=== PATIENT | male | born 1955 | race Caucasian/White ===

== ENCOUNTER 2016-04-27 13:41 | Emergency (ER) | payer OTHER ==
[~2016-04-27] VITALS: Ht 188 cm; Wt 120.7 kg
[~2016-04-27 13:41] MED LIST: ACID1TAB12 GT; ALLA266C2 TP; APIX2.5T GT; COLI150V NEB; DOCU50LI GT; GABA-532 GT; LACT1CAP72 GT; METO25TA6 GT; QUET25TA GT; RXVAN XX; TRAM50TA2 GT; VANC125C11 PO; ZOLP5TAB2 GT
[2016-04-27] MEDS ORDERED: IV NS 0.9% 500 ML BAG IV ONE (14:00)
[2016-04-27 14:05] LABS: BASOPHILS # (AUTO) 0.1 /CMM (0.0-0.2); BASOPHILS % (AUTO) 0.9 % (0.0-2.0); DIFF TOTAL % 100 %; EOSINOPHILS # (AUTO) 0.4 /CMM (0.0-0.7); EOSINOPHILS % (AUTO) 3.8 % (0.0-6.0); HEMATOCRIT 34 % (39-51); HEMOGLOBIN 11.3 g/dL (13.5-17.5); LYMPHOCYTES # (AUTO) 2.4 /CMM (0.8-4.8); LYMPHOCYTES % (AUTO) 24.1 % (20.0-44.0); MEAN CORPUSCULAR HEMOGLOBIN 31 PG (26.0-33.0); MEAN CORPUSCULAR HGB CONC 33 g/dl (31.0-36.0); MEAN CORPUSCULAR VOLUME 92 fL (80-96); MONOCYTES # (AUTO) 1.2 /CMM (0.1-1.30); MONOCYTES % (AUTO) 12.2 % (2.0-12.0); NEUTROPHILS # (AUTO) 5.7 /CMM (1.8-8.9); PLATELET COUNT (AUTO) 140 /CMM (150-450); RED BLOOD CELL COUNT(AUTO) 3.69 MIL/uL (4.5-6.0); WHITE BLOOD COUNT (AUTO) 9.8 K/uL (4.3-11.0)
[2016-04-27 14:13] LABS: CALCIUM, SERUM 8.4 mg/dL (8.5-10.1); CREATININE 5.3 mg/dL (0.6-1.3); POTASSIUM 4.6 mmol/L (3.5-5.1)
[2016-04-27] MEDS ORDERED: IV SET PRIMARY 1 EA INFUS.SET MC ONE (14:15)
[2016-04-27] MEDS ORDERED: IV NS 0.9% 500 ML IV ONE (14:15)
[2016-04-27 14:21] LABS: TROPONIN I 0.025 ng/mL (0.00-0.056)
[2016-04-27 16:02] VITALS: BP 123/75
== END 2016-04-27 16:03 | disposition home or self-care (01) ==
LOC: ER 13:44
DX: I95.9 Hypotension, unspecified (principal); I12.0 Hypertensive chronic kidney disease with stage 5 chronic kidney disease or end stage renal disease; N18.6 End stage renal disease; I25.10 Atherosclerotic heart disease of native coronary artery without angina pectoris; I48.91 Unspecified atrial fibrillation; J96.90 Respiratory failure, unspecified, unspecified whether with hypoxia or hypercapnia; E11.621 Type 2 diabetes mellitus with foot ulcer; M19.90 Unspecified osteoarthritis, unspecified site; E78.5 Hyperlipidemia, unspecified; E66.01 Morbid (severe) obesity due to excess calories; Z89.511 Acquired absence of right leg below knee; Z79.01 Long term (current) use of anticoagulants; Z99.2 Dependence on renal dialysis
CPT/HCPCS: 36415; 70450-TC; 71010-TC; 80048-TC; 82962-TC; 84484-TC; 85025-TC; A4606; J7040; Z7610

== ENCOUNTER 2016-05-04 17:24 | Inpatient (IN) | payer BC, OTHER ==
[~2016-05-04] VITALS: Ht 188 cm; Wt 115.2 kg
--- NOTE | 2016-05-04 17:30 | NUR ---
AAOX3, BB PRIVATE EMS FROM [facility]IALYS[facility] CENTER FOR RIGHT SIDED CHEST PAIN SINCE YESTERDAY POST HD, FROM [facility]. RESP IS EVEN AND UNLABORED WITH NAD NOTED. SKIN IS WARM AND DRY. PLACED ON MONITOR. DR SIMPSON AT BS FOR EVAL.
[2016-05-04 17:57] LABS: BASOPHILS # (AUTO) 0.1 /CMM (0.0-0.2); EOSINOPHILS # (AUTO) 0.3 /CMM (0.0-0.7); EOSINOPHILS % (AUTO) 3.6 % (0.0-6.0); HEMATOCRIT 33 % (39-51); HEMOGLOBIN 10.9 g/dL (13.5-17.5); LYMPHOCYTES # (AUTO) 1.7 /CMM (0.8-4.8); LYMPHOCYTES % (AUTO) 21.5 % (20.0-44.0); MEAN CORPUSCULAR HEMOGLOBIN 30 PG (26.0-33.0); MEAN CORPUSCULAR HGB CONC 33 g/dl (31.0-36.0); MEAN CORPUSCULAR VOLUME 92 fL (80-96); MONOCYTES # (AUTO) 1.2 /CMM (0.1-1.30); MONOCYTES % (AUTO) 15.1 % (2.0-12.0); NEUTROPHILS # (AUTO) 4.7 /CMM (1.8-8.9); NEUTROPHILS % (AUTO) 58.8 % (43.0-81.0); PLATELET COUNT (AUTO) 191 /CMM (150-450); RDW COEFFICIENT OF VARIATION 16.5 (11.5-15.0); RED BLOOD CELL COUNT(AUTO) 3.63 MIL/uL (4.5-6.0)
[2016-05-04 18:08] LABS: CALCIUM, SERUM 8.1 mg/dL (8.5-10.1); CREATININE 3.7 mg/dL (0.6-1.3)
[2016-05-04 18:16] LABS: TROPONIN I 0.029 ng/mL (0.00-0.056)
[2016-05-04 18:17] LABS: INR 1.02 (0.87-1.13); PROTHROMBIN TIME 10.7 SECS (9.5-12.7)
--- NOTE | 2016-05-04 18:45 | NUR ---
PROVIDED FOOD TRAY AT
[2016-05-04 18:53] LABS: POTASSIUM 3.9 mmol/L (3.5-5.1)
--- NOTE | 2016-05-04 19:05 | NUR ---
REPORT GIVEN TO DI GALLAGHER FOR BINDU.
[2016-05-04] MEDS ORDERED: CHOL500052 GT (19:22)
[2016-05-04] MEDS ORDERED: FOLI0.8T23 PO (19:22)
[2016-05-04] MEDS ORDERED: SEVE800T8 PO (19:22)
[2016-05-04] MEDS ORDERED: ACET160S GT (19:25)
[2016-05-04] MEDS ORDERED: INSU100V SQ (19:31)
[2016-05-04] MEDS ORDERED: AMIN30LI26 GT (19:38)
--- NOTE | 2016-05-04 20:01 | NUR ---
report given to osmany for castro
[2016-05-04 20:05] VITALS: BP 126/64
--- NOTE | 2016-05-04 20:30 | NUR ---
TELE/RN OPENING NOTES PATIENT ARRIVED TO UNIT FROM ER VIA GURNEY. IS AWAKE, A/OX3 BUT EASILY GETS DISTRACTED. ON O2LPM VIA NC, BREATHING EVEN AND UNLABORED, NO SIGNS OF DISTRESS NOTED. NO COMPLAINTS OF PAIN AT THIS TIME. IV TO LEFT HAND #18 PATENT AND INTACT. ORIENTED PATIENT TO ROOM AND CALL LIGHT. BED RAILS UPX3. BED ALARM ON. AWAITING ADMITTING ORDERS AT THIS TIME. WILL CONTINUE TO MONITOR Addendum: 05/04/16 at 2129 by ERIK WILKES RN ON TELE MONITORANKITA WITH HEART RATE AT 104
[2016-05-04] MEDS ORDERED: NITROGLYCERIN 0.4 MG/TAB BOTTLE ONE (22:10)
[2016-05-04] MEDS ORDERED: NITROGLYCERIN 0.4 MG/TAB BOTTLE SL PRN (22:30)
--- NOTE | 2016-05-04 22:30 | NUR ---
TELE/RN NOTES PATIENT COMPLAINING OF CHEST PAIN 12/11. ADMINISTERED NITRO X1 SL. PATIENT NOW COMPLAINING OF INDIGESTION AND PAIN TO BILATERAL KNEES, REQUESTING NORCO. PAGED DR. GOULD, AWAITING ORDERS.
[2016-05-04] MEDS ORDERED: PANTOPRAZOLE 40 MG TABLET.DR PO ONE (22:37)
[2016-05-04] MEDS ORDERED: HYDROCODONE/APAP 5/325MG 1 EACH TABLET ONE (22:38)
[2016-05-04] MEDS ORDERED: ASPIRIN 325 MG TABLET ONE (22:38)
[2016-05-04] MEDS: PANTOPRAZOLE 40 MG TABLET.DR PO SCH (22:41)
[2016-05-04] MEDS: ASPIRIN 325 MG TABLET PO SCH (22:42)
--- NOTE | 2016-05-04 22:45 | NUR ---
TELE/RN NOTES SPOKE TO DR. GOULD, ORDERED NORCO 5/325 PO PRN Q6H (TO GIVE NOW), PROTONIX 40MG PO DAILY (TO GIVE NOW), PEPCID 20MG PO PRN DAILY. WILL CARRY OUT ORDERS ACCORDINGLY.
[2016-05-04] MEDS ORDERED: HYDROCODONE/APAP 5/325MG 1 EACH TABLET PO PRN (23:00)
[2016-05-04] MEDS ORDERED: DEXTROSE 50%-WATER 50 ML DISP.SYRIN IV PRN (23:00)
[2016-05-04] MEDS ORDERED: INSULIN ASPART NOVOLOG 100 UNIT/ML CARTRIDGE SQ PRN (23:00)
[2016-05-04] MEDS ORDERED: QUETIAPINE FUMARATE 25 MG TABLET ONE (23:17)
[2016-05-04] MEDS ORDERED: GABAPENTIN 100 MG CAPSULE ONE (23:18)
[2016-05-04] MEDS: GABAPENTIN 100 MG CAPSULE PO SCH (23:27)
[2016-05-04] MEDS: QUETIAPINE FUMARATE 25 MG TABLET PO SCH (23:27)
[2016-05-05] VITALS: BP 111/61
--- NOTE | 2016-05-05 01:00 | NUR ---
TELE/RN NOTES CHARGE NURSE AND INFORMATICS NURSE AT BEDSIDE. PATIENT WAS VERY AGITATED, INSISTING TO SIT FORWARD ON THE EDGE OF THE BED UNTIL HE INTENTIONALLY KNEELED HIMSELF ON THE FLOOR. HE WAS REQUESTED TO SIT ON THE FLOOR AND 5 STAFF CARRIED AND PUT BACK INTO BED. PATIENT STILL INSISTING TO SIT AT THE SIDE OF THE BED, BUT WAS TOLD NOT TO DO IT BECAUSE IT WAS NOT SAFE FOR HIM AND BECAUSE HE IS A FALL RISK.
--- NOTE | 2016-05-05 01:01 | NUR ---
TELE/RN NOTES PATIENT ALSO REMOVED IV. ICU NURSE CAME UP TO INSERT NEW IV TO THE RIGHT PINKY FINGER. IV WAS WRAPPED WITH KERLIX REINFORCEMENT.
--- NOTE | 2016-05-05 01:30 | NUR ---
TELE/RN NOTES SPOKE TO DR. GOULD ABOUT PATIENT'S INCREASED AGITATION, COMBATIVENESS AND TRYING TO GET OUT OF BED. ORDERED ATIVAN 1MG IV PRN Q4H. ADMINISTERED ACCORDINGLY. ALSO ORDERED 1:1 SITTER. WILL CARRY OUT AND CONTINUE TO MONITOR
[2016-05-05] MEDS ORDERED: LORAZEPAM INJ 2 MG/ML VIAL ONE (01:46)
[2016-05-05 07:00] VITALS: BP 95/64
--- NOTE | 2016-05-05 07:20 | NUR ---
TELE/RN CLOSING NOTES PATIENT ASLEEP, SITTER AT BEDSIDE. REMAINED QUIET AFTER ADMINISTRATION OF ATIVAN. BED ALARM ON, BED RAILS UP. ON 2LPM O2 VIA NC, BUT PATIENT HAS BEEN REMOVING IT AFTER BEING EDUCATED. BREATHING EVEN AND UNLABORED. NO PAIN NOTED. IV TO RIGHT PINKY FINGER PATENT, INTACT AND WRAPPED WITH KERLIX. MADE PATIENT COMFORTABLE POSSIBLE THROUGHOUT SHIFT, NO ACUTE CHANGES OVERNIGHT. BED IN LOW/LOCKED POSITION WITH CALL LIGHT IN REACH. ENDORSED TO AM SHIFT BINDU.
[2016-05-05 07:28] LABS: BASOPHILS % (AUTO) 0.4 % (0.0-2.0); EOSINOPHILS # (AUTO) 0.4 /CMM (0.0-0.7); EOSINOPHILS % (AUTO) 4.7 % (0.0-6.0); HEMATOCRIT 32 % (39-51); HEMOGLOBIN 10.1 g/dL (13.5-17.5); LYMPHOCYTES % (AUTO) 23.4 % (20.0-44.0); MEAN CORPUSCULAR HEMOGLOBIN 30 PG (26.0-33.0); MEAN CORPUSCULAR HGB CONC 32 g/dl (31.0-36.0); MEAN CORPUSCULAR VOLUME 92 fL (80-96); MONOCYTES # (AUTO) 1.3 /CMM (0.1-1.30); MONOCYTES % (AUTO) 15.4 % (2.0-12.0); NEUTROPHILS # (AUTO) 4.8 /CMM (1.8-8.9); NEUTROPHILS % (AUTO) 56.1 % (43.0-81.0); PLATELET COUNT (AUTO) 219 /CMM (150-450); RDW COEFFICIENT OF VARIATION 17.2 (11.5-15.0); RED BLOOD CELL COUNT(AUTO) 3.43 MIL/uL (4.5-6.0); WHITE BLOOD COUNT (AUTO) 8.5 K/uL (4.3-11.0)
[2016-05-05] MEDS: BLOOD SUGAR DIAGNOSTIC 1 EACH STRIP IN SCH ×4 (07:37→21:07)
--- NOTE | 2016-05-05 07:46 | NUR ---
RN AM NOTES PATIENT IN BED ASLEEP, WITH 1:1 SITTER REPORTING THAT PATIENT HAS BEEN RESTING JUST NOW. IN STABLE CONDITION WITH EPISODE X1 LAST NIGHT OF CHEST PAIN, NITRO GIVEN ORDERED. RN PM REPORTS THAT PATIENT DID NOT SLEEP WELL LAST NIGHT AND WAS VERY AGITATED, ATIVAN GIVEN ORDERED. PATIENT IS FALL RISK, WILL CONTINUE TO MONITOR
[2016-05-05 07:54] LABS: TROPONIN I 0.022 ng/mL (0.00-0.056)
[2016-05-05 08:00] VITALS: BP 139/69
[2016-05-05 08:09] LABS: CALCIUM, SERUM 7.9 mg/dL (8.5-10.1); CREATININE 4.6 mg/dL (0.6-1.3); MAGNESIUM 2.1 mg/dL (1.8-2.4); PHOSPHORUS 4.5 mg/dL (2.5-4.9); POTASSIUM 3.8 mmol/L (3.5-5.1)
--- NOTE | 2016-05-05 08:40 | NUR ---
05/05/16: PATIENT RESIDES AT [facility] [phone]; CONFIRMED BED ON HOLD. PATIENT IS TOTAL DEPENDENT WITH TRACH AND PEG. DIALYSIS MWF AT [facility] [phone]. LEFT MESSAGE WITH INGRID PARKER (BROTHER) [phone] FOR D/C PLANNING. NEEDS TRANSPORTATION UPON D/C.
[2016-05-05] MEDS ORDERED: GABAPENTIN 100 MG CAPSULE GT SCH (09:00)
[2016-05-05] MEDS ORDERED: TRAMADOL HCL 50 MG TABLET GT PRN (09:00)
[2016-05-05] MEDS ORDERED: ZOLPIDEM TARTRATE 5 MG TABLET GT PRN (09:00)
[2016-05-05] MEDS: ASPIRIN 325 MG TABLET PO SCH (09:16)
[2016-05-05] MEDS: FAMOTIDINE (20 MG) 20 MG TABLET PO SCH (09:16)
[2016-05-05] MEDS: GABAPENTIN 100 MG CAPSULE PO SCH ×2 (09:16→21:07)
[2016-05-05] MEDS: PANTOPRAZOLE 40 MG TABLET.DR PO SCH (09:16)
[2016-05-05] MEDS: QUETIAPINE FUMARATE 25 MG TABLET PO SCH ×2 (09:17→21:07)
[2016-05-05] MEDS: ACIDOPHILUS/BULGARICUS 1 EACH TAB.CHEW GT SCH ×2 (09:23→17:21)
[2016-05-05] MEDS: METOPROLOL TARTRATE 25 MG TABLET GT SCH ×2 (09:24→17:00)
[2016-05-05 10:17] LABS: EOSINOPHILS % (MANUAL) 5 % (0-4); LYMPHOCYTES % (MANUAL) 22 % (16-48); MONOCYTES % (MANUAL) 16 % (0-11.0); NEUTROPHILS % (MANUAL) 56 (42-76); PLATELET ESTIMATE ADEQUATE; REACTIVE LYMPHOCYTES 1 % (0-0)
[2016-05-05] MEDS: PROSOURCE / PROSTAT (PYXIS) 30 ML UDC GT SCH ×3 (10:48→17:21)
[2016-05-05] MEDS: SEVELAMER CARBONATE 800 MG TABLET PO SCH ×2 (12:48→17:21)
--- NOTE | 2016-05-05 13:00 | NUR ---
MIDLINE INSERTED BY MIDLINE NURSE, NO PAIN OR DISCOMFORT NOTED, PT TOLERATED WELL. WILL MONITOR.
[2016-05-05] MEDS: LORAZEPAM INJ 2 MG/ML VIAL IV PRN ×2 (17:17→21:50)
[2016-05-05 18:00] VITALS: BP 105/65
--- NOTE | 2016-05-05 18:35 | NUR ---
PM RN NOTES PATIENT RESTING COMFORTABLY AFTER DINNER IN STABLE CONDITION. TOLERATED DIET, MEDS AND HEMODIALYSIS WELL, 3000 ML OUTPUT. TAKES PO LIQUIDS ENCOURAGED. BLOOD SUGAR AND BP IN LOWER RANGES. MIDLINE CATHETER IN ALLY PATENT AND DRAINING WELL, WILL ENDORSE TO NEXT SHIFT
--- NOTE | 2016-05-05 19:30 | NUR ---
TOWEL SORTER INITIAL NOTE RECEIVED PT AWAKE AND ALERT, ORIENTED X 2, SITTER AT BED SIDE, PT IS ATTEMPTING TO GET OUT OF BED, REDIRECTED CONTINUOUSLY, PT IS CLEAN/DRY, NEEDS WILL BE ATTENDED TO DURING HOURLY ROUNDS AND NEEDED, TELE MONITOR HR IN THE 120s WITH AFIB MD AWARE, PT IS BEDREST, USING BEDPAN, BILATERAL LEG DISCOLORATION, DRESSING ON TRACH STOMA FOR PREVIOUS TRACH TUBE, SAFETY MEASURES IN PLACE, WILL CONTINUE TO MONITOR.
[2016-05-05 20:00] VITALS: BP 141/82
[2016-05-05] MEDS ORDERED: QUETIAPINE FUMARATE 25 MG TABLET GT SCH ×2 (22:00)
[2016-05-05] MEDS ORDERED: QUETIAPINE FUMARATE 25 MG TABLET PO SCH (22:00)
[2016-05-06] VITALS (25 sets, daily range): BP systolic 50–175; BP diastolic 28–91
--- NOTE | 2016-05-06 06:20 | NUR ---
MS RN CLOSING NOTE PT WAS ABLE TO SLEEP MOST OF THE NIGHT, NO PAIN OR RESPIRATORY DISTRESS NOTED DURING HOURLY ROUNDS, 1:1 SITTER AT BEDSIDE, PT REMAINED STABLE DURING CORE WORKER, CLEAN/DRY AND COMFORTABLE, NEEDS ANTICIPATED AND ATTENDED TO, SAFETY MEASURES KEPT IN PLACE, WILL ENDORSE TO INCOMING NURSE FOR BINDU.
--- NOTE | 2016-05-06 07:46 | NUR ---
RN AM NOTES PATIENT RECEIVED IN STABLE CONDITION, ASLEEP, BUT AROUSABLE, LABEL PRINTER SITTER AT BEDSIDE. PATIENT WITH EVEN BREATHING BILATERALLY, NO SOB , NO DISTRESS NOTED. WILL CONTINUE TO MONITOR
[2016-05-06] MEDS: BLOOD SUGAR DIAGNOSTIC 1 EACH STRIP IN SCH ×4 (08:12→21:59)
[2016-05-06] MEDS: PROSOURCE / PROSTAT (PYXIS) 30 ML UDC GT SCH ×3 (08:12→17:23)
[2016-05-06] MEDS: QUETIAPINE FUMARATE 25 MG TABLET PO SCH ×2 (08:13→21:00)
[2016-05-06] MEDS: ASPIRIN 325 MG TABLET PO SCH (08:13)
[2016-05-06] MEDS: PANTOPRAZOLE 40 MG TABLET.DR PO SCH (08:13)
[2016-05-06] MEDS: VIT B CMPLX 3/FA/VIT C/BIOTIN 1 TAB TABLET PO SCH (08:13)
[2016-05-06] MEDS: SEVELAMER CARBONATE 800 MG TABLET PO SCH ×3 (08:13→17:23)
[2016-05-06] MEDS: ACIDOPHILUS/BULGARICUS 1 EACH TAB.CHEW GT SCH ×2 (08:13→17:23)
[2016-05-06] MEDS: FAMOTIDINE (20 MG) 20 MG TABLET PO SCH (08:14)
[2016-05-06] MEDS: GABAPENTIN 100 MG CAPSULE PO SCH ×2 (08:14→21:50)
[2016-05-06] MEDS: METOPROLOL TARTRATE 25 MG TABLET GT SCH ×2 (08:15→17:00)
[2016-05-06] MEDS ORDERED: IPRATROPIUM NEB FS 0.5 MG/2.5 ML AMPUL.NEB NEB PRN (11:00)
--- NOTE | 2016-05-06 12:10 | NUR ---
PT ON DIALYSIS, PROCEDURE JUST FINISHED, TOLERATED WELL
[2016-05-06] MEDS ORDERED: COD LIVER OIL/ZINC OXIDE 120 GM TUBE TP SCH (13:35)
--- NOTE | 2016-05-06 14:05 | NUR ---
PATIENT NOTED WITH AGITATION, JUMPING OUT OF BED, TRYING TO REMOVE MIDLINE CATHETER, REDIRECTED PATIENT, WILL MONITOR. SITTER AT BEDSIDE.
[2016-05-06] MEDS: LORAZEPAM INJ 2 MG/ML VIAL IV PRN (14:11)
--- NOTE | 2016-05-06 14:15 | NUR ---
ATIVAN FOR ANXIETY MANIFESTED BY RESTLESSNESS, JUMPING OUT OF BED. ADMINISTERED MEDICATION ORDERED, WILL MONITOR
[2016-05-06] MEDS: NEOMY SULF/BACITRAC ZN/POLY 15 GM TUBE TP SCH (15:43)
--- NOTE | 2016-05-06 15:44 | NUR ---
RECEIVED TOPICAL MEDICATIONS, INSTRUCTED APPRENTICESHIP TRAINING REPRESENTATIVE ON HOW TO APPLY CORRECTLY, MEDICATIONS AT BEDSIDE
--- NOTE | 2016-05-06 19:30 | NUR ---
184 CALLED TO SCENE BY SITTER SAYING THAT PATIENT WAS PALE, ARRIVED AT PATIENT'S ROOM IMMEDIATELY, SEEN PATIENT IN SEMI-HUSTON'S POSITION PALE AND UNRESPONSIVE, SAMUEL CARRINGTON CALLED. UNABLE TO GET VITAL SIGNS. INITIATED CPR. 1846 SAMUEL CARRINGTON TEAM ARRIVED AND TOOK OVER. 1851 PATIENT INTUBATED. EPI PUSHED X2 DONE BY ICU STAFF, ER MD AT BEDSIDE, ABLE TO OBTAIN BP 114/56, BLOOD SWUEP=273. PATIENT TRANSFERRED REVIVED WITH PULSE AND BP PRESENT TO ICU AT 1920. DR HUIZAR SALVAGE LABORER FOR DR. TIPTON INFORMED AT 8:25PM, CALLED BACK TO ACKNOWLEDGE AT 8:40PM. PATIENT'S BROTHER INGRID PARKER INFORMED.
[2016-05-06] MEDS ORDERED: IV NS 0.9% 500 ML IV ONE ×4 (19:48→21:30)
[2016-05-06 19:49] LABS: CALCIUM, SERUM 7.6 mg/dL (8.5-10.1); CREATININE 4.3 mg/dL (0.6-1.3); POTASSIUM 3.9 mmol/L (3.5-5.1); TROPONIN I 0.023 ng/mL (0.00-0.056)
[2016-05-06] MEDS ORDERED: IV SET PRIMARY PUMP SET 1 EA INFUS.SET MC ONE (19:49)
[2016-05-06 19:53] LABS: BILIRUBIN,TOTAL 0.2 mg/dL (0.2-1.0); TOTAL PROTEIN, SERUM 6.2 g/dL (6.4-8.2)
[2016-05-06] MEDS ORDERED: SODIUM BICARBONATE SYR 50 MEQ/50 ML DISP.SYRIN IV ONE (19:55)
[2016-05-06] MEDS ORDERED: EPINEPHRINE (1:10,000) SYRINGE 1 MG/10 ML DISP.SYRIN IVP ONE (19:55)
[2016-05-06] MEDS ORDERED: MIDAZOLAM HCL 100 MG in IV NS 0.9% 80 ML IV PRN (20:00)
--- NOTE | 2016-05-06 20:00 | NUR ---
PT ORALLY INTUBATED DUE TO RESP AND CARDIAC ARREST, WITH ETT TUBE 7.5 CURRENTLY AT 24CM AT THE LIP. AIRWAY INSERTION ENEDELIA WELL NO ADVERSE REACTION. BREATH SOUNDS EQUAL BILAT, TUBE SECURED AND PATENT. PT PLACED ON [facility] VENTILATION WITH NOTED SETTINGS AC 16, 550, 100% +5. PT APPEARS TO BE TOLERATING WELL, NO SOB NOTED. AMBU BAG AT BEDSIDE, VENT PLUGGED INTO RED OUTLET. WILL CONTINUE TO MONITOR FURTHER. Addendum: 05/06/16 at 2005 by SHELBY SHARMA RT Amended: Links added.
--- NOTE | 2016-05-06 20:05 | NUR ---
RN NOTES CALLED ON-CALL DR HAWKINS TO NOTIFY HIM OF PATIENT CARDIOPULMONARY ARREST. NOTIFIED HIM OF CURRENT PATIENT SBP 50'S. DR HAWKINS ORDERED LEVOPHED DRIP DOUBLE CONCENTRATION TO KEEP SBP > 90. HE ALSO ORDERED PICC LINE INSERTION WELL, CONSENT OBTAINED FROM PATIENT BROTHER INGRID OVER THE PHONE. NOTIFIED MD THAT PT ABDOMEN IS DISTENDED. HE ORDERED NGT TO SUCTION. HE ALSO ORDERED VERSED DRIP ON TITRATION FOR SEDATION. HE ORDERED PROTONIX 40MG IV DAILY TO BE STARTED. DR HAWKINS ORDERED FOR PULMONARY MD TO BE NOTIFIED OF ABG RESULT SOON RESULT IS AVAILABLE TO ADJUST VENT SETTINGS. CBC, BMP, MAG, PHOS, AND ABG TO BE DRAWN AGAIN IN AM. WILL INITIATE ORDERS.
[2016-05-06] MEDS: NOREPINEPHRINE 16 MG in IV D5W 500 ML IV PRN (20:19)
[2016-05-06] MEDS ORDERED: PANTOPRAZOLE 40 MG VIAL IV SCH (21:00)
[2016-05-06] MEDS ORDERED: PHENYLEPHRINE 80 MG in IV D5W 250 ML IV PRN (21:30)
--- NOTE | 2016-05-06 21:30 | NUR ---
RN NOTES CALLED ON-CALL DR HAWKINS TO NOTIFY THAT PT IS ON MAX LEVO DRIP BUT SBP IS STILL 50'S. MD ORDERED NERY DRIP TO KEEP SBP > 90 AND 500MLS NS BOLUS. WILL INITIATE
[2016-05-06 21:47] LABS: ABG BASE EXCESS 1.2 mmol/L; ABG OXYGEN SATURATION 99.1 % (92.0-98.5); ABG PCO2 44.2 mmHg (35.0-45.0); ABG PH 7.393 (7.350-7.450); ABG PO2 319.4 mmHg (75.0-100.0); ABG TOTAL HEMOGLOBIN 10.5 G/dL (13.5-18.0); AaDO2 349.4 mmHg; COHb 0.5 % (0.5-1.5); MetHb 0.9 % (0.0-1.5); O2Hb 97.7 % (94.0-97.0); PEEP,BG 5 cm H2O; SITE, ABG A-Line; VENT MODE, BG VENT AC; VT, ABG 550 mL
--- NOTE | 2016-05-06 21:51 | NUR ---
RN NOTES DID NOT ADMINISTER THE SCHEDULED SEROQUEL 25MG PATIENT IS CURRENTLY VERY LETHARGIC. ALSO DID NOT ADMINISTER THE ORDERED 500MLS NS BOLUS, PT BLOOD PRESSURE IS NOW WNL WITH SBP >90, CURRENTLY ON LEVO 10MCG/MIN
[2016-05-07] VITALS (68 sets, daily range): BP systolic 54–160; BP diastolic 32–98
[2016-05-07] MEDS ORDERED: SET PCA INFUSE SET 1 EA INFUS.SET MC ONE (02:16)
[2016-05-07] MEDS ORDERED: IV NS 0.9% 250 ML IV ONE (02:30)
[2016-05-07] MEDS ORDERED: IV SET PRIMARY PUMP SET 1 EA INFUS.SET MC ONE ×2 (02:30→11:26)
[2016-05-07 05:00] LABS: CALCIUM, SERUM 7.4 mg/dL (8.5-10.1); CREATININE 4.4 mg/dL (0.6-1.3)
[2016-05-07 05:05] LABS: HEMATOCRIT 30 % (39-51); HEMOGLOBIN 9.9 g/dL (13.5-17.5); LYMPHOCYTES # (AUTO) 0.6 /CMM (0.8-4.8); LYMPHOCYTES % (AUTO) 4.6 % (20.0-44.0); MEAN CORPUSCULAR HEMOGLOBIN 30 PG (26.0-33.0); MEAN CORPUSCULAR HGB CONC 33 g/dl (31.0-36.0); MEAN CORPUSCULAR VOLUME 92 fL (80-96); MONOCYTES # (AUTO) 0.9 /CMM (0.1-1.30); MONOCYTES % (AUTO) 6.1 % (2.0-12.0); NEUTROPHILS # (AUTO) 12.6 /CMM (1.8-8.9); NEUTROPHILS % (AUTO) 89.3 % (43.0-81.0); PLATELET COUNT (AUTO) 235 /CMM (150-450); RDW COEFFICIENT OF VARIATION 16.6 (11.5-15.0); RED BLOOD CELL COUNT(AUTO) 3.31 MIL/uL (4.5-6.0); WHITE BLOOD COUNT (AUTO) 14.1 K/uL (4.3-11.0)
--- NOTE | 2016-05-07 06:30 | NUR ---
RN CLOSING NOTES PT REMAINS STABLE OF THE MOMENT. LEVO DRIP WAS STOPPED @ 0130 DUE TO SBP SUSTAINED > 90; NOW, RESTARTED @ 2MCG/MIN DUE TO SBP < 90. VERSED DRIP WAS STARTED @ 0230 AND IS CURRENTLY RUNNING @ 5MG/HR. VENT FIO2 HAS BEEN TITRATED DOWN TO 60%. ALL DUE MEDS GIVEN, AM CARE PROVIDED. WILL ENDORSE TO AM RN
[2016-05-07] MEDS: QUETIAPINE FUMARATE 25 MG TABLET PO SCH ×2 (09:00→21:00)
[2016-05-07] MEDS: BLOOD SUGAR DIAGNOSTIC 1 EACH STRIP IN SCH ×3 (09:05→18:39)
[2016-05-07] MEDS: VIT B CMPLX 3/FA/VIT C/BIOTIN 1 TAB TABLET PO SCH (09:06)
[2016-05-07] MEDS: SEVELAMER CARBONATE 800 MG TABLET PO SCH ×3 (09:06→18:13)
[2016-05-07] MEDS: ASPIRIN 325 MG TABLET PO SCH (09:06)
[2016-05-07] MEDS: PROSOURCE / PROSTAT (PYXIS) 30 ML UDC GT SCH (09:06)
[2016-05-07] MEDS: ACIDOPHILUS/BULGARICUS 1 EACH TAB.CHEW GT SCH (09:06)
[2016-05-07] MEDS: FAMOTIDINE (20 MG) 20 MG TABLET PO SCH (09:06)
[2016-05-07] MEDS: PANTOPRAZOLE 40 MG TABLET.DR PO SCH (09:06)
[2016-05-07] MEDS: GABAPENTIN 100 MG CAPSULE PO SCH ×2 (09:06→21:25)
--- NOTE | 2016-05-07 10:15 | NUR ---
BP IS STABLE AT 120S TO 130S. LEVOPHED TITRATED OFF.
[2016-05-07] MEDS ORDERED: PROPOFOL 100 ML IV PRN (10:30)
[2016-05-07 10:49] LABS: ABG BASE EXCESS 1.6 mmol/L; ABG OXYGEN SATURATION 98.8 % (92.0-98.5); ABG PH 7.423 (7.350-7.450); ABG PO2 188.9 mmHg (75.0-100.0); ABG TOTAL HEMOGLOBIN 10.5 G/dL (13.5-18.0); AaDO2 193.8 mmHg; COHb 0.7 % (0.5-1.5); MetHb 0.8 % (0.0-1.5); O2Hb 97.3 % (94.0-97.0); PEEP,BG 5 cm H2O; SITE, ABG A-Line; VT, ABG 550 mL
[2016-05-07] MEDS ORDERED: IV D5/ 0.9% NACL 1,000 ML IV PRN (11:00)
[2016-05-07] MEDS ORDERED: FEE PK DOSING 1 MIN EA MC ONE (11:10)
[2016-05-07] MEDS: NEOMY SULF/BACITRAC ZN/POLY 15 GM TUBE TP SCH (11:22)
[2016-05-07] MEDS ORDERED: SECONDARY IV SET 1 EA INFUS.SET MC ONE (11:26)
[2016-05-07] MEDS ORDERED: VANCOMYCIN 1 GM in IV D5W 250 ML IV ONE (12:00)
[2016-05-07] MEDS ORDERED: PIPERACILLIN /TAZOBACTAM 3.375 G in IV D5W 50 ML IV SCH (12:00)
[2016-05-07] MEDS: ERGOCALCIFEROL (VITAMIN D 2) 50,000 UNIT CAPSULE GT SCH (12:15)
--- NOTE | 2016-05-07 13:06 | NUR ---
PRESSORS RESTARTED. ART LINE ZEROED AND BP IS 70-80S. RESTARTED LEVOPHED AT 5MCG AND TITRATED UP TO 8 TO STABILIZE BP AT 120S
[2016-05-07] MEDS: PIPERACILLIN /TAZOBACTAM 2.25 G in IV D5W 50 ML IV SCH ×2 (13:42→21:23)
--- NOTE | 2016-05-07 14:07 | NUR ---
SPUTUM SPECIMEN FROM ETT COLLECTED WOUND SPECIMEN FROM OLD TRACHE SITE COLLECTED. I LABELED THESE SPECIFICALLY INDICATING WHICH WAS WHICH AND EXPLAINED TO THE SECOND HAND PAPER MACHINE WHO PICKED THEM UP THE DIFFERENCE BETWEEN THE 2 SPECIMENS. HE STATES HE WILL COME BACK FOR URINE SPECIMEN.
--- NOTE | 2016-05-07 15:00 | NUR ---
PT TITRATED OFF LEVOPHED. BP IS STABLE. OFF SEDATION WELL HIS BP DROPPED WITH INITIATION WITH DIPRIVAN. DISCUSSED WITH CHARGE NURSE.
[2016-05-07] MEDS: LORAZEPAM INJ 2 MG/ML VIAL IV PRN (15:11)
[2016-05-07] MEDS ORDERED: DILTIAZEM HCL 25 MG IV IV ONE (17:30)
[2016-05-07] MEDS ORDERED: DILTIAZEM HCL IV 125 MG in IV D5W 100 ML IV PRN (17:30)
[2016-05-07] MEDS ORDERED: LEVOFLOXACIN 500 MG /D5W 100ML 500 MG in PREMIX 1 EA IV ONE (18:00)
[2016-05-07] MEDS: METOPROLOL TARTRATE 25 MG TABLET NG SCH ×2 (18:14→20:38)
--- NOTE | 2016-05-07 18:27 | NUR ---
COLLECTED URINE SAMPLE VIA [place] CATHETER PLACEMENT PER DR. YEPEZ. CALLED LAB FOR PICKUP.
--- NOTE | 2016-05-07 19:30 | NUR ---
PER INFECTIOUS DISEASE LOG ROLLER JUDEEN, BLOOD CULTURES ARE TO BE COLLECTED DURING NEXT SCHEDULED HEMODIALYSIS SPECIFICALLY USING THE HD CATHETER. PASSED ON IN REPORT.
[2016-05-07] MEDS: MUPIROCIN OINT 2% 22 GM TUBE SCH (19:43)
--- NOTE | 2016-05-07 20:00 | NUR ---
FILEMAKER DEVELOPER : RECEIVED PT FROM DAY SHIFT, S/P CODE BLUE / DUE TO CARDIOPULMONARY ARREST, INTUBATED 7.5, 24 CM ON LIP LINE, VENT SETTING VERIFIED. NO DISTRESS. NO SEDATION AT THIS TIME , PT IS OBTUNDED, OPEN EYES THAT DOESN'T TRACK, NOT FOLLOW COMMANDS, AROUSAL TO PAIN STIMULI, SAFETY RESTRAINTS ON. AFIB ON MONITOR. NO URINE OUTPUT, PT ON DIALYSIS. PICC ON LEFT UPPER ARM, INTACT. RIGHT RADIAL ARTERIAL LINE INTACT. TURN AND REPOSITIONED FOR COMFORT. PRN ORDERS IF HEART RATE GOES UP TO 110 START CARDIZEM DRIP. ALL NEEDS ATTENDED. PT'S BROTHER AT BEDSIDE, CONDITION UPDATED.
[2016-05-07] MEDS: IPRATROPIUM NEB FS 0.5 MG/2.5 ML AMPUL.NEB NEB SCH (20:16)
--- NOTE | 2016-05-07 20:39 | NUR ---
IT BUSINESS PROCESS ARCHITECT: 2100 LOPRESSOR HELD DUE TO LOW BP AND THE LAST DOSE WAS GIVEN AT 1800 ITS NOT TIME YET TO GIVE, RESTARTED LEVOPHED AT 2 MCG/MIN, ONGOING MONITORING...
--- NOTE | 2016-05-07 21:07 | NUR ---
BOTTLE WASHING MACHINE OPERATOR: SEROQUEL 2100 DOSE NOT GIVEN , PT IS OBTUNDED, NO AGITATION AT THIS TIME,. KEEP MONITORING...
[2016-05-08] VITALS (62 sets, daily range): BP systolic 81–151; BP diastolic 45–94
[2016-05-08] MEDS: IPRATROPIUM NEB FS 0.5 MG/2.5 ML AMPUL.NEB NEB SCH ×6 (00:15→20:09)
[2016-05-08] MEDS: BLOOD SUGAR DIAGNOSTIC 1 EACH STRIP IN SCH ×5 (00:28→23:35)
[2016-05-08] MEDS: PIPERACILLIN /TAZOBACTAM 2.25 G in IV D5W 50 ML IV SCH ×3 (05:04→20:07)
[2016-05-08 05:10] LABS: BASOPHILS # (AUTO) 0.1 /CMM (0.0-0.2); BASOPHILS % (AUTO) 0.4 % (0.0-2.0); EOSINOPHILS # (AUTO) 0.2 /CMM (0.0-0.7); EOSINOPHILS % (AUTO) 1.7 % (0.0-6.0); HEMATOCRIT 29 % (39-51); HEMOGLOBIN 9.3 g/dL (13.5-17.5); LYMPHOCYTES # (AUTO) 1.7 /CMM (0.8-4.8); LYMPHOCYTES % (AUTO) 13.2 % (20.0-44.0); MEAN CORPUSCULAR HEMOGLOBIN 29 PG (26.0-33.0); MEAN CORPUSCULAR HGB CONC 33 g/dl (31.0-36.0); MEAN CORPUSCULAR VOLUME 90 fL (80-96); MONOCYTES # (AUTO) 1.2 /CMM (0.1-1.30); NEUTROPHILS # (AUTO) 9.8 /CMM (1.8-8.9); NEUTROPHILS % (AUTO) 75.7 % (43.0-81.0); PLATELET COUNT (AUTO) 254 /CMM (150-450); RDW COEFFICIENT OF VARIATION 16.7 (11.5-15.0); RED BLOOD CELL COUNT(AUTO) 3.17 MIL/uL (4.5-6.0)
[2016-05-08 05:26] LABS: ALBUMIN 1.6 g/dL (3.4-5.0); BILIRUBIN,TOTAL 0.4 mg/dL (0.2-1.0); CALCIUM, SERUM 7.3 mg/dL (8.5-10.1); CREATININE 5.8 mg/dL (0.6-1.3); MAGNESIUM 1.8 mg/dL (1.8-2.4); PHOSPHORUS 3.2 mg/dL (2.5-4.9); POTASSIUM 3.6 mmol/L (3.5-5.1); TOTAL PROTEIN, SERUM 5.5 g/dL (6.4-8.2)
[2016-05-08 05:30] LABS: TROPONIN I 0.047 ng/mL (0.00-0.056)
--- NOTE | 2016-05-08 06:45 | NUR ---
SPINNING FRAME CHANGER; SEEN AND EXAMINED BY DR PATTERSON, CONDITION UPDATED, DC IV FLUID.
--- NOTE | 2016-05-08 07:30 | NUR ---
PT RECVD ETT 7.5 INTUBATED ETT 25CM AT LIP. CXR STATES ETT 2CM ABOVE DANTE. SATURATING AT 99%. AFIB ON THE MONITOR AVERAGING 90-110. OFF LEVOPHED SINCE MIDNIGHT. BP IS 114/66 AND INCREASES WITH ACTIVITY. MONITORING THROUGH RIGHT ART LINE. AM BLOOD GLUCOSE IS 102.
--- NOTE | 2016-05-08 07:31 | NUR ---
EYES OPEN,UNRESPONSIVE TO VERBAL COMMAND,RESPONSIVE TO PAINFUL STIMULI,SKIN WARM DRY TO TOUCH COLOR IS FAIR.B/S AR EQUAL CRACKLES,SECRETIONS,YELLOWISH,ET,MOUTH. TOLERATING CURRENT VENTILATOR SETTINGS. CONTINUE VENTILATOR SUPPORT. MAIDA MCCORMACK
[2016-05-08] MEDS: SEVELAMER CARBONATE 800 MG TABLET PO SCH ×3 (08:08→17:13)
[2016-05-08] MEDS: VIT B CMPLX 3/FA/VIT C/BIOTIN 1 TAB TABLET PO SCH (08:09)
[2016-05-08] MEDS: MUPIROCIN OINT 2% 22 GM TUBE SCH ×2 (08:09→20:54)
[2016-05-08] MEDS: METOPROLOL TARTRATE 25 MG TABLET NG SCH ×2 (08:10→20:54)
[2016-05-08] MEDS: NEOMY SULF/BACITRAC ZN/POLY 15 GM TUBE TP SCH (08:11)
[2016-05-08] MEDS: ASPIRIN 325 MG TABLET PO SCH (08:11)
[2016-05-08] MEDS: ACETAMINOPHEN 650 MG/20.3 ML UDC PO PRN (09:01)
[2016-05-08] MEDS ORDERED: DEXTROSE 50%-WATER 50 ML DISP.SYRIN IV PRN (09:30)
--- NOTE | 2016-05-08 09:54 | NUR ---
DR. YEPEZ ORDERS TO START NEPRO TF AT 10CC AND ASSESS FOR RESIDUALS INCREASE TO 35 MAX FOR NOW UNTIL NUTRITION (NUTRION CONSULT IN) CAN ASSESS FOR OPTIMAL FEEDING RATE.
[2016-05-08] MEDS ORDERED: EPOETIN ALFA (10,000 UNIT) 10,000 UNIT/ML VIAL SQ ONE (10:00)
--- NOTE | 2016-05-08 10:45 | NUR ---
PT WENT TO CT FOR HEAD. TRANSPORTED VIA HAND VENTILATION (AMBU BAG) 100%. BACK TO ICU ATTACHED TO CURRENT VENTILATOR SETTINGS. MAIDA MCCORMACK
--- NOTE | 2016-05-08 10:55 | NUR ---
PT TAKEN DOWN TO CT HEAD.
[2016-05-08] MEDS ORDERED: VANCOMYCIN 500 MG in IV D5W 100 ML IV PRN (11:00)
[2016-05-08] MEDS ORDERED: IV NS 0.9% 250 ML IV ONE (11:17)
[2016-05-08] MEDS: NOREPINEPHRINE 16 MG in IV D5W 500 ML IV PRN (11:35)
--- NOTE | 2016-05-08 11:36 | NUR ---
PT BACK FROM CT HEAD. SBP IS LOW IN THE 70S. ZEROED A LINE AND DOUBLE CHECKED WITH AUTOMATIC NIBP. RESTARTED LEVOPHED AT 5MCG/MIN.
[2016-05-08] MEDS: ALBUTEROL FS 2.5 MG/0.5 ML VIAL.NEB NEB PRN (11:38)
[2016-05-08] MEDS ORDERED: IV NS 0.9% 500 ML IV ONE (11:38)
--- NOTE | 2016-05-08 12:12 | NUR ---
HD NURSE IN FOR TREATMENT. PROVIDED RN WITH TUBES FOR BLOOD CULTURES DR. YEPEZ WANTED CULTURES USING THE HD SITE
--- NOTE | 2016-05-08 15:15 | NUR ---
HD COMPLETE 2800ML OUT.
[2016-05-08] MEDS ORDERED: VANCOMYCIN 1 GM in IV D5W 250 ML IV ONE (16:00)
[2016-05-08] MEDS ORDERED: LEVOFLOXACIN 250 MG /D5W 50 ML 250 MG in PREMIX 1 EA IV SCH (17:00)
--- NOTE | 2016-05-08 17:54 | NUR ---
POWER PLUGGED TO RED WALL OUTLET. VENTILATOR ALARMS ARE AUDIBLE AND FUNCTIONING PROPERLY. EASTON,MAIDA
[2016-05-08] MEDS ORDERED: IV SET PRIMARY PUMP SET 1 EA INFUS.SET MC ONE (18:21)
--- NOTE | 2016-05-08 18:43 | NUR ---
CALLED PHARMACY AGAIN FOR ALF.
[2016-05-08] MEDS: RENAL NOVASOURCE 1,000 ML BOTTLE GT PRN (19:49)
--- NOTE | 2016-05-08 20:00 | NUR ---
RN INITIAL NOTES RECEIVED PT AWAKE ON BED, OBTUNDED, OPENS EYES ONLY, DOES NOT TRACK. ON VENT, ETT 7.5/25, AC 16, TV 550, 35% FIO2, PEEP 5, SATURATING WELL, NO S/S OF RESP DISTRESS. CURRENTLY AFIB ON THE MONITOR, HR 90-120'S. LEVO DRIP HAS BEEN STOPPED SINCE SBP IS MAINTAINED > 90. OGT IN PLACE, NOVASOURCE FEEDING WILL BE STARTED WITH A GOAL RATE 35MLS/HR. [place] CATH IN PLACE. LEFT UPPER ARM PICC WITH TKO, FLUSHED AND PATENT, NO S/S OF INFILTRATION/INFECTION, DRESSING CDI. RIGHT RADIAL ARTERIAL LINE IN PLACE, ZEROED AND FLUSHED. RIGHT CHEST WALL HD CATH INTACT. BILATERAL SOFT WRIST RESTRAINTS IN PLACE. BED LOW AND LOCKED, SIDERAILS UP. WILL MONITOR
[2016-05-08] MEDS ORDERED: SECONDARY IV SET 1 EA INFUS.SET MC ONE (20:49)
[2016-05-08] MEDS: DOXYCYCLINE 100 MG in IV D5W 100 ML IV SCH (20:52)
--- NOTE | 2016-05-08 21:20 | NUR ---
RN NOTES PT BLOOD PRESSURE IS 70/37, ARTERIAL LINE IS ZEROED AND ARTERIAL BP STILL SHOWS SBP 70'S. RESTARTED LEVO DRIP @ 2MCG/MIN. WILL MONITOR
--- NOTE | 2016-05-08 22:30 | NUR ---
RN NOTES PT'S SBP NOTED TO BE > 90'S FOR ABOUT 1 HR. MOST CURRENT ARTERIAL BP IS 120/64. LEVO DRIP IS STOPPED. WILL CLOSELY MONITOR
[2016-05-09] VITALS (54 sets, daily range): BP systolic 81–160; BP diastolic 44–95
[2016-05-09] MEDS: LORAZEPAM INJ 2 MG/ML VIAL IV PRN (00:25)
--- NOTE | 2016-05-09 00:25 | NUR ---
RN NOTES PT APPEARS TO BE ANXIOUS, HEART RATE IS INCREASING TO 140'S AND SBP 160'S. WILL ADMINISTER PRN ATIVAN 1MG. WILL MONITOR
[2016-05-09] MEDS: IPRATROPIUM NEB FS 0.5 MG/2.5 ML AMPUL.NEB NEB SCH ×7 (00:26→23:12)
[2016-05-09 04:39] LABS: BASOPHILS % (AUTO) 0.3 % (0.0-2.0); EOSINOPHILS # (AUTO) 0.4 /CMM (0.0-0.7); HEMATOCRIT 31 % (39-51); HEMOGLOBIN 10.2 g/dL (13.5-17.5); LYMPHOCYTES # (AUTO) 1.8 /CMM (0.8-4.8); LYMPHOCYTES % (AUTO) 15.3 % (20.0-44.0); MEAN CORPUSCULAR HEMOGLOBIN 30 PG (26.0-33.0); MEAN CORPUSCULAR HGB CONC 33 g/dl (31.0-36.0); MEAN CORPUSCULAR VOLUME 90 fL (80-96); MONOCYTES # (AUTO) 1.4 /CMM (0.1-1.30); MONOCYTES % (AUTO) 11.5 % (2.0-12.0); NEUTROPHILS # (AUTO) 8.2 /CMM (1.8-8.9); NEUTROPHILS % (AUTO) 69.9 % (43.0-81.0); PLATELET COUNT (AUTO) 272 /CMM (150-450); RDW COEFFICIENT OF VARIATION 16.4 (11.5-15.0); RED BLOOD CELL COUNT(AUTO) 3.43 MIL/uL (4.5-6.0); WHITE BLOOD COUNT (AUTO) 11.8 K/uL (4.3-11.0)
[2016-05-09 04:59] LABS: CALCIUM, SERUM 7.6 mg/dL (8.5-10.1); CREATININE 5.5 mg/dL (0.6-1.3); MAGNESIUM 1.9 mg/dL (1.8-2.4); POTASSIUM 3.3 mmol/L (3.5-5.1)
[2016-05-09] MEDS: BLOOD SUGAR DIAGNOSTIC 1 EACH STRIP IN SCH ×3 (05:26→17:01)
[2016-05-09] MEDS: PIPERACILLIN /TAZOBACTAM 2.25 G in IV D5W 50 ML IV SCH ×2 (05:26→13:46)
--- NOTE | 2016-05-09 06:30 | NUR ---
RN CLOSING NOTES PT REMAINS STABLE OF THE MOMENT. ALL DUE MEDS GIVEN, AM CARE PROVIDED. WILL ENDORSE CONTINUITY OF CARE TO AM RN
--- NOTE | 2016-05-09 07:25 | NUR ---
RT START NOTE, PT. 60 Y OLD MALE REC'D ORALLY INTUBATED WITH #7.5 ETT @ 24CM AT THE LIP VIA ANCHOR FAST. NO RESP DISTRESS NOTED PT TOLERATING VENT SETTINGS. VENT ALARMS SET AND AUDIBLE. AMBU BAG AT BEDSIDE. ETT CUFF CHECKED HOME CARE MANAGER. WILL CONTINUE TO MONITOR. TX,S STARTED INLINE NO ADVERSE REACTION NOTED. Addendum: 05/09/16 at 1110 by KIMMY KEVIN RT Amended: Links added.
--- NOTE | 2016-05-09 07:30 | NUR ---
ICU/RN: PT RECEIVED AWAKE, RESPONDS TO DEEP PAIN, DOES NOT TRACK, BREATHING EVEN AND UNLABORED ON CURRENT VENT SETTINGS. R RADIAL ART LINE, ZEROED, FLUSHED PER PROTOCOL. FC DRAINING CLEAR YELLOW URINE TO GRAVITY. GTF ONGOING AT 35CC/HR, WITH 10CC RESIDUAL NOTED. HEEL AND STUMP OFFLOADED. KEPT CLEAN AND DRY. ALARM SOUNDS AUDIBLE. WILL CONT TO MONITOR PT.
[2016-05-09] MEDS: SEVELAMER CARBONATE 800 MG TABLET PO SCH (08:00)
[2016-05-09] MEDS: ASPIRIN 325 MG TABLET PO SCH (08:27)
[2016-05-09] MEDS: METOPROLOL TARTRATE 25 MG TABLET NG SCH ×2 (08:28→20:41)
[2016-05-09] MEDS: DOXYCYCLINE 100 MG in IV D5W 100 ML IV SCH ×2 (08:28→20:41)
[2016-05-09] MEDS: VIT B CMPLX 3/FA/VIT C/BIOTIN 1 TAB TABLET PO SCH (08:28)
[2016-05-09] MEDS: MUPIROCIN OINT 2% 22 GM TUBE SCH ×2 (08:29→20:42)
[2016-05-09 08:51] LABS: ABG BASE EXCESS 1.8 mmol/L; ABG OXYGEN SATURATION 97.9 % (92.0-98.5); ABG PH 7.449 (7.350-7.450); ABG TOTAL HEMOGLOBIN 10.9 G/dL (13.5-18.0); AaDO2 94.4 mmHg; COHb 0.8 % (0.5-1.5); MetHb 0.8 % (0.0-1.5); O2Hb 96.3 % (94.0-97.0); SITE, ABG A-Line; VENT MODE, BG AC 16 550 35%+5; VT, ABG 550 mL
[2016-05-09] MEDS: NEOMY SULF/BACITRAC ZN/POLY 15 GM TUBE TP SCH ×2 (08:51→17:12)
--- NOTE | 2016-05-09 09:00 | NUR ---
ICU/RN: CALLED RX REGARDING NEW NEOSPORIN TUBE. AWAITING DELIVERY.
--- NOTE | 2016-05-09 10:05 | NUR ---
ICU/RN: DR CABELLO AT BEDSIDE WITH RN AND BATTERY ASSEMBLER PLASTIC FOR NEURO CONSULT. PER MD "PT STILL HAS BRAINSTEM FUNCTION AND RESPONDS TO NOXIOUS STIMULI. NEUROLOGIC RECOVERY IS INDETERMINATE." RECOMMENDS EEG.
--- NOTE | 2016-05-09 11:27 | NUR ---
ICU/RN: PAGED DR DOS SANTOS TO F/U CULTURE AND ABX; CX REVEALS IMIPENEM SENSITIVITY
[2016-05-09] MEDS: INSULIN REGULAR, HUMAN 100 UNIT/ML 3 ML VIAL SQ PRN ×2 (11:37→17:09)
[2016-05-09] MEDS: SEVELAMER CARBONATE 0.8 GM POWD.PACK GT SCH ×2 (13:46→17:03)
--- NOTE | 2016-05-09 15:00 | NUR ---
ICU/RN: BED BATH, WOUND CARE RENDERED. THICK ORAL SECRETIONS NOTED, SUCTIONED. TURNED AND REPOSITIONED FOR COMFORT.
[2016-05-09] MEDS ORDERED: SECONDARY IV SET 1 EA INFUS.SET MC ONE (16:04)
[2016-05-09] MEDS: MEROPENEM 500 MG in IV NS 0.9% 50 ML IV SCH (16:08)
[2016-05-09] MEDS: NOREPINEPHRINE 16 MG in IV D5W 500 ML IV PRN (16:08)
[2016-05-09] MEDS: RENAL NOVASOURCE 1,000 ML BOTTLE GT PRN (17:08)
--- NOTE | 2016-05-09 17:38 | NUR ---
RT END OF THE SHIFT NOTE, PT. 60 Y OLD MALE REMAIN ORALLY INTUBATED WITH #7.5 ETT @ 24 CM @ THE LIP NO RESP DISTRESS NOTED PT TOLERATING VENT SETTINGS. SX'D FOR SML AMT OF THIN CLEAR SECRETIONS. T/O THE SHIFT B/S REMAIN RALES/FINE VENT ALARMS SET AND AUDIBLE. AMBU BAG AT BEDSIDE. VENT PLUGGED INTO RED OUTLET. HME CHANGED WILL CONTINUE TO MONITOR, AND REPORT WILL BE GIVEN TO PM SHIFT Addendum: 05/09/16 at 1739 by KIMMY KEVIN RT Amended: Links added.
--- NOTE | 2016-05-09 19:00 | NUR ---
ICU/RN: PT RESTING IN BED COMFORTABLY, NO S/S ACUTE DISTRESS, BREATHING EVEN AND UNLABORED, TOLERATING GTF. FC DRAINING CLEAR YELLOW URINE TO GRAVITY. CARE ENDORSED TO PM RN FOR BINDU.
--- NOTE | 2016-05-09 20:00 | NUR ---
FRIT MIXER AND BURNER; RECEIVED PT OBTUNDED, OPENS EYES ONLY, DOES NOT TRACK. ON VENT, ETT 7.5/25, AC 16, TV 550, 35% FIO2, PEEP 5, SATURATING WELL, NO S/S OF RESP DISTRESS.SINUS TACHYCARDIA RATE OF 100-120 ON THE MONITOR,. OGT IN PLACE, NOVASOURCE FEEDING RUNNING AT35 CC/HR, NO RESIDUAL. [place] CATH IN PLACE. LEFT UPPER ARM PICC WITH TKO, FLUSHED AND PATENT, NO S/S OF INFECTION, DRESSING CDI. RIGHT RADIAL ARTERIAL LINE IN PLACE, ZEROED AND FLUSHED. RIGHT CHEST WALL HD CATH INTACT. SAFETY PRECAUTION PLACED..KEEP MONITORING.
[2016-05-09] MEDS: ACETAMINOPHEN 650 MG/20.3 ML UDC PO PRN (20:41)
[2016-05-10] VITALS (65 sets, daily range): BP systolic 85–151; BP diastolic 52–95
[2016-05-10] MEDS: BLOOD SUGAR DIAGNOSTIC 1 EACH STRIP IN SCH ×4 (00:09→17:51)
[2016-05-10] MEDS ORDERED: IV NS 0.9% 500 ML IV ONE (00:52)
[2016-05-10] MEDS ORDERED: IV NS 0.9% 250 ML IV ONE (00:52)
[2016-05-10] MEDS: IV NS 0.9% 250 ML IV PRN (01:01)
[2016-05-10] MEDS: IPRATROPIUM NEB FS 0.5 MG/2.5 ML AMPUL.NEB NEB SCH ×6 (02:48→23:16)
[2016-05-10 04:49] LABS: CALCIUM, SERUM 7.8 mg/dL (8.5-10.1); CREATININE 6.8 mg/dL (0.6-1.3); POTASSIUM 3.4 mmol/L (3.5-5.1)
[2016-05-10] MEDS: INSULIN REGULAR, HUMAN 100 UNIT/ML 3 ML VIAL SQ PRN ×3 (06:12→17:51)
--- NOTE | 2016-05-10 08:00 | NUR ---
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
[2016-05-10] MEDS: ALBUTEROL FS 2.5 MG/0.5 ML VIAL.NEB NEB PRN ×3 (08:09→15:43)
[2016-05-10] MEDS: VIT B CMPLX 3/FA/VIT C/BIOTIN 1 TAB TABLET PO SCH (08:34)
[2016-05-10] MEDS: SEVELAMER CARBONATE 0.8 GM POWD.PACK GT SCH ×3 (08:34→17:29)
[2016-05-10] MEDS: ASPIRIN 325 MG TABLET PO SCH (08:34)
[2016-05-10] MEDS: DOXYCYCLINE 100 MG in IV D5W 100 ML IV SCH ×2 (08:35→20:22)
[2016-05-10] MEDS: METOPROLOL TARTRATE 25 MG TABLET NG SCH ×2 (08:36→20:23)
[2016-05-10] MEDS: NEOMY SULF/BACITRAC ZN/POLY 15 GM TUBE TP SCH (08:36)
[2016-05-10] MEDS: MUPIROCIN OINT 2% 22 GM TUBE SCH ×2 (08:36→20:22)
[2016-05-10] MEDS: ACETAMINOPHEN 650 MG/20.3 ML UDC PO PRN (09:49)
[2016-05-10] MEDS: RENAL NOVASOURCE 1,000 ML BOTTLE GT PRN (17:28)
[2016-05-10] MEDS: MEROPENEM 500 MG in IV NS 0.9% 50 ML IV SCH (17:28)
--- NOTE | 2016-05-10 18:39 | NUR ---
ADJUNCT PSYCHOLOGY PROFESSOR NO CHANGE IN PT CONDITION PT WAS RUNNING A FEVER TEMP 100.4 MAX COLLING MEASURES TAKEN, MD AWARE, HD DONE WITH 1.5L OUT, VS REMAIN STABLE STILL AFIB ON TELE HR 110S SBP STABLE, FALL PRECAUTIONS TAKEN EBONI CARE DONE WILL GIVE REPORT TO PM NURSE FOR CONTINUITY OF CARE.
[2016-05-10] MEDS: NOREPINEPHRINE 16 MG in IV D5W 500 ML IV PRN (20:22)
[2016-05-10] MEDS ORDERED: SECONDARY IV SET 1 EA INFUS.SET MC ONE (20:22)
--- NOTE | 2016-05-10 21:06 | NUR ---
PT RECEIVED INTUBATED WITH 7.5 ETT SECURED AT 24CM AT THE LIP VIA ANCHOR FAST. NO RESP DISTRESS. PT TOLERATING VENT SETTINGS. SX'D FOR SML AMT OF THICK WHITE SECRETIONS. VENT ALARMS SET AND AUDIBLE. AMBU BAG BY BEDSIDE. WILL CONTINUE TO MONITOR. Addendum: 05/10/16 at 2107 by SUSANA VALDIVIA RT Amended: Links added.
[2016-05-11] VITALS (46 sets, daily range): BP systolic 64–144; BP diastolic 38–91
[2016-05-11] MEDS: BLOOD SUGAR DIAGNOSTIC 1 EACH STRIP IN SCH ×4 (00:34→17:38)
[2016-05-11] MEDS: NOREPINEPHRINE 16 MG in IV D5W 500 ML IV PRN (00:35)
[2016-05-11] MEDS: INSULIN REGULAR, HUMAN 100 UNIT/ML 3 ML VIAL SQ PRN ×4 (00:37→17:41)
[2016-05-11] MEDS ORDERED: IV SET PRIMARY PUMP SET 1 EA INFUS.SET MC ONE (03:04)
[2016-05-11] MEDS: IPRATROPIUM NEB FS 0.5 MG/2.5 ML AMPUL.NEB NEB SCH ×6 (03:42→23:20)
[2016-05-11] MEDS: ACETAMINOPHEN 650 MG/20.3 ML UDC PO PRN ×3 (05:09→17:44)
--- NOTE | 2016-05-11 05:10 | NUR ---
DRAFTER (CAD) ELECTRONIC : LOW GRADE TEMP AND PAIN NOTED. PRN TYLENOL GIVEN . COOLING MEASURES DONE THROUGHOUT THE NIGHT TO KEEP TEMP DOWN. PT TOLERATED WELL. NO OTHER CHANGES NOTED THROUGHOUT THE NIGHT.
[2016-05-11 05:20] LABS: CALCIUM, SERUM 7.8 mg/dL (8.5-10.1); CREATININE 5.8 mg/dL (0.6-1.3); POTASSIUM 3.5 mmol/L (3.5-5.1)
[2016-05-11] MEDS: ALBUTEROL FS 2.5 MG/0.5 ML VIAL.NEB NEB PRN (07:25)
--- NOTE | 2016-05-11 07:25 | NUR ---
RT PT RECEIVED ORALLY INTUBATED WITH A 7.5 ETT SECURED AT 24CM AT THE LIP LINE. PT IS NOT AWAKE AND DOES NOT RESPOND TO COMMANDS AT THIS TIME. VENT ALARMS ARE SET AND AUDIBLE WITH BVM BY BEDSIDE. COCOA ROASTER CUFF PRESSURE NOTED. VENT IS PLUGGED INTO RED OUTLET. SX SMALL THICK YELLOW SECRETIONS. NO RESPIRATORY DISTRESS NOTED AT THIS TIME, WILL CONTINUE TO MONITOR. Addendum: 05/11/16 at 1540 by MI SORTO RT Amended: Links added.
--- NOTE | 2016-05-11 08:00 | NUR ---
RN INITIAL NOTES RECEIVED REPORT FROM CHARGE NURSE JANETTE, PT IS OBTUNDED, OPEN EYES ON, DOES NOT TRACK. HOB ELEVATED 35 DEGREES. ON TELE MONITOR WITH SR 95, NO SIGNS OF DISTRESS. ETT 7.5/23, AC 16, TV 550, FIO2 35%, PEEP 5, TOLERATING WELL. PT HAS [place] CATH DRAINING CLEAR YELLOW URINE. PT HAS GTF RUNNING NOVASOURCE @ 35, WITH RESIDUAL OF 30, CDI. IV ON ALLY PICC, CDI, NO SIGNS OF INFECTION/INFILTRATION AND A-LINE ON RIGHT BRACHIAL, CDI, NO SIGNS OF INFECTION/INFILTRATION; PCW HD CATH. CALL LIGHT WITHIN EASY REACH, SAFETY MEASURES MAINTAINED, WILL CONTINUE TO MONITOR AND FOLLOW MD ORDERS.
--- NOTE | 2016-05-11 08:25 | NUR ---
RN NOTES PTS A-LINE BP WAS 64/38, STARTED PT BACK ON LEVOPHED @ 10 MCG, TOLERATING WELL, WILL CONTINUE TO MONITOR, PT STABLE.
[2016-05-11] MEDS: VIT B CMPLX 3/FA/VIT C/BIOTIN 1 TAB TABLET PO SCH (08:53)
[2016-05-11] MEDS: DOXYCYCLINE 100 MG in IV D5W 100 ML IV SCH ×2 (08:53→21:34)
[2016-05-11] MEDS: SEVELAMER CARBONATE 0.8 GM POWD.PACK GT SCH ×3 (08:53→17:37)
[2016-05-11] MEDS: ASPIRIN 325 MG TABLET PO SCH (08:53)
[2016-05-11] MEDS: NEOMY SULF/BACITRAC ZN/POLY 15 GM TUBE TP SCH (08:55)
[2016-05-11] MEDS: MUPIROCIN OINT 2% 22 GM TUBE SCH ×2 (08:55→21:30)
[2016-05-11] MEDS: METOPROLOL TARTRATE 25 MG TABLET NG SCH ×2 (12:36→21:35)
[2016-05-11 13:59] LABS: BASOPHILS # (AUTO) 0.2 /CMM (0.0-0.2); BASOPHILS % (AUTO) 1.3 % (0.0-2.0); EOSINOPHILS # (AUTO) 0.2 /CMM (0.0-0.7); EOSINOPHILS % (AUTO) 1.8 % (0.0-6.0); HEMATOCRIT 35 % (39-51); HEMOGLOBIN 11.3 g/dL (13.5-17.5); LYMPHOCYTES # (AUTO) 1.7 /CMM (0.8-4.8); LYMPHOCYTES % (AUTO) 13.7 % (20.0-44.0); MEAN CORPUSCULAR HEMOGLOBIN 29 PG (26.0-33.0); MEAN CORPUSCULAR HGB CONC 32 g/dl (31.0-36.0); MEAN CORPUSCULAR VOLUME 90 fL (80-96); MONOCYTES # (AUTO) 1.9 /CMM (0.1-1.30); MONOCYTES % (AUTO) 15.6 % (2.0-12.0); NEUTROPHILS # (AUTO) 8.4 /CMM (1.8-8.9); NEUTROPHILS % (AUTO) 67.6 % (43.0-81.0); PLATELET COUNT (AUTO) 330 /CMM (150-450); RDW COEFFICIENT OF VARIATION 16.2 (11.5-15.0); RED BLOOD CELL COUNT(AUTO) 3.92 MIL/uL (4.5-6.0); WHITE BLOOD COUNT (AUTO) 12.4 K/uL (4.3-11.0)
[2016-05-11] MEDS ORDERED: DOSE PER PHARMACY MICAFUNGIN 1 EA XX PRN (14:00)
[2016-05-11] MEDS ORDERED: SECONDARY IV SET 1 EA INFUS.SET MC ONE (14:21)
[2016-05-11 14:31] LABS: BAND % (MANUAL) 5 % (0.0-5.0); EOSINOPHILS % (MANUAL) 2 % (0-4); LYMPHOCYTES % (MANUAL) 11 % (16-48); METAMYELOCYTES % 1 % (0-0); MONOCYTES % (MANUAL) 7 % (0-11.0); MYELOCYTES % 1 % (0-0); NEUTROPHILS % (MANUAL) 72 (42-76); REACTIVE LYMPHOCYTES 1 % (0-0)
[2016-05-11 14:32] LABS: ANISOCYTOSIS 1+; PLATELET ESTIMATE ADEQUATE
[2016-05-11] MEDS: MICAFUNGIN SODIUM 100 MG in IV NS 0.9% 100 ML IV SCH (15:09)
[2016-05-11] MEDS: MEROPENEM 500 MG in IV NS 0.9% 50 ML IV SCH (16:17)
[2016-05-11] MEDS: RENAL NOVASOURCE 1,000 ML BOTTLE GT PRN (18:18)
--- NOTE | 2016-05-11 19:35 | NUR ---
RN CLOSING NOTES PT IN STABLE CONDITION, MAINTAINING FEVER OF 100, NO SUDDEN CHANGES DURING MY SHIFT, ALL MD ORDERS CARRIED OUT, IV'S CDI, NO SIGNS OF INFECTION/INFILTRATION NOTED, F/C RUNNING WELL. ETT CDI. FEEDING TOLERATED WELL. CALL LIGHT WITHIN EASY REACH, SAFETY MEASURES MAINTAINED, REPORT GIVEN TO NIGHT NURSE FOR BINDU.
[2016-05-12] VITALS (40 sets, daily range): BP systolic 89–161; BP diastolic 46–99
[2016-05-12] MEDS: BLOOD SUGAR DIAGNOSTIC 1 EACH STRIP IN SCH ×4 (00:27→18:38)
[2016-05-12] MEDS: INSULIN REGULAR, HUMAN 100 UNIT/ML 3 ML VIAL SQ PRN ×3 (00:29→18:39)
[2016-05-12] MEDS ORDERED: IV NS 0.9% 500 ML IV ONE (03:02)
[2016-05-12] MEDS: IPRATROPIUM NEB FS 0.5 MG/2.5 ML AMPUL.NEB NEB SCH ×6 (03:35→23:41)
[2016-05-12 04:56] LABS: BASOPHILS # (AUTO) 0.1 /CMM (0.0-0.2); BASOPHILS % (AUTO) 0.4 % (0.0-2.0); EOSINOPHILS # (AUTO) 0.6 /CMM (0.0-0.7); EOSINOPHILS % (AUTO) 4.1 % (0.0-6.0); HEMATOCRIT 34 % (39-51); LYMPHOCYTES # (AUTO) 2.1 /CMM (0.8-4.8); LYMPHOCYTES % (AUTO) 13.9 % (20.0-44.0); MEAN CORPUSCULAR HEMOGLOBIN 28 PG (26.0-33.0); MEAN CORPUSCULAR HGB CONC 32 g/dl (31.0-36.0); MEAN CORPUSCULAR VOLUME 89 fL (80-96); MONOCYTES # (AUTO) 1.8 /CMM (0.1-1.30); MONOCYTES % (AUTO) 12.1 % (2.0-12.0); NEUTROPHILS # (AUTO) 10.5 /CMM (1.8-8.9); NEUTROPHILS % (AUTO) 69.5 % (43.0-81.0); PLATELET COUNT (AUTO) 372 /CMM (150-450); RED BLOOD CELL COUNT(AUTO) 3.86 MIL/uL (4.5-6.0); WHITE BLOOD COUNT (AUTO) 15.1 K/uL (4.3-11.0)
[2016-05-12 05:20] LABS: CALCIUM, SERUM 8.3 mg/dL (8.5-10.1); MAGNESIUM 2.4 mg/dL (1.8-2.4); PHOSPHORUS 5.6 mg/dL (2.5-4.9); POTASSIUM 3.6 mmol/L (3.5-5.1)
[2016-05-12] MEDS: METOPROLOL TARTRATE 25 MG TABLET NG SCH ×3 (05:43→21:36)
[2016-05-12 08:20] LABS: ABG BASE EXCESS -0.5 mmol/L; ABG OXYGEN SATURATION 97.9 % (92.0-98.5); ABG PCO2 37.4 mmHg (35.0-45.0); ABG PO2 120.4 mmHg (75.0-100.0); ABG TOTAL HEMOGLOBIN 11.3 G/dL (13.5-18.0); AaDO2 85.7 mmHg; COHb 0.3 % (0.5-1.5); MetHb 0.7 % (0.0-1.5); O2Hb 96.9 % (94.0-97.0); PEEP,BG 5 cm H2O; SITE, ABG A-Line; VT, ABG 550 mL
[2016-05-12] MEDS: MUPIROCIN OINT 2% 22 GM TUBE SCH ×2 (08:33→21:36)
[2016-05-12] MEDS: NEOMY SULF/BACITRAC ZN/POLY 15 GM TUBE TP SCH (08:33)
[2016-05-12] MEDS: VIT B CMPLX 3/FA/VIT C/BIOTIN 1 TAB TABLET PO SCH (08:33)
[2016-05-12] MEDS: ASPIRIN 325 MG TABLET PO SCH (08:33)
[2016-05-12] MEDS: SEVELAMER CARBONATE 0.8 GM POWD.PACK GT SCH ×3 (08:33→18:38)
[2016-05-12] MEDS: DOXYCYCLINE 100 MG in IV D5W 100 ML IV SCH ×2 (08:34→21:35)
--- NOTE | 2016-05-12 08:37 | NUR ---
RT PATIENT REC'D ORALLY INTUBATED ON [facility] VENT WITH SETTINGS SET PER ORDER ENEDELIA WELL. ETT SECURED AND IN PROPER POSITION VIA ANCHOR FAST. VENT ALARMS CHECKED + AUDIBLE. CUFF PRESSURE CHECKED USING LOCOMOTIVE ENGINEER. VENT PLUGGED INTO RED OUTLET. PATIENT NON RESPONSIVE AND APPEARS COMFORTABLE. SX'D WITH MOD AMT JEFFERSON SEMITHICK SECRETIONS. B/S DIM COARSE. BILAT CHEST RISE NOTED. AMBU BAG AT HOB. Addendum: 05/12/16 at 0838 by AMIRAH MINA RT Amended: Links added.
--- NOTE | 2016-05-12 10:25 | NUR ---
MANUFACTURING CLERK NOTE 0720: Received patient with eyes closed, noted with withdrawal to pain. Able to open eyes but does not follow commands. With ETT intact, tolerated vent settings at this time. With OGT intact, feeding tolerated, noted with 20mL residuals, kept HOB elevated. Afib 90's on the monitor. Temp 99.3. ALLY PICC Intact. RCW HD cath intact. Right radial A line intact reading SBP 90'sm, will continue to monitor, remained off pressors at this time.No S/S hypo/hyperglycemia noted at this time. 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 0920: S/E by Dr. Shepherd, with order of labs in am. 0940: S/E by Dr. Gerard;eg, no new order at this time. 1015: No any significant changes noted at this time. SBP 100's.
[2016-05-12] MEDS: NOREPINEPHRINE 16 MG in IV D5W 500 ML IV PRN (12:59)
[2016-05-12] MEDS: MICAFUNGIN SODIUM 100 MG in IV NS 0.9% 100 ML IV SCH (14:23)
[2016-05-12] MEDS: MEROPENEM 500 MG in IV NS 0.9% 50 ML IV SCH (15:53)
[2016-05-12] MEDS: VANCOMYCIN 500 MG in IV D5W 100 ML IV PRN (16:39)
--- NOTE | 2016-05-12 18:13 | NUR ---
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
--- NOTE | 2016-05-12 20:00 | NUR ---
RECEIVED PATIENT EYES OPEN BUT NOT TRACKING NOT FOLLOWING COMMANDS.AFIB PER MONITOR. WITH A-LINE CORRELATING WITH NIBP.INTUBATED TO VENT ON AC 16,TV 550,FIO2 35 %,PEEP 5.SPO2 100%.NO ACUTE DISTRESS NOTED.SUCTION SMALL AMOUNT YELLOW SECRETION AND ORAL CARE DONE. OGT FEEDING IN PROGRESS.OGT PLACEMENT VERIFIED AND PATENT.RESIDUAL 5 ML.HOB ELEVATED AT 35 DEGREES.FC TO GRAVITY DRAINING CLOUDY YELLOW URINE.NS TKO INFUSING TO ALLY PICC LINE AND SITE INTACT.WILL TURN AND REPOSITION Q 2 HRS OFFLOADING PRESSURE POINTS.
--- NOTE | 2016-05-12 22:20 | NUR ---
PATIENT BACK FROM OR VIA BED AWAKE ALERT AND ORIENTED X 4. 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 VERBALIZED HE IS HUNGRY.FOOD WILL BE PROVIDED.DENIES PAIN. Addendum: 05/12/16 at 2334 by OLIVIA ADAM RN PATIENT BACK FROM OR AT 2320.
[2016-05-13] VITALS (36 sets, daily range): BP systolic 103–149; BP diastolic 59–98
[2016-05-13] MEDS: BLOOD SUGAR DIAGNOSTIC 1 EACH STRIP IN SCH ×5 (00:05→23:51)
[2016-05-13] MEDS: RENAL NOVASOURCE 1,000 ML BOTTLE GT PRN (01:51)
[2016-05-13] MEDS: IPRATROPIUM NEB FS 0.5 MG/2.5 ML AMPUL.NEB NEB SCH ×6 (03:45→22:57)
[2016-05-13 05:05] LABS: BASOPHILS # (AUTO) 0.1 /CMM (0.0-0.2); BASOPHILS % (AUTO) 0.5 % (0.0-2.0); EOSINOPHILS # (AUTO) 0.7 /CMM (0.0-0.7); EOSINOPHILS % (AUTO) 4.5 % (0.0-6.0); HEMATOCRIT 32 % (39-51); HEMOGLOBIN 10.6 g/dL (13.5-17.5); LYMPHOCYTES # (AUTO) 1.9 /CMM (0.8-4.8); LYMPHOCYTES % (AUTO) 12.6 % (20.0-44.0); MEAN CORPUSCULAR HEMOGLOBIN 29 PG (26.0-33.0); MEAN CORPUSCULAR HGB CONC 33 g/dl (31.0-36.0); MEAN CORPUSCULAR VOLUME 88 fL (80-96); MONOCYTES # (AUTO) 1.6 /CMM (0.1-1.30); MONOCYTES % (AUTO) 10.7 % (2.0-12.0); NEUTROPHILS # (AUTO) 10.6 /CMM (1.8-8.9); NEUTROPHILS % (AUTO) 71.7 % (43.0-81.0); PLATELET COUNT (AUTO) 373 /CMM (150-450); RDW COEFFICIENT OF VARIATION 15.7 (11.5-15.0); RED BLOOD CELL COUNT(AUTO) 3.61 MIL/uL (4.5-6.0); WHITE BLOOD COUNT (AUTO) 14.8 K/uL (4.3-11.0)
[2016-05-13] MEDS: METOPROLOL TARTRATE 25 MG TABLET NG SCH ×3 (05:08→20:56)
[2016-05-13 05:16] LABS: CALCIUM, SERUM 8.1 mg/dL (8.5-10.1); CREATININE 5.9 mg/dL (0.6-1.3); MAGNESIUM 2.2 mg/dL (1.8-2.4); PHOSPHORUS 4.2 mg/dL (2.5-4.9); POTASSIUM 3.4 mmol/L (3.5-5.1)
--- NOTE | 2016-05-13 06:00 | NUR ---
PATIENT RESTING VS STABLE.REMAINS AFIB CONTROLLED.80'S-90'S.TOLERATING FEEDING WELL. HAD ONE LARGE LOOSE STOOL.KEPT CLEAN AND DRY.TURNED AND REPOSITIONED.BLOOD SUGAR MONITORED.NO COVERAGE GIVEN PER RI SS.DRESSING TO OLD TRACH SITE DONE WITH WHITE THICK SECRETIONS.NAD NOTED.ALL NEEDS ANTICIPATED AND MET.
--- NOTE | 2016-05-13 07:25 | NUR ---
RT PATIENT REC'D ORALLY INTUBATED ON [facility] VENT WITH SETTINGS SET PER ORDER ENEDELIA WELL. ETT SECURED AND IN PROPER POSITION VIA ANCHOR FAST. VENT ALARMS CHECKED + AUDIBLE. CUFF PRESSURE CHECKED USING STUDIO ASSOCIATE. VENT PLUGGED INTO RED OUTLET. PATIENT NON RESPONSIVE AND APPEARS COMFORTABLE. SX'D WITH MOD AMT JEFF[employer] SEMITHICK SECRETIONS. B/S DIM COARSE. BILAT CHEST RISE NOTED. AMBU BAG AT HOB. Addendum: 05/13/16 at 2031 by AMIRAH MINA RT Amended: Links added.
[2016-05-13] MEDS ORDERED: POTASSIUM CHLORIDE 20 MEQ TAB.PRT.SR PO SCH (08:00)
[2016-05-13] MEDS: VIT B CMPLX 3/FA/VIT C/BIOTIN 1 TAB TABLET PO SCH (08:40)
[2016-05-13] MEDS: SEVELAMER CARBONATE 0.8 GM POWD.PACK GT SCH ×3 (08:40→17:24)
[2016-05-13] MEDS: ASPIRIN 325 MG TABLET PO SCH (08:40)
[2016-05-13] MEDS: MUPIROCIN OINT 2% 22 GM TUBE SCH ×2 (08:41→20:56)
[2016-05-13] MEDS: NEOMY SULF/BACITRAC ZN/POLY 15 GM TUBE TP SCH (08:41)
[2016-05-13] MEDS ORDERED: POTASSIUM CHLORIDE 20 MEQ POWDER PACKET GT ONE (09:00)
[2016-05-13] MEDS: DOXYCYCLINE 100 MG in IV D5W 100 ML IV SCH ×2 (09:08→20:56)
--- NOTE | 2016-05-13 10:02 | NUR ---
CLAY PIGEON LOADER NOTE 0720: Received patient with eyes closed, able to open eyes when touched. Does not follow commands. Noted with extremities movement with pain. With SUPERVISOR TANK HOUSE restraints on for safety. With ETT to vent, tolerated settings at this time. No S/S discomfort noted at this time. With OGT intact, noted with 10mL residuals, kept HOB elevated. With ALLY PICC intact. With Moya cath intact, noted with clear yellow urine drained to BSD. On contact isolation precaution for MRSA and ESBL, maintained and observed. With Right radial arterial line, SBP remained >100. RCW HD cath intact. Right BKA. 0820: S/E by Dr. Ruiz, with order for KCl, changed to powder /GT. 1000: No any significant changes noted at this time.
[2016-05-13] MEDS: INSULIN REGULAR, HUMAN 100 UNIT/ML 3 ML VIAL SQ PRN (12:17)
[2016-05-13] MEDS: MICAFUNGIN SODIUM 100 MG in IV NS 0.9% 100 ML IV SCH (13:18)
[2016-05-13] MEDS ORDERED: SECONDARY IV SET 1 EA INFUS.SET MC ONE ×2 (16:31→19:39)
[2016-05-13] MEDS: MEROPENEM 500 MG in IV NS 0.9% 50 ML IV SCH (16:32)
--- NOTE | 2016-05-13 20:00 | NUR ---
RECEIVED PATIENT RESTING OPEN EYES TO TOUCH NON VERBAL AND NON INTERACTIVE.AFIB PER MONITOR 90'S.VS STABLE.A-LINE RIGHT WRIST INTACT.MAINTAINED ON SAME VENT SETTINGS. WELL TOLERATED.SPO2 100%.OGT FEEDING IN PROGRESS.RESIDUAL 5 ML.HOB ELEVATED.FC TO GRAVITY DRAINING YELLOW URINE.NS TKO INFUSING TO ALLY PICC LINE SITE INTACT.HD CATH RCW WITH DRESSING C/D/I.TURN AND REPOSITION TO COMFORT OFFLOADING PRESSURE POINTS. NO ACUTE DISTRESS NOTED.
[2016-05-14] VITALS (56 sets, daily range): BP systolic 82–153; BP diastolic 50–99
[2016-05-14] MEDS ORDERED: IV NS 0.9% 500 ML IV ONE (01:24)
[2016-05-14] MEDS ORDERED: IV NS 0.9% 250 ML IV ONE (01:24)
--- NOTE | 2016-05-14 02:00 | NUR ---
INCONTINENT OF URINE.PERINEAL CARE AND BED BATH DONE.COMPLETE LINENS CHANGED. ALLY PICC LINE DRESSING CHANGED UNDER ASEPTIC TECHNIQUE.SITE HEALTHY.NO SIGNS OF INFECTION NOTED.A-LINE TUBING AND FLUSH BAG CHANGED UNDER ASEPTIC TECHNIQUE. TURNED AND REPOSITIONED.TOLERATED PROCEDURE WELL.
[2016-05-14] MEDS: IPRATROPIUM NEB FS 0.5 MG/2.5 ML AMPUL.NEB NEB SCH ×6 (03:13→23:16)
[2016-05-14] MEDS: METOPROLOL TARTRATE 25 MG TABLET NG SCH ×3 (05:11→21:37)
[2016-05-14] MEDS: BLOOD SUGAR DIAGNOSTIC 1 EACH STRIP IN SCH ×3 (05:40→17:20)
[2016-05-14] MEDS: INSULIN REGULAR, HUMAN 100 UNIT/ML 3 ML VIAL SQ PRN ×3 (05:41→17:21)
--- NOTE | 2016-05-14 05:56 | NUR ---
PATIENT RESTING.VS STABLE.NO SIGNIFICANT CHANGE NOTED ON PATIENT STATUS DURING THE SHIFT.TURNED AND REPOSITIONED.ALL NEEDS ANTICIPATED AND MED.
--- NOTE | 2016-05-14 07:09 | NUR ---
PRECISION LENS POLISHER NOTES RECEIVED PATIENT EYES CLOSE , RESPONSIVE TO PAIN STIMULI , NOT IN ACUTE DISTRESS , RESPIRATIONS EVEN AND UNLABORED WITH SPO2 OF 100% VIA MECHANICAL VENTILATOR SETTINGS ORDERED , ETT 7.5/ [address] , AFIB 75 ON BEDSIDE MONITOR , OJT PATENT AND INTACT PLACEMENT CHECK VIA AUSCULTATION NOTED GURGLING SOUND AT STOMACH AREA , NOVASOURCE @ 35ML/HR INFUSING WELL WITH 10ML RESIDUALS NOTED , FC DRAINING WELL VIA GRAVITY WITH CLEAR YELLOW URINE , BILATERAL SOFT WRIST RESTRAINS IN PLACE , VISUAL CHECK PER PROTOCOL , ALLY PICC LINE PATENT AND INTACT WITH NS @ TKO , A LINE @ R WRIST C/D/I WITH GOOD WAVE FORM , ZEROED , ALL NEEDS ATTENDED , BED ON LOW AND LOCKED POSITION , SIDE RAILS X2 , HOB @ 45 , ISOLATION PRECAUTION OBSERVED , WILL CONTINUE TO MONITOR
[2016-05-14] MEDS: ERGOCALCIFEROL (VITAMIN D 2) 50,000 UNIT CAPSULE GT SCH (08:56)
[2016-05-14] MEDS: SEVELAMER CARBONATE 0.8 GM POWD.PACK GT SCH ×3 (08:56→17:20)
[2016-05-14] MEDS: ASPIRIN 325 MG TABLET PO SCH (08:56)
[2016-05-14] MEDS: VIT B CMPLX 3/FA/VIT C/BIOTIN 1 TAB TABLET PO SCH (08:56)
[2016-05-14] MEDS: Z GUARD REMEDY 2 OZ OINT TP PRN (08:56)
[2016-05-14] MEDS ORDERED: IV SET PRIMARY PUMP SET 1 EA INFUS.SET MC ONE (08:59)
[2016-05-14] MEDS: MUPIROCIN OINT 2% 22 GM TUBE SCH ×2 (09:08→21:35)
[2016-05-14] MEDS: NEOMY SULF/BACITRAC ZN/POLY 15 GM TUBE TP SCH (09:09)
--- NOTE | 2016-05-14 09:10 | NUR ---
PROPERTY MAINTENANCE TECHNICIAN NOTES PT BP VIA MOLLY NOTED TO BE AT 70-80'S , A LINE ZEROED AND CALIBRATED , SBP OF 101/55 , CALLED PHARMACY FOR LEVOPHED ON STAND BY , WILL CONTINUE TO MONITOR
[2016-05-14] MEDS: DOXYCYCLINE 100 MG in IV D5W 100 ML IV SCH ×2 (09:11→21:34)
[2016-05-14] MEDS: RENAL NOVASOURCE 1,000 ML BOTTLE GT PRN (09:16)
--- NOTE | 2016-05-14 09:24 | NUR ---
EXECUTIVE BUSINESS COACH NOTES HD NURSE AT BEDSIDE , PT STABLE AT THIS TIME BP VIA A LINE 118/64 , WILL CONTINUE TO MONITOR
[2016-05-14] MEDS: NOREPINEPHRINE 16 MG in IV D5W 500 ML IV PRN (10:38)
--- NOTE | 2016-05-14 11:49 | NUR ---
PLAYER DEVELOPMENT MANAGER NOTES PT STABLE POST HD ,2500ML REMOVED TOLERATED WELL , ON LEVOPHED @ 5MGC/MIN WILL TITRATE ACCORDINGLY , V/S STABLE , TEMP 99.7 , WILL CONTINUE TO MONITOR
[2016-05-14] MEDS ORDERED: VANCOMYCIN HCL 125 MG/2.5 ML ORAL.SUSP PO SCH (13:00)
[2016-05-14] MEDS: VANCOMYCIN 500 MG in IV D5W 100 ML IV PRN (13:17)
[2016-05-14] MEDS ORDERED: SECONDARY IV SET 1 EA INFUS.SET MC ONE (13:17)
--- NOTE | 2016-05-14 13:26 | NUR ---
LEAD JANITOR NOTES STOOL C DIFF POSITIVE , CHARGE NURSE ANDREA PAGED DR DOS SANTOS , ORDERS CARRIED OUT .
[2016-05-14] MEDS: VANCOMYCIN HCL 125 MG/2.5 ML ORAL.SUSP NG SCH ×3 (14:04→21:35)
[2016-05-14] MEDS: MICAFUNGIN SODIUM 100 MG in IV NS 0.9% 100 ML IV SCH (14:04)
[2016-05-14] MEDS: METRONIDAZOLE 500MG/ NS 100ML 500 MG in PREMIX 1 EA IV SCH ×2 (14:04→21:37)
--- NOTE | 2016-05-14 16:00 | NUR ---
TAMPER OPERATOR NOTE: RECEIVED PATIENT OPENS EYES AND RESPONSIVE TO PAIN STIMULI , NOT IN ACUTE DISTRESS, RESPIRATIONS EVEN AND UNLABORED WITH SPO2 OF 100% VIA MECHANICAL VENTILATOR SETTINGS ORDERED , ETT 7.5/ [address] , AFIB 75 ON BEDSIDE MONITOR , ORAL GTUB PATENT AND INTACT PLACEMENT CHECK VIA AUSCULTATION NOTED GURGLING SOUND AT STOMACH AREA , NOVASOURCE @ 35ML/HR INFUSING WELL WITH 10ML RESIDUALS NOTED , FC DRAINING WELL VIA GRAVITY WITH CLEAR YELLOW URINE , BILATERAL SOFT WRIST RESTRAINS IN PLACE , VISUAL CHECK PER PROTOCOL , ALLY PICC LINE PATENT AND INTACT WITH NS @ TKO AND LEVOPHED AT 4MCG/MIN , A LINE @ R WRIST C/D/I WITH GOOD WAVE FORM, ZEROED, ALL NEEDS ATTENDED , BED ON LOW AND LOCKED POSITION , SIDE RAILS X2 , HOB @ 45 , ISOLATION PRECAUTION OBSERVED , WILL CONTINUE TO MONITOR
[2016-05-14] MEDS: MEROPENEM 500 MG in IV NS 0.9% 50 ML IV SCH (16:43)
--- NOTE | 2016-05-14 19:14 | NUR ---
SUPERVISOR COMMERCIAL FISH HATCHERY NOTE: PATIENT RESTING IN BED CLEAN AND DRY, ALL CARE RENDERED, ALL MEDS GIVEN, ALL NEEDS MET. VSS AT THIS TIME. PATIENT ENDORSED FOR CONTINUITY OF CARE
[2016-05-15] VITALS (53 sets, daily range): BP systolic 75–165; BP diastolic 41–103
[2016-05-15] MEDS: INSULIN REGULAR, HUMAN 100 UNIT/ML 3 ML VIAL SQ PRN ×4 (00:20→23:16)
[2016-05-15] MEDS: BLOOD SUGAR DIAGNOSTIC 1 EACH STRIP IN SCH ×5 (00:22→23:14)
[2016-05-15] MEDS: IPRATROPIUM NEB FS 0.5 MG/2.5 ML AMPUL.NEB NEB SCH ×6 (03:22→22:44)
[2016-05-15] MEDS: LORAZEPAM INJ 2 MG/ML VIAL IV PRN (03:43)
[2016-05-15] MEDS: METRONIDAZOLE 500MG/ NS 100ML 500 MG in PREMIX 1 EA IV SCH ×3 (05:01→20:14)
[2016-05-15] MEDS: METOPROLOL TARTRATE 25 MG TABLET NG SCH ×3 (05:03→20:15)
[2016-05-15 05:07] LABS: BASOPHILS # (AUTO) 0.1 /CMM (0.0-0.2); BASOPHILS % (AUTO) 0.8 % (0.0-2.0); EOSINOPHILS # (AUTO) 0.5 /CMM (0.0-0.7); EOSINOPHILS % (AUTO) 3.1 % (0.0-6.0); HEMATOCRIT 34 % (39-51); HEMOGLOBIN 11.1 g/dL (13.5-17.5); LYMPHOCYTES # (AUTO) 2.3 /CMM (0.8-4.8); LYMPHOCYTES % (AUTO) 14.9 % (20.0-44.0); MEAN CORPUSCULAR HEMOGLOBIN 28 PG (26.0-33.0); MEAN CORPUSCULAR HGB CONC 32 g/dl (31.0-36.0); MEAN CORPUSCULAR VOLUME 88 fL (80-96); MONOCYTES # (AUTO) 1.8 /CMM (0.1-1.30); MONOCYTES % (AUTO) 11.7 % (2.0-12.0); NEUTROPHILS # (AUTO) 10.9 /CMM (1.8-8.9); NEUTROPHILS % (AUTO) 69.5 % (43.0-81.0); PLATELET COUNT (AUTO) 465 /CMM (150-450); RDW COEFFICIENT OF VARIATION 15.3 (11.5-15.0); RED BLOOD CELL COUNT(AUTO) 3.92 MIL/uL (4.5-6.0); WHITE BLOOD COUNT (AUTO) 15.7 K/uL (4.3-11.0)
[2016-05-15 05:17] LABS: CALCIUM, SERUM 8.6 mg/dL (8.5-10.1); CREATININE 6.6 mg/dL (0.6-1.3); POTASSIUM 3.2 mmol/L (3.5-5.1)
--- NOTE | 2016-05-15 06:30 | NUR ---
LOAN SPECIALIST - NO CHANGES FROM INITIAL ASSESSMENT. PT.WAS ADM. A COMP. BEDBATH AT 4AM W/2 RN ASSIST. ATIVAN ONE MG IVP WAS ADM. FOR COMFORT, PRIOR TO BEDBATH. PT.REMAINS IN AFIB/CONT. DIETARY PHONED AT 19:45 LAST NIGHT & STATED THAT THE GOAL FOR NOVASOURCE SHOULD BE INCREASED TO 45 CC/HR VIA KANGAROO PUMP.RT.RADIAL MOLLY WAS ZEROED & CALIBRATED Q 4 HRS. CONT. POC.
--- NOTE | 2016-05-15 07:40 | NUR ---
RN INITIAL NOTES PT IN BED, ONCE IN A WHILE MOVES EXTREMITIES, OPENS EYES WITH NO TRACKING, NO APPROPRIATE INTERACTION WHEN SPOKEN TO, HOB ELEVATED 35 DEGREES. PT HAS ETT 7.5/25, AC 16, TV 550, FIO2 35%, PEEP 5, TOLERATING WELL, NO SIGNS OF DISTRESS NOTED. ON MONITOR WITH CONTROLLED AFIB, 87, NO SIGNS OF CHEST PAIN NOTED. PT HAS HOUSTON CATHETER DRAINING CLEAR YELLOW URINE, NO SIGNS OF LEAKAGE. PT HAS SACRAL REDNESS, LEFT 2ND TOE PARTIAL THICKNESS, AND PREVIOUS TRACH SITE, LEAKING YELLOW PHLEGM, ALL WOUND ORDERS CARRIED OUT. PT HAS OGT RUNNING NOVASOURCE @ 45 CC/HR, NO RESIDUAL, TOLERATING WELL. IV ON ALLY PICC, LEVO @ 2MCG WAS HELD AT START OF SHIFT 0700, PTS BP WNL; RIGHT WRIST A-LINE, CDI, SALINE FLUSHED; RCW PERMA CATH, CDI. CALL LIGHT WITHIN EASY REACH, SAFETY MEASURES MAINTAINED, WILL CONTINUE TO MONITOR AND FOLLOW MD ORDERS. PT IN OVERALL STABLE CONDITION.
[2016-05-15] MEDS: VANCOMYCIN HCL 125 MG/2.5 ML ORAL.SUSP NG SCH ×4 (08:40→20:15)
[2016-05-15] MEDS: ASPIRIN 325 MG TABLET PO SCH (08:40)
[2016-05-15] MEDS: SEVELAMER CARBONATE 0.8 GM POWD.PACK GT SCH ×3 (08:40→17:24)
[2016-05-15] MEDS: VIT B CMPLX 3/FA/VIT C/BIOTIN 1 TAB TABLET PO SCH (08:40)
[2016-05-15] MEDS: MUPIROCIN OINT 2% 22 GM TUBE SCH ×2 (08:41→20:14)
[2016-05-15] MEDS: DOXYCYCLINE 100 MG in IV D5W 100 ML IV SCH ×2 (08:41→21:41)
[2016-05-15] MEDS: NEOMY SULF/BACITRAC ZN/POLY 15 GM TUBE TP SCH (08:41)
[2016-05-15] MEDS: RENAL NOVASOURCE 1,000 ML BOTTLE GT PRN (11:42)
[2016-05-15] MEDS: ACETAMINOPHEN 650 MG/20.3 ML UDC PO PRN (12:06)
[2016-05-15] MEDS: MICAFUNGIN SODIUM 100 MG in IV NS 0.9% 100 ML IV SCH (13:07)
[2016-05-15] MEDS ORDERED: SECONDARY IV SET 1 EA INFUS.SET MC ONE (13:08)
[2016-05-15] MEDS: MEROPENEM 500 MG in IV NS 0.9% 50 ML IV SCH (15:09)
--- NOTE | 2016-05-15 19:12 | NUR ---
RN CLOSING NOTES PT IN STABLE CONDITION, ALL MD ORDERS CARRIED OUT, NO SUDDEN CHANGES DURING MY SHIFT, IV CDI, NO SIGNS OF INFECTION/INFILTRATION, F/C DRAINING WELL, PT TOLERATING EET/MECH VENT/OGT WELL. A-LINE WNL. CALL LIGHT WITHIN EASY REACH, SAFETY MEASURES MAINTAINED, REPORT GIVEN TO NIGHT NURSE FOR BINDU.
--- NOTE | 2016-05-15 19:41 | NUR ---
ICU/RN- PT IN BED ALERT TO NAME, OPENS EYES SPONTANEOUSLY, ABLE TO TRACK WITH EYES. NO S/SX OF ACUTE DISTRESS NOTED AT THIS TIME. ON MONITOR W. CONTROLLED A-FIB W/ HR - 90'S. PT INTUBATED W/ ETT 7.5/24CM AC 16, TV 550 FIO2 35% P 5. NO S/SX OF RESP DISTRESS OBSERVED. WILL SUCTION TRACH PRN FOR CLEARANCE. ALLY PICC LINE PATENT AND INTACT. RCW PERMACATH DRESSING INTACT. R WRIST A-LINE CALIBRATED. OGT PRESENT W/ NOVASOURCE INFUSING AT 45ML/HR. 20CC RESIDUAL NOTED. REPOSITIONED PT FOR COMFORT. HOB UP AT ALL TIMES. WILL MONITOR PT ACCORDINGLY.
[2016-05-16] VITALS (85 sets, daily range): BP systolic 60–193; BP diastolic 31–107
[2016-05-16] MEDS: IPRATROPIUM NEB FS 0.5 MG/2.5 ML AMPUL.NEB NEB SCH ×6 (02:47→23:15)
[2016-05-16 05:14] LABS: CALCIUM, SERUM 8.8 mg/dL (8.5-10.1); POTASSIUM 3.5 mmol/L (3.5-5.1)
[2016-05-16 05:26] LABS: CREATININE 7.7 mg/dL (0.6-1.3)
[2016-05-16] MEDS: METRONIDAZOLE 500MG/ NS 100ML 500 MG in PREMIX 1 EA IV SCH ×3 (05:51→20:53)
[2016-05-16] MEDS: BLOOD SUGAR DIAGNOSTIC 1 EACH STRIP IN SCH ×4 (05:52→23:26)
[2016-05-16] MEDS: METOPROLOL TARTRATE 25 MG TABLET NG SCH ×3 (05:52→20:54)
--- NOTE | 2016-05-16 08:07 | NUR ---
WOUND CARE CONSULT: PT PRESENTS WITH GLUTEAL CREASE EXCORIATION. PT WAS HAVING LOOSE STOOLS PREVIOUSLY PER NURSING STAFF. PT ON ERICH ISOFLEX LOW AIRLOSS BED. PT FOLLOWED BY PLASTICS TEAM AND Z GUARD IN USE. KEEP SKIN CLEAN AND DRY. ALL SKIN PROTECTION RECOMMENDATIONS IN PLACE AND DISCUSSED WITH NURSING STAFF. MD IN AGREEMENT WITH PLAN OF CARE. Addendum: 05/16/16 at 0808 by JARRET CHEN Amended: Links added. Addendum: 05/16/16 at 0816 by JARRET CHEN FLOAT LEFT HEEL. RT BKA STUMP NOTED.
[2016-05-16] MEDS: VANCOMYCIN HCL 125 MG/2.5 ML ORAL.SUSP NG SCH ×4 (09:23→20:53)
[2016-05-16] MEDS: VIT B CMPLX 3/FA/VIT C/BIOTIN 1 TAB TABLET PO SCH (09:23)
[2016-05-16] MEDS: NEOMY SULF/BACITRAC ZN/POLY 15 GM TUBE TP SCH (09:24)
[2016-05-16] MEDS: MUPIROCIN OINT 2% 22 GM TUBE SCH ×2 (09:24→20:55)
[2016-05-16] MEDS: SEVELAMER CARBONATE 0.8 GM POWD.PACK GT SCH ×3 (09:24→17:30)
[2016-05-16] MEDS: ASPIRIN 325 MG TABLET PO SCH (09:24)
[2016-05-16] MEDS: DOXYCYCLINE 100 MG in IV D5W 100 ML IV SCH (09:24)
[2016-05-16] MEDS ORDERED: SECONDARY IV SET 1 EA INFUS.SET MC ONE (09:57)
[2016-05-16] MEDS ORDERED: VANCOMYCIN 500 MG in IV D5W 100 ML IV PRN (10:00)
[2016-05-16] MEDS: NOREPINEPHRINE 16 MG in IV D5W 500 ML IV PRN (11:09)
[2016-05-16] MEDS: ALBUMIN 25% 25 GM in PREMIX 1 EA IV PRN (11:09)
[2016-05-16] MEDS: INSULIN REGULAR, HUMAN 100 UNIT/ML 3 ML VIAL SQ PRN ×2 (12:27→17:36)
[2016-05-16] MEDS: MEROPENEM 500 MG in IV NS 0.9% 50 ML IV SCH (15:52)
--- NOTE | 2016-05-16 20:00 | NUR ---
ICU/RN- PT IN BED ALERT TO NAME, OPENS EYES SPONTANEOUSLY, ABLE TO TRACK BUT DOES NOT FOLLOW COMMANDS. NO S/SX OF ACUTE DISTRESS NOTED AT THIS TIME. ON MONITOR W. CONTROLLED A-FIB W/ HR - 90'S. PT INTUBATED W/ ETT 7.5/24CM AC 16, TV 550 FIO2 35% P 5. NO S/SX OF RESP DISTRESS OBSERVED. WILL SUCTION TRACH PRN FOR CLEARANCE. ALLY PICC LINE PATENT AND INTACT. RCW PERMACATH DRESSING INTACT. R WRIST A-LINE CALIBRATED. OGT PRESENT W/ NOVASOURCE INFUSING AT 45ML/HR. 30CC RESIDUAL NOTED. REPOSITIONED PT FOR COMFORT. HOB UP AT ALL TIMES. WILL MONITOR PT ACCORDINGLY.
--- NOTE | 2016-05-16 20:12 | NUR ---
PT RECEIVED INTUBATED 7.5 ETT SECURED AT 24CM AT THE LIP VIA ANCHOR FAST. PT IS AWAKE NO RESP DISTRESS NOTED. PT TOLERATING VENT SETTINGS. SX'D FOR SML AMT OF THICK WHITE SECRETIONS. VENT ALARMS SET AND AUDIBLE. IBETHU BAG AT [facility]. WILL CONTINUE TO MONITOR. Addendum: 05/16/16 at 2013 by SUSANA VALDIVIA RT Amended: Links added.
[2016-05-17] VITALS (81 sets, daily range): BP systolic 58–138; BP diastolic 37–94
[2016-05-17] MEDS: IPRATROPIUM NEB FS 0.5 MG/2.5 ML AMPUL.NEB NEB SCH ×5 (03:13→20:01)
[2016-05-17] MEDS: IV NS 0.9% 250 ML IV PRN (04:28)
[2016-05-17] MEDS: METRONIDAZOLE 500MG/ NS 100ML 500 MG in PREMIX 1 EA IV SCH ×3 (04:30→20:58)
[2016-05-17] MEDS: METOPROLOL TARTRATE 25 MG TABLET NG SCH ×3 (04:30→20:59)
[2016-05-17 04:37] LABS: BASOPHILS # (AUTO) 0.1 /CMM (0.0-0.2); BASOPHILS % (AUTO) 0.7 % (0.0-2.0); EOSINOPHILS # (AUTO) 0.3 /CMM (0.0-0.7); EOSINOPHILS % (AUTO) 2.4 % (0.0-6.0); HEMATOCRIT 33 % (39-51); HEMOGLOBIN 10.8 g/dL (13.5-17.5); LYMPHOCYTES % (AUTO) 13.7 % (20.0-44.0); MEAN CORPUSCULAR HEMOGLOBIN 29 PG (26.0-33.0); MEAN CORPUSCULAR HGB CONC 33 g/dl (31.0-36.0); MEAN CORPUSCULAR VOLUME 88 fL (80-96); MONOCYTES # (AUTO) 1.5 /CMM (0.1-1.30); MONOCYTES % (AUTO) 10.7 % (2.0-12.0); NEUTROPHILS # (AUTO) 10.4 /CMM (1.8-8.9); NEUTROPHILS % (AUTO) 72.5 % (43.0-81.0); PLATELET COUNT (AUTO) 445 /CMM (150-450); RDW COEFFICIENT OF VARIATION 15.5 (11.5-15.0); RED BLOOD CELL COUNT(AUTO) 3.77 MIL/uL (4.5-6.0); WHITE BLOOD COUNT (AUTO) 14.4 K/uL (4.3-11.0)
[2016-05-17 04:48] LABS: CALCIUM, SERUM 8.6 mg/dL (8.5-10.1); MAGNESIUM 2.3 mg/dL (1.8-2.4); POTASSIUM 3.2 mmol/L (3.5-5.1)
[2016-05-17] MEDS: BLOOD SUGAR DIAGNOSTIC 1 EACH STRIP IN SCH ×3 (05:18→17:05)
[2016-05-17] MEDS: INSULIN REGULAR, HUMAN 100 UNIT/ML 3 ML VIAL SQ PRN ×3 (05:19→17:11)
--- NOTE | 2016-05-17 07:15 | NUR ---
COLD REDUCTION ROLLER NOTES RECEIVED PATIENT AWAKE , OPENS EYES TRACKS , NON VERBAL , NOT IN ACUTE DISTRESS , RESPIRATIONS EVEN AND UNLABORED WITH SPO2 OF 100% VIA MECHANICAL VENTILATOR SETTINGS ORDERED , ETT 7.[address] , AFIB 85 ON BEDSIDE MONITOR , OJT PATENT AND INTACT PLACEMENT CHECK VIA AUSCULTATION NOTED GURGLING SOUND AT STOMACH AREA , NOVASOURCE @ 35ML/HR INFUSING WELL WITH 5ML RESIDUALS NOTED , FC DRAINING WELL VIA GRAVITY WITH CLEAR YELLOW URINE , ALLY PICC LINE PATENT AND INTACT WITH NS @ TKO , A LINE @ R WRIST C/D/I WITH GOOD WAVE FORM , ZEROED , ALL NEEDS ATTENDED , BED ON LOW AND LOCKED POSITION , SIDE RAILS X2 , HOB @ 45 , ISOLATION PRECAUTION OBSERVED , WILL CONTINUE TO MONITOR
--- NOTE | 2016-05-17 07:21 | NUR ---
ICU/RN- NO SIGNIFICANT CHANGES IN PT'S STATUS. AM CARE PROVIDED ALL NEEDS ATTENDED AND MET. WILL ENDORSE TO AM SHIFT FOR CONTINUATION OF CARE.
[2016-05-17] MEDS ORDERED: IV NS 0.9% 500 ML IV ONE (08:08)
--- NOTE | 2016-05-17 08:30 | NUR ---
LIVE IN CAREGIVER NOTES DR LEIVA AT BEDSIDE , NOTIFIED PT WBC 14.4 , AFEBRILE , PER TRIMMER HAND PT HAS ROSEANNE YELLOW GREENISH STOOL , HD YESTERDAY , OFF LEVOPHED WITH STABLE BP VIA A MD MOLLY AWARE ,
[2016-05-17] MEDS: VIT B CMPLX 3/FA/VIT C/BIOTIN 1 TAB TABLET PO SCH (08:32)
[2016-05-17] MEDS: SEVELAMER CARBONATE 0.8 GM POWD.PACK GT SCH ×3 (08:32→17:05)
[2016-05-17] MEDS: ASPIRIN 325 MG TABLET PO SCH (08:32)
[2016-05-17] MEDS: NEOMY SULF/BACITRAC ZN/POLY 15 GM TUBE TP SCH (08:33)
[2016-05-17] MEDS: MUPIROCIN OINT 2% 22 GM TUBE SCH ×2 (08:33→20:47)
[2016-05-17] MEDS: VANCOMYCIN HCL 125 MG/2.5 ML ORAL.SUSP NG SCH ×4 (08:38→20:59)
--- NOTE | 2016-05-17 09:00 | NUR ---
WINDMILL TECHNICIAN NOTES A LINE TUBING AND BAG CHANGED , CALIBRATED , ZEROED , WITH GOOD WAVE FORM AND READING , WILL CONTINUE TO MONITOR
--- NOTE | 2016-05-17 11:33 | NUR ---
CHAIR FRAME BUILDER NOTES DR YEPEZ AT BEDSIDE , NOTIFIED PT BP OF 58/32 VIA MOLLY , WILL RE START LEVOPHED TITRATE ACCORDINGLY , PT IS MORE AWAKE , OPENS EYES WITH RACKING BUT NOT FOLLOWS COMMANDS , STILL HAVING URINE OUTPUT WITH CLEAR YELLOW URINE 50-70ML/HR , K OF 3.2 , BUN 64 , CREATININE 7.0 , AFEBRILE , HD WAS DONE YESTERDAY WITH 2L OUT , AWARE
[2016-05-17] MEDS: NOREPINEPHRINE 16 MG in IV D5W 500 ML IV PRN (11:39)
[2016-05-17] MEDS ORDERED: POTASSIUM CHLORIDE 20 MEQ POWDER PACKET GT ONE (12:00)
[2016-05-17] MEDS: MEROPENEM 500 MG in IV NS 0.9% 50 ML IV SCH (16:03)
[2016-05-17] MEDS: RENAL NOVASOURCE 1,000 ML BOTTLE GT PRN (17:05)
--- NOTE | 2016-05-17 19:49 | NUR ---
ICU/RN; RECEIVD PT IN BED AWAKES TO NAME, OPENS EYES SPONTANEOUSLY, ABLE TO TRACK BUT DOES NOT FOLLOW COMMANDS. NO S/SX OF ACUTE DISTRESS NOTED AT THIS TIME. ON MONITOR W. CONTROLLED A-FIB W/ HR - 80'S. PT INTUBATED W/ ETT 7.5/24CM AC 16, TV 550 FIO2 35% P 5. NO S/SX OF RESP DISTRESS OBSERVED. PRN SUCTIONED ETT FOR CLEARANCE. ALLY PICC LINE PATENT AND INTACT. RCW PERMCATH DRESSING INTACT. R WRIST A-LINE CALIBRATED, ZEROED GOOD WAVEFORM. OGT PRESENT W/ NOVASOURCE INFUSING AT 45ML/HR. 10CC RESIDUAL NOTED. REPOSITIONED PT FOR COMFORT. HOB UP AT ALL TIMES. KEEP MONITORING...
[2016-05-18] VITALS (92 sets, daily range): BP systolic 78–152; BP diastolic 45–93
[2016-05-18] MEDS: IPRATROPIUM NEB FS 0.5 MG/2.5 ML AMPUL.NEB NEB SCH ×7 (00:04→23:31)
[2016-05-18] MEDS: BLOOD SUGAR DIAGNOSTIC 1 EACH STRIP IN SCH ×4 (00:17→16:24)
[2016-05-18] MEDS: METRONIDAZOLE 500MG/ NS 100ML 500 MG in PREMIX 1 EA IV SCH ×3 (04:18→21:29)
[2016-05-18] MEDS: METOPROLOL TARTRATE 25 MG TABLET NG SCH ×3 (04:20→21:29)
[2016-05-18 05:30] LABS: CALCIUM, SERUM 8.3 mg/dL (8.5-10.1); MAGNESIUM 2.4 mg/dL (1.8-2.4); PHOSPHORUS 6.1 mg/dL (2.5-4.9); POTASSIUM 3.6 mmol/L (3.5-5.1)
[2016-05-18 05:32] LABS: BASOPHILS # (AUTO) 0.1 /CMM (0.0-0.2); BASOPHILS % (AUTO) 0.5 % (0.0-2.0); EOSINOPHILS # (AUTO) 0.3 /CMM (0.0-0.7); EOSINOPHILS % (AUTO) 1.6 % (0.0-6.0); HEMATOCRIT 33 % (39-51); HEMOGLOBIN 10.9 g/dL (13.5-17.5); LYMPHOCYTES # (AUTO) 1.9 /CMM (0.8-4.8); LYMPHOCYTES % (AUTO) 11.3 % (20.0-44.0); MEAN CORPUSCULAR HEMOGLOBIN 29 PG (26.0-33.0); MEAN CORPUSCULAR HGB CONC 33 g/dl (31.0-36.0); MEAN CORPUSCULAR VOLUME 87 fL (80-96); MONOCYTES # (AUTO) 1.5 /CMM (0.1-1.30); MONOCYTES % (AUTO) 8.6 % (2.0-12.0); NEUTROPHILS # (AUTO) 13.2 /CMM (1.8-8.9); PLATELET COUNT (AUTO) 476 /CMM (150-450); RDW COEFFICIENT OF VARIATION 15.1 (11.5-15.0)
[2016-05-18 05:34] LABS: CREATININE 8.2 mg/dL (0.6-1.3)
[2016-05-18] MEDS: IV NS 0.9% 250 ML IV PRN (05:40)
[2016-05-18] MEDS: INSULIN REGULAR, HUMAN 100 UNIT/ML 3 ML VIAL SQ PRN ×3 (05:45→16:26)
--- NOTE | 2016-05-18 08:32 | NUR ---
PATIENT UNABLE TO TOLERATE VENT WEANING TRIAL. PER DR CABALLERO PATIENT PLACED BACK ON PREVIOUS AC MODE VENT SETTINGS. DI CHACON AWARE. Addendum: 05/18/16 at 0833 by AMIRAH MINA RT Amended: Links added.
--- NOTE | 2016-05-18 08:51 | NUR ---
SUPERVISOR MONEY ROOM. PT AFTER 1H SIMV MODE PT TACHYPNEIC,UN CONTROLLED AFIB.. DR CABALLERO SO THE PT , CHANGE THE AC MODE.. WILL CONTINUE TO MONITOR VITALS.
--- NOTE | 2016-05-18 09:11 | NUR ---
ASSOCIATE PROFESSOR OF ART. INITIAL ASSESSMENT. RECEIVED THE PT REST ON THE BED. AWAKE, ALERT, DOES NOT FOLLOW COMMANDS. SUPPLEMENTAL MANAGER SHOWING AFIB.O GT FEEDING TOLERATED WELL. HOB ELEVATED. FC PATENT. TURN NAD REPOSITION Q2H. ETT 7.5,AC 16,LIP 24CMS,TV 550,FIO2 35%, PEEP 5. SAT 98 %. WILL CONTINUE TO MONITOR VITALS.
[2016-05-18] MEDS: VIT B CMPLX 3/FA/VIT C/BIOTIN 1 TAB TABLET PO SCH (10:25)
[2016-05-18] MEDS: ASPIRIN 325 MG TABLET PO SCH (10:25)
[2016-05-18] MEDS: VANCOMYCIN HCL 125 MG/2.5 ML ORAL.SUSP NG SCH ×4 (10:25→21:29)
[2016-05-18] MEDS: MUPIROCIN OINT 2% 22 GM TUBE SCH ×2 (10:26→21:25)
[2016-05-18] MEDS: NEOMY SULF/BACITRAC ZN/POLY 15 GM TUBE TP SCH (10:26)
[2016-05-18] MEDS ORDERED: IV NS 0.9% 500 ML IV ONE (10:28)
[2016-05-18] MEDS: SEVELAMER CARBONATE 0.8 GM POWD.PACK GT SCH ×3 (10:28→16:51)
[2016-05-18] MEDS: RENAL NOVASOURCE 1,000 ML BOTTLE GT PRN (12:53)
--- NOTE | 2016-05-18 15:11 | NUR ---
MANAGER OF SELECTION AND ASSESSMENT. PM CARE. ORAL CARE, BED BATH GIVEN. LINEN CHANGED. REMAINING SAME3 VENT SETTING TOLERATED WELL. ST 98 %. NO ACUTE DISTRESS NOTED. CRDIAC MONITOR SHOWING AFIB. IV LT UPPER ARM PICC LINE. TKO RUNNING. GT FEEDING TOLERATED WELL. FC PATENT. TURN AND REPOSITION Q2H. HOB ELEVATED. HD RUNNING, WILL CONTINUE TO MONITOR VITALS.
[2016-05-18] MEDS: MEROPENEM 500 MG in IV NS 0.9% 50 ML IV SCH (15:30)
--- NOTE | 2016-05-18 16:18 | NUR ---
GARMENT INSPECTOR. HD DONE. 3000 L FLUIDS OUT DURING HD NO COMPLICATION NOTED.
--- NOTE | 2016-05-18 19:21 | NUR ---
RECEIVED INTUBATED WITH 7.5 ETT AT 24CM AT THE LIP. PT IS AWAKE NO RESP DISTRESS NOTED. PT TOLERATING VENT SETTINGS. SUCTIONED MODERATE AMOUNT OF THICK WHITE SECRETIONS. VENT ALARMS SET AND AUDIBLE. PEARL WINTERS AT [facility]. WILL CONTINUE TO MONITOR. Addendum: 05/18/16 at 1933 by ERIK PEPPER RT Amended: Links added.
--- NOTE | 2016-05-18 20:00 | NUR ---
ICU/RN; RECEIVED PT IN BED AWAKES TO NAME, OPENS EYES SPONTANEOUSLY, ABLE TO TRACK BUT DOES NOT FOLLOW COMMANDS. NO S/SX OF ACUTE DISTRESS NOTED AT THIS TIME. ON MONITOR W. CONTROLLED A-FIB W/ HR - 90-100'S. PT INTUBATED W/ ETT 7.5/24CM AC 16, TV 550 FIO2 35% P 5. NO S/SX OF RESP DISTRESS OBSERVED. PRN SUCTIONED ETT FOR CLEARANCE. ALLY PICC LINE PATENT AND INTACT. RCW PERMCATH DRESSING INTACT. R WRIST A-LINE CALIBRATED, ZEROED GOOD WAVEFORM. OGT PRESENT W/ NOVASOURCE INFUSING AT 45ML/HR. 10CC RESIDUAL NOTED. REPOSITIONED PT FOR COMFORT. HOB UP AT ALL TIMES. KEEP MONITORING...
--- NOTE | 2016-05-18 21:48 | NUR ---
CHANGED TUBE FASTENER TO SECURE ETT. ALTERNATED TUBE LOCATION FROM RIGHT TO MIDDLE. ETT SECURED AT 24CM @ UPPER LIP.
[2016-05-19] VITALS (69 sets, daily range): BP systolic 85–153; BP diastolic 47–88
[2016-05-19] MEDS: BLOOD SUGAR DIAGNOSTIC 1 EACH STRIP IN SCH ×5 (00:47→23:56)
[2016-05-19] MEDS: INSULIN REGULAR, HUMAN 100 UNIT/ML 3 ML VIAL SQ PRN ×2 (00:47→18:40)
[2016-05-19] MEDS: IPRATROPIUM NEB FS 0.5 MG/2.5 ML AMPUL.NEB NEB SCH ×6 (03:08→23:40)
[2016-05-19] MEDS: METOPROLOL TARTRATE 25 MG TABLET NG SCH ×3 (04:25→20:29)
[2016-05-19] MEDS: IV NS 0.9% 250 ML IV PRN (04:25)
[2016-05-19] MEDS ORDERED: IV SET PRIMARY PUMP SET 1 EA INFUS.SET MC ONE (04:29)
[2016-05-19 05:17] LABS: CALCIUM, SERUM 8.3 mg/dL (8.5-10.1); CREATININE 5.8 mg/dL (0.6-1.3); POTASSIUM 3.2 mmol/L (3.5-5.1)
[2016-05-19] MEDS: METRONIDAZOLE 500MG/ NS 100ML 500 MG in PREMIX 1 EA IV SCH ×3 (05:40→20:29)
--- NOTE | 2016-05-19 07:00 | NUR ---
LIVESTOCK FARMER; PT BEING STABLE THE WHOLE NIGHT, NOT ANY SIGNIFICANT CHANGES NOTED. ENDORSED CARE TO NEXT SHIFT.
--- NOTE | 2016-05-19 08:00 | NUR ---
ICU/RN PT IS INTUBATED.ON THE VENT AC MODE.OFF SEDATION.OPEN HIS EYES ,RESPONSIVE ON PAIN STIMULATION.S/P CARDIO-PULMONARY ARREST.LEFT UPPER ARM PICC LINE.RIGHT SUBCLAVIAN HD CATH.PT HAS OLD TRACH WOUND WITH GREEN-YELLOW DISCHARGES.NG TUBE INFUSING WITH RENAL NOVASOURCE AT 45 ML/HR.NO RESIDUAL NOTED.F/C DRAINING WITH YELLOW URINE.V/S STABLE.RIGHT WRIST A-LINE. RIGHT BKA. T-99.9.TYLENOL VIA NG TUBE GIVEN SUCTION PROVIDED.REPOSITION FOR COMFORT.
[2016-05-19] MEDS: ASPIRIN 325 MG TABLET PO SCH (08:11)
[2016-05-19] MEDS: SEVELAMER CARBONATE 0.8 GM POWD.PACK GT SCH ×3 (08:11→17:59)
[2016-05-19] MEDS: VIT B CMPLX 3/FA/VIT C/BIOTIN 1 TAB TABLET PO SCH (08:11)
[2016-05-19] MEDS: VANCOMYCIN HCL 125 MG/2.5 ML ORAL.SUSP NG SCH ×4 (08:11→20:29)
[2016-05-19] MEDS: ACETAMINOPHEN 650 MG/20.3 ML UDC PO PRN (08:11)
[2016-05-19] MEDS: Z GUARD REMEDY 2 OZ OINT TP PRN (08:12)
[2016-05-19] MEDS: NEOMY SULF/BACITRAC ZN/POLY 15 GM TUBE TP SCH (08:13)
[2016-05-19] MEDS: MUPIROCIN OINT 2% 22 GM TUBE SCH ×2 (08:13→20:30)
--- NOTE | 2016-05-19 08:56 | NUR ---
ICU/RN PT IS ON THE BED ON 3L N/ SAT O2-96%.V/S STABLE.AFEBRILE NO PAIN REPORTED AT THIS TIME. PERIFERAL IV INFUSING WITH NS AT 75 ML/HR.NG TUBE CLAMPED.BILATERAL SOFT WRIST RESTRAINS ON.PT TRY TO REMOVED IV AND NG TUBE. F/C DRAINING WITH YELLOW URINE.SUCTION PROVIDED.REPOSITION FOR COMFORT.
--- NOTE | 2016-05-19 09:15 | NUR ---
ICU/RN DUE MEDS ARE GIVEN ORDERED.LABS REVIEW.MD NOTIFIED.NEW ORDERS RECEIVED.PICC LINE DOESN'T HAVE ANY BLOOD RETURN.
[2016-05-19] MEDS ORDERED: POTASSIUM CHLORIDE 20 MEQ POWDER PACKET GT ONE (09:30)
--- NOTE | 2016-05-19 10:00 | NUR ---
ICU/RN LABS REVIEW.MD NOTIFIED,NEW ORDERS RECEIVED. 500 ML OF NS BOLUS GIVEN ORDERED.2 GM MG SO4 IV ORDERED.
--- NOTE | 2016-05-19 13:00 | NUR ---
ICU/RN PT IV IS LEAKING. NEW IV INSERTED. DUE MEDS ARE GIVEN ORDERED.CONTINUE MONITORING.
[2016-05-19] MEDS: RENAL NOVASOURCE 1,000 ML BOTTLE GT PRN (13:20)
[2016-05-19] MEDS ORDERED: IV NS 0.9% 500 ML IV ONE (15:19)
[2016-05-19] MEDS ORDERED: SECONDARY IV SET 1 EA INFUS.SET MC ONE (15:25)
[2016-05-19] MEDS: MEROPENEM 500 MG in IV NS 0.9% 50 ML IV SCH (15:38)
--- NOTE | 2016-05-19 16:24 | NUR ---
RT RECEIVED PT INTUBATED WITH 7.5 ETT AT 24CM AT THE LIP ON [facility] VENT WITH SETTINGS PER MD ORDER. PT IS AWAKE BUT DOES NOT RESPOND TO VERBAL COMMAND. CIRCLE SHEAR OPERATOR DONE. BILATERAL BREATH SOUNDS ON AUSCULTATION. RESPIRATIONS EVEN AND UNLABORED. SUCTIONED SMALL AMOUNTS OF THICK, WHITE/JEFFERSON SECRETIONS. ETT SECURED BY ANCHOR FAST. TX'S GIVEN ORDERED, NO ADVERSE REACTIONS OBSERVED. AMBU BAG AT HEAD OF BED. NO SOB OR SIGNS OF DISTRESS NOTED AT THIS TIME. VENT PLUGGED INTO RED OUTLET. WILL CONTINUE TO MONITOR THE PATIENT FOR ANY CHANGE OF CONDITION. Addendum: 05/19/16 at 1627 by ALFONSO SARABIA RT Amended: Links added.
[2016-05-19] MEDS: ALBUTEROL FS 2.5 MG/0.5 ML VIAL.NEB NEB PRN ×2 (19:27→23:40)
--- NOTE | 2016-05-19 19:44 | NUR ---
ICU/RN; RECEIVED PT IN BED AWAKES TO NAME, OPENS EYES SPONTANEOUSLY, ABLE TO TRACK BUT DOES NOT FOLLOW COMMANDS. NO S/SX OF ACUTE DISTRESS NOTED AT THIS TIME. ON MONITOR W. CONTROLLED A-FIB W/ HR - 90-100'S. PT INTUBATED W/ ETT 7.5/24CM AC 16, TV 550 FIO2 35% P 5. NO S/SX OF RESP DISTRESS OBSERVED. PRN SUCTIONED ETT FOR CLEARANCE. ALLY PICC LINE PATENT AND INTACT. RCW PERMCATH DRESSING INTACT. R WRIST A-LINE CALIBRATED, ZEROED GOOD WAVEFORM. OGT PRESENT W/ NOVASOURCE INFUSING AT 45ML/HR. NO RESIDUAL NOTED. PT FAILED WEANING , PLAN FOR TRACH PER AGRICULTURAL ADVISER BUT AWAITING FOR FAMILY TO DECIDE. REPOSITIONED PT FOR COMFORT. HOB UP AT ALL TIMES. KEEP MONITORING...
[2016-05-20] VITALS (36 sets, daily range): BP systolic 92–137; BP diastolic 48–87
[2016-05-20] MEDS: IPRATROPIUM NEB FS 0.5 MG/2.5 ML AMPUL.NEB NEB SCH ×6 (03:27→23:15)
[2016-05-20] MEDS: ALBUTEROL FS 2.5 MG/0.5 ML VIAL.NEB NEB PRN ×4 (03:27→15:12)
[2016-05-20 04:43] LABS: BASOPHILS # (AUTO) 0.1 /CMM (0.0-0.2); BASOPHILS % (AUTO) 0.3 % (0.0-2.0); EOSINOPHILS # (AUTO) 0.2 /CMM (0.0-0.7); EOSINOPHILS % (AUTO) 1.1 % (0.0-6.0); HEMATOCRIT 32 % (39-51); HEMOGLOBIN 10.6 g/dL (13.5-17.5); LYMPHOCYTES # (AUTO) 2.5 /CMM (0.8-4.8); LYMPHOCYTES % (AUTO) 11.7 % (20.0-44.0); MEAN CORPUSCULAR HEMOGLOBIN 29 PG (26.0-33.0); MEAN CORPUSCULAR HGB CONC 33 g/dl (31.0-36.0); MEAN CORPUSCULAR VOLUME 88 fL (80-96); MONOCYTES # (AUTO) 1.7 /CMM (0.1-1.30); MONOCYTES % (AUTO) 7.9 % (2.0-12.0); NEUTROPHILS # (AUTO) 17.1 /CMM (1.8-8.9); PLATELET COUNT (AUTO) 452 /CMM (150-450); RDW COEFFICIENT OF VARIATION 15.4 (11.5-15.0); RED BLOOD CELL COUNT(AUTO) 3.69 MIL/uL (4.5-6.0); WHITE BLOOD COUNT (AUTO) 21.6 K/uL (4.3-11.0)
[2016-05-20] MEDS: IV NS 0.9% 250 ML IV PRN (04:49)
[2016-05-20] MEDS: METRONIDAZOLE 500MG/ NS 100ML 500 MG in PREMIX 1 EA IV SCH ×3 (04:49→21:53)
[2016-05-20] MEDS: METOPROLOL TARTRATE 25 MG TABLET NG SCH ×3 (04:51→21:00)
[2016-05-20 04:57] LABS: CALCIUM, SERUM 8.5 mg/dL (8.5-10.1); CREATININE 7.1 mg/dL (0.6-1.3); MAGNESIUM 2.5 mg/dL (1.8-2.4); PHOSPHORUS 5.3 mg/dL (2.5-4.9); POTASSIUM 3.7 mmol/L (3.5-5.1)
[2016-05-20] MEDS: BLOOD SUGAR DIAGNOSTIC 1 EACH STRIP IN SCH ×3 (05:29→17:16)
[2016-05-20] MEDS: INSULIN REGULAR, HUMAN 100 UNIT/ML 3 ML VIAL SQ PRN ×3 (05:30→17:39)
--- NOTE | 2016-05-20 08:00 | NUR ---
ICU/RN PT IS INTUBATED ON THE VENT AC MODE,FIO2-35%,SAT O2-100%.OFF SEDATION.OPEN HIS EYES ,NOT FOLLOWS COMMAND.LEFT UPPER ARM PICC LINE.NG TUBE IN PLACE INFUSING WITH RENAL NOVASOURCE AT 45 ML/HR NO RESIDUAL NOTED.A-LINE ON THE RIGHT WRIST.F/C DRAINING WITH YELLOW URINE.RIGHT BKA.REDNESS ON EBONI AREA AND LOWER BACK NOTED.GENERALIZED EDEMA PRESENT.PT IS ESRD ON HD RIGHT SUBCLAVIAN HD CATH.NO PAIN REPORTED AT THIS TIME.V/S STABLE.T-99.7.SUCTION PROVIDED.REPOSITION FOR COMFORT.CONTINUE MONITORING.
[2016-05-20] MEDS: VIT B CMPLX 3/FA/VIT C/BIOTIN 1 TAB TABLET PO SCH (08:21)
[2016-05-20] MEDS: ASPIRIN 325 MG TABLET PO SCH (08:21)
[2016-05-20] MEDS: SEVELAMER CARBONATE 0.8 GM POWD.PACK GT SCH ×3 (08:21→17:17)
[2016-05-20] MEDS: MUPIROCIN OINT 2% 22 GM TUBE SCH ×2 (08:22→21:54)
[2016-05-20] MEDS: VANCOMYCIN HCL 125 MG/2.5 ML ORAL.SUSP NG SCH ×4 (08:22→21:54)
[2016-05-20] MEDS: Z GUARD REMEDY 2 OZ OINT TP PRN (08:23)
[2016-05-20] MEDS: NEOMY SULF/BACITRAC ZN/POLY 15 GM TUBE TP SCH (08:23)
[2016-05-20] MEDS ORDERED: VANCOMYCIN 1 GM in IV D5W 250 ML IV SCH ×2 (09:00→11:16)
--- NOTE | 2016-05-20 09:20 | NUR ---
ICU/RN DUE MEDS ARE GIVEN ORDERED.LABS REVIEW.
[2016-05-20] MEDS ORDERED: FEE PK DOSING 1 MIN EA MC ONE (13:32)
--- NOTE | 2016-05-20 16:00 | NUR ---
ICU/RN A-LINE DISCONNECTED ORDERED.
[2016-05-20] MEDS: RENAL NOVASOURCE 1,000 ML BOTTLE GT PRN (16:38)
--- NOTE | 2016-05-20 17:00 | NUR ---
ICU/RN PM CARE PROVIDED.DUE MEDS ARE GIVEN ORDERED.WOUND DRESSING DONE.SUCTION PROVIDED.REPOSITION FOR COMFORT.
--- NOTE | 2016-05-20 19:55 | NUR ---
PT RECEIVED INTUBATED 7.5 ETT SECURED AT 24CM AT THE LIP VIA ANCHOR FAST. NO RESP DISTRESS NOTED. PT TOLERATING VENT SETTINGS. PT IS AWAKE BUT DOES NOT FOLLOW COMMANDS. SX'D FOR SML AMT OF THICK PALE SECRETIONS. VENT ALARMS SET AND AUDIBLE, ETT CUFF CHECKED COMMUNICATION INSTRUCTOR. VENT PLUGGED INTO RED OUTLET. AMBU BAG AT BEDSIDE. WILL CONTINUE TO MONITOR. Addendum: 05/20/16 at 8 by SUSANA VALDIVIA RT Amended: Links added.
--- NOTE | 2016-05-20 20:02 | NUR ---
SUPERVISOR BAKING NOTES RECEIVED PT IN BED, OPENS EYES AND STARES BUT DOES NOT TRACK. DOES NOT FOLLOW COMMAND. TELE READS A-FIB AT 108 BPM WITH PVCs. ON VENT VIA ETT 7.5 AT 24CM, AC 16, TV 550, FIO2 35%, PEEP 5, ENEDELIA WELL. RIGHT NARE NGT PRESENT WITH NOVASOURCE RUNNING AT 45 ML/HR, NO RESIDUAL. [place] CATH IN PLACE WITH MINIMAL OUTPUT. ALLY PICC RUNNING NS AT TKO. RIGHT CHEST WALL HD CATH, DRESSING INTACT. WOUND AT OLD TRACH LOCATION. SIDE RAILS X3, HOB ELEVATED, KCI MATTRESS.
[2016-05-21] VITALS (74 sets, daily range): BP systolic 51–126; BP diastolic 23–83
[2016-05-21] MEDS: BLOOD SUGAR DIAGNOSTIC 1 EACH STRIP IN SCH ×5 (00:01→23:58)
[2016-05-21] MEDS: INSULIN REGULAR, HUMAN 100 UNIT/ML 3 ML VIAL SQ PRN ×4 (00:04→17:04)
[2016-05-21] MEDS: IPRATROPIUM NEB FS 0.5 MG/2.5 ML AMPUL.NEB NEB SCH ×6 (03:16→23:07)
[2016-05-21] MEDS: METOPROLOL TARTRATE 25 MG TABLET NG SCH ×3 (04:07→21:00)
[2016-05-21] MEDS: METRONIDAZOLE 500MG/ NS 100ML 500 MG in PREMIX 1 EA IV SCH ×3 (04:07→21:05)
[2016-05-21] MEDS: IV NS 0.9% 250 ML IV PRN (04:08)
[2016-05-21 05:41] LABS: CALCIUM, SERUM 8.4 mg/dL (8.5-10.1); POTASSIUM 3.6 mmol/L (3.5-5.1)
[2016-05-21 05:44] LABS: CREATININE 8.3 mg/dL (0.6-1.3)
--- NOTE | 2016-05-21 06:54 | NUR ---
ZOOLOGY TECHNICAL OFFICER NOTES HOUSE WORKER AT BEDSIDE. NECESSARY LAB RESULTS REPORTED. MADE AWARE OF ORDERED BLOOD CULTURE VIA HD CATH. DISCUSSED DR'S ORDER TO ADMINISTER VANCOMYCIN VIA HD CATH DURING DIALYSIS. PER HOUSE WORKER, THE DIALYSIS FILTER WILL REMOVE THE VANCOMYCIN THEREBY HAVING NO EFFECT ON THE PATIENT. WILL ENDORSE TO AM NURSE TO FOLLOW UP WITH THE RENAL AND INFECTION DRs.
[2016-05-21] MEDS: ALBUTEROL FS 2.5 MG/0.5 ML VIAL.NEB NEB PRN (07:22)
--- NOTE | 2016-05-21 07:29 | NUR ---
EDUCATIONAL TECHNICIAN NOTES PT WITH ONGOING HD , SBP OF 80'S , CALLED PHARMACY FOR LEVOPHED ,
--- NOTE | 2016-05-21 07:29 | NUR ---
SHOW CARD LETTERER NOTES RECEIVED PATIENT AWAKE , OPENS EYES , NON VERBAL , NOT IN ACUTE DISTRESS , RESPIRATIONS EVEN AND UNLABORED WITH SPO2 OF 100% VIA MECHANICAL VENTILATOR SETTINGS ORDERED , ETT 7.[address] , AFIB 95 ON BEDSIDE MONITOR , R NARE NGT PATENT AND INTACT PLACEMENT CHECK VIA AUSCULTATION NOTED GURGLING SOUND AT STOMACH AREA , NOVASOURCE @ 45ML/HR INFUSING WELL WITH 5ML RESIDUALS NOTED , FC DRAINING WELL VIA GRAVITY WITH CLEAR YELLOW URINE , ALLY PICC LINE PATENT AND INTACT WITH NS @ TKO ,R CHESTWALL HD CATH C/D/I WITH ONGOING HEMODIALYSIS , ALL NEEDS ATTENDED , BED ON LOW AND LOCKED POSITION , SIDE RAILS X2 , HOB @ 45 , ISOLATION PRECAUTION OBSERVED , WILL CONTINUE TO MONITOR .
[2016-05-21] MEDS: ALBUMIN 25% 25 GM in PREMIX 1 EA IV PRN (07:44)
[2016-05-21] MEDS ORDERED: IV NS 0.9% 1,000 ML ONE (09:08)
--- NOTE | 2016-05-21 09:49 | NUR ---
ESCROW AGENT NOTES PT STABLE POST HD , REMOVED 2 L OUT , BP OF 97/71 , HR 133 , SPO2 OF 98% VIA MECHANICAL VENTILATOR , RR 32 , WILL CONTINUE TO MONITOR
[2016-05-21] MEDS: VIT B CMPLX 3/FA/VIT C/BIOTIN 1 TAB TABLET PO SCH (09:53)
[2016-05-21] MEDS: ERGOCALCIFEROL (VITAMIN D 2) 50,000 UNIT CAPSULE GT SCH (09:53)
[2016-05-21] MEDS: SEVELAMER CARBONATE 0.8 GM POWD.PACK GT SCH ×3 (09:53→17:00)
[2016-05-21] MEDS: ASPIRIN 325 MG TABLET PO SCH (09:53)
[2016-05-21] MEDS: VANCOMYCIN HCL 125 MG/2.5 ML ORAL.SUSP NG SCH ×4 (09:53→21:05)
[2016-05-21] MEDS: MUPIROCIN OINT 2% 22 GM TUBE SCH ×2 (09:54→21:05)
[2016-05-21] MEDS: NEOMY SULF/BACITRAC ZN/POLY 15 GM TUBE TP SCH (09:54)
[2016-05-21] MEDS: LORAZEPAM INJ 2 MG/ML VIAL IV PRN (09:58)
[2016-05-21] MEDS ORDERED: VANCOMYCIN 1 GM in IV D5W 250ml IV ONE (11:00)
[2016-05-21] MEDS: RENAL NOVASOURCE 1,000 ML BOTTLE GT PRN (12:13)
--- NOTE | 2016-05-21 12:14 | NUR ---
ORACLE ENDECA CONSULTANT NOTES NOTIFIED ROXANN THAT VANCOMYCIN DOSE WAS NOT GIVEN YESTERDAY , PER PHARMACIST HE WILL ORDER LEVEL TODAY , AND GIVE THE DOSE POST HD DEPENDING ON VANCOMYCIN THROUGH LEVEL ,
--- NOTE | 2016-05-21 12:30 | NUR ---
OCEAN LIFEGUARD NOTES NOTIFIED DR TARIQ REGARDING PT STATUS , PT IS TACHYPNEIC RR OF 30-35 S/P HD , ON MECHANICAL VENTILATOR SETTINGS ORDERED WITH SPO2 OF 100% , MD AWARE NO NEW ORDERS RECEIVED
--- NOTE | 2016-05-21 14:00 | NUR ---
CORNETIST NOTES CALLED DR LEIVA , VERIFIED VANCOMYCIN DOSE TO BE GIVEN AT HD CATHETER , PER MD GIVE THE DOSE THROUGH PICC LINE , NOTIFIED PT HAS NO CBC ORDERED FOR TODAY , PER MD ORDER STAT CBC , ORDERS CARRIED OUT
[2016-05-21] MEDS ORDERED: SECONDARY IV SET 1 EA INFUS.SET MC ONE ×3 (14:45→23:14)
[2016-05-21 15:14] LABS: BASOPHILS % (AUTO) 0.1 % (0.0-2.0); EOSINOPHILS # (AUTO) 0.1 /CMM (0.0-0.7); EOSINOPHILS % (AUTO) 0.6 % (0.0-6.0); HEMATOCRIT 32 % (39-51); HEMOGLOBIN 10.1 g/dL (13.5-17.5); LYMPHOCYTES # (AUTO) 2.2 /CMM (0.8-4.8); LYMPHOCYTES % (AUTO) 10.2 % (20.0-44.0); MEAN CORPUSCULAR HEMOGLOBIN 28 PG (26.0-33.0); MEAN CORPUSCULAR HGB CONC 32 g/dl (31.0-36.0); MEAN CORPUSCULAR VOLUME 87 fL (80-96); MONOCYTES # (AUTO) 1.7 /CMM (0.1-1.30); MONOCYTES % (AUTO) 7.6 % (2.0-12.0); NEUTROPHILS % (AUTO) 81.5 % (43.0-81.0); PLATELET COUNT (AUTO) 456 /CMM (150-450); RDW COEFFICIENT OF VARIATION 15.8 (11.5-15.0); RED BLOOD CELL COUNT(AUTO) 3.62 MIL/uL (4.5-6.0)
--- NOTE | 2016-05-21 18:52 | NUR ---
MAIL SERVICE COORDINATOR NOTES MAUDE NURSE PRACTITIONER ID AT BEDSIDE , NOTIFIED PT WBC OF 22.0 S/P HD TODAY , T MAX OF 99.5 , OFF LEVOPHED FOR FOUR DAYS , NOTED WITH SOFT SMEAR BM , BROWNISH , DICKENS COLOR , PENDING BLOOD CX FROM HD CATH ,
--- NOTE | 2016-05-21 19:30 | NUR ---
Received patient resting open eyes not tracking and non interactive.Orally intubated to vent on AC 16,TV 550,FIO2 35%,PEEP 5.SPO2 98%.Suction small amount white secretion.Afib 80's-90's per monitor.Tube feeding to right nare NGT in progress.NGT placement verified and patent.No residual noted.HOB elevated.Abdomen soft BS active.FC to gravity draining yellow urine.NS TKO infusing to ALLY PICC line and site intact.No distress noted.
[2016-05-21] MEDS ORDERED: IV SET PRIMARY PUMP SET 1 EA INFUS.SET MC ONE (19:35)
[2016-05-21] MEDS: NOREPINEPHRINE 16 MG in IV D5W 500 ML IV PRN (19:41)
--- NOTE | 2016-05-21 19:41 | NUR ---
Patient BP drop to 66/38 after several readings of low70's.Levophed drip started at 5 mc/min and will titrate accordingly.NGT feeding on hold and place on supine position.No distress noted.
[2016-05-21] MEDS ORDERED: D5W IV ONE (23:00)
[2016-05-21] MEDS ORDERED: TOBRAMYCIN IV ONE (23:00)
[2016-05-22] VITALS (63 sets, daily range): BP systolic 72–137; BP diastolic 38–79
[2016-05-22] MEDS: IPRATROPIUM NEB FS 0.5 MG/2.5 ML AMPUL.NEB NEB SCH ×6 (03:03→23:32)
[2016-05-22 04:55] LABS: BASOPHILS # (AUTO) 0.1 /CMM (0.0-0.2); BASOPHILS % (AUTO) 0.4 % (0.0-2.0); EOSINOPHILS # (AUTO) 0.3 /CMM (0.0-0.7); EOSINOPHILS % (AUTO) 1.3 % (0.0-6.0); HEMATOCRIT 30 % (39-51); HEMOGLOBIN 9.7 g/dL (13.5-17.5); LYMPHOCYTES # (AUTO) 2.4 /CMM (0.8-4.8); LYMPHOCYTES % (AUTO) 10.2 % (20.0-44.0); MEAN CORPUSCULAR HEMOGLOBIN 28 PG (26.0-33.0); MEAN CORPUSCULAR HGB CONC 32 g/dl (31.0-36.0); MEAN CORPUSCULAR VOLUME 88 fL (80-96); MONOCYTES # (AUTO) 2.2 /CMM (0.1-1.30); MONOCYTES % (AUTO) 9.3 % (2.0-12.0); NEUTROPHILS # (AUTO) 18.5 /CMM (1.8-8.9); NEUTROPHILS % (AUTO) 78.8 % (43.0-81.0); PLATELET COUNT (AUTO) 480 /CMM (150-450); RDW COEFFICIENT OF VARIATION 15.7 (11.5-15.0); RED BLOOD CELL COUNT(AUTO) 3.45 MIL/uL (4.5-6.0); WHITE BLOOD COUNT (AUTO) 23.4 K/uL (4.3-11.0)
[2016-05-22] MEDS: METOPROLOL TARTRATE 25 MG TABLET NG SCH ×3 (05:00→20:46)
[2016-05-22] MEDS: METRONIDAZOLE 500MG/ NS 100ML 500 MG in PREMIX 1 EA IV SCH ×3 (05:01→20:45)
[2016-05-22 05:07] LABS: CALCIUM, SERUM 8.3 mg/dL (8.5-10.1); CREATININE 6.7 mg/dL (0.6-1.3); MAGNESIUM 2.5 mg/dL (1.8-2.4); PHOSPHORUS 5.7 mg/dL (2.5-4.9); POTASSIUM 3.5 mmol/L (3.5-5.1)
[2016-05-22] MEDS ORDERED: TOBRAMYCIN 80 MG in IV D5W 50 ML IV PRN (06:00)
[2016-05-22] MEDS: BLOOD SUGAR DIAGNOSTIC 1 EACH STRIP IN SCH ×4 (06:00→23:54)
--- NOTE | 2016-05-22 06:00 | NUR ---
Patient resting.VS stable.AFIB 101-105.Off Levophed drip BP stable.Continue to monitor vs. Tube feeding well tolerated.FC drained 200 ml.yellow urine. Turned and repositioned.AM care done.All needs anticipated and met.No distress noted.
[2016-05-22] MEDS: INSULIN REGULAR, HUMAN 100 UNIT/ML 3 ML VIAL SQ PRN ×4 (06:01→23:56)
[2016-05-22] MEDS: ALBUTEROL FS 2.5 MG/0.5 ML VIAL.NEB NEB PRN ×3 (07:06→15:16)
[2016-05-22] MEDS: ASPIRIN 325 MG TABLET PO SCH (08:01)
[2016-05-22] MEDS: SEVELAMER CARBONATE 0.8 GM POWD.PACK GT SCH ×3 (08:01→16:52)
[2016-05-22] MEDS: VIT B CMPLX 3/FA/VIT C/BIOTIN 1 TAB TABLET PO SCH (08:01)
[2016-05-22] MEDS: VANCOMYCIN HCL 125 MG/2.5 ML ORAL.SUSP NG SCH ×4 (08:02→20:45)
[2016-05-22] MEDS: MUPIROCIN OINT 2% 22 GM TUBE SCH ×2 (08:02→20:46)
[2016-05-22] MEDS: NEOMY SULF/BACITRAC ZN/POLY 15 GM TUBE TP SCH (08:03)
[2016-05-22] MEDS: RENAL NOVASOURCE 1,000 ML BOTTLE GT PRN (10:14)
[2016-05-22] MEDS: IV NS 0.9% 250 ML IV PRN (10:15)
--- NOTE | 2016-05-22 11:43 | NUR ---
PT TAKEN TO CT W/ 100% AMBUBAG AND PLACED ON CT VENT W/ ORDERED SETTINGS. 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 NO RESP DISTRESS NOTED ON TRANSPORT OR AFTER. PT PLACED BACK ON PB840 VENT W/ PRIOR SETTINGS UPON RETURN TO ICU.
[2016-05-22] MEDS ORDERED: FEE PK DOSING 1 MIN EA MC ONE (13:10)
[2016-05-22] MEDS: ACETAMINOPHEN 650 MG/20.3 ML UDC PO PRN (13:17)
[2016-05-22] MEDS: LORAZEPAM INJ 2 MG/ML VIAL IV PRN ×2 (13:17→16:52)
[2016-05-22] MEDS: MEROPENEM 500 MG in IV NS 0.9% 50 ML IV SCH (14:50)
--- NOTE | 2016-05-22 20:03 | NUR ---
CASHIER TICKET SELLING NOTES RECEIVED PT IN BED, OPENS EYES AND STARES BUT DOES NOT TRACK. DOES NOT FOLLOW COMMAND. TELE READS A-FIB AT 123 BPM WITH PVCs. ON VENT VIA ETT 7.5 AT 24CM, AC 16, TV 550, FIO2 35%, PEEP 5, ENEDELIA WELL. RIGHT NARE NGT PRESENT WITH NOVASOURCE RUNNING AT 45 ML/HR, NO RESIDUAL. [place] CATH IN PLACE WITH MINIMAL OUTPUT. ALLY PICC RUNNING NS AT TKO. RIGHT CHEST WALL HD CATH, DRESSING INTACT. WOUND AT OLD TRACH LOCATION. SIDE RAILS X3, HOB ELEVATED, KCI MATTRESS.
--- NOTE | 2016-05-22 21:23 | NUR ---
PT RECEIVED INTUBATED 7.5 ETT SECURED AT 24CM AT THE LIP. NO RESP DISTRESS. PT TOLERATING VENT SETTINGS. SX'D FOR MOD AMT OF THICK WHITE SECRETIONS. LAURIE ALARMS SET AND AUDIBLE. AMBU BAG AT BEDSIDE. VENT PLUGGED INTO RED OUTLET. WILL CONTINUE TO MONITOR. Addendum: 05/22/16 at 2125 by SUSANA VALDIVIA RT Amended: Links added.
[2016-05-23] VITALS (38 sets, daily range): BP systolic 87–117; BP diastolic 45–78
[2016-05-23] MEDS ORDERED: DOSING PER PHARMACY-AMIKACI IV XX PRN (02:30)
[2016-05-23] MEDS: IPRATROPIUM NEB FS 0.5 MG/2.5 ML AMPUL.NEB NEB SCH ×5 (03:19→19:28)
[2016-05-23] MEDS: METRONIDAZOLE 500MG/ NS 100ML 500 MG in PREMIX 1 EA IV SCH ×3 (04:15→21:08)
[2016-05-23] MEDS: METOPROLOL TARTRATE 25 MG TABLET NG SCH ×3 (04:16→21:10)
[2016-05-23] MEDS: LORAZEPAM INJ 2 MG/ML VIAL IV PRN (04:16)
[2016-05-23 05:16] LABS: BASOPHILS # (AUTO) 0.1 /CMM (0.0-0.2); BASOPHILS % (AUTO) 0.4 % (0.0-2.0); EOSINOPHILS # (AUTO) 0.2 /CMM (0.0-0.7); EOSINOPHILS % (AUTO) 1.2 % (0.0-6.0); HEMATOCRIT 28 % (39-51); HEMOGLOBIN 9.3 g/dL (13.5-17.5); LYMPHOCYTES # (AUTO) 1.7 /CMM (0.8-4.8); LYMPHOCYTES % (AUTO) 9.1 % (20.0-44.0); MEAN CORPUSCULAR HEMOGLOBIN 29 PG (26.0-33.0); MEAN CORPUSCULAR HGB CONC 33 g/dl (31.0-36.0); MEAN CORPUSCULAR VOLUME 88 fL (80-96); MONOCYTES # (AUTO) 1.3 /CMM (0.1-1.30); MONOCYTES % (AUTO) 6.6 % (2.0-12.0); NEUTROPHILS # (AUTO) 15.9 /CMM (1.8-8.9); NEUTROPHILS % (AUTO) 82.7 % (43.0-81.0); PLATELET COUNT (AUTO) 452 /CMM (150-450); RDW COEFFICIENT OF VARIATION 15.8 (11.5-15.0); RED BLOOD CELL COUNT(AUTO) 3.21 MIL/uL (4.5-6.0); WHITE BLOOD COUNT (AUTO) 19.2 K/uL (4.3-11.0)
[2016-05-23 05:24] LABS: CALCIUM, SERUM 8.4 mg/dL (8.5-10.1); MAGNESIUM 2.8 mg/dL (1.8-2.4); PHOSPHORUS 7.2 mg/dL (2.5-4.9); POTASSIUM 4.2 mmol/L (3.5-5.1)
[2016-05-23 05:32] LABS: CREATININE 7.9 mg/dL (0.6-1.3)
[2016-05-23] MEDS: BLOOD SUGAR DIAGNOSTIC 1 EACH STRIP IN SCH ×3 (06:38→16:56)
[2016-05-23] MEDS: INSULIN REGULAR, HUMAN 100 UNIT/ML 3 ML VIAL SQ PRN ×2 (06:41→18:56)
[2016-05-23] MEDS: ALBUTEROL FS 2.5 MG/0.5 ML VIAL.NEB NEB PRN ×2 (07:04→19:28)
[2016-05-23] MEDS ORDERED: AMIKACIN 500 MG in IV D5W 100 ML IV PRN (07:30)
--- NOTE | 2016-05-23 07:40 | NUR ---
ICU/RN PT IS INTUBATED AC MODE ON THE VENT .LETHARGIC.RESPONSIVE ON PAIN STIMULATION.V/S STABLE AFEBRILE.NO PAIN REPORTED AT THIS TIME.NG INFUSING WITH RENAL NOVASOURCE AT 45 ML/HR.NO RESIDUAL NOTED.F/C DRAINING WITH MINIMAL AMOUNT OF YELLOW URIN.PT HAS ESRD. ON HD.HD CATH ON THE RIGHT SUBCLAVIAN AREA.SUCTION PROVIDED REPOSITION FOR COMFORT.LABS REVIEW.
[2016-05-23] MEDS ORDERED: FEE PK DOSING 1 MIN EA MC ONE (07:42)
[2016-05-23] MEDS: VIT B CMPLX 3/FA/VIT C/BIOTIN 1 TAB TABLET PO SCH (08:50)
[2016-05-23] MEDS: VANCOMYCIN HCL 125 MG/2.5 ML ORAL.SUSP NG SCH ×4 (08:51→21:11)
[2016-05-23] MEDS: SEVELAMER CARBONATE 0.8 GM POWD.PACK GT SCH ×3 (08:51→16:55)
[2016-05-23] MEDS: ASPIRIN 325 MG TABLET PO SCH (08:51)
[2016-05-23] MEDS: Z GUARD REMEDY 2 OZ OINT TP PRN (08:52)
[2016-05-23] MEDS: MUPIROCIN OINT 2% 22 GM TUBE SCH ×2 (08:54→21:09)
[2016-05-23] MEDS: NEOMY SULF/BACITRAC ZN/POLY 15 GM TUBE TP SCH (08:54)
[2016-05-23] MEDS ORDERED: D5W IV ONE (09:00)
[2016-05-23] MEDS ORDERED: AMIKACIN IV ONE (09:00)
--- NOTE | 2016-05-23 09:00 | NUR ---
ICU/RN DUE MEDS ARE GIVEN ORDERED.
[2016-05-23] MEDS ORDERED: SECONDARY IV SET 1 EA INFUS.SET MC ONE ×4 (09:58→14:46)
[2016-05-23 11:01] LABS: ABG BASE EXCESS -2.9 mmol/L; ABG OXYGEN SATURATION 97.7 % (92.0-98.5); ABG PCO2 28.4 mmHg (35.0-45.0); ABG PH 7.465 (7.350-7.450); ABG PO2 115.7 mmHg (75.0-100.0); ABG TOTAL HEMOGLOBIN 9.9 G/dL (13.5-18.0); AaDO2 64.8 mmHg; COHb 0.3 % (0.5-1.5); MetHb 0.8 % (0.0-1.5); O2Hb 96.6 % (94.0-97.0); PEEP,BG 5 cm H2O; SITE, ABG Right Radial; VT, ABG 550 mL
[2016-05-23] MEDS: MEROPENEM 500 MG in IV NS 0.9% 50 ML IV SCH (11:08)
[2016-05-23] MEDS ORDERED: IV NS 0.9% 250 ML IV ONE (11:29)
[2016-05-23] MEDS: RENAL NOVASOURCE 1,000 ML BOTTLE GT PRN (11:38)
[2016-05-23] MEDS ORDERED: CEFEPIME 2 GM in IV D5W 100 ML IV SCH (13:00)
[2016-05-23] MEDS ORDERED: ALBUMIN 25% 25 GM in PREMIX 1 EA IV PRN (14:00)
[2016-05-23] MEDS ORDERED: EPOETIN ALFA (10,000 UNIT) 10,000 UNIT/ML VIAL SQ ONE (15:00)
[2016-05-23] MEDS: ALBUMIN 25% 25 GM in PREMIX 1 EA IV PRN (16:28)
[2016-05-23] MEDS: VANCOMYCIN 500 MG in IV D5W 100 ML IV PRN (16:54)
--- NOTE | 2016-05-23 18:00 | NUR ---
ICU/RN DUE MEDS ARE GIVEN ORDERED.HD IS OVER -2.5 L OUT.2 DOSES OF ALBUMIN WAS GIVEN DURING HD BP WAS DECREASED.EPOGEN WAS GIVEN.PM CARE PROVIDED.WOUND DRESSING DONE ORDERED.SUCTION PROVIDED.REPOSITION FOR COMFORT.CONSENTS FOR TRACHEOSTOMY AND G-TUBE PLACEMENT SIGN BY FAMILY.NPO AFTER MIDNIGHT.V/S STABLE.AFEBRILE.
--- NOTE | 2016-05-23 19:00 | NUR ---
RN/ICU-RECEIVED PT. AWAKE, NON-INTERACTIVE, OCCASIONALLY TRACKS THE SPEAKER. ON THE VENT PER ETT, ON AC MODE. SATS.-94%, EKG ATRIAL FIB. W/ HR-107/MIN. BP-112/69. W/ NGT TO TUBE FEEDS, ENEDELIA. WELL W/ MINIMAL RESIDUALS.U/O =50ML PER FC. AFEBRILE, NO S/S OF DISTRESS OR PAIN USING THE FLACC PAIN SCALE. FOR TRACH AND PEG INSERTION IN AM. W/ CONSENT SIGNED. WILL KEEP PT. NPO, TF OFF AT MIDNIGHT IN PREP. FOR THE PROCEDURE.PT. IS A FULL CODE. ON CONTACT ISOLATION FOR MRSA NARES,STOOL FOR CDIF, ECOLI, ESBL IN TRACH SITE. PRECAUTIONS TAKEN.
[2016-05-24] VITALS (40 sets, daily range): BP systolic 92–146; BP diastolic 44–100
[2016-05-24] MEDS: ALBUTEROL FS 2.5 MG/0.5 ML VIAL.NEB NEB PRN ×2 (00:02→03:34)
[2016-05-24] MEDS: IPRATROPIUM NEB FS 0.5 MG/2.5 ML AMPUL.NEB NEB SCH ×7 (00:08→23:27)
[2016-05-24] MEDS: BLOOD SUGAR DIAGNOSTIC 1 EACH STRIP IN SCH ×4 (01:00→17:49)
[2016-05-24] MEDS: METOPROLOL TARTRATE 25 MG TABLET NG SCH ×3 (04:44→21:00)
[2016-05-24] MEDS: METRONIDAZOLE 500MG/ NS 100ML 500 MG in PREMIX 1 EA IV SCH (04:44)
--- NOTE | 2016-05-24 05:08 | NUR ---
RN/ICU- EKG ATRIAL FLUTTER/ AFIB. W/ HR-105/MIN. BP-116/75.
[2016-05-24 05:10] LABS: BASOPHILS # (AUTO) 0.1 /CMM (0.0-0.2); BASOPHILS % (AUTO) 0.5 % (0.0-2.0); EOSINOPHILS # (AUTO) 0.4 /CMM (0.0-0.7); EOSINOPHILS % (AUTO) 3.1 % (0.0-6.0); HEMATOCRIT 27 % (39-51); HEMOGLOBIN 8.7 g/dL (13.5-17.5); LYMPHOCYTES # (AUTO) 1.7 /CMM (0.8-4.8); LYMPHOCYTES % (AUTO) 11.5 % (20.0-44.0); MEAN CORPUSCULAR HEMOGLOBIN 29 PG (26.0-33.0); MEAN CORPUSCULAR HGB CONC 33 g/dl (31.0-36.0); MEAN CORPUSCULAR VOLUME 88 fL (80-96); MONOCYTES # (AUTO) 1.4 /CMM (0.1-1.30); MONOCYTES % (AUTO) 9.6 % (2.0-12.0); NEUTROPHILS # (AUTO) 10.9 /CMM (1.8-8.9); NEUTROPHILS % (AUTO) 75.3 % (43.0-81.0); PLATELET COUNT (AUTO) 443 /CMM (150-450); RDW COEFFICIENT OF VARIATION 15.4 (11.5-15.0); WHITE BLOOD COUNT (AUTO) 14.4 K/uL (4.3-11.0)
[2016-05-24 05:25] LABS: ALBUMIN 2.1 g/dL (3.4-5.0); BILIRUBIN,TOTAL 0.6 mg/dL (0.2-1.0); CALCIUM, SERUM 7.9 mg/dL (8.5-10.1); CREATININE 5.5 mg/dL (0.6-1.3); POTASSIUM 3.2 mmol/L (3.5-5.1); TOTAL PROTEIN, SERUM 6.5 g/dL (6.4-8.2)
[2016-05-24 05:40] LABS: INR 1.18 (0.87-1.13); PROTHROMBIN TIME 12.8 SECS (9.5-12.7)
--- NOTE | 2016-05-24 07:10 | NUR ---
RN INITIAL NOTES RECEIVED PT AWAKE, EYES OPEN. ON [facility] VENT WITH FF SETTINGS: AC16, TV 550, FI02 35%, PEEP +5. ETT IN PLACE. HOB ELEVATED. NO RESPIRATORY DISTRESS NOTED. NO SOB NOTED. NO SIGNS OF PAIN NOTED. NGT, RIGHT NARE IN PLACE. ALLY PICC AND R SUBCLAVIAN IN PLACE. FC IN PLACE. NO HEMATURIA NOR SEDIMENTS NOTED. FOR TRACH AND PEG PLACEMENT TODAY. PT COMFORTABLE. WILL CONTINUE TO MONITOR.
[2016-05-24] MEDS: SEVELAMER CARBONATE 0.8 GM POWD.PACK GT SCH ×3 (08:00→18:31)
[2016-05-24] MEDS: NEOMY SULF/BACITRAC ZN/POLY 15 GM TUBE TP SCH (08:23)
[2016-05-24] MEDS: VIT B CMPLX 3/FA/VIT C/BIOTIN 1 TAB TABLET PO SCH (08:24)
[2016-05-24] MEDS: ASPIRIN 325 MG TABLET PO SCH (08:24)
[2016-05-24] MEDS: VANCOMYCIN HCL 125 MG/2.5 ML ORAL.SUSP NG SCH ×4 (08:24→21:38)
[2016-05-24] MEDS: MUPIROCIN OINT 2% 22 GM TUBE SCH ×2 (09:12→21:39)
--- NOTE | 2016-05-24 09:35 | NUR ---
RN NOTES SEEN AND EXAMINED BY DR. LEIVA. AWARE OF CURRENT LAB RESULTS. AFEBRILE. ON IV ATB. NO ASE NOTED. NO NEW ORDER
[2016-05-24] MEDS: MEROPENEM 500 MG in IV NS 0.9% 50 ML IV SCH (10:01)
[2016-05-24] MEDS ORDERED: LIDOCAINE 1%-EPI 1:100,000 20 ML VIAL ONE (11:26)
--- NOTE | 2016-05-24 12:30 | NUR ---
RN NOTES SP PEG PLACEMENT BY DR. RAMIREZ AT BEDSIDE. PLACED. F#20. NGT REMOVED BY DR. RAMIREZ. NO RESPIRATORY DISTRESS NOTED. NO SOB NOTED. NO SIGNS OF PAIN NOTED. TOLERATED PROCEDURE WELL. WILL CONTINUE TO MONITOR.
--- NOTE | 2016-05-24 12:45 | NUR ---
RN NOTES SEEN AND EXAMINED BY DR. YOGESH YEPEZ. AWARE OF LAB RESULTS: HGB 8.3, HCT 27. NO SIGNS OF BLEEDING NOTED. POTASSIUM 3.2, BUN 74, CREA 5.5. FOR HD TODAY. ORDERS NOTED AND CARRIED OUT.
[2016-05-24] MEDS: METRONIDAZOLE 500MG/ NS 100ML 250 MG in PREMIX 1 EA IV SCH ×2 (12:54→21:50)
[2016-05-24] MEDS ORDERED: POTASSIUM CL. PREMIX PERIPHER. 50 ML IV SCH (13:00)
--- NOTE | 2016-05-24 13:30 | NUR ---
RN NOTES DIALYSIS STARTED. NO RESPIRATORY DISTRESS NOTED. NO SOB NOTED. NO SIGNS OF PAIN NOTED. WILL CONTINUE TO MONITOR.
--- NOTE | 2016-05-24 14:10 | NUR ---
RN NOTES AMANDA FROM DR. CHACON'S OFFICE CALLED AND SAID THAT DR. CHACON WONT BE ABLE TO DO TRACH PLACEMENT TODAY. PLANNING TO DO IT LEA AT 12NN. CALLED OR, SPOKE WITH FABIANO, PER FABIANO, WILL CALL ME BACK IF PT ABLE TO SCHEDULE PT FOR TRACH PLACEMENT, WILL CALL BACK AMANDA AT #[phone] SOON POSSIBLE.
--- NOTE | 2016-05-24 15:35 | NUR ---
RN NOTES SEEN AND EXAMINED BY DR. CABALLERO. AWARE OF CURRENT VENT SETTINGS. NO RESPIRATORY DISTRESS NOTED. NO SOB NOTED. DIALYSIS ONGOING. NNO.
[2016-05-24] MEDS ORDERED: SECONDARY IV SET 1 EA INFUS.SET MC ONE (16:07)
--- NOTE | 2016-05-24 16:10 | NUR ---
RN NOTES DIALYSIS DONE. REMOVED 2L. NO RESPIRATORY DISTRESS NOTED. NO SOB NOTED. NO SIGNS OF PAIN NOTED. WILL CONTINUE TO MONITOR.
[2016-05-24] MEDS: VANCOMYCIN 500 MG in IV D5W 100 ML IV PRN (17:49)
[2016-05-24] MEDS: LORAZEPAM INJ 2 MG/ML VIAL IV PRN (17:59)
[2016-05-24] MEDS: RENAL NOVASOURCE 1,000 ML BOTTLE GT PRN (18:32)
--- NOTE | 2016-05-24 18:42 | NUR ---
RN CLOSING NOTES PT REMAINS INTUBATED. ON [facility] VENT. NO RESPIRATORY DISTRESS NOTED. NO SIGNS OF PAIN NOTED. PICC LINE IN PLACE. GT IN PLACE. TOLERATING GTF WELL. NO RESIDUAL NOTED AT THIS TIME. FC IN PLACE. KEPT CLEAN AND DRY. REPOSITIONED Q2. REMAINS ON ISOLATION. KEPT COMFORTABLE. WILL ENDORSE FOR CONTINUITY OF CARE.
[2016-05-25] VITALS (109 sets, daily range): BP systolic 49–138; BP diastolic 28–86
[2016-05-25] MEDS: BLOOD SUGAR DIAGNOSTIC 1 EACH STRIP IN SCH ×5 (00:30→23:26)
[2016-05-25] MEDS: INSULIN REGULAR, HUMAN 100 UNIT/ML 3 ML VIAL SQ PRN ×4 (00:32→23:30)
[2016-05-25] MEDS ORDERED: NOREPINEPHRINE 4 MG/4 ML AMPUL IV ONE (00:38)
[2016-05-25] MEDS ORDERED: IV D5W 500 ML IV ONE (00:39)
[2016-05-25] MEDS ORDERED: IV SET PRIMARY PUMP SET 1 EA INFUS.SET MC ONE (00:39)
[2016-05-25] MEDS: NOREPINEPHRINE 16 MG in IV D5W 500 ML IV PRN ×2 (00:45→17:10)
--- NOTE | 2016-05-25 00:45 | NUR ---
ICU/RN- BP IS 58/38. STARTED PATIENT ON LEVOPHED. WILL TITRATE PER PROTOCOL. WILL MONITOR PT CLOSELY.
[2016-05-25] MEDS: IPRATROPIUM NEB FS 0.5 MG/2.5 ML AMPUL.NEB NEB SCH ×6 (03:34→23:31)
[2016-05-25] MEDS: METOPROLOL TARTRATE 25 MG TABLET NG SCH ×3 (05:00→20:48)
[2016-05-25 05:11] LABS: BASOPHILS # (AUTO) 0.1 /CMM (0.0-0.2); BASOPHILS % (AUTO) 0.7 % (0.0-2.0); EOSINOPHILS # (AUTO) 0.2 /CMM (0.0-0.7); EOSINOPHILS % (AUTO) 1.1 % (0.0-6.0); HEMATOCRIT 29 % (39-51); HEMOGLOBIN 9.5 g/dL (13.5-17.5); LYMPHOCYTES # (AUTO) 2.7 /CMM (0.8-4.8); LYMPHOCYTES % (AUTO) 12.5 % (20.0-44.0); MEAN CORPUSCULAR HEMOGLOBIN 29 PG (26.0-33.0); MEAN CORPUSCULAR HGB CONC 33 g/dl (31.0-36.0); MEAN CORPUSCULAR VOLUME 88 fL (80-96); MONOCYTES # (AUTO) 1.7 /CMM (0.1-1.30); NEUTROPHILS # (AUTO) 16.9 /CMM (1.8-8.9); NEUTROPHILS % (AUTO) 77.7 % (43.0-81.0); PLATELET COUNT (AUTO) 538 /CMM (150-450); RDW COEFFICIENT OF VARIATION 15.6 (11.5-15.0); RED BLOOD CELL COUNT(AUTO) 3.26 MIL/uL (4.5-6.0); WHITE BLOOD COUNT (AUTO) 21.7 K/uL (4.3-11.0)
[2016-05-25] MEDS: METRONIDAZOLE 500MG/ NS 100ML 250 MG in PREMIX 1 EA IV SCH ×3 (05:32→20:49)
[2016-05-25 05:34] LABS: CALCIUM, SERUM 8.1 mg/dL (8.5-10.1); CREATININE 4.9 mg/dL (0.6-1.3); MAGNESIUM 2.3 mg/dL (1.8-2.4); PHOSPHORUS 4.2 mg/dL (2.5-4.9); POTASSIUM 3.4 mmol/L (3.5-5.1)
--- NOTE | 2016-05-25 07:00 | NUR ---
ICU/RN- NO ACUTE DISTRESS NOTED. LEVOPHED AT 10MCG/MIN. TOLERATING WELL. ALL NEEDS ATTENDED AND MET. WILL ENDORSE TO AM SHIFT FOR CONTINUATION OF CARE.
--- NOTE | 2016-05-25 07:15 | NUR ---
RN INITIAL NOTES RECEIVED PT INTUBATED. ON [facility] VENT WITH FF SETTINGS:AC16, VT550, FI02 35%, PEEP+5. ETT IN PLACE. HOB ELEVATED. ALLY PICC AND RIGHT CHEST WALL HD CATH IN PLACE. ON LEVO AT 10MCG. WILL CLOSELY MONITOR BP. GT IN PLACE. GTF HELD FOR TRACH PLACEMENT TODAY WITH DR. CHACON. FC IN PLACE. NO SEDIMENTS NOR HEMATURIA NOTED. BLE ELEVATED. PT COMFORTABLE. WILL CONTINUE TO MONITOR.
[2016-05-25] MEDS: SEVELAMER CARBONATE 0.8 GM POWD.PACK GT SCH ×3 (08:00→17:09)
[2016-05-25] MEDS ORDERED: BACITRACIN ZINC OINT PACKET 1 EA PACKET TP PRN (08:00)
[2016-05-25] MEDS: NEOMY SULF/BACITRAC ZN/POLY 15 GM TUBE TP SCH (08:02)
[2016-05-25] MEDS: ASPIRIN 325 MG TABLET PO SCH (08:05)
[2016-05-25] MEDS: VANCOMYCIN HCL 125 MG/2.5 ML ORAL.SUSP NG SCH ×4 (08:05→20:49)
[2016-05-25] MEDS: VIT B CMPLX 3/FA/VIT C/BIOTIN 1 TAB TABLET PO SCH (08:06)
--- NOTE | 2016-05-25 08:20 | NUR ---
RN NOTES SEEN AND EXAMINED BY DR. YOGESH YEPEZ. AWARE OF CURRENT LAB RESULTS: WBC 21.7. AFEBRILE. ON IV ATB. HGB 9.5, HCT 29, BUN 54, CREA 4.9, POTASSIUM 3.4. PER MD, WILL NOT REPLACE POTASSIUM. ORDERED HD AND LABS IN AM.
[2016-05-25 08:32] LABS: INR 1.2 (0.87-1.13)
--- NOTE | 2016-05-25 09:30 | NUR ---
RN NOTES SEEN AND EXAMINED BY DR. CABALLERO. PT FOR TRACH PLACEMENT TODAY AT 12NN. NO RESPIRATORY DISTRESS NOTED. NO SOB NOTED. NO NEW ORDER
[2016-05-25] MEDS: MUPIROCIN OINT 2% 22 GM TUBE SCH ×2 (09:43→20:48)
[2016-05-25] MEDS: MEROPENEM 500 MG in IV NS 0.9% 50 ML IV SCH (10:57)
[2016-05-25] MEDS ORDERED: IV NS 0.9% 250 ML IV ONE (11:12)
[2016-05-25] MEDS ORDERED: LIDOCAINE HCL/PF 1% 30 ML SDV ONE (11:19)
--- NOTE | 2016-05-25 12:10 | NUR ---
RN NOTES PT LEFT FOR TRACH PLACEMENT. NO RESPIRATORY DISTRESS NOTED. NO SOB NOTED. NO SIGNS OF PAIN NOTED. LEFT IN STABLE CONDITION.
[2016-05-25] MEDS ORDERED: ROCURONIUM BROMIDE 50 MG/5 ML ONE (12:13)
--- NOTE | 2016-05-25 12:40 | NUR ---
RN NOTES PT BACK FROM OR. SP TRACH PLACEMENT. EMELYN #[address] NO RESPIRATORY DISTRESS NOTED. NO SOB NOTED. WILL MONITOR.
[2016-05-25] MEDS ORDERED: EPOETIN ALFA (10,000 UNIT) 10,000 UNIT/ML VIAL SQ ONE (13:00)
[2016-05-25] MEDS: RENAL NOVASOURCE 1,000 ML BOTTLE GT PRN (13:00)
--- NOTE | 2016-05-25 18:42 | NUR ---
RN CLOSING NOTES PT STABLE. SP TRACH TUBE PLACEMENT. NO RESPIRATORY DISTRESS NOTED. NO SOB NOTED. NO SIGNS OF PAIN NOTED. KEPT HOB ELEVATED. PICC LINE IN PLACE. GT IN PLACE. TOLERATING GTF WELL. NO RESIDUAL NOTED. FC IN PLACE. KEPT CLEAN AND DRY. REPOSITIONED Q2. KEPT COMFORTABLE. WILL ENDORSE FOR CONTINUITY OF CARE.
--- NOTE | 2016-05-25 20:00 | NUR ---
RN/ICU- RECEIVED PT. AWAKE, NON-VERBAL, ON THE VENT PER TRACH, ON AC MODE, SATS.-98%. EKG ATRIAL FIB. W/ HR-108 BP-90/45. ON TUBE FEEDS PER PEG. ENEDELIA. WELL W/ MINIMAL RESIDUALS. AFEBRILE. PT. IS A FULL CODE. NO S/S OF DISTRESS OR PAIN USING THE FLACC PAIN SCALE. ON CONTACT ISOLATION FOR MRSA NARES, CDIFF,ESBL/ ECOLI IN THE SPUTUM AND ESBL/MRSA TRACH. PRECAUTIONS TAKEN.
--- NOTE | 2016-05-25 20:30 | NUR ---
RN/ICU-PT. BP REMAINS ON THE LOW SIDE 79/45, HR-111 ATRIAL FIBRILLATION . LEVOPHED DRIP RESTARTED AT 2MCG/MIN. WILL TITRATE TO KEEP SBP>90 PER PROTOCOL.
[2016-05-26] VITALS (67 sets, daily range): BP systolic 75–137; BP diastolic 48–98
[2016-05-26] MEDS: IPRATROPIUM NEB FS 0.5 MG/2.5 ML AMPUL.NEB NEB SCH ×6 (03:38→23:30)
[2016-05-26 04:35] LABS: BASOPHILS # (AUTO) 0.1 /CMM (0.0-0.2); BASOPHILS % (AUTO) 0.6 % (0.0-2.0); EOSINOPHILS # (AUTO) 0.4 /CMM (0.0-0.7); EOSINOPHILS % (AUTO) 2.4 % (0.0-6.0); HEMATOCRIT 27 % (39-51); HEMOGLOBIN 8.8 g/dL (13.5-17.5); LYMPHOCYTES # (AUTO) 1.8 /CMM (0.8-4.8); LYMPHOCYTES % (AUTO) 10.2 % (20.0-44.0); MEAN CORPUSCULAR HEMOGLOBIN 29 PG (26.0-33.0); MEAN CORPUSCULAR HGB CONC 33 g/dl (31.0-36.0); MEAN CORPUSCULAR VOLUME 89 fL (80-96); MONOCYTES # (AUTO) 1.5 /CMM (0.1-1.30); MONOCYTES % (AUTO) 8.6 % (2.0-12.0); NEUTROPHILS # (AUTO) 14.1 /CMM (1.8-8.9); NEUTROPHILS % (AUTO) 78.2 % (43.0-81.0); PLATELET COUNT (AUTO) 491 /CMM (150-450); RDW COEFFICIENT OF VARIATION 15.9 (11.5-15.0); RED BLOOD CELL COUNT(AUTO) 3.04 MIL/uL (4.5-6.0)
[2016-05-26] MEDS: METOPROLOL TARTRATE 25 MG TABLET NG SCH ×3 (04:43→20:28)
[2016-05-26] MEDS: METRONIDAZOLE 500MG/ NS 100ML 250 MG in PREMIX 1 EA IV SCH ×3 (04:43→20:28)
[2016-05-26 04:59] LABS: CALCIUM, SERUM 8.1 mg/dL (8.5-10.1); CREATININE 6.1 mg/dL (0.6-1.3); MAGNESIUM 2.5 mg/dL (1.8-2.4); PHOSPHORUS 5.2 mg/dL (2.5-4.9); POTASSIUM 3.1 mmol/L (3.5-5.1)
[2016-05-26] MEDS: BLOOD SUGAR DIAGNOSTIC 1 EACH STRIP IN SCH ×4 (05:53→23:28)
[2016-05-26] MEDS: INSULIN REGULAR, HUMAN 100 UNIT/ML 3 ML VIAL SQ PRN ×4 (05:54→23:28)
--- NOTE | 2016-05-26 07:30 | NUR ---
INTELLIGENCE OFFICER BASIC RECEIVED PATIENT FROM THE PREVIOUS SHIFT. PATIENT IN BED. RESTING COMFORTABLY. NO ACUTE DISTRESS NOTED. NO ACTIVE BLEEDING NOTED FROM THE NEW TRACH SITE. SITE DRY CLEAN AND INTACT. GOOD GT FEED TOLERANCE.TEMP 99.5. NORMAL BP. AFIB ON MONITOR.TURNED AND REPOSITIONED FOR COMFORT WOUND PREVENTION. WILL CONTINUE TO MONITOR AND PROVIDE CARE.
[2016-05-26] MEDS: MUPIROCIN OINT 2% 22 GM TUBE SCH ×2 (09:09→20:28)
[2016-05-26] MEDS: NEOMY SULF/BACITRAC ZN/POLY 15 GM TUBE TP SCH (09:10)
[2016-05-26] MEDS ORDERED: IV SET PRIMARY PUMP SET 1 EA INFUS.SET MC ONE (09:13)
[2016-05-26] MEDS: SEVELAMER CARBONATE 0.8 GM POWD.PACK GT SCH ×3 (09:14→17:19)
[2016-05-26] MEDS: ASPIRIN 325 MG TABLET PO SCH (09:14)
[2016-05-26] MEDS: VIT B CMPLX 3/FA/VIT C/BIOTIN 1 TAB TABLET PO SCH (09:14)
[2016-05-26] MEDS: RENAL NOVASOURCE 1,000 ML BOTTLE GT PRN (09:17)
[2016-05-26] MEDS: VANCOMYCIN HCL 125 MG/2.5 ML ORAL.SUSP NG SCH ×4 (09:39→20:27)
[2016-05-26] MEDS: MEROPENEM 500 MG in IV NS 0.9% 50 ML IV SCH (11:00)
[2016-05-26] MEDS ORDERED: EPOETIN ALFA (10,000 UNIT) 10,000 UNIT/ML VIAL SQ ONE (12:00)
--- NOTE | 2016-05-26 16:13 | NUR ---
HAND CLIPPER PATIENT IN BED. RESTING COMFORTABLY. NO DISTRESS. EVEN NON LABORED BREATHING PATTERN. VENT SETTINGS REVIEWED AND VERIFIED. AFEBRILE. AFIB ON MONITOR. OFF PRESSORS. TURNED AND REPOSITIONED FOR COMFORT AND WOUND PREVENTION. WILL CONTINUE TO MONITOR AND PROVIDE CARE.
--- NOTE | 2016-05-26 18:50 | NUR ---
PHYSICIAN EXTENDER RN CALLED THE PHARMACY AND VERIFIED TO HOLD BOTH VANCO DOSE AND AMIKACIN DOSE FOR TODAY. TURNED AND REPOSITIONED FOR COMFORT AND WOUND PREVENTION. WILL CONTINUE TO MONITOR AND PROVIDE CARE.
--- NOTE | 2016-05-26 20:00 | NUR ---
received pt from day shift, drowsy, does not follow commands, Afib controlled/uncontrolled, on the vent, lungs congested, no edema, GT to feeding tolerates well, f/c low output, HD pt, v/s stable, no pain, pt turned and repositioned.
[2016-05-26] MEDS: LORAZEPAM INJ 2 MG/ML VIAL IV PRN (20:32)
[2016-05-27] VITALS (33 sets, daily range): BP systolic 81–113; BP diastolic 38–73
--- NOTE | 2016-05-27 00:28 | NUR ---
pt is resting in the bed, v/s stable, no pain, tolerates feeding, pt turned and repositioned q2hrs.
[2016-05-27] MEDS ORDERED: IV NS 0.9% 250 ML IV ONE (00:52)
[2016-05-27] MEDS: IPRATROPIUM NEB FS 0.5 MG/2.5 ML AMPUL.NEB NEB SCH ×6 (03:10→23:37)
--- NOTE | 2016-05-27 04:27 | NUR ---
pt is resting in the bed, no acute distress overnight, drowsy/lethargic, does not follow commands, Afib controlled, tolerates feeding, v/s stable, no pain, pt cleaned, changed and repositioned q2hrs.
[2016-05-27] MEDS: METOPROLOL TARTRATE 25 MG TABLET NG SCH ×3 (04:33→21:01)
[2016-05-27] MEDS: METRONIDAZOLE 500MG/ NS 100ML 250 MG in PREMIX 1 EA IV SCH ×3 (04:33→21:00)
[2016-05-27 05:03] LABS: CALCIUM, SERUM 8.2 mg/dL (8.5-10.1); CREATININE 5.1 mg/dL (0.6-1.3); POTASSIUM 3.2 mmol/L (3.5-5.1)
[2016-05-27] MEDS: INSULIN REGULAR, HUMAN 100 UNIT/ML 3 ML VIAL SQ PRN ×3 (05:20→17:38)
[2016-05-27] MEDS: BLOOD SUGAR DIAGNOSTIC 1 EACH STRIP IN SCH ×3 (05:22→17:45)
[2016-05-27] MEDS ORDERED: POTASSIUM CHLORIDE 20 MEQ TAB.PRT.SR PO ONE (06:29)
[2016-05-27] MEDS: POTASSIUM CHLORIDE 20 MEQ TAB.PRT.SR PO SCH ×3 (06:38→09:18)
--- NOTE | 2016-05-27 07:50 | NUR ---
TOBACCO CONDITIONER: pt.is without sedation long time, rest now, obtunded, able to open eyes spont., but unable to follow commands/tracking, arms activity+, O2 sat. WNL, Afib HR 100-110, controlled by report, SBP over 95, GTF residual WNL, PICC white port occluded, two more K+ doses ordered by report
[2016-05-27] MEDS: SEVELAMER CARBONATE 0.8 GM POWD.PACK GT SCH ×3 (08:17→17:22)
[2016-05-27] MEDS: VIT B CMPLX 3/FA/VIT C/BIOTIN 1 TAB TABLET PO SCH (09:16)
[2016-05-27] MEDS: NEOMY SULF/BACITRAC ZN/POLY 15 GM TUBE TP SCH (09:16)
[2016-05-27] MEDS: MUPIROCIN OINT 2% 22 GM TUBE SCH ×2 (09:16→21:03)
[2016-05-27] MEDS: ASPIRIN 325 MG TABLET PO SCH (09:16)
[2016-05-27] MEDS: VANCOMYCIN HCL 125 MG/2.5 ML ORAL.SUSP NG SCH ×4 (09:16→21:01)
[2016-05-27] MEDS: MEROPENEM 500 MG in IV NS 0.9% 50 ML IV SCH (10:58)
[2016-05-27] MEDS: LORAZEPAM INJ 2 MG/ML VIAL IV PRN (11:06)
--- NOTE | 2016-05-27 11:06 | NUR ---
OD GRINDER OPERATOR: pt.is restless, HR up to 125, RR 28-36, O2 sat. WNL, arms activity + without following commands
--- NOTE | 2016-05-27 11:40 | NUR ---
ADMIN DIR: is in room, updated with VS, pt.neuro status, I/O, GTF, meds, HD done on 05/26, orders
--- NOTE | 2016-05-27 12:00 | NUR ---
ADMIN DIR: is in room, updated with VS, all above, transfer order
--- NOTE | 2016-05-27 17:00 | NUR ---
SPACE CONTROL AGENT: pt.is rest now, obtunded, reactive by touch/pain, no grimacing, Afib, HR 100-120 after Metoprolol, SBP over 90, PM/wounds care done, O2 sat. WNL, GTF residual WNL
--- NOTE | 2016-05-27 19:47 | NUR ---
agricultural science professor. initial assessment. received the pt rest on the bed, awake, alert, open eyes. does not follow commands. school lunch monitor showing uncontrolled afib. trach to vent connected. shiley#8,ac 16,tv 550,fio2 40%, peep 5. sat 98%. gt intact. nova source 45ml/h. lt upper arm picc line. hob elevated. rt bka. afebrile. fc patent. will continue to monitor vitals.
--- NOTE | 2016-05-27 19:48 | NUR ---
RECEIVED PT BRYNN Cordero/ EMELYN #8 ON MECHANICAL VENT. BILATERAL BREATH SOUNDS, COARSE. SUCTIONED THICK YELLOW LARGE AMOUNT OF SECRETIONS. AMBU BAG AT BED SIDE, ALARMS AUDIBLE AND WORKING. WILL CONTINUE TO MONITOR PT. Addendum: 05/27/16 at 1953 by ERIK PEPPER RT Amended: Links added.
[2016-05-27] MEDS ORDERED: IV NS 0.9% 500 ML IV ONE ×3 (20:30→23:30)
[2016-05-27] MEDS ORDERED: SECONDARY IV SET 1 EA INFUS.SET MC ONE (21:05)
[2016-05-27] MEDS ORDERED: DOSING PER PHARMACY-AMIKACI IV XX PRN (21:30)
--- NOTE | 2016-05-27 22:49 | NUR ---
BATTERY LOADER. PT BP 67/45. IVF NS 500ML BOLUS GIVEN. NOT RESPONDING. STILL BP 66/40. CALLED DR GOULD. NEW ORDER RECEIVED, 1 MORE 500MLNS BOLUS. ITS NOT RESPOND LEVOPHED TO BE START.WILL CONTINUE TO MONITOR VITALS.
[2016-05-27] MEDS ORDERED: NOREPINEPHRINE 16 MG in IV D5W 500 ML IV PRN (23:30)
[2016-05-27] MEDS ORDERED: NOREPINEPHRINE 4 MG/4 ML AMPUL IV ONE (23:42)
[2016-05-27] MEDS ORDERED: IV D5W 500 ML IV ONE (23:43)
[2016-05-27] MEDS ORDERED: IV SET PRIMARY PUMP SET 1 EA INFUS.SET MC ONE (23:43)
[2016-05-28] VITALS (79 sets, daily range): BP systolic 69–129; BP diastolic 42–86
[2016-05-28] MEDS: IV NS 0.9% 250 ML IV PRN ×2 (00:02→23:25)
[2016-05-28] MEDS: RENAL NOVASOURCE 1,000 ML BOTTLE GT PRN ×2 (00:20→23:25)
[2016-05-28] MEDS: INSULIN REGULAR, HUMAN 100 UNIT/ML 3 ML VIAL SQ PRN ×6 (00:24→23:50)
[2016-05-28] MEDS: BLOOD SUGAR DIAGNOSTIC 1 EACH STRIP IN SCH ×6 (01:07→23:44)
[2016-05-28] MEDS: IPRATROPIUM NEB FS 0.5 MG/2.5 ML AMPUL.NEB NEB SCH ×5 (03:38→19:38)
--- NOTE | 2016-05-28 04:37 | NUR ---
HEARING AID CONSULTANT. AM CARE. ORAL CARE, BED BATH GIVEN. LINEN CHANGED. REMAINING SAME VENT SETTING TOLERATED WELL. SAT 98 %. NO ACUTE DISTRESS NOTED. TRAFFIC SIGNAL TECHNICIAN SHOWING NSR. IV LT UPPER ARM PICC LINE. IV LEVOPHED 20MCG/ MIN. GT FEEDING TOLERATED WELL. FC PATENT. HOB ELEVATED. AFEBRILE. TURN AND REPOSITION Q2H. WILL CONTINUE TO MONITOR VITALS.
[2016-05-28] MEDS: METOPROLOL TARTRATE 25 MG TABLET NG SCH (05:00)
[2016-05-28 05:24] LABS: BASOPHILS # (AUTO) 0.1 /CMM (0.0-0.2); BASOPHILS % (AUTO) 0.9 % (0.0-2.0); EOSINOPHILS # (AUTO) 0.6 /CMM (0.0-0.7); EOSINOPHILS % (AUTO) 3.8 % (0.0-6.0); HEMATOCRIT 27 % (39-51); HEMOGLOBIN 8.6 g/dL (13.5-17.5); LYMPHOCYTES # (AUTO) 2.4 /CMM (0.8-4.8); LYMPHOCYTES % (AUTO) 15.6 % (20.0-44.0); MEAN CORPUSCULAR HEMOGLOBIN 29 PG (26.0-33.0); MEAN CORPUSCULAR HGB CONC 32 g/dl (31.0-36.0); MEAN CORPUSCULAR VOLUME 90 fL (80-96); MONOCYTES # (AUTO) 1.9 /CMM (0.1-1.30); MONOCYTES % (AUTO) 12.2 % (2.0-12.0); NEUTROPHILS # (AUTO) 10.3 /CMM (1.8-8.9); NEUTROPHILS % (AUTO) 67.5 % (43.0-81.0); PLATELET COUNT (AUTO) 472 /CMM (150-450); RDW COEFFICIENT OF VARIATION 16.2 (11.5-15.0); RED BLOOD CELL COUNT(AUTO) 3.03 MIL/uL (4.5-6.0); WHITE BLOOD COUNT (AUTO) 15.3 K/uL (4.3-11.0)
[2016-05-28] MEDS: METRONIDAZOLE 500MG/ NS 100ML 250 MG in PREMIX 1 EA IV SCH ×3 (05:26→20:25)
--- NOTE | 2016-05-28 05:34 | NUR ---
FEED BLENDER. LOPRESSOR 0500 NOT GIVEN. BP 85/50.
[2016-05-28 05:43] LABS: CALCIUM, SERUM 8.8 mg/dL (8.5-10.1); CREATININE 6.3 mg/dL (0.6-1.3); POTASSIUM 3.7 mmol/L (3.5-5.1)
--- NOTE | 2016-05-28 07:20 | NUR ---
SEWING MACHINE TESTER: was in room, updated by back end web developer nurse
--- NOTE | 2016-05-28 07:29 | NUR ---
CONTENT PRODUCTION SPECIALIST: pt.is lethargic, reactive for touch/pain, can open eyes, not following commands, arms trace activity, no grimacing, O2 sat., GTF residual WNL, afib 100-115, over night: BP dropped down, 1L NS bolus given, on Levophed gtt, 26mcg/m now, white and [place] PICC ports are occluded
--- NOTE | 2016-05-28 07:46 | NUR ---
PATIENT RECEIVED ORALLY TRACHED ON MECHANICAL VENTILATION WITH SETTINGS SET PER MD TOLERATED WELL. VENT ALARMS CHECKED + AUDIBLE. CUFF PRESSURE CHECKED PHYSICIST SOLID EARTH. SUCTIONED WITH SMALL AMOUNT OF JEFFERSON SEMITHICK SECRETIONS. B/S DIMINISHED. PATIENT APPEARS COMFORTABLE WITH NO SOB. AMBU BAG AT [facility]. CONTINUE WITH CURRENT PLAN OF CARE. Addendum: 05/29/16 at 1044 by AMIRAH MINA RT Amended: Links added.
[2016-05-28] MEDS: IV NS 0.9% 1,000 ML IV PRN ×2 (07:58→10:00)
[2016-05-28] MEDS: HYDROCORTISONE SOD SUCCINATE 100 MG/2 ML VIAL IV SCH ×3 (08:00→17:12)
[2016-05-28] MEDS: SEVELAMER CARBONATE 0.8 GM POWD.PACK GT SCH ×3 (08:00→17:12)
[2016-05-28] MEDS: ASPIRIN 325 MG TABLET PO SCH (08:00)
--- NOTE | 2016-05-28 08:00 | NUR ---
TOOL CRIB MANAGER: started bolus 2L NS 500ml/h with titrate off Levophed gtt per Dr.Rubin wright
[2016-05-28] MEDS: VIT B CMPLX 3/FA/VIT C/BIOTIN 1 TAB TABLET PO SCH (08:01)
[2016-05-28] MEDS: VANCOMYCIN HCL 125 MG/2.5 ML ORAL.SUSP NG SCH ×4 (08:03→20:25)
[2016-05-28] MEDS: ERGOCALCIFEROL (VITAMIN D 2) 50,000 UNIT CAPSULE GT SCH (08:03)
[2016-05-28] MEDS: NEOMY SULF/BACITRAC ZN/POLY 15 GM TUBE TP SCH (08:03)
[2016-05-28] MEDS: MUPIROCIN OINT 2% 22 GM TUBE SCH ×2 (08:03→20:26)
--- NOTE | 2016-05-28 08:16 | NUR ---
INSPECTOR BOILER: is in room, updated with pt.current condition, VS, Levophed gtt, orders, labs, meds, I/O, see new orders
[2016-05-28] MEDS: MEROPENEM 500 MG in IV NS 0.9% 50 ML IV SCH (10:40)
[2016-05-28] MEDS ORDERED: SECONDARY IV SET 1 EA INFUS.SET MC ONE (10:55)
--- NOTE | 2016-05-28 11:00 | NUR ---
TESTS SUPERINTENDENT: is in room, notified re VS, pt.neuro status, Levophed gtt, I/O, GTF, suction amount, labs, meds, see new orders
--- NOTE | 2016-05-28 11:35 | NUR ---
JAR FILLER: pt.is with open eyes, unable to follow commands, restless, grimacing slightly, O2 sat. over 94%, HR up to 135, Levophed gtt 4 mcg/m now, RR 24-32, going for wounds/am care, Ativan 1 mg iv given
[2016-05-28] MEDS: LORAZEPAM INJ 2 MG/ML VIAL IV PRN (11:42)
--- NOTE | 2016-05-28 12:51 | NUR ---
ICU/RN: DR STINSON NOTIFIED OF A-FIB 140-150'S S/P INFUSING 2L BOLUS ORDERED AND HYPOTENSIVE EPISODES WITH LEVOPHED TITRATED TO 2MCG/MIN. PER , DONIS LEVOPHED AND START ON NEOSYNEPHRINE. SERICULTURIST AWARE. ORDERS NOTED AND CARRIED OUT. PHARMACY CALLED TO F/U DELIVERY OF DOSE.
--- NOTE | 2016-05-28 13:10 | NUR ---
FIELD ARTILLERY SENIOR SERGEANT: called pharmacy for Jorge synephrine gtt bag
[2016-05-28] MEDS ORDERED: IV SET PRIMARY PUMP SET 1 EA INFUS.SET MC ONE (13:31)
[2016-05-28] MEDS: PHENYLEPHRINE 80 MG in IV NS 0.9% 250 ML IV PRN (13:33)
--- NOTE | 2016-05-28 17:43 | NUR ---
BARREL CLEANER: pt.is obtunded, reactive to touch/pain, can open eye for seconds, but no tracking contact, rest, no grimacing, O2 sat., RR, GTF residual WNL, Afib HR 110-130, in wean off Neosynephrine gtt process, now 10mcg/m, PM/wounds/trach care done, BS 314 now, still on NPO insulin SS, got new orders and cover with 12 units R.Insulin per moderate SS, small bloody discharge around gastrostomy(no bloody suction from GT)/changed dressing/will endorse next nurse continue monitoring ( is on case), charge nurse updated
[2016-05-28] MEDS ORDERED: DEXTROSE 50%-WATER 50 ML DISP.SYRIN IV PRN (18:00)
--- NOTE | 2016-05-28 19:17 | NUR ---
COMPILATION CLERK. INITIAL ASSESSMENT. RECEIVED THE PT REST ON THE BED, , LETHARGIC,DOES NOT FOLLOW COMMANDS. NOT OPEN EYES. TRACH TO VENT CONNECTED. SHILEY#8,AC 16, TV 550, FIO2 40%, PEEP 5. SAT 98%. POURED PIPE MAKER SHOWING AFIB UNCONTROLLED RATE IS 130. HOB ELEVATED. GT INTACT. NOVA SOURCE 45ML/H. LT UPPER ARM PICC LINE. 2 PORT IS NOT WORKING. FC PATENT. TURN AND REPOSITION Q2H. WILL CONTINUE TO MONITOR VITALS.
--- NOTE | 2016-05-28 19:44 | NUR ---
RT RECEIVED PT TRACH WITH EMELYN #8, ON MECHANICAL VENT. BILATERAL BREATH SOUNDS, COARSE. SUCTIONED THICK YELLOW LARGE AMOUNT OF SECRETIONS. AMBU BAG AT BED SIDE, ALARMS AUDIBLE AND WORKING. WILL CONTINUE TO MONITOR PT. Addendum: 05/28/16 at 1945 by ERIK PEPPER RT Amended: Links added.
[2016-05-28] MEDS ORDERED: PHENYLEPHRINE 10 MG/ML VIAL ONE (20:17)
[2016-05-29] VITALS (42 sets, daily range): BP systolic 90–138; BP diastolic 48–91
[2016-05-29] MEDS: IPRATROPIUM NEB FS 0.5 MG/2.5 ML AMPUL.NEB NEB SCH ×4 (01:38→19:30)
--- NOTE | 2016-05-29 03:04 | NUR ---
ASSEMBLER FLUORESCENT LIGHTS. AM CARE. PORAL CARE, BED BATH GIVEN. LINEN CHANGED, REMAINING SAME VENT SETTINGS. SAT 99%. GRAPHICS COORDINATOR SHOWING AFIB. UNCONTROLLED.IV LT UPPER ARM PICC LINE. SALINE LOCK. G FEEDING NOVA SOURCE 45ML/H. AFEBRILE. FC PATENT. HOB ELEVATD. TURN AND REPOSITION Q2H. WELL CONTINUE TO MONITOR VTALS
[2016-05-29] MEDS: METRONIDAZOLE 500MG/ NS 100ML 250 MG in PREMIX 1 EA IV SCH ×3 (04:19→20:20)
[2016-05-29] MEDS: ACETAMINOPHEN 650 MG/20.3 ML UDC PO PRN ×2 (04:20→17:32)
[2016-05-29 05:08] LABS: CALCIUM, SERUM 8.2 mg/dL (8.5-10.1); CREATININE 7.4 mg/dL (0.6-1.3)
[2016-05-29] MEDS: INSULIN REGULAR, HUMAN 100 UNIT/ML 3 ML VIAL SQ PRN ×4 (05:29→23:49)
[2016-05-29] MEDS: BLOOD SUGAR DIAGNOSTIC 1 EACH STRIP IN SCH ×4 (05:30→23:48)
--- NOTE | 2016-05-29 07:45 | NUR ---
PATIENT RECEIVED TRACHED ON MECHANICAL VENTILATION WITH SETTINGS SET PER MD TOLERATED WELL. VENT ALARMS CHECKED + AUDIBLE. CUFF PRESSURE CHECKED GEOPOLITICS TEACHER. SUCTIONED WITH SMALL AMOUNT OF JEFFERSON SEMITHICK SECRETIONS. B/S DIMINISHED. PATIENT APPEARS COMFORTABLE WITH NO SOB. AMBU BAG AT [facility]. CONTINUE WITH CURRENT PLAN OF CARE. Addendum: 05/29/16 at 1044 by AMIRAH MINA RT Amended: Links added.
--- NOTE | 2016-05-29 08:00 | NUR ---
Received patient closed eyes but opens to light pain. Vitals signs stable but temp of 100.4F. Off sindy-synephrine since 1999 per shift commander RN. Does not follow command, does not stare or track. On vent to dave Tinsley 8. Moya draining minimal amount of urine.
[2016-05-29] MEDS: ASPIRIN 325 MG TABLET PO SCH (08:06)
[2016-05-29] MEDS: SEVELAMER CARBONATE 0.8 GM POWD.PACK GT SCH ×3 (08:06→17:32)
[2016-05-29] MEDS: HYDROCORTISONE SOD SUCCINATE 100 MG/2 ML VIAL IV SCH (08:06)
[2016-05-29] MEDS: VIT B CMPLX 3/FA/VIT C/BIOTIN 1 TAB TABLET PO SCH (08:06)
[2016-05-29] MEDS: MUPIROCIN OINT 2% 22 GM TUBE SCH ×2 (08:07→20:21)
[2016-05-29] MEDS: NEOMY SULF/BACITRAC ZN/POLY 15 GM TUBE TP SCH (08:08)
[2016-05-29] MEDS: Z GUARD REMEDY 2 OZ OINT TP PRN (08:08)
[2016-05-29] MEDS: VANCOMYCIN HCL 125 MG/2.5 ML ORAL.SUSP NG SCH ×4 (08:11→20:20)
[2016-05-29] MEDS: MEROPENEM 500 MG in IV NS 0.9% 50 ML IV SCH (11:29)
--- NOTE | 2016-05-29 12:00 | NUR ---
Dialysis terminated due to increase HR 140-150's, tachypneic on high 20's and blood pressure low than 80's.
[2016-05-29] MEDS ORDERED: SECONDARY IV SET 1 EA INFUS.SET MC ONE (18:26)
[2016-05-29] MEDS: AMIKACIN 500 MG in IV D5W 100 ML IV PRN (18:27)
--- NOTE | 2016-05-29 19:30 | NUR ---
RN INITIAL NOTES RECEIVED PT AWAKE ON BED, OPENS EYES ONLY. ON VENT, AC 16, TV 550, 40% FIO2, 0 PEEP, SHILEY 8, SATURATING WELL. CURRENTLY UNCONTROLLED AFIB ON THE MONITOR, HR 120'S. ON GTUBE FEEDING OF NOVASOURCE 45MLS/HR, NO RESIDUALS, TOLERATING WELL. RIGHT CHEST WALL HD CATH NOTED. LEFT UPPER ARM PICC FLUSHED, ONLY RED PORT IS PATENT, OTHER PORTS ARE OCCLUDED, NO S/S OF INFILTRATION/INFECTION, DRESSING CDI. BED LOW AND LOCKED, SIDERAILS UP. WILL MONITOR Addendum: 05/29/16 at 2126 by HORTENSIA DUKE RN CELSO CATH NOTED
[2016-05-30] VITALS (68 sets, daily range): BP systolic 72–128; BP diastolic 39–101
[2016-05-30] MEDS: IPRATROPIUM NEB FS 0.5 MG/2.5 ML AMPUL.NEB NEB SCH ×4 (01:48→20:15)
[2016-05-30] MEDS: BLOOD SUGAR DIAGNOSTIC 1 EACH STRIP IN SCH ×3 (05:01→17:16)
[2016-05-30] MEDS: INSULIN REGULAR, HUMAN 100 UNIT/ML 3 ML VIAL SQ PRN ×2 (05:02→12:18)
[2016-05-30] MEDS: RENAL NOVASOURCE 1,000 ML BOTTLE GT PRN (05:02)
[2016-05-30] MEDS: METRONIDAZOLE 500MG/ NS 100ML 250 MG in PREMIX 1 EA IV SCH ×3 (05:02→20:56)
[2016-05-30 05:07] LABS: CALCIUM, SERUM 7.9 mg/dL (8.5-10.1); CREATININE 6.3 mg/dL (0.6-1.3); POTASSIUM 3.3 mmol/L (3.5-5.1)
--- NOTE | 2016-05-30 06:30 | NUR ---
RN CLOSING NOTES PT REMAINS STABLE OF THE MOMENT. ALL DUE MEDS GIVEN, AM CARE PROVIDED. WILL ENDORSE CONTINUITY OF CARE TO AM RN
--- NOTE | 2016-05-30 08:00 | NUR ---
GRAIN SHIPPER; ASSESSMENT RECEIVED PT VENTED VIA TRACH SEE FLOW SHEET FOR SETTINGS. PT ON REGISTERED NURSING PROFESSOR SHOWING UNCONTROLLED AFIB RATE 120'S. PEG INTACT DRAINING TO GRAVITY CLEAR YELLOW URINE. PT IS ESRD WITH HD CATH TO RIGHT UPPER CHEST WALL. PICC TO LEFT UPPER ARM. HUERTA AND WHITE PORT UNABLE TO FLUSH OR WITHDRAW BLOOD, RED PORT ABLE TO FLUSH WITHOUT RESISTANCE BUT UNABLE TO DRAW BLOOD. NO ACUTE DISTRESS NOTED WILL CONTINUE WITH PLAN OF CARE.
[2016-05-30] MEDS: ASPIRIN 325 MG TABLET PO SCH (08:10)
[2016-05-30] MEDS: VIT B CMPLX 3/FA/VIT C/BIOTIN 1 TAB TABLET PO SCH (08:10)
[2016-05-30] MEDS: SEVELAMER CARBONATE 0.8 GM POWD.PACK GT SCH ×3 (08:10→17:15)
[2016-05-30] MEDS: VANCOMYCIN HCL 125 MG/2.5 ML ORAL.SUSP NG SCH ×4 (08:10→20:56)
[2016-05-30] MEDS: MUPIROCIN OINT 2% 22 GM TUBE SCH ×2 (08:11→20:57)
[2016-05-30] MEDS: NEOMY SULF/BACITRAC ZN/POLY 15 GM TUBE TP SCH (08:11)
--- NOTE | 2016-05-30 08:13 | NUR ---
PATIENT RECEIVED TRACHED ON MECHANICAL VENTILATION WITH SETTINGS SET PER MD TOLERATED WELL. VENT ALARMS CHECKED + AUDIBLE. CUFF PRESSURE CHECKED CIGARETTE LIGHTER REPAIRER. SUCTIONED WITH SMALL AMOUNT OF JEFFERSON SEMITHICK SECRETIONS. B/S DIMINISHED. PATIENT APPEARS COMFORTABLE WITH NO SOB. [facility]. CONTINUE WITH CURRENT PLAN OF CARE. Addendum: 05/30/16 at 0813 by AMIRAH MINA RT Amended: Links added.
[2016-05-30] MEDS: MEROPENEM 500 MG in IV NS 0.9% 50 ML IV SCH (10:26)
[2016-05-30] MEDS: ACETAMINOPHEN 650 MG/20.3 ML UDC PO PRN (12:16)
[2016-05-30] MEDS: IV NS 0.9% 250 ML IV PRN (12:17)
[2016-05-30] MEDS ORDERED: SECONDARY IV SET 1 EA INFUS.SET MC ONE (12:45)
[2016-05-30] MEDS: ALBUMIN 25% 25 GM in PREMIX 1 EA IV PRN ×2 (12:55→13:18)
[2016-05-30] MEDS ORDERED: IV SET PRIMARY PUMP SET 1 EA INFUS.SET MC ONE (13:00)
[2016-05-30] MEDS: PHENYLEPHRINE 80 MG in IV NS 0.9% 250 ML IV PRN (13:19)
--- NOTE | 2016-05-30 20:00 | NUR ---
RN/ICU- RECEIVED PT. AWAKE, ALERT, NON-INTERACTIVE, ON THE VENT PER TRACH ON AC MODE SATS.-97%. EKG ATRIAL FIB. W/ CVR- W/ HR-120/MIN. BP-112/78. ON NERY SYNEPHRINE DRIP AT 50MCG/MIN.ON TUBE FEEDS PER PEG, ENEDELIA. WELL W/ MINIMAL RESIDUALS. AFEBRILE.. NO S/S OF DISTRESS OR PAIN USING THE FLACC PAIN SCALE. ON CONTACT ISOLATION FOR CDIFF, MRSA NARES, ESBL SPUTUM. PRECAUTIONS TAKEN. W/ SACRAL DECUB. INTACT W/ MEPILEX, NOT SEEN AT THIS TIME. WILL CONTINUE TO REPOSITION TO SIDE Q 2HRS. AND PRN TOLERATED.
[2016-05-31] VITALS (99 sets, daily range): BP systolic 75–145; BP diastolic 33–90
[2016-05-31] MEDS: BLOOD SUGAR DIAGNOSTIC 1 EACH STRIP IN SCH ×5 (00:35→23:58)
[2016-05-31] MEDS: INSULIN REGULAR, HUMAN 100 UNIT/ML 3 ML VIAL SQ PRN ×4 (00:36→17:45)
[2016-05-31] MEDS: IPRATROPIUM NEB FS 0.5 MG/2.5 ML AMPUL.NEB NEB SCH ×4 (02:28→19:57)
[2016-05-31] MEDS: RENAL NOVASOURCE 1,000 ML BOTTLE GT PRN (04:12)
[2016-05-31] MEDS: METRONIDAZOLE 500MG/ NS 100ML 250 MG in PREMIX 1 EA IV SCH ×3 (04:31→20:42)
[2016-05-31 04:40] LABS: BASOPHILS % (AUTO) 0.2 % (0.0-2.0); EOSINOPHILS # (AUTO) 0.3 /CMM (0.0-0.7); EOSINOPHILS % (AUTO) 1.9 % (0.0-6.0); HEMATOCRIT 25 % (39-51); HEMOGLOBIN 8.1 g/dL (13.5-17.5); LYMPHOCYTES # (AUTO) 2.1 /CMM (0.8-4.8); LYMPHOCYTES % (AUTO) 11.6 % (20.0-44.0); MEAN CORPUSCULAR HEMOGLOBIN 29 PG (26.0-33.0); MEAN CORPUSCULAR HGB CONC 32 g/dl (31.0-36.0); MEAN CORPUSCULAR VOLUME 90 fL (80-96); MONOCYTES # (AUTO) 1.6 /CMM (0.1-1.30); NEUTROPHILS # (AUTO) 13.7 /CMM (1.8-8.9); NEUTROPHILS % (AUTO) 77.3 % (43.0-81.0); PLATELET COUNT (AUTO) 388 /CMM (150-450); RDW COEFFICIENT OF VARIATION 16.5 (11.5-15.0); RED BLOOD CELL COUNT(AUTO) 2.83 MIL/uL (4.5-6.0); WHITE BLOOD COUNT (AUTO) 17.7 K/uL (4.3-11.0)
[2016-05-31 04:53] LABS: CREATININE 4.6 mg/dL (0.6-1.3); MAGNESIUM 2.6 mg/dL (1.8-2.4); PHOSPHORUS 3.9 mg/dL (2.5-4.9); POTASSIUM 3.1 mmol/L (3.5-5.1)
--- NOTE | 2016-05-31 07:47 | NUR ---
ICU/RN: INITIAL NOTES,AM RECEIVED REPORT FROM NIGHT NURSE. PT AWAKE, NON INTERACTIVE, DOES NOT FOLLOW COMMANDS. PT TRACH SHILEY 8, ON VENT SETTINGS ORDERED BY MD, NO ACUTE DISTRESS NOTED AT THIS TIME. ON TELE, A.FIB. GTUBE FEEDING INFUSING ORDERED. TOLERATING WELL, RIGHT UPPER ARM PICC LINE PATENT AND INTACT, NERY INFUSING AT 15MCG, WILL TITRATE APPROPRIATE TO MAINTAIN SBP >90. ALL NEEDS WILL BE MET, SAFETY MEASURES TAKEN, BED IN LOW POSITION, SIDE RAILS UP, CALL LIGHT WITHIN REACH. WILL CONTINUE CARE
[2016-05-31] MEDS: VIT B CMPLX 3/FA/VIT C/BIOTIN 1 TAB TABLET PO SCH (08:06)
[2016-05-31] MEDS: VANCOMYCIN HCL 125 MG/2.5 ML ORAL.SUSP NG SCH ×4 (08:06→20:43)
[2016-05-31] MEDS: SEVELAMER CARBONATE 0.8 GM POWD.PACK GT SCH ×3 (08:06→17:40)
[2016-05-31] MEDS: ASPIRIN 325 MG TABLET PO SCH (08:06)
[2016-05-31] MEDS: NEOMY SULF/BACITRAC ZN/POLY 15 GM TUBE TP SCH (08:07)
[2016-05-31] MEDS: MUPIROCIN OINT 2% 22 GM TUBE SCH ×2 (08:07→20:43)
--- NOTE | 2016-05-31 10:15 | NUR ---
ICU/RN:HD STARTED, VSS, PT ON NERY FOR BP SUPPORT. WILL CONTINUE TO MONITOR AND ASSESS
[2016-05-31] MEDS ORDERED: SECONDARY IV SET 1 EA INFUS.SET MC ONE (11:54)
[2016-05-31] MEDS: ALBUMIN 25% 25 GM in PREMIX 1 EA IV PRN (11:57)
[2016-05-31] MEDS ORDERED: DIGOXIN 0.125 MG TABLET GT ONE (12:30)
--- NOTE | 2016-05-31 13:00 | NUR ---
ICU/RN: HEMODIALYSIS ENDED, 2.4LITERS OUT, PT CONTINUES TO BE ON NERY FOR BP SUPPORT.VSS WILL CONTINUE TO MONITOR AND TITRATE DOWN. POST H.D. AMIKACIN WILL BE ADMINISTERED WHEN LEVEL IS AVAILABLE.
[2016-05-31] MEDS: MEROPENEM 500 MG in IV NS 0.9% 50 ML IV SCH ×2 (14:01→21:53)
[2016-05-31] MEDS: PHENYLEPHRINE 80 MG in IV NS 0.9% 250 ML IV PRN (14:44)
[2016-05-31] MEDS: AMIKACIN 500 MG in IV D5W 100 ML IV PRN (17:41)
[2016-05-31] MEDS: IV NS 0.9% 250 ML IV PRN (18:37)
--- NOTE | 2016-05-31 18:45 | NUR ---
ICU/RN ENDING NOTED,AM REPORT WILL BE ENDORSED TO NIGHT NURSE FOR CONTINUATION OF CARE. PT ON VENT SETTINGS ORDERED. POST HD AMIKACIN GIVEN. FLEXI DRAINING DARK STOOL. GTUBE FEEDING INFUSING. ALL NEEDS MET, SAFETY MEASURES TAKEN, BED IN LOW POSITION, SIDE RAILS UP, CALL LIGHT WITHIN REACH. WILL CONTINUE CARE
--- NOTE | 2016-05-31 20:00 | NUR ---
RN/ICU-RECEIVED PT. ASLEEP, AROUSABLE, NON-INTERACTIVE, ON THE VENT PER TRACH, ON AC MODE, SATS.-95%. EKG ATRIAL FIB. W/ HR-123/MIN. BP-102/64. ON NERY SYNEPHRINE DRIP AT 5MCG/MIN. ON TUBE FEEDS PER PEG. ENEDELIA. WELL. W/ FLEXI SEAL ON, ATTEMPTED TO IRRIGATE BUT NOT GOING THRU, NOTED HOLES ON THE TUBING, CHANGED TO NEW ONE, DRAINING TO MODERATE AMOUNT OF BLACKISH STOOL.AFEBRILE. NO S/S OF DISTRESS OR PAIN USING THE FLACC PAIN SCALE. PT. HAVE WOUNDS ON LEFT KNEE AND SACRUM. DRESSING CHANGE DONE. CONTINUE TO REPOSITION PT. TO SIDES Q 2HRS. PER PROTOCOL. ON CONTACT ISOLATION FOR C DIFF,NECK-MRSA,SPUTUM-ECOLI /ESBL AND NARES FOR MRSA. PRECAUTIONS TAKEN.
[2016-06-01] VITALS (43 sets, daily range): BP systolic 86–141; BP diastolic 54–89
--- NOTE | 2016-06-01 01:00 | NUR ---
RN/ICU- PT. TACHYPNEIC AND TACHYCARDIC, W/ BP-141/92,HR-138, RR-48/MIN. MED. W/ ATIVAN 1MG SIVP. WILL REASSESS FOR PRN EFFECTIVENESS.
[2016-06-01] MEDS: LORAZEPAM INJ 2 MG/ML VIAL IV PRN ×2 (01:08→16:37)
[2016-06-01] MEDS: IV NS 0.9% 250 ML IV PRN ×2 (01:08→20:50)
[2016-06-01] MEDS: RENAL NOVASOURCE 1,000 ML BOTTLE GT PRN ×2 (01:09→22:42)
[2016-06-01] MEDS: IPRATROPIUM NEB FS 0.5 MG/2.5 ML AMPUL.NEB NEB SCH ×4 (02:14→19:33)
[2016-06-01 04:18] LABS: BASOPHILS % (AUTO) 0.1 % (0.0-2.0); EOSINOPHILS # (AUTO) 0.2 /CMM (0.0-0.7); EOSINOPHILS % (AUTO) 0.8 % (0.0-6.0); HEMATOCRIT 25 % (39-51); HEMOGLOBIN 7.9 g/dL (13.5-17.5); LYMPHOCYTES # (AUTO) 1.3 /CMM (0.8-4.8); LYMPHOCYTES % (AUTO) 6.9 % (20.0-44.0); MEAN CORPUSCULAR HEMOGLOBIN 29 PG (26.0-33.0); MEAN CORPUSCULAR HGB CONC 32 g/dl (31.0-36.0); MEAN CORPUSCULAR VOLUME 90 fL (80-96); MONOCYTES # (AUTO) 1.4 /CMM (0.1-1.30); MONOCYTES % (AUTO) 7.2 % (2.0-12.0); NEUTROPHILS # (AUTO) 16.2 /CMM (1.8-8.9); PLATELET COUNT (AUTO) 348 /CMM (150-450); RDW COEFFICIENT OF VARIATION 16.5 (11.5-15.0); RED BLOOD CELL COUNT(AUTO) 2.76 MIL/uL (4.5-6.0)
[2016-06-01] MEDS: METRONIDAZOLE 500MG/ NS 100ML 250 MG in PREMIX 1 EA IV SCH ×3 (04:31→20:51)
[2016-06-01 05:23] LABS: CALCIUM, SERUM 7.9 mg/dL (8.5-10.1); CREATININE 4.4 mg/dL (0.6-1.3); MAGNESIUM 2.6 mg/dL (1.8-2.4); PHOSPHORUS 3.1 mg/dL (2.5-4.9); POTASSIUM 3.4 mmol/L (3.5-5.1)
[2016-06-01] MEDS: BLOOD SUGAR DIAGNOSTIC 1 EACH STRIP IN SCH ×4 (05:33→23:10)
[2016-06-01] MEDS: INSULIN REGULAR, HUMAN 100 UNIT/ML 3 ML VIAL SQ PRN ×5 (05:35→23:11)
--- NOTE | 2016-06-01 07:45 | NUR ---
ICU/RN - Initial Notes Received pt in bed with eyes closed, non interactive, does not follow commands. Pt with trach to vent with settings as ordered. Moderate thick guillermo secretions suctioned. No s/s of pain or discomfort. On tele reading Afib 120's. Tolerating GTF well, no residual noted. PICC line on left upper arm patent and intact. Moya catheter intact draining urine to gravity. Flexiseal intact. Pt repositioned for comfort. Safety and comfort measures in place. Will continue to monitor pt closely.
[2016-06-01] MEDS ORDERED: SECONDARY IV SET 1 EA INFUS.SET MC ONE ×2 (08:45→09:35)
[2016-06-01] MEDS ORDERED: IV NS 0.9% 500 ML IV ONE (09:00)
[2016-06-01] MEDS ORDERED: IV NS 0.9% 500 ML IV PRN (09:00)
[2016-06-01] MEDS: ASPIRIN 325 MG TABLET PO SCH (09:27)
[2016-06-01] MEDS: VANCOMYCIN HCL 125 MG/2.5 ML ORAL.SUSP NG SCH ×4 (09:27→20:51)
[2016-06-01] MEDS: MEROPENEM 500 MG in IV NS 0.9% 50 ML IV SCH ×2 (09:27→20:50)
[2016-06-01] MEDS: VIT B CMPLX 3/FA/VIT C/BIOTIN 1 TAB TABLET PO SCH (09:27)
[2016-06-01] MEDS: SEVELAMER CARBONATE 0.8 GM POWD.PACK GT SCH ×3 (09:27→17:00)
[2016-06-01] MEDS: HYDROGEL DRESSING 90 GM TUBE TP SCH (09:28)
[2016-06-01] MEDS: NEOMY SULF/BACITRAC ZN/POLY 15 GM TUBE TP SCH (09:29)
[2016-06-01] MEDS: MUPIROCIN OINT 2% 22 GM TUBE SCH ×2 (09:29→20:52)
[2016-06-01] MEDS ORDERED: IV SET PRIMARY PUMP SET 1 EA INFUS.SET MC ONE ×2 (09:35→17:11)
[2016-06-01] MEDS ORDERED: DIGOXIN 0.125 MG TABLET PO ONE (09:45)
[2016-06-01] MEDS ORDERED: BLOOD IV SET 1 EA INFUS.SET MC ONE (11:31)
--- NOTE | 2016-06-01 16:37 | NUR ---
ICU/RN - Notes Pt tachypneic RR 35 and tachycardic with HR 140's to 150's. Medicated pt with Ativan 1mg IVP as ordered. Will continue to monitor.
--- NOTE | 2016-06-01 17:15 | NUR ---
ICU/RN - Notes Notified Dr Stark regarding pt's tachycardia AfIB with HR 140's to 150's. Received orders to start Cardizem drip. Will carry out MD orders.
[2016-06-01] MEDS ORDERED: DILTIAZEM HCL IV 125 MG in IV D5W 100 ML IV PRN (17:30)
[2016-06-01] MEDS: ALBUTEROL FS 2.5 MG/0.5 ML VIAL.NEB NEB PRN (19:32)
--- NOTE | 2016-06-01 19:52 | NUR ---
DIRECTOR OF SEARCH ENGINE OPTIMIZATION. INITIAL ASSESSMENT. RECEIVED THE PT REST ON THE BED. TRACH TO VENT CONNECTED. SHILEY 8,AC16,TV550,FIO2 40%, PEEP 5. SAT 98 %. EMBLEM CUTTER SHOWING AFIB. UNCONTROLLED. RATE IS 130. IV RT UPPER ARM PICC LINE. 2 PORT IS NOT WORKING. CARDIZEM 10MG/H. HOB ELEVATED. GT INTACT. NOVA SOURCE 45 ML/H.FC PATENT. HD CATH RT SUBCLAVIAN. HOB ELEVATED. TURN AND REPOSITION Q2H. WILL CONTINUE TO MONITOR VITALS.
[2016-06-02] VITALS (63 sets, daily range): BP systolic 82–128; BP diastolic 49–75
[2016-06-02] MEDS: IPRATROPIUM NEB FS 0.5 MG/2.5 ML AMPUL.NEB NEB SCH ×4 (02:30→19:30)
--- NOTE | 2016-06-02 03:21 | NUR ---
ELECTRONIC COMPONENT PROCESSOR. AM CARE, ORAL CARE, BED BATH GIVEN. LINEN CHANGED, REMAINING SAME VENY SETTINGS TOLERATED WELL. SAT 98%. CREDIT ADMINISTRATION OFFICER SHOWING A FIB. GT FEEDING TOLERATED WELL. FC PATENT. FLEXA SEAL INTACT. HOB ELEVATED, TURN AND REPOSITION Q2H. WILL CONTINUE TO MONITOR VITALS.
[2016-06-02 04:52] LABS: BASOPHILS # (AUTO) 0.1 /CMM (0.0-0.2); BASOPHILS % (AUTO) 0.3 % (0.0-2.0); EOSINOPHILS # (AUTO) 0.4 /CMM (0.0-0.7); EOSINOPHILS % (AUTO) 1.8 % (0.0-6.0); HEMATOCRIT 27 % (39-51); HEMOGLOBIN 8.8 g/dL (13.5-17.5); LYMPHOCYTES # (AUTO) 1.8 /CMM (0.8-4.8); LYMPHOCYTES % (AUTO) 8.2 % (20.0-44.0); MEAN CORPUSCULAR HEMOGLOBIN 29 PG (26.0-33.0); MEAN CORPUSCULAR HGB CONC 32 g/dl (31.0-36.0); MEAN CORPUSCULAR VOLUME 90 fL (80-96); MONOCYTES # (AUTO) 1.7 /CMM (0.1-1.30); MONOCYTES % (AUTO) 7.9 % (2.0-12.0); NEUTROPHILS # (AUTO) 17.9 /CMM (1.8-8.9); NEUTROPHILS % (AUTO) 81.8 % (43.0-81.0); PLATELET COUNT (AUTO) 350 /CMM (150-450); RDW COEFFICIENT OF VARIATION 17.5 (11.5-15.0); RED BLOOD CELL COUNT(AUTO) 3.02 MIL/uL (4.5-6.0); WHITE BLOOD COUNT (AUTO) 21.9 K/uL (4.3-11.0)
[2016-06-02 05:06] LABS: CALCIUM, SERUM 7.9 mg/dL (8.5-10.1); CREATININE 5.5 mg/dL (0.6-1.3); MAGNESIUM 2.8 mg/dL (1.8-2.4); PHOSPHORUS 3.8 mg/dL (2.5-4.9); POTASSIUM 3.3 mmol/L (3.5-5.1)
[2016-06-02] MEDS: METRONIDAZOLE 500MG/ NS 100ML 250 MG in PREMIX 1 EA IV SCH ×3 (05:08→21:00)
[2016-06-02] MEDS: BLOOD SUGAR DIAGNOSTIC 1 EACH STRIP IN SCH ×4 (05:08→23:48)
[2016-06-02] MEDS: INSULIN REGULAR, HUMAN 100 UNIT/ML 3 ML VIAL SQ PRN ×4 (05:11→23:48)
--- NOTE | 2016-06-02 07:45 | NUR ---
ICU/RN PT IS NEW TRACH ON THE VENT ,AC MODE,FIO2-40%,SAT O2-99%.V/S STABLE.T-100.7.A-FIB ON MONITOR.PT IS AWAKE , OPEN EYES, NOT FOLLOW COMMANDS, S/P CODE BLUE. ANOXIC BRAIN INJURY.LEFT UPPER ARM PICC LINE.CVP-3. NEW G-TUBE INFUSING WITH RENAL NOVASOURCE AT 45 ML/HR NO RESIDUAL NOTED.F/C DRAINING WITH YELLOW URINE.PT HAS RECTAL TUBE.DRAINING WITH BROWN STOOL.WOUND ON THE LOWER BACK COVERED WITH MEPILEX.
--- NOTE | 2016-06-02 07:52 | NUR ---
WOUND CARE CONSULT PATIENT SEEN AND SKIN INTEGRITY ASSESSMENT DONE. PLEASE SEE BRIDGE MANAGER ASSESSMENT IN PCS FOR TODAY ALONG WITH ALL RECOMMENDATIONS. RECOMMEND SURGICAL TEAM TO ASSESS THE SACRAL REGION THERE IS NOW NOTED WOUND BED CHANGES TO INCLUDE FULL THICKNESS AREAS OF NECROTIC TISSUE ALONG WITH THE EXCORIATIONS THAT HAVE BEEN PRESENT RELATED TO MOISTURE. PATIENT NOW NOTED TO HAVE FMS FOR LIQUID STOOL MANAGEMENT. PATIENT CONTINUES TO HAVE MULTIPLE CO-MORBIDITIES INCLUDING MULTI-SYSTEM ORGAN FAILURE. ALL SKIN MANAGEMENT AND PRESSURE ULCER PREVENTION MEASURES CONTINUE TO BE IN PLACE AT THIS TIME, FURTHER SKIN BREAKDOWN MAY BE UNAVOIDABLE. ALL TREATMENTS DISCUSSED WITH NURSING AT THE BEDSIDE. CONTINUE TURNING AND REPOSITIONING SCHED Q 2 HOURS, LEFT HEEL FLOATING AND USE OF ERICH LOW AIRLOSS BED FOR SKIN MANAGEMENT. WILL CONTINUE TO MONITOR. Addendum: 06/02/16 at 0759 by VINAY ESTEBAN WNDNU Amended: Links added.
--- NOTE | 2016-06-02 07:58 | NUR ---
COMPUTER FORENSIC EXAMINER ADDENDUM PATIENT CONTINUES ON TUBE FEEDS AND CONTINUED DIETARY FOLLOW UP TO MONITOR NUTRITION STATUS. Addendum: 06/02/16 at 0759 by VINAY ESTEBAN WNDNU Amended: Links added.
[2016-06-02] MEDS: VANCOMYCIN HCL 125 MG/2.5 ML ORAL.SUSP NG SCH ×4 (08:02→21:01)
[2016-06-02] MEDS: ACETAMINOPHEN 650 MG/20.3 ML UDC PO PRN (08:02)
[2016-06-02] MEDS: VIT B CMPLX 3/FA/VIT C/BIOTIN 1 TAB TABLET PO SCH (08:02)
[2016-06-02] MEDS: SEVELAMER CARBONATE 0.8 GM POWD.PACK GT SCH ×3 (08:02→17:30)
[2016-06-02] MEDS: MEROPENEM 500 MG in IV NS 0.9% 50 ML IV SCH ×2 (08:02→21:00)
[2016-06-02] MEDS: ASPIRIN 325 MG TABLET PO SCH (08:02)
[2016-06-02] MEDS: MUPIROCIN OINT 2% 22 GM TUBE SCH ×2 (08:03→21:01)
[2016-06-02] MEDS: HYDROGEL DRESSING 90 GM TUBE TP SCH (08:03)
[2016-06-02] MEDS: Z GUARD REMEDY 2 OZ OINT TP PRN (08:04)
[2016-06-02] MEDS: NEOMY SULF/BACITRAC ZN/POLY 15 GM TUBE TP SCH (08:05)
[2016-06-02] MEDS: HYDROGEN PEROXIDE 480 ML BOTTLE TP PRN (08:05)
[2016-06-02] MEDS ORDERED: EPOETIN ALFA (10,000 UNIT) 10,000 UNIT/ML VIAL SQ ONE (08:30)
--- NOTE | 2016-06-02 09:00 | NUR ---
ICU/RN PT HAS T-100.7.TYLENOL VIA G-TUBE GIVEN ORDERED.DUE MEDS ARE GIVEN ORDERED.LABS REVIEW. NOTIFIED.NEW ORDERS RECEIVED.
[2016-06-02] MEDS: ALBUMIN 25% 25 GM in PREMIX 1 EA IV PRN (09:29)
[2016-06-02] MEDS: DILTIAZEM HCL 30 MG TABLET PO SCH ×3 (12:59→23:26)
--- NOTE | 2016-06-02 13:00 | NUR ---
ICU/RN HD IS OVER.1 L OUTPUT.DURING HD ,BP DECREASED ALBUMIN 100 ML WAS GIVEN ORDERED.EPOGEN 79010 WITH HD GIVEN
[2016-06-02] MEDS ORDERED: DOSE PER PHARMACY MICAFUNGIN 1 EA XX PRN (14:30)
[2016-06-02] MEDS ORDERED: SECONDARY IV SET 1 EA INFUS.SET MC ONE (15:27)
[2016-06-02] MEDS: MICAFUNGIN SODIUM 100 MG in IV NS 0.9% 100 ML IV SCH (15:34)
--- NOTE | 2016-06-02 16:30 | NUR ---
ICU/RN PM CARE PROVIDED. WOUND DRESSING DONE ORDERED.DUE MEDS ARE GIVEN ORDERED.SUCTION PROVIDED.REPOSITION FOR COMFORT.CONTINUE MONITORING.
--- NOTE | 2016-06-02 20:50 | NUR ---
received pt from day shift, alert, confused, does not follow command, Afib controlled, on the vent, lungs congested, no edema, GT to feeding tolerates well, f/c low output, HD pt, CVP 8, rectal tube intact liquid BM, v/s stable, no pain, pt turned and repositioned q2hrs.
--- NOTE | 2016-06-02 22:40 | NUR ---
PT RECEIVED TRACHED SHLY 8 ON VENT. NO RESP DISTRESS NOTED. PT TOLERATING VENT SETTINGS. SX'D FOR MOD AMT OF THICK PALE SECRETIONS. VENT ALARMS SET AND AUDIBLE. AMBU BAG AT BEDSIDE. VENT PLUGGED INTO RED OUTLET. WILL CONTINUE TO MONITOR. Addendum: 06/02/16 at 2241 by SUSANA VALDIVIA RT Amended: Links added.
[2016-06-03] VITALS (23 sets, daily range): BP systolic 93–111; BP diastolic 53–77
[2016-06-03] MEDS ORDERED: IV NS 0.9% 250 ML IV ONE (00:33)
[2016-06-03] MEDS: IPRATROPIUM NEB FS 0.5 MG/2.5 ML AMPUL.NEB NEB SCH ×4 (01:02→20:00)
--- NOTE | 2016-06-03 04:34 | NUR ---
pt is resting in the bed, no acute distress overnight, v/s stable, no pain, tolerates feeding, pt cleaned, changed and repositioned q2hrs.
[2016-06-03 04:48] LABS: BASOPHILS # (AUTO) 0.1 /CMM (0.0-0.2); BASOPHILS % (AUTO) 0.3 % (0.0-2.0); EOSINOPHILS # (AUTO) 0.9 /CMM (0.0-0.7); EOSINOPHILS % (AUTO) 3.6 % (0.0-6.0); HEMATOCRIT 27 % (39-51); HEMOGLOBIN 8.8 g/dL (13.5-17.5); LYMPHOCYTES # (AUTO) 1.7 /CMM (0.8-4.8); LYMPHOCYTES % (AUTO) 6.9 % (20.0-44.0); MEAN CORPUSCULAR HEMOGLOBIN 29 PG (26.0-33.0); MEAN CORPUSCULAR HGB CONC 32 g/dl (31.0-36.0); MEAN CORPUSCULAR VOLUME 90 fL (80-96); MONOCYTES # (AUTO) 1.5 /CMM (0.1-1.30); MONOCYTES % (AUTO) 5.9 % (2.0-12.0); NEUTROPHILS # (AUTO) 20.7 /CMM (1.8-8.9); NEUTROPHILS % (AUTO) 83.3 % (43.0-81.0); PLATELET COUNT (AUTO) 340 /CMM (150-450); RDW COEFFICIENT OF VARIATION 16.5 (11.5-15.0); RED BLOOD CELL COUNT(AUTO) 3.03 MIL/uL (4.5-6.0); WHITE BLOOD COUNT (AUTO) 24.9 K/uL (4.3-11.0)
[2016-06-03] MEDS: METRONIDAZOLE 500MG/ NS 100ML 250 MG in PREMIX 1 EA IV SCH ×3 (05:01→20:30)
[2016-06-03] MEDS: DILTIAZEM HCL 30 MG TABLET PO SCH ×4 (05:02→23:07)
[2016-06-03] MEDS: BLOOD SUGAR DIAGNOSTIC 1 EACH STRIP IN SCH ×4 (05:03→23:07)
[2016-06-03 05:05] LABS: CALCIUM, SERUM 7.8 mg/dL (8.5-10.1); CREATININE 4.4 mg/dL (0.6-1.3); MAGNESIUM 2.4 mg/dL (1.8-2.4); PHOSPHORUS 4.1 mg/dL (2.5-4.9); POTASSIUM 3.3 mmol/L (3.5-5.1)
--- NOTE | 2016-06-03 08:00 | NUR ---
ICU/RN PT IS ON THE VENT AC MODE FIO2-40%.SAT O2-99%.V/S STABLE,AFEBRILE.CVP-7-8.NO PAIN REPORTED AT THIS TIME.LEFT ARM PICC LINE.G-TUBE INFUSING WITH RENAL NOVASOURCE AT 45 ML/HR.NO RESIDUAL NOTED.F/C DRAINING WITH YELLOW URINE.RECTAL TUBE DRAINING WITH LIQUID BROWN STOOL.WOUND ON THE SACRAL AREA COVERED WITH MEPILEX.
[2016-06-03] MEDS: MEROPENEM 500 MG in IV NS 0.9% 50 ML IV SCH ×2 (08:08→20:30)
[2016-06-03] MEDS: SEVELAMER CARBONATE 0.8 GM POWD.PACK GT SCH ×3 (08:08→17:17)
[2016-06-03] MEDS: VANCOMYCIN HCL 125 MG/2.5 ML ORAL.SUSP NG SCH ×4 (08:08→20:30)
[2016-06-03] MEDS: VIT B CMPLX 3/FA/VIT C/BIOTIN 1 TAB TABLET PO SCH (08:09)
[2016-06-03] MEDS: ASPIRIN 325 MG TABLET PO SCH (08:09)
[2016-06-03] MEDS: HYDROGEN PEROXIDE 480 ML BOTTLE TP PRN (08:10)
[2016-06-03] MEDS: HYDROGEL DRESSING 90 GM TUBE TP SCH (08:10)
[2016-06-03] MEDS: Z GUARD REMEDY 2 OZ OINT TP PRN (08:10)
[2016-06-03] MEDS: MUPIROCIN OINT 2% 22 GM TUBE SCH ×2 (08:10→20:31)
[2016-06-03] MEDS: NEOMY SULF/BACITRAC ZN/POLY 15 GM TUBE TP SCH (08:11)
--- NOTE | 2016-06-03 09:15 | NUR ---
ICU/RN DUE MEDS ARE GIVEN ORDERED.SUCTION PROVIDED.REPOSITION FOR COMFORT.
--- NOTE | 2016-06-03 14:36 | NUR ---
ICU/RN OK TO TRANSFER PT TO [facility] .CVP LINE D/C.V/S IS STABLE ,AFEBRILE.
[2016-06-03] MEDS: MICAFUNGIN SODIUM 100 MG in IV NS 0.9% 100 ML IV SCH (16:13)
[2016-06-03] MEDS: INSULIN REGULAR, HUMAN 100 UNIT/ML 3 ML VIAL SQ PRN ×2 (17:17→23:06)
--- NOTE | 2016-06-03 17:41 | NUR ---
ICU/RN PM CARE PROVIDED.DUE MEDS ARE GIVEN ORDERED.WOUND DRESSING DONE.BS-152.V/S STABLE,AFEBRILE.NO PAIN REPORTED AT THIS TIME.
--- NOTE | 2016-06-03 18:00 | NUR ---
ICU/RN PT TRANSFER TO [facility] IN STABLE CONDITION HR-11O A-FIB.BP STABLE. REPORT GIVEN TO RAMIN/DI.
--- NOTE | 2016-06-03 18:23 | NUR ---
RN INITIAL NOTES: Rec'd pt from DIRECTOR OF PUBLIC WORKS Tierney, awake, responsive to painful stimuli, opens eyes spontaneously, non verbal. Pt with mech vent on trache with the following settings: AC 16, TV 500, FiO2 40, PEEP 0. Initial VS as follows: BP 121/74, HR 86, T 97.6, O2 sat 100%. On telemetry monitoring atrial fibrillation controlled at 95's. Has PEG patent & intact attached to Novasource at 45 cc/hr, tolerating well w/ no residual noted. Noted pt R BKA. Pt w/ FC intact draining to adequate urine output. Has R chest wall HD cath intact and dry. With Flexiseal, patent & intact. Pt has ALLY PICC line on TKO, patent, C/D/I, no signs of infection/ infiltration. Provided comfort & safety measures. Bed kept low & in locked position. Turned and repositioned. Endorsed to PM Nurse.
[2016-06-04] VITALS (7 sets, daily range): BP systolic 93–116; BP diastolic 60–71
[2016-06-04] MEDS: IPRATROPIUM NEB FS 0.5 MG/2.5 ML AMPUL.NEB NEB SCH ×5 (02:11→19:41)
[2016-06-04] MEDS: RENAL NOVASOURCE 1,000 ML BOTTLE GT PRN (05:13)
[2016-06-04] MEDS: METRONIDAZOLE 500MG/ NS 100ML 250 MG in PREMIX 1 EA IV SCH ×3 (05:13→20:10)
[2016-06-04] MEDS: DILTIAZEM HCL 30 MG TABLET PO SCH ×3 (05:15→17:52)
[2016-06-04] MEDS: BLOOD SUGAR DIAGNOSTIC 1 EACH STRIP IN SCH ×3 (05:26→17:50)
[2016-06-04] MEDS: INSULIN REGULAR, HUMAN 100 UNIT/ML 3 ML VIAL SQ PRN ×3 (05:26→17:46)
[2016-06-04 06:56] LABS: CALCIUM, SERUM 7.9 mg/dL (8.5-10.1); CREATININE 5.4 mg/dL (0.6-1.3); POTASSIUM 3.3 mmol/L (3.5-5.1)
--- NOTE | 2016-06-04 08:00 | NUR ---
RN [facility]: pt.is obtunded, with open eyes, unable to follow commands, no activity tracking, rest, no grimacing, SR?ST up to 110, SBP over 100, O2sat., GTF residual WNL, HOB over 35, flexiseal: diarrhea +, PICC: white port occluded, blood return+, waiting amikacin level, PEG,trach: dry/no bleeding
--- NOTE | 2016-06-04 08:05 | NUR ---
RN [facility]: still Afib 100-110 (no ST)
[2016-06-04] MEDS: SEVELAMER CARBONATE 0.8 GM POWD.PACK GT SCH ×3 (08:20→16:58)
[2016-06-04] MEDS: MEROPENEM 500 MG in IV NS 0.9% 50 ML IV SCH ×2 (08:20→20:10)
[2016-06-04] MEDS: VANCOMYCIN HCL 125 MG/2.5 ML ORAL.SUSP NG SCH ×4 (08:20→20:11)
[2016-06-04] MEDS: ASPIRIN 325 MG TABLET PO SCH (09:31)
[2016-06-04] MEDS: VIT B CMPLX 3/FA/VIT C/BIOTIN 1 TAB TABLET PO SCH (09:31)
[2016-06-04] MEDS: ERGOCALCIFEROL (VITAMIN D 2) 50,000 UNIT CAPSULE GT SCH (09:31)
[2016-06-04] MEDS: MUPIROCIN OINT 2% 22 GM TUBE SCH ×2 (09:31→20:11)
[2016-06-04] MEDS: NEOMY SULF/BACITRAC ZN/POLY 15 GM TUBE TP SCH (09:31)
[2016-06-04] MEDS: HYDROGEL DRESSING 90 GM TUBE TP SCH (09:31)
--- NOTE | 2016-06-04 10:15 | NUR ---
RN [facility]: is in room, updated with pt.current condition, VS, I/O, HD, meds, see new orders
--- NOTE | 2016-06-04 11:20 | NUR ---
RN [facility]: updated with pt.current condition, VS, Afib 100-115, GTF, I/O, suction amount, O2sat., HD
--- NOTE | 2016-06-04 12:20 | NUR ---
RN [facility]: HD is done, tolerated well, 1.2l out, pt.brother is in room, got detail report re pt current condition, POC, orders, VS, GTF, I/O, meds, spoke with ID BRANCH ACCOUNT MANAGER, who was in the room and updated with all above. Pt.is more awake, can open eyes and eyes contact+, unable to follow commands, oral care done
[2016-06-04] MEDS: AMIKACIN 500 MG in IV D5W 100 ML IV PRN (13:10)
[2016-06-04] MEDS ORDERED: SECONDARY IV SET 1 EA INFUS.SET MC ONE (13:14)
[2016-06-04] MEDS: MICAFUNGIN SODIUM 100 MG in IV NS 0.9% 100 ML IV SCH (16:19)
[2016-06-04] MEDS: NYSTATIN (PYXIS) 500,000 UNIT/5 ML ORAL.SUSP PO SCH (16:58)
--- NOTE | 2016-06-04 17:29 | NUR ---
STRINGS TEACHER: pt.is obtunded, more reactive, rest, O2 sat. WNL, afib controlled 100-110 HR, SBP [id number] now, GTF residual WNL, all PM/skin/wounds/flexiseal tube care done, small urine output, oral care done, was turned q2h, trach/PEG care done
--- NOTE | 2016-06-04 20:44 | NUR ---
rn:td: pt had an episode of vtach, 10 seconds. pt assessed and no acute distress noted. pt vital signs stable. will continue to monitor closely.
[2016-06-05] VITALS: BP 103/67
[2016-06-05] MEDS: DILTIAZEM HCL 30 MG TABLET PO SCH ×5 (00:01→23:20)
[2016-06-05] MEDS: BLOOD SUGAR DIAGNOSTIC 1 EACH STRIP IN SCH ×5 (00:02→23:19)
[2016-06-05] MEDS: INSULIN REGULAR, HUMAN 100 UNIT/ML 3 ML VIAL SQ PRN ×5 (00:02→23:22)
[2016-06-05] MEDS: IPRATROPIUM NEB FS 0.5 MG/2.5 ML AMPUL.NEB NEB SCH ×4 (01:10→20:28)
[2016-06-05] MEDS: RENAL NOVASOURCE 1,000 ML BOTTLE GT PRN (02:54)
[2016-06-05] MEDS: ACETAMINOPHEN 650 MG/20.3 ML UDC PO PRN ×2 (02:54→12:43)
--- NOTE | 2016-06-05 03:07 | NUR ---
rn;td: pt had [address] felix contacted, no new orders, per md swanson to notify wood treating inspector on dayshift. pt given tylenol for pain. vs stable. no acute distress observed. will continue to monitor closely.
[2016-06-05 04:00] VITALS: BP 106/64
[2016-06-05] MEDS: METRONIDAZOLE 500MG/ NS 100ML 250 MG in PREMIX 1 EA IV SCH ×3 (05:21→20:07)
--- NOTE | 2016-06-05 07:45 | NUR ---
[facility]/RN - Initial Notes Received pt in bed with eyes open, non interactive, does not follow commands. Pt with trach to vent with settings as ordered. Moderate thick guillermo secretions suctioned. No s/s of pain or discomfort. On tele reading Afib 100's. Tolerating GTF well, no residual noted. PICC line on left upper arm patent and intact. Moya catheter intact draining urine to gravity. Flexiseal intact. Pt repositioned for comfort. Safety and comfort measures in place. Will continue to monitor pt closely.
[2016-06-05 08:00] VITALS: BP 104/58
[2016-06-05 08:03] LABS: BASOPHILS # (AUTO) 0.1 /CMM (0.0-0.2); BASOPHILS % (AUTO) 0.5 % (0.0-2.0); EOSINOPHILS # (AUTO) 0.4 /CMM (0.0-0.7); EOSINOPHILS % (AUTO) 2.3 % (0.0-6.0); HEMATOCRIT 30 % (39-51); HEMOGLOBIN 9.7 g/dL (13.5-17.5); LYMPHOCYTES # (AUTO) 2.1 /CMM (0.8-4.8); MEAN CORPUSCULAR HEMOGLOBIN 29 PG (26.0-33.0); MEAN CORPUSCULAR HGB CONC 32 g/dl (31.0-36.0); MEAN CORPUSCULAR VOLUME 90 fL (80-96); MONOCYTES # (AUTO) 1.7 /CMM (0.1-1.30); MONOCYTES % (AUTO) 8.7 % (2.0-12.0); NEUTROPHILS # (AUTO) 15.1 /CMM (1.8-8.9); NEUTROPHILS % (AUTO) 77.5 % (43.0-81.0); PLATELET COUNT (AUTO) 371 /CMM (150-450); RDW COEFFICIENT OF VARIATION 16.8 (11.5-15.0); RED BLOOD CELL COUNT(AUTO) 3.32 MIL/uL (4.5-6.0); WHITE BLOOD COUNT (AUTO) 19.5 K/uL (4.3-11.0)
[2016-06-05 08:07] LABS: CALCIUM, SERUM 8.1 mg/dL (8.5-10.1); CREATININE 4.7 mg/dL (0.6-1.3); MAGNESIUM 2.5 mg/dL (1.8-2.4); PHOSPHORUS 4.5 mg/dL (2.5-4.9); POTASSIUM 3.3 mmol/L (3.5-5.1)
[2016-06-05] MEDS: ASPIRIN 325 MG TABLET PO SCH (08:37)
[2016-06-05] MEDS: VIT B CMPLX 3/FA/VIT C/BIOTIN 1 TAB TABLET PO SCH (08:37)
[2016-06-05] MEDS: MEROPENEM 500 MG in IV NS 0.9% 50 ML IV SCH (08:37)
[2016-06-05] MEDS: NYSTATIN (PYXIS) 500,000 UNIT/5 ML ORAL.SUSP PO SCH ×3 (08:37→16:00)
[2016-06-05] MEDS: SEVELAMER CARBONATE 0.8 GM POWD.PACK GT SCH ×3 (08:37→17:22)
[2016-06-05] MEDS: VANCOMYCIN HCL 125 MG/2.5 ML ORAL.SUSP NG SCH ×4 (08:37→20:07)
[2016-06-05] MEDS: Z GUARD REMEDY 2 OZ OINT TP PRN (08:38)
[2016-06-05] MEDS: HYDROGEL DRESSING 90 GM TUBE TP SCH (08:38)
[2016-06-05] MEDS: NEOMY SULF/BACITRAC ZN/POLY 15 GM TUBE TP SCH (08:41)
[2016-06-05] MEDS: MUPIROCIN OINT 2% 22 GM TUBE SCH (08:41)
[2016-06-05 12:00] VITALS: BP 110/59
[2016-06-05] MEDS ORDERED: POTASSIUM CHLORIDE 20 MEQ POWDER PACKET GT ONE (12:30)
--- NOTE | 2016-06-05 12:43 | NUR ---
[facility]/RN - Notes Pt with low grade fever 100.8F, administered Tylenol 650 mg PO. Cooling measures in place. Will continue to monitor.
[2016-06-05] MEDS: MICAFUNGIN SODIUM 100 MG in IV NS 0.9% 100 ML IV SCH (14:56)
[2016-06-05] MEDS ORDERED: SECONDARY IV SET 1 EA INFUS.SET MC ONE ×2 (14:58→15:52)
--- NOTE | 2016-06-05 15:46 | NUR ---
[facility]/RN - Notes Dr Stark called and made aware of pt's episodes of Vtach overnight, and episode of Vtach at 1537 sustaining for 16 seconds. No orders received at this time. Per MD, will see pt later.
[2016-06-05] MEDS: CEFEPIME 1 GM in IV D5W 50 ML IV SCH (15:58)
[2016-06-05 16:00] VITALS: BP 122/76
[2016-06-05] MEDS ORDERED: AMIODARONE 150 MG in IV D5W 100 ML IV ONE (17:00)
[2016-06-05] MEDS ORDERED: AMIODARONE 900 MG in IV D5W 482 ML IV PRN (17:00)
[2016-06-05] MEDS ORDERED: IV SET PRIMARY PUMP SET 1 EA INFUS.SET MC ONE (17:18)
--- NOTE | 2016-06-05 17:45 | NUR ---
ICU/RN - Notes Amiodarone drip started as ordered by . Addendum: 06/05/16 at 1811 by SHANTELLE MONTELONGO RN [facility]/DI
--- NOTE | 2016-06-05 19:00 | NUR ---
RN INITIAL NOTES RECEIVED PT ASLEEP ON BED, AROUSABLE TO TOUCH AND PAIN, NON-VERBAL, OPENS EYES ONLY. ON VENT, AC 16, TV 500, 40% FIO2, PEEP 5, SHILEY 6, NO S/S OF RESP DISTRESS. CURRENTLY AFIB ON THE MONITOR, HR 100'S, ON AMIO DRIP @ 1MG/MIN STARTED @ 1745. [place] CATH AND FLEXISEAL ARE BOTH INTACT. ON GTUBE FEEDING OF NOVASOURCE @ 45MLS/HR, NO RESIDUALS. LEFT UPPER ARM PICC FLUSHED AND PATENT, NO S/S OF INFILTRATION/INFECTION, DRESSING CDI. RIGHT CHEST WALL HD CATH INTACT. BED LOW AND LOCKED, SIDERAILS UP, BED ALARM ON. WILL MONITOR
[2016-06-05 20:00] VITALS: BP 121/76
[2016-06-06] VITALS: BP_SYST 134; BP_DIAS 80; BP_DIAS 86
[2016-06-06] MEDS: IPRATROPIUM NEB FS 0.5 MG/2.5 ML AMPUL.NEB NEB SCH ×4 (01:56→20:12)
[2016-06-06] MEDS: RENAL NOVASOURCE 1,000 ML BOTTLE GT PRN ×2 (02:48→20:57)
[2016-06-06 04:00] VITALS: BP 129/82
[2016-06-06] MEDS: INSULIN REGULAR, HUMAN 100 UNIT/ML 3 ML VIAL SQ PRN ×3 (05:07→17:40)
[2016-06-06] MEDS: METRONIDAZOLE 500MG/ NS 100ML 250 MG in PREMIX 1 EA IV SCH ×3 (05:07→20:55)
[2016-06-06] MEDS: BLOOD SUGAR DIAGNOSTIC 1 EACH STRIP IN SCH ×3 (05:07→17:36)
[2016-06-06] MEDS: DILTIAZEM HCL 30 MG TABLET PO SCH ×3 (05:08→17:40)
--- NOTE | 2016-06-06 06:30 | NUR ---
RN CLOSING NOTES PT REMAINS STABLE OF THE MOMENT. ALL DUE MEDS GIVEN, AM CARE PROVIDED. WILL ENDORSE TO AM RN
[2016-06-06 06:43] LABS: BASOPHILS # (AUTO) 0.1 /CMM (0.0-0.2); BASOPHILS % (AUTO) 0.5 % (0.0-2.0); EOSINOPHILS # (AUTO) 0.6 /CMM (0.0-0.7); EOSINOPHILS % (AUTO) 2.6 % (0.0-6.0); HEMATOCRIT 28 % (39-51); HEMOGLOBIN 9.1 g/dL (13.5-17.5); LYMPHOCYTES # (AUTO) 2.2 /CMM (0.8-4.8); LYMPHOCYTES % (AUTO) 10.1 % (20.0-44.0); MEAN CORPUSCULAR HEMOGLOBIN 29 PG (26.0-33.0); MEAN CORPUSCULAR HGB CONC 32 g/dl (31.0-36.0); MEAN CORPUSCULAR VOLUME 91 fL (80-96); MONOCYTES # (AUTO) 1.7 /CMM (0.1-1.30); MONOCYTES % (AUTO) 7.8 % (2.0-12.0); PLATELET COUNT (AUTO) 364 /CMM (150-450); RDW COEFFICIENT OF VARIATION 16.6 (11.5-15.0); RED BLOOD CELL COUNT(AUTO) 3.11 MIL/uL (4.5-6.0); WHITE BLOOD COUNT (AUTO) 21.5 K/uL (4.3-11.0)
[2016-06-06 06:51] LABS: CALCIUM, SERUM 7.8 mg/dL (8.5-10.1); CREATININE 5.4 mg/dL (0.6-1.3); MAGNESIUM 2.7 mg/dL (1.8-2.4); PHOSPHORUS 5.4 mg/dL (2.5-4.9); POTASSIUM 3.4 mmol/L (3.5-5.1)
[2016-06-06 08:00] VITALS: BP_SYST 11; BP_SYST 111; BP_DIAS 77
[2016-06-06] MEDS: HYDROGEL DRESSING 90 GM TUBE TP SCH (08:34)
[2016-06-06] MEDS: VIT B CMPLX 3/FA/VIT C/BIOTIN 1 TAB TABLET PO SCH (08:38)
[2016-06-06] MEDS: VANCOMYCIN HCL 125 MG/2.5 ML ORAL.SUSP NG SCH ×4 (08:38→20:55)
[2016-06-06] MEDS: NYSTATIN (PYXIS) 500,000 UNIT/5 ML ORAL.SUSP PO SCH ×3 (08:38→16:02)
[2016-06-06] MEDS: SEVELAMER CARBONATE 0.8 GM POWD.PACK GT SCH ×3 (08:38→17:07)
[2016-06-06] MEDS: ASPIRIN 325 MG TABLET PO SCH (08:38)
[2016-06-06] MEDS: NEOMY SULF/BACITRAC ZN/POLY 15 GM TUBE TP SCH (08:41)
[2016-06-06 08:57] LABS: ANISOCYTOSIS 1+; LYMPHOCYTES % (MANUAL) 7 % (16-48); MONOCYTES % (MANUAL) 10 % (0-11.0); NEUTROPHILS % (MANUAL) 83 (42-76); PLATELET ESTIMATE ADEQUATE
[2016-06-06] MEDS ORDERED: CEFEPIME 1 GM VIAL IM SCH (09:00)
[2016-06-06 12:00] VITALS: BP 110/78
[2016-06-06] MEDS ORDERED: EPOETIN ALFA (10,000 UNIT) 10,000 UNIT/ML VIAL SQ ONE (12:30)
[2016-06-06] MEDS: AMIODARONE HCL 200 MG TABLET PO SCH ×2 (13:28→17:07)
[2016-06-06 16:00] VITALS: BP 123/80
[2016-06-06] MEDS: CEFEPIME 1 GM in IV D5W 50 ML IV SCH (16:02)
[2016-06-06] MEDS: MICAFUNGIN SODIUM 100 MG in IV NS 0.9% 100 ML IV SCH (16:02)
[2016-06-06 20:00] VITALS: BP 115/70
[2016-06-06] MEDS ORDERED: SECONDARY IV SET 1 EA INFUS.SET MC ONE (20:45)
[2016-06-06] MEDS ORDERED: IV SET PRIMARY PUMP SET 1 EA INFUS.SET MC ONE (20:45)
[2016-06-06] MEDS: IV NS 0.9% 250 ML IV PRN (20:55)
[2016-06-07] VITALS: BP 111/76
[2016-06-07] MEDS: BLOOD SUGAR DIAGNOSTIC 1 EACH STRIP IN SCH ×5 (00:10→23:45)
[2016-06-07] MEDS: INSULIN REGULAR, HUMAN 100 UNIT/ML 3 ML VIAL SQ PRN ×5 (00:12→17:29)
[2016-06-07] MEDS: DILTIAZEM HCL 30 MG TABLET PO SCH ×5 (00:17→23:47)
[2016-06-07] MEDS: IPRATROPIUM NEB FS 0.5 MG/2.5 ML AMPUL.NEB NEB SCH ×4 (01:39→20:03)
[2016-06-07 04:00] VITALS: BP 122/86
[2016-06-07] MEDS: METRONIDAZOLE 500MG/ NS 100ML 250 MG in PREMIX 1 EA IV SCH ×3 (05:21→20:52)
[2016-06-07 06:48] LABS: CALCIUM, SERUM 7.7 mg/dL (8.5-10.1); CREATININE 4.8 mg/dL (0.6-1.3); POTASSIUM 3.3 mmol/L (3.5-5.1)
--- NOTE | 2016-06-07 07:15 | NUR ---
RN NOTES RECEIVED PATIENT AWAKE , OPENS EYES , NO TRACKING , NOT IN ACUTE DISTRESS , RESPIRATIONS EVEN AND UNLABORED , SPO2 OF 100% VIA MECHANICAL VENTILATOR SETTINGS ORDERED , TRACH OF SHILEY @ [address] , ATRIAL FIBRILLATION 85 ON TELE MONITOR , FLEXI SEAL DRAINING VIA GRAVITY WITH BLACK SOFT STOOL , FC DRAINING WELL VIA GRAVITY WITH CLEAR YELLOW URINE , GT PATENT AND INTACT WITH GT FEEDING OF NOVASOURCE @ 45ML/HR INFUSING WELL WITH NO RESIDUALS NOTED , ON ERICH BED , ALLY PICC LINE PATENT AND INTACT WITH NS @ TKO , R CHEST WALL HD CATH CLEAN DRY AND INTACT , ALL NEEDS ATTENDED , BED ON LOW AND LOCKED POSITION , SIDE RAILS X2 ,HOB @ 45 , WILL CONTINUE TO MONITOR .
[2016-06-07 08:00] VITALS: BP_SYST 101; BP_SYST 105; BP_DIAS 69
[2016-06-07] MEDS: SEVELAMER CARBONATE 0.8 GM POWD.PACK GT SCH ×3 (08:10→17:22)
[2016-06-07] MEDS: AMIODARONE HCL 200 MG TABLET PO SCH ×3 (08:11→16:30)
[2016-06-07] MEDS: NYSTATIN (PYXIS) 500,000 UNIT/5 ML ORAL.SUSP PO SCH ×3 (08:11→16:30)
[2016-06-07] MEDS: HYDROGEL DRESSING 90 GM TUBE TP SCH (08:11)
[2016-06-07] MEDS: VIT B CMPLX 3/FA/VIT C/BIOTIN 1 TAB TABLET PO SCH (08:11)
[2016-06-07] MEDS: VANCOMYCIN HCL 125 MG/2.5 ML ORAL.SUSP NG SCH ×4 (08:11→20:53)
[2016-06-07] MEDS: ASPIRIN 325 MG TABLET PO SCH (08:11)
[2016-06-07] MEDS: NEOMY SULF/BACITRAC ZN/POLY 15 GM TUBE TP SCH (08:12)
--- NOTE | 2016-06-07 09:47 | NUR ---
RN NOTES NOTIFIED DR AMARILYS SMITH REGARDING PT STATUS , K OF 3.3 , BUN 59 AND CREATININE 4.8 , S/P HD YESTERDAY 1L OUT , STILL HAVING LIQUID BLACK STOOL VIA FLEXI SEAL , FC DRAINING WITH CLEAR YELLOW URINE 5-10 ML/HR , SBP OF 105/57 , TOLERATING CURRENT VENT SETTINGS , AFEBRILE , STILL ON IV ABX , MD AWARE , NO NEW ORDERS RECEIVED
[2016-06-07 10:46] LABS: BASOPHILS # (AUTO) 0.1 /CMM (0.0-0.2); BASOPHILS % (AUTO) 0.5 % (0.0-2.0); EOSINOPHILS # (AUTO) 0.6 /CMM (0.0-0.7); EOSINOPHILS % (AUTO) 2.8 % (0.0-6.0); HEMATOCRIT 28 % (39-51); HEMOGLOBIN 9.1 g/dL (13.5-17.5); LYMPHOCYTES # (AUTO) 1.7 /CMM (0.8-4.8); LYMPHOCYTES % (AUTO) 8.2 % (20.0-44.0); MEAN CORPUSCULAR HEMOGLOBIN 29 PG (26.0-33.0); MEAN CORPUSCULAR HGB CONC 32 g/dl (31.0-36.0); MEAN CORPUSCULAR VOLUME 91 fL (80-96); MONOCYTES # (AUTO) 1.6 /CMM (0.1-1.30); MONOCYTES % (AUTO) 7.7 % (2.0-12.0); NEUTROPHILS # (AUTO) 17.1 /CMM (1.8-8.9); NEUTROPHILS % (AUTO) 80.8 % (43.0-81.0); PLATELET COUNT (AUTO) 360 /CMM (150-450); RDW COEFFICIENT OF VARIATION 17.3 (11.5-15.0); WHITE BLOOD COUNT (AUTO) 21.2 K/uL (4.3-11.0)
[2016-06-07] MEDS ORDERED: SECONDARY IV SET 1 EA INFUS.SET MC ONE (11:21)
[2016-06-07 12:00] VITALS: BP 105/64
[2016-06-07] MEDS: COLISTIMETHATE SODIUM 150 MG VIAL NEB SCH (12:30)
[2016-06-07] MEDS: MICAFUNGIN SODIUM 100 MG in IV NS 0.9% 100 ML IV SCH (14:32)
[2016-06-07 16:00] VITALS: BP 109/67
[2016-06-07] MEDS: CEFEPIME 1 GM in IV D5W 50 ML IV SCH (16:28)
[2016-06-07] MEDS: RENAL NOVASOURCE 1,000 ML BOTTLE GT PRN (16:34)
[2016-06-07] MEDS ORDERED: IV NS 0.9% 250 ML IV ONE (17:13)
[2016-06-07 20:00] VITALS: BP 97/62
--- NOTE | 2016-06-07 20:00 | NUR ---
TELE NOTES RECEIVED PT AWAKE ON VENT PER TRACH,DOES NOT FOLLOW COMMAND.TOLERATING TUBE FEEDINGS.SUCTIONED FOR SCANT AMT YELLOW SECRETIONS.
--- NOTE | 2016-06-07 20:03 | NUR ---
PT RCVD ON MECH VENT WITH NOTED SETTINGS,VENT ALARM WORKING AND AUDIBLE. VENT PLUGGED INTO RED OUTLET. TRACH SECURED IN AND IN PROPER POSITION. CUFF CHECKED OVEN TECHNICIAN. SXN MODERATE AMOUNT OF YELLOWISH THICK SECRETIONS. NO RESPIRATORY DISTRESS AT THIS TIME. WILL CONTINUE TO MONITOR.
[2016-06-08] VITALS (7 sets, daily range): BP systolic 98–113; BP diastolic 62–70
[2016-06-08] MEDS: COLISTIMETHATE SODIUM 150 MG VIAL NEB SCH ×3 (00:59→19:37)
[2016-06-08] MEDS: IPRATROPIUM NEB FS 0.5 MG/2.5 ML AMPUL.NEB NEB SCH ×4 (01:41→19:36)
--- NOTE | 2016-06-08 02:24 | NUR ---
TELE NOTES AWAKE ALERT,TRACKS.SHRUG SHOULDERS WHEN ASKED IF HE'S OKAY.COMPLETE BED BATH GIVEN.TRACH CARE DONE.SUCTIONED FOR SCANT THICK YELLOW SECRETIONS.
[2016-06-08] MEDS: METRONIDAZOLE 500MG/ NS 100ML 250 MG in PREMIX 1 EA IV SCH ×3 (05:33→21:02)
[2016-06-08] MEDS: DILTIAZEM HCL 30 MG TABLET PO SCH ×3 (05:34→17:36)
[2016-06-08] MEDS: BLOOD SUGAR DIAGNOSTIC 1 EACH STRIP IN SCH ×3 (05:35→17:31)
--- NOTE | 2016-06-08 06:35 | NUR ---
TELE NOTES FLEXI SEAL IRRIGATED W/45 ML WATER.DRAINED 145 GREENISH STOOL.
[2016-06-08] MEDS: NEOMY SULF/BACITRAC ZN/POLY 15 GM TUBE TP SCH (09:00)
[2016-06-08] MEDS: SEVELAMER CARBONATE 0.8 GM POWD.PACK GT SCH ×3 (10:08→17:36)
[2016-06-08] MEDS: VANCOMYCIN HCL 125 MG/2.5 ML ORAL.SUSP NG SCH ×4 (10:08→21:02)
[2016-06-08] MEDS: VIT B CMPLX 3/FA/VIT C/BIOTIN 1 TAB TABLET PO SCH (10:09)
[2016-06-08] MEDS: NYSTATIN (PYXIS) 500,000 UNIT/5 ML ORAL.SUSP PO SCH ×3 (10:09→17:36)
[2016-06-08] MEDS: ASPIRIN 325 MG TABLET PO SCH (10:09)
[2016-06-08] MEDS: AMIODARONE HCL 200 MG TABLET PO SCH ×3 (10:09→17:36)
[2016-06-08] MEDS: HYDROGEL DRESSING 90 GM TUBE TP SCH (10:10)
[2016-06-08] MEDS: INSULIN REGULAR, HUMAN 100 UNIT/ML 3 ML VIAL SQ PRN (13:54)
[2016-06-08] MEDS: MICAFUNGIN SODIUM 100 MG in IV NS 0.9% 100 ML IV SCH (15:54)
[2016-06-08] MEDS: CEFEPIME 1 GM in IV D5W 50 ML IV SCH (17:31)
[2016-06-08] MEDS ORDERED: SECONDARY IV SET 1 EA INFUS.SET MC ONE (17:31)
[2016-06-09] VITALS: BP 117/60
[2016-06-09] MEDS: RENAL NOVASOURCE 1,000 ML BOTTLE GT PRN (00:01)
[2016-06-09] MEDS: BLOOD SUGAR DIAGNOSTIC 1 EACH STRIP IN SCH ×4 (00:02→18:02)
[2016-06-09] MEDS: IV NS 0.9% 250 ML IV PRN (00:05)
[2016-06-09] MEDS: DILTIAZEM HCL 30 MG TABLET PO SCH ×4 (00:05→18:02)
[2016-06-09] MEDS: INSULIN REGULAR, HUMAN 100 UNIT/ML 3 ML VIAL SQ PRN ×4 (00:13→18:16)
[2016-06-09] MEDS: IPRATROPIUM NEB FS 0.5 MG/2.5 ML AMPUL.NEB NEB SCH ×4 (01:29→20:25)
[2016-06-09 04:00] VITALS: BP 104/65
[2016-06-09] MEDS: METRONIDAZOLE 500MG/ NS 100ML 250 MG in PREMIX 1 EA IV SCH ×3 (05:07→20:53)
--- NOTE | 2016-06-09 07:30 | NUR ---
initial notes received patient resting in bed opens eyes to light pain at this time. with mechanical ventilation, breathing even and unlabored. tele monitor reading a-fib 96. gt patent with prescribed feeding. received approximately 100 ml air residual and 10 ml feeding residual. james picc patent, no complications. oleary patent, checked for placement. call light in reach. repositioned.
--- NOTE | 2016-06-09 07:45 | NUR ---
Received male dave pt on a mechanical vent. Pt dave is secure. Suctioned moderate amount of thick secretions. Vent is plugged into a red outlet. Alarms are set and audible. Ambu bag is at bedside Addendum: 06/09/16 at 0746 by SARA TAYLOR RT Amended: Links added.
[2016-06-09 08:00] VITALS: BP 107/69
[2016-06-09] MEDS: VANCOMYCIN HCL 125 MG/2.5 ML ORAL.SUSP NG SCH ×4 (08:20→20:53)
[2016-06-09] MEDS: Z GUARD REMEDY 2 OZ OINT TP PRN (08:20)
[2016-06-09] MEDS: VIT B CMPLX 3/FA/VIT C/BIOTIN 1 TAB TABLET PO SCH (08:20)
[2016-06-09] MEDS: ASPIRIN 325 MG TABLET PO SCH (08:20)
[2016-06-09] MEDS: SEVELAMER CARBONATE 0.8 GM POWD.PACK GT SCH ×3 (08:20→18:02)
[2016-06-09] MEDS: HYDROGEL DRESSING 90 GM TUBE TP SCH (08:21)
[2016-06-09] MEDS: NEOMY SULF/BACITRAC ZN/POLY 15 GM TUBE TP SCH (08:22)
[2016-06-09] MEDS: NYSTATIN (PYXIS) 500,000 UNIT/5 ML ORAL.SUSP PO SCH ×3 (08:22→18:01)
[2016-06-09] MEDS: AMIODARONE HCL 200 MG TABLET PO SCH ×3 (08:23→18:01)
--- NOTE | 2016-06-09 10:00 | NUR ---
RN NOTES: Rec'd pt asleep on bed, HOB elevated, not in any distress. MV settings tolerated well, no desaturation noted. On continuous GT feeding, no residual noted. Pt R CW HD cath dry & intact. Has ALLY PICC line, patent, C/D/I, no signs of infection & infiltration noted. Safety measures provided. Bed kept low & in locked position. Will continue to monitor.
[2016-06-09 12:00] VITALS: BP 118/79
[2016-06-09] MEDS: COLISTIMETHATE SODIUM 150 MG VIAL NEB SCH ×2 (14:05→21:31)
[2016-06-09 16:00] VITALS: BP 120/78
[2016-06-09] MEDS: CEFEPIME 1 GM in IV D5W 50 ML IV SCH (17:59)
[2016-06-09] MEDS: MICAFUNGIN SODIUM 100 MG in IV NS 0.9% 100 ML IV SCH (18:12)
--- NOTE | 2016-06-09 19:30 | NUR ---
REFRACTORY TECHNICIAN INITIAL NOTE RECEIVED REPORT FROM SUZI SEVILLA. PT IN BED, ASLEEP BUT AROUSABLE. SUCTIONED SECRETIONS FOR COMFORT. LUNG SOUNDS RHONCHI AT UPPER BASES, DIMINISHED AT LOWER BASES. BOWEL SOUNDS PRESENT. GT PATENT AND INTACT WITH FEEDING RUNNING. RIGHT CHEST WALL HD ACCESS PATENT. IV PATENT AND INTACT. PULSES PRESENT IN ALL EXTREMITIES. RIGHT BKA ELEVATED ON PILLOW. BED IN LOW LOCKED POSITION. WILL CONTINUE TO MONITOR.
--- NOTE | 2016-06-09 19:54 | NUR ---
RN CLOSING NOTES: Pt remained stable, not in any distress. HOB kept elevated. Suctioned secretions as needed. Wound care done. Turned & repositioned, offloading of heels done. Will endorsed to PM RN for BINDU.
[2016-06-09 20:00] VITALS: BP 131/87
[2016-06-10] VITALS: BP 126/77
[2016-06-10] MEDS: BLOOD SUGAR DIAGNOSTIC 1 EACH STRIP IN SCH ×5 (00:48→23:42)
[2016-06-10] MEDS: DILTIAZEM HCL 30 MG TABLET PO SCH ×5 (00:49→23:43)
[2016-06-10] MEDS: INSULIN REGULAR, HUMAN 100 UNIT/ML 3 ML VIAL SQ PRN ×5 (00:50→23:43)
[2016-06-10] MEDS: IPRATROPIUM NEB FS 0.5 MG/2.5 ML AMPUL.NEB NEB SCH ×4 (01:27→19:56)
[2016-06-10] MEDS ORDERED: IV SET PRIMARY PUMP SET 1 EA INFUS.SET MC ONE ×2 (01:54→16:21)
[2016-06-10] MEDS ORDERED: IV NS 0.9% 250 ML IV ONE ×2 (01:54→16:21)
[2016-06-10 04:00] VITALS: BP 109/62
[2016-06-10] MEDS: METRONIDAZOLE 500MG/ NS 100ML 250 MG in PREMIX 1 EA IV SCH ×3 (05:30→21:51)
[2016-06-10 06:23] LABS: BASOPHILS % (AUTO) 0.2 % (0.0-2.0); EOSINOPHILS # (AUTO) 0.2 /CMM (0.0-0.7); EOSINOPHILS % (AUTO) 1.5 % (0.0-6.0); HEMATOCRIT 26 % (39-51); HEMOGLOBIN 8.5 g/dL (13.5-17.5); LYMPHOCYTES # (AUTO) 1.9 /CMM (0.8-4.8); LYMPHOCYTES % (AUTO) 11.4 % (20.0-44.0); MEAN CORPUSCULAR HEMOGLOBIN 29 PG (26.0-33.0); MEAN CORPUSCULAR HGB CONC 33 g/dl (31.0-36.0); MEAN CORPUSCULAR VOLUME 90 fL (80-96); MONOCYTES # (AUTO) 1.5 /CMM (0.1-1.30); MONOCYTES % (AUTO) 9.2 % (2.0-12.0); NEUTROPHILS # (AUTO) 12.8 /CMM (1.8-8.9); NEUTROPHILS % (AUTO) 77.7 % (43.0-81.0); PLATELET COUNT (AUTO) 331 /CMM (150-450); RDW COEFFICIENT OF VARIATION 16.3 (11.5-15.0); RED BLOOD CELL COUNT(AUTO) 2.91 MIL/uL (4.5-6.0); WHITE BLOOD COUNT (AUTO) 16.5 K/uL (4.3-11.0)
[2016-06-10 06:46] LABS: BILIRUBIN,TOTAL 0.5 mg/dL (0.2-1.0); CALCIUM, SERUM 7.8 mg/dL (8.5-10.1); MAGNESIUM 2.9 mg/dL (1.8-2.4); PHOSPHORUS 6.5 mg/dL (2.5-4.9); POTASSIUM 3.7 mmol/L (3.5-5.1); TOTAL PROTEIN, SERUM 5.7 g/dL (6.4-8.2)
[2016-06-10 06:55] LABS: ALBUMIN 1.4 g/dL (3.4-5.0)
[2016-06-10] MEDS: ALBUTEROL FS 2.5 MG/0.5 ML VIAL.NEB NEB PRN ×2 (07:33→13:32)
[2016-06-10 08:00] VITALS: BP 102/59
--- NOTE | 2016-06-10 08:00 | NUR ---
RN INITIAL NOTE PT RECEIVED IN BED, PT IS OBTUNDED, NON-VERBAL. RESTING COMFORTABLY. NO S/S OF PAIN OR DISCOMFORT. TELE MONITOR SHOWS CONTROLLED A-FIB. G-TUBE PATENT, INTACT, PLACEMENT VERIFIED. TOLERATING G-TUBE FEEDING. PT HAS TRACH. NO S/S OF RESPIRATORY DISTRESS OR SOB. RESPIRATIONS EVEN AND UNLABORED. HOB ELEVATED. PICC LINE DRESSING C/D/I. FLUSHED AND PATENT. SKIN WARM AND DRY TO TOUCH. SCHEDULED FOR HD THIS AM. ISOLATION PRECAUTIONS OBSERVED. SAFETY MEASURES IN PLACE. CALL LIGHT WITHIN REACH. WILL CONTINUE TO MONITOR.
[2016-06-10] MEDS: ASPIRIN 325 MG TABLET PO SCH (08:05)
[2016-06-10] MEDS: SEVELAMER CARBONATE 0.8 GM POWD.PACK GT SCH ×3 (08:05→17:51)
[2016-06-10] MEDS: VIT B CMPLX 3/FA/VIT C/BIOTIN 1 TAB TABLET PO SCH (08:05)
[2016-06-10] MEDS: VANCOMYCIN HCL 125 MG/2.5 ML ORAL.SUSP NG SCH ×4 (08:05→21:51)
[2016-06-10] MEDS: NYSTATIN (PYXIS) 500,000 UNIT/5 ML ORAL.SUSP PO SCH ×3 (08:05→17:51)
[2016-06-10] MEDS: AMIODARONE HCL 200 MG TABLET PO SCH ×3 (08:06→17:00)
[2016-06-10] MEDS: HYDROGEL DRESSING 90 GM TUBE TP SCH (08:08)
[2016-06-10] MEDS: NEOMY SULF/BACITRAC ZN/POLY 15 GM TUBE TP SCH (08:08)
[2016-06-10] MEDS: COLISTIMETHATE SODIUM 150 MG VIAL NEB SCH ×2 (09:31→20:42)
[2016-06-10 12:00] VITALS: BP_SYST 118; BP_DIAS 44; BP_DIAS 63
[2016-06-10 12:16] LABS: HEPATITIS A AB, IgM Negative (Negative); HEPATITIS B CORE AB, IgM Negative (Negative); HEPATITIS B SURFACE AB Non Reactive (.); HEPATITIS C VIRUS AB >11.0 s/co ratio (0.0-0.9)
[2016-06-10 16:00] VITALS: BP 105/73
[2016-06-10] MEDS: CEFEPIME 1 GM in IV D5W 50 ML IV SCH (16:16)
[2016-06-10] MEDS: MICAFUNGIN SODIUM 100 MG in IV NS 0.9% 100 ML IV SCH (16:17)
[2016-06-10] MEDS ORDERED: SECONDARY IV SET 1 EA INFUS.SET MC ONE (16:21)
--- NOTE | 2016-06-10 18:41 | NUR ---
RN CLOSING NOTE PT RESTING IN BED COMFORTABLY, ALL MD'S ORDERS CARRIED OUT, PT KEPT CLEAN AND DRY, IV SITE C/D/I. ALL SAFETY MEASURES IN PLACE AT ALL TIMES. REPORT WILL BE GIVEN TO PM RN FOR BINDU.
--- NOTE | 2016-06-10 19:30 | NUR ---
ELECTRIC MOTOR CONTROL ASSEMBLER INITIAL NOTE RECEIVED REPORT FROM SUZI SEVILLA. PT IN BED. OBTUNDED. LUNG SOUNDS RHONCHI. BOWEL SOUNDS PRESENT. GT INTACT WITH FEEDING RUNNING. [place]ON INTACT AND DRAINING. IV PATENT AND INTACT. PULSES PRESENT IN ALL EXTREMITIES. RIGHT BKA. REPOSITIONED FOR COMFORT. BED IN LOW LOCKED POSITION. CALL LIGHT WITHIN REACH. WILL CONTINUE TO MONITOR.
[2016-06-10 20:00] VITALS: BP 101/67
[2016-06-11] VITALS (7 sets, daily range): BP systolic 92–113; BP diastolic 57–75
[2016-06-11] MEDS: IPRATROPIUM NEB FS 0.5 MG/2.5 ML AMPUL.NEB NEB SCH ×4 (01:42→20:30)
[2016-06-11] MEDS: METRONIDAZOLE 500MG/ NS 100ML 250 MG in PREMIX 1 EA IV SCH ×3 (05:44→20:58)
[2016-06-11] MEDS: BLOOD SUGAR DIAGNOSTIC 1 EACH STRIP IN SCH ×4 (05:52→23:52)
[2016-06-11] MEDS: DILTIAZEM HCL 30 MG TABLET PO SCH ×4 (06:30→23:53)
[2016-06-11 07:02] LABS: BASOPHILS # (AUTO) 0.1 /CMM (0.0-0.2); BASOPHILS % (AUTO) 0.6 % (0.0-2.0); EOSINOPHILS # (AUTO) 0.3 /CMM (0.0-0.7); EOSINOPHILS % (AUTO) 2.1 % (0.0-6.0); HEMATOCRIT 26 % (39-51); HEMOGLOBIN 8.7 g/dL (13.5-17.5); LYMPHOCYTES % (AUTO) 12.5 % (20.0-44.0); MEAN CORPUSCULAR HEMOGLOBIN 29 PG (26.0-33.0); MEAN CORPUSCULAR HGB CONC 33 g/dl (31.0-36.0); MEAN CORPUSCULAR VOLUME 89 fL (80-96); MONOCYTES # (AUTO) 1.4 /CMM (0.1-1.30); MONOCYTES % (AUTO) 8.9 % (2.0-12.0); NEUTROPHILS % (AUTO) 75.9 % (43.0-81.0); PLATELET COUNT (AUTO) 316 /CMM (150-450); RDW COEFFICIENT OF VARIATION 16.5 (11.5-15.0); RED BLOOD CELL COUNT(AUTO) 2.94 MIL/uL (4.5-6.0); WHITE BLOOD COUNT (AUTO) 15.9 K/uL (4.3-11.0)
[2016-06-11 07:19] LABS: BILIRUBIN,TOTAL 0.4 mg/dL (0.2-1.0); CALCIUM, SERUM 7.7 mg/dL (8.5-10.1); CREATININE 5.1 mg/dL (0.6-1.3); MAGNESIUM 2.7 mg/dL (1.8-2.4); PHOSPHORUS 5.9 mg/dL (2.5-4.9); POTASSIUM 3.4 mmol/L (3.5-5.1)
[2016-06-11 07:31] LABS: ALBUMIN 1.4 g/dL (3.4-5.0)
--- NOTE | 2016-06-11 07:41 | NUR ---
INITIAL HOME APPLIANCE TECH NOTE RCVD PT SLEEPING IN BED, OPENS EYES TO TOUCH, NON-VERBAL. AFIB ON TELE HR 86 WITH OCCASIONAL PVCs. [place] IN PLACE DRAINING YELLOW URINE. TOLERATING ORDERED VENT AND TUBE FEEDING RATE. ALLY PICC C/D/I/PATENT. NO S/O INFILTRATION OR PHLEBITIS OBSERVED UPON FLUSHING. CALL LIGHT WITHIN REACH. BED IN LOW AND LOCKED POSITION. WILL CONTINUE TO MONITOR FOR SAFETY AND COMFORT.
[2016-06-11] MEDS: ALBUTEROL FS 2.5 MG/0.5 ML VIAL.NEB NEB PRN ×2 (07:51→14:44)
[2016-06-11] MEDS: NYSTATIN (PYXIS) 500,000 UNIT/5 ML ORAL.SUSP PO SCH ×3 (08:30→16:47)
[2016-06-11] MEDS: SEVELAMER CARBONATE 0.8 GM POWD.PACK GT SCH ×3 (08:30→17:00)
[2016-06-11] MEDS: ASPIRIN 325 MG TABLET PO SCH (08:30)
[2016-06-11] MEDS: VIT B CMPLX 3/FA/VIT C/BIOTIN 1 TAB TABLET PO SCH (08:30)
[2016-06-11] MEDS: ERGOCALCIFEROL (VITAMIN D 2) 50,000 UNIT CAPSULE GT SCH (08:34)
[2016-06-11] MEDS: HYDROGEL DRESSING 90 GM TUBE TP SCH (08:35)
[2016-06-11] MEDS: VANCOMYCIN HCL 125 MG/2.5 ML ORAL.SUSP NG SCH ×4 (08:35→21:01)
[2016-06-11] MEDS: Z GUARD REMEDY 2 OZ OINT TP PRN (08:36)
[2016-06-11] MEDS: NEOMY SULF/BACITRAC ZN/POLY 15 GM TUBE TP SCH (08:37)
[2016-06-11] MEDS: AMIODARONE HCL 200 MG TABLET PO SCH ×3 (08:38→16:47)
--- NOTE | 2016-06-11 09:21 | NUR ---
REPAIR ARMATURE WINDER NOTE DR. HAWKINS IN UNIT INFORMED OF PT'S LOW ALBUMIN 1.4 AND LOW K 3.4 HE RECOMMENDED NO REPLACEMENT AT THIS TIME. WILL CONTINUE TO MONITOR.
[2016-06-11] MEDS: COLISTIMETHATE SODIUM 150 MG VIAL NEB SCH ×2 (09:33→20:44)
[2016-06-11] MEDS ORDERED: SECONDARY IV SET 1 EA INFUS.SET MC ONE (11:44)
[2016-06-11] MEDS: INSULIN REGULAR, HUMAN 100 UNIT/ML 3 ML VIAL SQ PRN (12:23)
[2016-06-11] MEDS: CEFEPIME 1 GM in IV D5W 50 ML IV SCH (15:41)
--- NOTE | 2016-06-11 15:41 | NUR ---
SEAM STEAMER NOTE PER DON AT PHARMACY CEFEPIME TO BE GIVEN ON DIALYSIS DAYS ONLY DESPITE SCHEDULED ON A DAILY BASIS.
[2016-06-11] MEDS: MICAFUNGIN SODIUM 100 MG in IV NS 0.9% 100 ML IV SCH (15:54)
--- NOTE | 2016-06-11 16:12 | NUR ---
CAR PICK UP DRIVER NOTE PT CONTINUES TO HAVE LOOSE STOOL.
--- NOTE | 2016-06-11 18:50 | NUR ---
ENDING MINE UTILITY OPERATOR NOTE PT OPENS EYES, NON-VERBAL SHOWING NO S/O DISTRESS TOLERATING ORDERED VENT AND TUBE FEEDING RATE. ALLY PICC C/D/I/PATENT. NO S/O INFILTRATION OR PHLEBITIS OBSERVED IVF INFUSING. CALL LIGHT WITHIN REACH. BED IN LOW AND LOCKED POSITION. PT'S CARE WILL BE ENDORSED TO TILE SORTER RN FOR CONTINUITY OF CARE.
[2016-06-11] MEDS ORDERED: IV NS 0.9% 250 ML IV ONE (21:06)
[2016-06-11] MEDS ORDERED: IV NS 0.9% 250 ML IV PRN (21:30)
[2016-06-11] MEDS: RENAL NOVASOURCE 1,000 ML BOTTLE GT PRN (23:53)
[2016-06-12] VITALS (8 sets, daily range): BP systolic 99–132; BP diastolic 55–76
[2016-06-12] MEDS: INSULIN REGULAR, HUMAN 100 UNIT/ML 3 ML VIAL SQ PRN ×3 (00:01→18:21)
[2016-06-12] MEDS: IPRATROPIUM NEB FS 0.5 MG/2.5 ML AMPUL.NEB NEB SCH ×4 (03:11→19:30)
[2016-06-12] MEDS: METRONIDAZOLE 500MG/ NS 100ML 250 MG in PREMIX 1 EA IV SCH ×3 (05:22→21:54)
[2016-06-12] MEDS: BLOOD SUGAR DIAGNOSTIC 1 EACH STRIP IN SCH ×3 (05:50→18:19)
[2016-06-12] MEDS: DILTIAZEM HCL 30 MG TABLET PO SCH ×4 (05:50→18:24)
--- NOTE | 2016-06-12 08:00 | NUR ---
RN INITIAL NOTE PT RECEIVED IN BED, PT IS NON-VERBAL , RESTING COMFORTABLY, NO S/S OF PAIN OR DISCOMFORT. PT HAS CONTROLLED A-FIB ON TELE MONITOR. RESPIRATIONS ARE EVEN AND UNLABORED. PT HAS TRACH. NO S/S OF SOB OR RESPIRATORY DISTRESS. HOB ELEVATED. TOLERATING G-TUBE FEEDING. G-TUBE PATENT, INTACT, AND PLACEMENT VERFIFIED. IV SITE C/D/I. FLUSHED AND PATENT. SKIN WARM AND DRY TO THE TOUCH. HD SCHEDULED FOR TODAY. ISOLATION PRECAUTIONS OBSERVED. SAFETY MEASURES IN PLACE WILL CONTINUE TO MONITOR.
--- NOTE | 2016-06-12 08:08 | NUR ---
RT [facility] WITH ORDERED SETTINGS SET BY MD. VENT ALARMS CHECKED + AUDIBLE. TRACH SECURE AND IN PROPER POSITION. INNER CANNULA CHECKED AND PATENT. PATIENT SX'D WITH MOD AMT PALE SEMITHICK SECRETIONS. B/S DIM. PATIENT IN NO DISTRESS OR SOB. AMBU BAG AT [facility]. CONT CURRENT PLAN OF RESP CARE.
[2016-06-12] MEDS: VIT B CMPLX 3/FA/VIT C/BIOTIN 1 TAB TABLET PO SCH (08:59)
[2016-06-12] MEDS: VANCOMYCIN HCL 125 MG/2.5 ML ORAL.SUSP NG SCH ×4 (08:59→21:54)
[2016-06-12] MEDS: SEVELAMER CARBONATE 0.8 GM POWD.PACK GT SCH ×3 (08:59→18:22)
[2016-06-12] MEDS: ASPIRIN 325 MG TABLET PO SCH (08:59)
[2016-06-12] MEDS: NYSTATIN (PYXIS) 500,000 UNIT/5 ML ORAL.SUSP PO SCH ×3 (08:59→18:22)
[2016-06-12] MEDS: COLISTIMETHATE SODIUM 150 MG VIAL NEB SCH ×2 (09:00→20:55)
[2016-06-12] MEDS: AMIODARONE HCL 200 MG TABLET PO SCH ×4 (09:00→18:24)
[2016-06-12] MEDS: HYDROGEL DRESSING 90 GM TUBE TP SCH (09:00)
[2016-06-12] MEDS: NEOMY SULF/BACITRAC ZN/POLY 15 GM TUBE TP SCH (09:03)
--- NOTE | 2016-06-12 10:13 | NUR ---
INITIAL INTERLINE CLERK NOTE RCVD PT WITH EYES CLOSED, NON-VERBAL SHOWING NO S/O DISTRESS OR PAIN. TOLERATING ORDERED VENT AND TUBE FEEDING RATE. NO RESIDUAL OBSERVED. [place] IN PLACE DRAINING YELLOW URINE. ALLY PICC C/D/I/PATENT. IVF INFUSING TKO NO S/O INFILTRATION OR PHLEBITIS OBSERVED.WILL CONTINUE TO MONITOR PT FOR SAFETY AND COMFORT. CALL LIGHT WITHIN REACH, BED IN LOW AND LOCKED POSITION.
[2016-06-12] MEDS ORDERED: IV SET PRIMARY PUMP SET 1 EA INFUS.SET MC ONE (15:08)
[2016-06-12] MEDS: MICAFUNGIN SODIUM 100 MG in IV NS 0.9% 100 ML IV SCH (15:16)
[2016-06-12] MEDS: IV NS 0.9% 250 ML IV PRN (15:16)
[2016-06-12] MEDS: CEFEPIME 1 GM in IV D5W 50 ML IV SCH (15:16)
--- NOTE | 2016-06-12 19:26 | NUR ---
ENDING PROOF LOAD MECHANIC NOTE PT OPENS EYES, NON-VERBAL UNABLE TO FOLLOW COMMANDS. AFIB ON TELE HR 96. CONTINUES TO TOLERATE ORDERED VENT SETTINGS AND TUBE FEEDING RATE. [place] IN PLACE DRAINING YELLOW URINE. ALLY PICC C/D/I/PATENT. NO S/O INFILTRATION OR PHLEBITIS OBSERVED IVF INFUSING TKO. PT'S CARE WILL BE ENDORSED TO REFUELING RAMPMAN RN FOR CONTINUITY OF CARE. PT CONTINUES TO HAVE LOOSE STOOLS.
--- NOTE | 2016-06-12 22:00 | NUR ---
DIAGNOSTIC RADIOLOGIST NOTE RECEIVED PT IN BED WITH EYES OPEN, NON VERBAL. ALERT. NO TRACH/VENT TOLERATING THE SETTINGS WELL. NO DISTRESS OR DISCOMFORT NOTED. NO SS OF PAIN NOTED. ON TELE A FIB HR 99 CONTROLLED. GT FEEDING AT 45 ML/HR INFUSING WELL, NO RESIDUAL NOTED. F/C INTACT AND PATENT DRAINING YELLOWISH COLOR URINE. KEPT LT HEEL AND RT BKA STUMP KEPT IT ELEVATED. ALSO REPOSITIONED HIM FOR SKIN MANAGEMENT. SIDE RAILS UP X 2 AND CALL LIGHT WITHIN REACH. VSS. CONTINUE TO MONITOR HIM.
[2016-06-13] VITALS (8 sets, daily range): BP systolic 114–139; BP diastolic 55–77
[2016-06-13] MEDS: DILTIAZEM HCL 30 MG TABLET PO SCH ×4 (00:13→17:54)
[2016-06-13] MEDS: BLOOD SUGAR DIAGNOSTIC 1 EACH STRIP IN SCH ×4 (00:22→17:55)
[2016-06-13] MEDS: INSULIN REGULAR, HUMAN 100 UNIT/ML 3 ML VIAL SQ PRN ×5 (00:24→23:55)
[2016-06-13] MEDS: IPRATROPIUM NEB FS 0.5 MG/2.5 ML AMPUL.NEB NEB SCH ×4 (01:29→21:02)
[2016-06-13] MEDS: RENAL NOVASOURCE 1,000 ML BOTTLE GT PRN (03:33)
[2016-06-13] MEDS: ACETAMINOPHEN 650 MG/20.3 ML UDC PO PRN ×2 (04:18→11:55)
[2016-06-13] MEDS: METRONIDAZOLE 500MG/ NS 100ML 250 MG in PREMIX 1 EA IV SCH ×3 (04:18→21:43)
--- NOTE | 2016-06-13 04:19 | NUR ---
IRONER HAND NOTE ELEVATED TEMP NOTED 101, TYLENOL 650 VIA GT GIVEN. ALSO BODY COOLING MEASURES APPLIED. ALL NEEDS ATTENDED.
--- NOTE | 2016-06-13 05:19 | NUR ---
MS RN NOTE TEMP CAME DOWN TO 99.8. CONTINUE TO MONITOR HIM.
--- NOTE | 2016-06-13 06:23 | NUR ---
CABLEMAN NOTE PT IN BED ASLEEP, AROUSABLE. NO DISTRESS OR DISCOMFORT NOTED. NO S/S OF PAIN. ON TELE A FIB HR 102. F/C INTACT AND PATENT DRAINING YELLOWISH COLOR URINE. KEPT HIM DRY AND CLEAN. REPOSITION HIM Q2H. GT INTACT AND PATENT INFUSING WLL, 0 ML RESIDUAL NOTED. ALL NEEDS ATTENDED. SIDE RAILS UP X 3 AND CALL LIGHT WITH IN REACH. WILL ENDORSE TO DAY SHIFT NURSE FOR CONTINUE TO CARE.
--- NOTE | 2016-06-13 07:20 | NUR ---
RN INITIAL NOTES PT IN BED, OPENS EYES, NONVERBAL, HOB ELEVATED 35 DEGREES, ON MECH VENT WITH SHILEY #8, AC 16, TV 550, FOI2 40%, PEEP 0, TOLERATING WELL. ON TELE MONITOR WITH CONTROLLED AFIB, HR 93. PT HAS [place] CATH DRAINING CLEAR YELLOW URINE, CDI. PER NIGHT NURSE PT HAD X1 DIARRHEA @ NIGHT. PLEASE REFER TO PTS CHART REGARDING SKIN; ALL MD/WOUND ORDERS CARRIED OUT. PT ON GTF NOVASOURCE @ 45 CC/HR, NO RESIDUAL, TOLERATING WELL. IV ON ALLY PICC, TRIPLE LUMEN, TKO, AND RCW HD CATH, ALL CDI, NO SIGNS OF INFECTION/INFILTRATION. CALL LIGHT WITHIN EASY REACH, SAFETY MEASURES MAINTAINED, WILL CONTINUE TO MONITOR AND FOLLOW MD ORDERS. PT IN OVERALL STABLE CONDITION.
[2016-06-13] MEDS: NYSTATIN (PYXIS) 500,000 UNIT/5 ML ORAL.SUSP PO SCH ×3 (08:19→17:54)
[2016-06-13] MEDS: ASPIRIN 325 MG TABLET PO SCH (08:19)
[2016-06-13] MEDS: VANCOMYCIN HCL 125 MG/2.5 ML ORAL.SUSP NG SCH ×4 (08:19→21:43)
[2016-06-13] MEDS: VIT B CMPLX 3/FA/VIT C/BIOTIN 1 TAB TABLET PO SCH (08:19)
[2016-06-13] MEDS: SEVELAMER CARBONATE 0.8 GM POWD.PACK GT SCH ×3 (08:19→17:54)
[2016-06-13] MEDS: NEOMY SULF/BACITRAC ZN/POLY 15 GM TUBE TP SCH (08:20)
[2016-06-13] MEDS: HYDROGEL DRESSING 90 GM TUBE TP SCH (08:20)
[2016-06-13] MEDS: AMIODARONE HCL 200 MG TABLET PO SCH ×3 (08:25→17:55)
[2016-06-13] MEDS: COLISTIMETHATE SODIUM 150 MG VIAL NEB SCH ×2 (09:00→23:46)
[2016-06-13] MEDS ORDERED: DOSE PER PHARMACY MICAFUNGIN 1 EA XX PRN (11:30)
[2016-06-13] MEDS ORDERED: MICAFUNGIN SODIUM 100 MG in IV NS 0.9% 100 ML IV SCH (12:00)
[2016-06-13] MEDS ORDERED: SECONDARY IV SET 1 EA INFUS.SET MC ONE (12:01)
[2016-06-13] MEDS: CEFEPIME 1 GM in IV D5W 50 ML IV SCH (14:31)
[2016-06-13] MEDS: MICAFUNGIN SODIUM 100 MG in IV NS 0.9% 100 ML IV SCH (15:21)
--- NOTE | 2016-06-13 15:22 | NUR ---
RN NOTES PT HAD X1 DIARRHEA.
--- NOTE | 2016-06-13 18:49 | NUR ---
RN CLOSING NOTES PT IN STABLE CONDITION, IV CDI, NO SIGNS OF INFECTION/INFILTRATION, ALL MD ORDERS CARRIED OUT, TOLERATING MECH VENT WELL, [place] CATH DRAINING WELL, GTF RUNNING WELL, NO CLOG/RESIDUAL. CALL LIGHT WITHIN EASY REACH, SAFETY MEASURES MAINTAINED, REPORT GIVEN TO NIGHT NURSE FOR BINDU.
--- NOTE | 2016-06-13 19:59 | NUR ---
FISHERY DIVISION CHIEF NOTE PT IN BED WITH EYES CLOSED. ABLE TO OPEN EYES ON TACTILE STIMULATION. NON VERBAL, REMAIN ON TRACH/ VENT TOLERATING THE SETTINGS WELL. O2 SAT 98%. ON TELE A FIB HR 94 WITH PVC CONTROLLED. ALLY WITH PICC LINE TRIPLE LUMEN CATH NS TKO AND RCW WITH HD CATH I/C/D SITE. NO S/S OF HYPO OR HYPERGLYCEMIA NOTED. GTF NOVASOURCE INFUSING WELL, 0 ML RESIDUAL NOTED. ALSO F/C INTACT AND PATENT DRAINING YELLOWISH COLOR URINE. REPOSITION HIM FOR SKIN MANAGEMENT. VSS. SIDE RAILS UP X 3 AND CALL LIGHT WITHIN REACH. CONTINUE TO MONITOR HIM.
[2016-06-14] VITALS: BP 121/73
[2016-06-14] MEDS: BLOOD SUGAR DIAGNOSTIC 1 EACH STRIP IN SCH ×4 (00:39→17:35)
[2016-06-14] MEDS: DILTIAZEM HCL 30 MG TABLET PO SCH ×4 (00:40→17:35)
[2016-06-14] MEDS: IPRATROPIUM NEB FS 0.5 MG/2.5 ML AMPUL.NEB NEB SCH ×4 (02:00→19:39)
[2016-06-14 04:00] VITALS: BP 126/75
[2016-06-14] MEDS: RENAL NOVASOURCE 1,000 ML BOTTLE GT PRN (04:14)
[2016-06-14] MEDS: METRONIDAZOLE 500MG/ NS 100ML 250 MG in PREMIX 1 EA IV SCH ×3 (04:17→21:21)
[2016-06-14] MEDS: INSULIN REGULAR, HUMAN 100 UNIT/ML 3 ML VIAL SQ PRN ×3 (06:09→17:37)
--- NOTE | 2016-06-14 07:30 | NUR ---
RN INITIAL NOTES: Received patient on bed during rounds, asleep but easily arousable, alert x1, not able to make needs known needs anticipated and attended. With ALLY PICC flushed with NS and patent. With Right Srini Catheter in placed dressing clean and dry. With Vent and trach settings are the following AC 16 TV 550 FIO2 40% saturating well at 99-100%. NPO maintained. With Moya catheter in placed, draining well, no hematuria, no sediments, no foul odor noted. With Gtube in placed, patent with no residual noted, with feeding of Novasource at 45cc/hr tolerating well. HOB elevated, aspiration precaution observed. On telemonitoring Atrial Fibrillation at 98bpm. NO SOB, No LOC, respirations are even and unlabored, no acute distress noted. Kept clean and dry. Provided safety and comfort measures. Bed low and locked position, fall precaution observed. Will turn and reposition, offload heels as per protocol. Suction secretions PRN. For HD today. To continue to monitor accordingly.
[2016-06-14 08:00] VITALS: BP_SYST 11; BP_SYST 111; BP_DIAS 73
[2016-06-14] MEDS: VANCOMYCIN HCL 125 MG/2.5 ML ORAL.SUSP NG SCH ×4 (09:19→21:22)
[2016-06-14] MEDS: SEVELAMER CARBONATE 0.8 GM POWD.PACK GT SCH ×3 (09:19→17:35)
[2016-06-14] MEDS: ASPIRIN 325 MG TABLET PO SCH (09:20)
[2016-06-14] MEDS: AMIODARONE HCL 200 MG TABLET PO SCH ×3 (09:20→17:35)
[2016-06-14] MEDS: VIT B CMPLX 3/FA/VIT C/BIOTIN 1 TAB TABLET PO SCH (09:20)
[2016-06-14] MEDS: NYSTATIN (PYXIS) 500,000 UNIT/5 ML ORAL.SUSP PO SCH ×3 (09:20→17:35)
[2016-06-14] MEDS: HYDROGEL DRESSING 90 GM TUBE TP SCH (09:21)
[2016-06-14] MEDS: Z GUARD REMEDY 2 OZ OINT TP PRN (09:22)
[2016-06-14] MEDS: NEOMY SULF/BACITRAC ZN/POLY 15 GM TUBE TP SCH (09:22)
[2016-06-14] MEDS ORDERED: CEFE1PIG3 IV (09:40)
[2016-06-14] MEDS ORDERED: VANC125C11 NG (09:40)
[2016-06-14] MEDS ORDERED: METR500P4 IV (09:40)
[2016-06-14] MEDS ORDERED: NEOM15OI3 TP (09:40)
[2016-06-14] MEDS ORDERED: MICA100V IV (09:40)
[2016-06-14] MEDS ORDERED: Nystatin PO (09:40)
[2016-06-14] MEDS: COLISTIMETHATE SODIUM 150 MG VIAL NEB SCH ×2 (10:02→21:11)
[2016-06-14 12:00] VITALS: BP 129/75
[2016-06-14 16:00] VITALS: BP 112/69
[2016-06-14] MEDS: CEFEPIME 1 GM in IV D5W 50 ML IV SCH (16:14)
[2016-06-14] MEDS: MICAFUNGIN SODIUM 100 MG in IV NS 0.9% 100 ML IV SCH (16:58)
[2016-06-14] MEDS ORDERED: SECONDARY IV SET 1 EA INFUS.SET MC ONE (17:02)
--- NOTE | 2016-06-14 18:55 | NUR ---
RN NOTES: Patient remained stable within shift, no signs and symptoms of distress noted. HOB elevated, aspiration precaution observed, Gtube feeding tolerated well. Provided safety and comfort measures. To endorsed to next shift for continuity of care.
[2016-06-14 20:00] VITALS: BP 119/73
--- NOTE | 2016-06-14 20:00 | NUR ---
MINE ENVIRONMENTAL ENGINEER NOTE PT IN BED WITH EYES CLOSED. AROUSABLE. NON VERBAL. REMAIN ON TRACH/VENT TOLERATING SETTING VERY WELL. NO SOB, NO DISTRESS OR DISCOMFORT NOTED. NO S/S OF PAIN NOTED. ON TELE A FIB HR 92. ALLY WITH PICC LINE INTACT AND PATENT TKO NS. GTF NOVASOURCE INFUSING WELL, 0 ML RESIDUAL NOTED. F/C INTACT PATENT DRAINING YELLOWISH COLOR URINE. REPOSITION HIM Q2H. KEPT LT HEEL AND RT BKA STUMP OFFLOADED ON PILLOWS. KEPT HIM DRY AND CLEAN. ALL NEEDS ATTENDED. SIDE RAILS UP X 3 AND CALL LIGHT WITHIN REACH. VSS. CONTINUE TO MONITOR HIM.
[2016-06-15] VITALS: BP 127/75
[2016-06-15] MEDS: ACETAMINOPHEN 650 MG/20.3 ML UDC PO PRN (01:08)
[2016-06-15] MEDS: DILTIAZEM HCL 30 MG TABLET PO SCH ×4 (01:08→17:24)
[2016-06-15] MEDS: INSULIN REGULAR, HUMAN 100 UNIT/ML 3 ML VIAL SQ PRN ×3 (01:15→17:24)
[2016-06-15] MEDS: IPRATROPIUM NEB FS 0.5 MG/2.5 ML AMPUL.NEB NEB SCH ×4 (01:21→19:02)
[2016-06-15 04:00] VITALS: BP 135/88
[2016-06-15] MEDS: METRONIDAZOLE 500MG/ NS 100ML 250 MG in PREMIX 1 EA IV SCH ×3 (06:05→21:18)
[2016-06-15] MEDS: BLOOD SUGAR DIAGNOSTIC 1 EACH STRIP IN SCH ×4 (06:06→17:25)
[2016-06-15] MEDS: RENAL NOVASOURCE 1,000 ML BOTTLE GT PRN (06:44)
--- NOTE | 2016-06-15 06:58 | NUR ---
DRY CLIPPER TENDER NOTE PT IN BED WITH EYES CLOSED, AROUSABLE. NO DISTRESS OR DISCOMFORT NOTED. NO S/S OF PAIN. ON TELE A FIB HR 98. F/C INTACT AND PATENT DRAINING YELLOWISH COLOR URINE. KEPT HIM DRY AND CLEAN. REPOSITION HIM Q2H. GT INTACT AND PATENT INFUSING WLL, 0 ML RESIDUAL NOTED. ALL NEEDS ATTENDED. SIDE RAILS UP X 3 AND CALL LIGHT WITH IN REACH. WILL ENDORSE TO DAY SHIFT NURSE FOR CONTINUE TO CARE.
--- NOTE | 2016-06-15 07:05 | NUR ---
RN NOTE RECEIVED PT ON BED , NONVERBAL , VENT DEPENDENT , AROUSABLE , TRACH CARE DONE, NO SOB NOTED, TOLERATING CURRENT VENT SETTING WELL, ON TELE A FIB HR 80'S ALLY PICC LINE SITE C/D/I , NOVASOURCE RUNNING AT 45CC/HR VIA GT , NO RESIDUAL NOTED, F/C INTACT PATENT DRAINING YELLOWISH COLOR URINE. KEPT LT HEEL AND RT BKA STUMP OFFLOADED ON PILLOWS. SR UP x3, ALL NEEDS ATTENDED. CALL LIGHT WITHIN EASY REACH. CONTINUE TO MONITOR PT CLOSELY AND NOTIFY MD FOR ANY SIGNIFICANT CHANGES
[2016-06-15 08:00] VITALS: BP 106/73
[2016-06-15] MEDS: VIT B CMPLX 3/FA/VIT C/BIOTIN 1 TAB TABLET PO SCH (08:24)
[2016-06-15] MEDS: ASPIRIN 325 MG TABLET PO SCH (08:24)
[2016-06-15] MEDS: AMIODARONE HCL 200 MG TABLET PO SCH ×3 (08:24→17:23)
[2016-06-15] MEDS: SEVELAMER CARBONATE 0.8 GM POWD.PACK GT SCH ×3 (08:24→17:22)
[2016-06-15] MEDS: NYSTATIN (PYXIS) 500,000 UNIT/5 ML ORAL.SUSP PO SCH ×3 (08:24→17:22)
[2016-06-15] MEDS: VANCOMYCIN HCL 125 MG/2.5 ML ORAL.SUSP NG SCH ×4 (08:26→21:18)
[2016-06-15] MEDS: Z GUARD REMEDY 2 OZ OINT TP PRN (08:28)
[2016-06-15] MEDS: HYDROGEL DRESSING 90 GM TUBE TP SCH (08:32)
[2016-06-15] MEDS: NEOMY SULF/BACITRAC ZN/POLY 15 GM TUBE TP SCH (10:06)
[2016-06-15] MEDS: COLISTIMETHATE SODIUM 150 MG VIAL NEB SCH ×2 (11:40→20:14)
[2016-06-15 12:00] VITALS: BP 125/84
--- NOTE | 2016-06-15 12:00 | NUR ---
RN NOTES TRACH CARE DONE, L UPPER ARM PICC LINE CDI, TOLERATING TF WELL, NO RESIDUAL NOTED, MEDICATED PER MD ORDER, NO SIGNIFICANT CHANGES NOTED ON THIS SHIFT .
[2016-06-15] MEDS: CEFEPIME 1 GM in IV D5W 50 ML IV SCH (14:21)
[2016-06-15] MEDS: MICAFUNGIN SODIUM 100 MG in IV NS 0.9% 100 ML IV SCH (14:51)
[2016-06-15 16:00] VITALS: BP 122/78
[2016-06-15 20:00] VITALS: BP 93/63
[2016-06-16] VITALS: BP 124/77
[2016-06-16] MEDS: IPRATROPIUM NEB FS 0.5 MG/2.5 ML AMPUL.NEB NEB SCH ×4 (00:38→20:35)
[2016-06-16] MEDS: DILTIAZEM HCL 30 MG TABLET PO SCH ×4 (00:49→18:00)
[2016-06-16] MEDS: BLOOD SUGAR DIAGNOSTIC 1 EACH STRIP IN SCH ×4 (00:49→18:13)
[2016-06-16 04:00] VITALS: BP 120/78
[2016-06-16] MEDS: METRONIDAZOLE 500MG/ NS 100ML 250 MG in PREMIX 1 EA IV SCH ×3 (05:31→20:58)
[2016-06-16] MEDS: RENAL NOVASOURCE 1,000 ML BOTTLE GT PRN (05:32)
--- NOTE | 2016-06-16 06:56 | NUR ---
RN- NO SIGNIFICANT CHANGE IN PT'S STATUS. ALL NEEDS ATTENDED AND MET. NO S/SX OF ACUTE DISTRESS NOTED. WILL ENDORSE TO AM SHIFT FOR CONTINUATION OF CARE.
--- NOTE | 2016-06-16 07:30 | NUR ---
initial notes patient in bed, breathing even and unlabored with mechanical ventilation, o2 sat wnl. tele monitor reading afib 85. pt non verbal, does not open eyes. when asked to open mouth patient followed command. does not follow command to move extremities. pt on contact isolation- observed. ruq picc line patent, cdi, good blood return. f/c patent with clear yellow urine. GT patent with 45ml/hr NovaSource. no residual, gt side clean/ mild excoriation. plan to hold amiodarone with patient has HD today. repositioned. call light in reach
[2016-06-16 08:00] VITALS: BP 120/70
[2016-06-16] MEDS: VANCOMYCIN HCL 125 MG/2.5 ML ORAL.SUSP NG SCH ×4 (08:28→20:57)
[2016-06-16] MEDS: VIT B CMPLX 3/FA/VIT C/BIOTIN 1 TAB TABLET PO SCH (08:28)
[2016-06-16] MEDS: SEVELAMER CARBONATE 0.8 GM POWD.PACK GT SCH ×3 (08:28→18:13)
[2016-06-16] MEDS: ASPIRIN 325 MG TABLET PO SCH (08:28)
[2016-06-16] MEDS: NYSTATIN (PYXIS) 500,000 UNIT/5 ML ORAL.SUSP PO SCH ×3 (08:28→16:16)
[2016-06-16] MEDS: HYDROGEL DRESSING 90 GM TUBE TP SCH (08:30)
[2016-06-16] MEDS: NEOMY SULF/BACITRAC ZN/POLY 15 GM TUBE TP SCH (08:30)
[2016-06-16] MEDS: AMIODARONE HCL 200 MG TABLET PO SCH ×3 (09:00→16:17)
[2016-06-16] MEDS: COLISTIMETHATE SODIUM 150 MG VIAL NEB SCH ×2 (09:28→21:58)
[2016-06-16 12:00] VITALS: BP 110/75
[2016-06-16] MEDS ORDERED: IV NS 0.9% 250 ML IV ONE (12:12)
[2016-06-16] MEDS: CEFEPIME 1 GM in IV D5W 50 ML IV SCH (14:12)
[2016-06-16] MEDS: MICAFUNGIN SODIUM 100 MG in IV NS 0.9% 100 ML IV SCH (15:51)
[2016-06-16 16:00] VITALS: BP 104/68
--- NOTE | 2016-06-16 19:34 | NUR ---
CLOSING NOTES PATIENT STABLE AT END OFF SHIFT. HANDED OFF REPORT. PT SEEN BY DR. YOGESH YEPEZ TODAY. REPOSITIONED Q2 HR. NO NEW SKIN BREAKDOWN. PT OPENED EYES TO STIMULUS.
[2016-06-16 20:00] VITALS: BP 132/84
--- NOTE | 2016-06-16 20:00 | NUR ---
CORRECTION OFFICER [place] JAIL; Received patient in bed, breathing even and unlabored with mechanical ventilation, o2 sat wnl. tele monitor reading afib 80-90 controlled. pt non verbal, does open eyes, with simple folow commands. when asked to open mouth patient followed command. does not follow command to move extremities. pt on contact isolation- observed. ruq picc line patent, cdi, good blood return. f/c patent with clear yellow urine. GT patent with 45ml/hr NovaSource. no residual, gt side clean/ mild excoriation. . repositioned for comfort. Safety precaution placed. Ongoing monitoring
[2016-06-17] VITALS: BP 100/72
[2016-06-17] MEDS: BLOOD SUGAR DIAGNOSTIC 1 EACH STRIP IN SCH ×4 (00:19→17:06)
[2016-06-17] MEDS: INSULIN REGULAR, HUMAN 100 UNIT/ML 3 ML VIAL SQ PRN ×4 (00:20→17:08)
[2016-06-17] MEDS: IPRATROPIUM NEB FS 0.5 MG/2.5 ML AMPUL.NEB NEB SCH ×4 (01:39→19:54)
[2016-06-17 04:00] VITALS: BP 124/73
[2016-06-17] MEDS: METRONIDAZOLE 500MG/ NS 100ML 250 MG in PREMIX 1 EA IV SCH ×3 (05:26→21:18)
[2016-06-17] MEDS: DILTIAZEM HCL 30 MG TABLET PO SCH ×4 (05:35→17:05)
[2016-06-17] MEDS: RENAL NOVASOURCE 1,000 ML BOTTLE GT PRN (05:41)
[2016-06-17 06:32] LABS: BASOPHILS # (AUTO) 0.1 /CMM (0.0-0.2); BASOPHILS % (AUTO) 0.6 % (0.0-2.0); EOSINOPHILS # (AUTO) 0.7 /CMM (0.0-0.7); HEMATOCRIT 26 % (39-51); HEMOGLOBIN 8.4 g/dL (13.5-17.5); LYMPHOCYTES # (AUTO) 1.9 /CMM (0.8-4.8); LYMPHOCYTES % (AUTO) 12.9 % (20.0-44.0); MEAN CORPUSCULAR HEMOGLOBIN 29 PG (26.0-33.0); MEAN CORPUSCULAR HGB CONC 33 g/dl (31.0-36.0); MEAN CORPUSCULAR VOLUME 91 fL (80-96); MONOCYTES # (AUTO) 1.1 /CMM (0.1-1.30); MONOCYTES % (AUTO) 7.5 % (2.0-12.0); PLATELET COUNT (AUTO) 302 /CMM (150-450); RDW COEFFICIENT OF VARIATION 16.1 (11.5-15.0); RED BLOOD CELL COUNT(AUTO) 2.86 MIL/uL (4.5-6.0); WHITE BLOOD COUNT (AUTO) 14.9 K/uL (4.3-11.0)
[2016-06-17 06:37] LABS: CALCIUM, SERUM 8.1 mg/dL (8.5-10.1); CREATININE 5.7 mg/dL (0.6-1.3); PHOSPHORUS 5.8 mg/dL (2.5-4.9); POTASSIUM 3.2 mmol/L (3.5-5.1)
--- NOTE | 2016-06-17 07:15 | NUR ---
TECHNICAL ILLUSTRATIONS MAP INKER INITIAL NOTES: Rec'd pt asleep on bed, HOB elevated, not in any distress. Pt on MV via trache w/ ff settings: AC 16, TV 550, FiO2 40%, PEEP 0, saturating well. On telemonitor, Afib controlled, HR's 90's. On cont GT feeding Novasource at 45 ml/hr, tolerating well. Has ALLY PICC line, patent, C/D/I, no signs of infection/ infiltration noted. Has R chest wall HD cath, dry & intact. Provided comfort & safety measures. Bed kept low & in locked position. Will turn & reposition, offload heels as per protocol. Will continue to monitor.
[2016-06-17 08:00] VITALS: BP 120/74
[2016-06-17] MEDS: ASPIRIN 325 MG TABLET PO SCH (08:18)
[2016-06-17] MEDS: SEVELAMER CARBONATE 0.8 GM POWD.PACK GT SCH ×3 (08:18→17:04)
[2016-06-17] MEDS: NYSTATIN (PYXIS) 500,000 UNIT/5 ML ORAL.SUSP PO SCH ×3 (08:18→17:05)
[2016-06-17] MEDS: AMIODARONE HCL 200 MG TABLET PO SCH ×3 (08:18→17:05)
[2016-06-17] MEDS: VANCOMYCIN HCL 125 MG/2.5 ML ORAL.SUSP NG SCH ×4 (08:18→21:20)
[2016-06-17] MEDS: VIT B CMPLX 3/FA/VIT C/BIOTIN 1 TAB TABLET PO SCH (08:18)
[2016-06-17] MEDS: HYDROGEL DRESSING 90 GM TUBE TP SCH (08:19)
[2016-06-17] MEDS: NEOMY SULF/BACITRAC ZN/POLY 15 GM TUBE TP SCH (08:20)
[2016-06-17] MEDS: Z GUARD REMEDY 2 OZ OINT TP PRN (08:21)
[2016-06-17] MEDS: COLISTIMETHATE SODIUM 150 MG VIAL NEB SCH ×2 (08:28→21:16)
--- NOTE | 2016-06-17 09:00 | NUR ---
MERCHANT PATROLLER NOTES: Pt seen & examined by Dr. Martinez, made new orders & carried out.
[2016-06-17 12:00] VITALS: BP 107/69
[2016-06-17] MEDS ORDERED: SECONDARY IV SET 1 EA INFUS.SET MC ONE (12:47)
[2016-06-17] MEDS: CEFEPIME 1 GM in IV D5W 50 ML IV SCH (15:15)
[2016-06-17 16:00] VITALS: BP 110/66
--- NOTE | 2016-06-17 16:00 | NUR ---
PUFFER TENDER NOTES: Made rounds. Suction for airway clearance. Turning & repositioning, offloading of heels done. No acute change of condition. Will continue to monitor, safety maintained.
[2016-06-17] MEDS ORDERED: IV NS 0.9% 500 ML IV ONE (17:08)
--- NOTE | 2016-06-17 17:54 | NUR ---
COPY MACHINE OPERATOR NOTES: Pt seen by ZEFERINO Thomas for poss assisted placement once DC, as per pt's request. Addendum: 06/17/16 at 1919 by SUZI VARGAS RN DOCUMENTATION MADE IN ERROR.
--- NOTE | 2016-06-17 19:23 | NUR ---
RN CLOSING NOTES: No acute changes observed within shift. Pt is not on any distress. MV settings set as prescribed, no SOB noted during the shift. No gastric residual noted, GT patent. IV site patent on TKO. FC patent and intact. All needs attended. Safety maintained. Isolation observed. Call light placed w/in reached. Endorsed to PM Nurse for continuity of care.
--- NOTE | 2016-06-17 19:55 | NUR ---
TELE/RN RECEIVE PATIENT APPEAR SLEEPING, EASILY AROUSABLE, APPEAR COMFORTABLE, NO SIGNS OF DISTRESS NOTED, VENT WORKING WELL, GT FEEDING INFUSING, NO RESIDUAL NOTED, HOB ELEVATED. NO NEEDS NOTED AT THIS TIME. WILL MONITOR.
--- NOTE | 2016-06-17 19:57 | NUR ---
PT RECEIVED TRACHED ON VENT SETTINGS CHARTED. TRACH IS SECURE. NO RESP DISTRESS NOTED. SX MODERATE YELLOW THICK SECRETIONS. VENT IS PLUGGED IN RED OUTLET. VENT ALARMS CHECKED AND AUDIBLE. AMBU BAG BEDSIDE. WILL CONTINUE TO MONITOR Addendum: 06/18/16 at 0502 by LYNETTE CASTORENA RT Amended: Links added.
[2016-06-17 19:59] VITALS: BP 116/72
[2016-06-18] VITALS: BP 116/71
[2016-06-18] MEDS: DILTIAZEM HCL 30 MG TABLET PO SCH ×4 (00:25→17:58)
[2016-06-18] MEDS: BLOOD SUGAR DIAGNOSTIC 1 EACH STRIP IN SCH ×4 (00:29→17:59)
[2016-06-18] MEDS: IPRATROPIUM NEB FS 0.5 MG/2.5 ML AMPUL.NEB NEB SCH ×4 (01:12→19:27)
--- NOTE | 2016-06-18 02:00 | NUR ---
TELE1/RN PATIENT IS SLEEPING AT THIS TIME, AROUSABLE, APPEAR COMFORTABLE, NO SIGNS OF DISTRESS NOTED, HOB ELEVATED, VENT WORKING WELL. WILL CONTINUE TO MONITOR.
[2016-06-18] MEDS: RENAL NOVASOURCE 1,000 ML BOTTLE GT PRN (03:25)
--- NOTE | 2016-06-18 04:00 | NUR ---
TELE1/RN MORNING CARE WAS DONE. GOOD SKIN CARE RENDERED. TOTAL LINEN CHANGE DONE. TRACH CARE DONE, TOLERATED. REPOSITIONED TO COMFORT. WILL CONTINUE TO MONITOR.
[2016-06-18 04:02] VITALS: BP 122/76
[2016-06-18] MEDS: METRONIDAZOLE 500MG/ NS 100ML 250 MG in PREMIX 1 EA IV SCH ×3 (05:32→21:48)
--- NOTE | 2016-06-18 06:35 | NUR ---
TELE1/RN PATIENT IS SLEEPING AT THIS TIME, AROUSABLE, APPEAR COMFORTABLE, NO DISTRESS NOTED, VENT WORKING WELL, GT FEEDING INFUSING WELL, HOB ELEVATED. ALL NEEDS ATTENDED AT THIS TIME. WILL CONTINUE MONITOR.
[2016-06-18 08:00] VITALS: BP 112/66
--- NOTE | 2016-06-18 08:00 | NUR ---
RN NOTES: RECEIVED PATIENT IN BED NON-VERBAL OPENS EYES AND RESPONDS TO TOUCH AND PAINFUL STIMULI. HOB ELEVATED. AFIB CONTROLLED ON MONITOR. PATIENT NOTED WITH BRYNN PEACELEY 8 ON VENT AC 16 TV 550 FIO2 40% NO PEEP. TOLERATING SETTINGS WELL. PATIENT SUCTIONED. ORAL CARE PROVIDED. NOTED WITH GTUBE ON NOVASOURCE AT 45ML/HR, NO RESIDUAL NOTED. ALLY PICC LINE PATENT AND INTACT. RIGHT CHEST WALL HD CATH PATENT. PATIENT CLEANED. BEDDING CHANGED. TURNED AND REPOSITIONED AND EXTREMITIES OFFLOADED. WOUND CARE RENDERED. SAFETY MEASURES OBSERVED. CALL LIGHT WITHIN REACH. SAFETY MAINTAINED. ONGOING MONITORING.
[2016-06-18] MEDS: ASPIRIN 325 MG TABLET PO SCH (08:35)
[2016-06-18] MEDS: VIT B CMPLX 3/FA/VIT C/BIOTIN 1 TAB TABLET PO SCH (08:35)
[2016-06-18] MEDS: SEVELAMER CARBONATE 0.8 GM POWD.PACK GT SCH ×3 (08:35→17:58)
[2016-06-18] MEDS: NEOMY SULF/BACITRAC ZN/POLY 15 GM TUBE TP SCH (08:36)
[2016-06-18] MEDS: AMIODARONE HCL 200 MG TABLET PO SCH ×3 (08:36→17:59)
[2016-06-18] MEDS: HYDROGEL DRESSING 90 GM TUBE TP SCH (08:36)
[2016-06-18] MEDS: VANCOMYCIN HCL 125 MG/2.5 ML ORAL.SUSP NG SCH ×4 (08:36→21:48)
[2016-06-18] MEDS: ERGOCALCIFEROL (VITAMIN D 2) 50,000 UNIT CAPSULE GT SCH (08:36)
[2016-06-18] MEDS: NYSTATIN (PYXIS) 500,000 UNIT/5 ML ORAL.SUSP PO SCH ×3 (08:36→17:58)
[2016-06-18] MEDS: COLISTIMETHATE SODIUM 150 MG VIAL NEB SCH ×2 (09:37→21:01)
[2016-06-18 12:00] VITALS: BP 111/73
--- NOTE | 2016-06-18 12:00 | NUR ---
RN NOTE: DR. YEPEZ AT BEDSIDE, DISCUSSED DISCHARGE PLANNING. PATIENT WILL BE DISCHARGED TOMORROW, IF MORNING LABS ARE STABLE. ONGOING MONITORING.
--- NOTE | 2016-06-18 12:45 | NUR ---
RN NOTE: HD COMPLETE 1800 OUT VS STABLE. PATIENT TOLERATED WELL. ONGOING MONITORING.
[2016-06-18] MEDS: INSULIN REGULAR, HUMAN 100 UNIT/ML 3 ML VIAL SQ PRN ×2 (13:25→18:00)
[2016-06-18] MEDS: CEFEPIME 1 GM in IV D5W 50 ML IV SCH (15:26)
[2016-06-18 16:00] VITALS: BP 107/71
--- NOTE | 2016-06-18 16:15 | NUR ---
DIRECTOR OF RESEARCH AND DEVELOPMENT NOTE: PATIENT KEPT CLEAN AND DRY, TURNED AND REPOSITIONED AND EXTREMITIES OFFLOADED. ALL MEDICATIONS ADMINISTERED. ORDERED. WOUND CARE RENDERED. VS STABLE AT THIS TIME. ONGOING MONITORING.
--- NOTE | 2016-06-18 18:00 | NUR ---
SOLUTION SALES SENIOR EXECUTIVE NOTE: PATIENT NOTED WITH ANOTHER BM, PATIENT CLEANED, BEDDING CHANGED. WOUND CARE RENDERED. PATIENT TURNED AND REPOSITIONED AND EXTREMITIES OFFLOADED. SAFETY MEASURES OBSERVED, ALL NEEDS MET. ALL MEDS ADMINISTERED. VS STABLE. NO DISTRESS NOTED. ONGOING MONITORING.
[2016-06-18 20:00] VITALS: BP 98/64
[2016-06-19] VITALS: BP 123/78
[2016-06-19] MEDS: DILTIAZEM HCL 30 MG TABLET PO SCH ×4 (00:41→17:38)
[2016-06-19] MEDS: BLOOD SUGAR DIAGNOSTIC 1 EACH STRIP IN SCH ×4 (00:45→17:39)
[2016-06-19] MEDS: INSULIN REGULAR, HUMAN 100 UNIT/ML 3 ML VIAL SQ PRN ×3 (00:48→17:47)
[2016-06-19] MEDS: IPRATROPIUM NEB FS 0.5 MG/2.5 ML AMPUL.NEB NEB SCH ×4 (01:17→20:23)
[2016-06-19 04:00] VITALS: BP 124/79
[2016-06-19] MEDS: METRONIDAZOLE 500MG/ NS 100ML 250 MG in PREMIX 1 EA IV SCH ×3 (05:26→20:39)
[2016-06-19] MEDS: RENAL NOVASOURCE 1,000 ML BOTTLE GT PRN (05:32)
[2016-06-19 08:00] VITALS: BP 110/79
[2016-06-19 08:46] LABS: BASOPHILS # (AUTO) 0.1 /CMM (0.0-0.2); BASOPHILS % (AUTO) 0.8 % (0.0-2.0); EOSINOPHILS # (AUTO) 0.5 /CMM (0.0-0.7); EOSINOPHILS % (AUTO) 3.6 % (0.0-6.0); HEMATOCRIT 26 % (39-51); HEMOGLOBIN 8.6 g/dL (13.5-17.5); LYMPHOCYTES % (AUTO) 15.7 % (20.0-44.0); MEAN CORPUSCULAR HEMOGLOBIN 29 PG (26.0-33.0); MEAN CORPUSCULAR HGB CONC 33 g/dl (31.0-36.0); MEAN CORPUSCULAR VOLUME 90 fL (80-96); MONOCYTES # (AUTO) 1.2 /CMM (0.1-1.30); MONOCYTES % (AUTO) 8.9 % (2.0-12.0); NEUTROPHILS # (AUTO) 9.3 /CMM (1.8-8.9); PLATELET COUNT (AUTO) 313 /CMM (150-450); RDW COEFFICIENT OF VARIATION 16.3 (11.5-15.0); RED BLOOD CELL COUNT(AUTO) 2.93 MIL/uL (4.5-6.0); WHITE BLOOD COUNT (AUTO) 13.1 K/uL (4.3-11.0)
[2016-06-19 08:57] LABS: CALCIUM, SERUM 8.1 mg/dL (8.5-10.1); MAGNESIUM 3.1 mg/dL (1.8-2.4); PHOSPHORUS 5.8 mg/dL (2.5-4.9); POTASSIUM 3.3 mmol/L (3.5-5.1)
[2016-06-19] MEDS: NYSTATIN (PYXIS) 500,000 UNIT/5 ML ORAL.SUSP PO SCH ×3 (09:19→17:38)
[2016-06-19] MEDS: SEVELAMER CARBONATE 0.8 GM POWD.PACK GT SCH ×3 (09:19→17:38)
[2016-06-19] MEDS: VIT B CMPLX 3/FA/VIT C/BIOTIN 1 TAB TABLET PO SCH (09:19)
[2016-06-19] MEDS: ASPIRIN 325 MG TABLET PO SCH (09:19)
[2016-06-19] MEDS: HYDROGEL DRESSING 90 GM TUBE TP SCH (09:19)
[2016-06-19] MEDS: AMIODARONE HCL 200 MG TABLET PO SCH ×3 (09:20→17:39)
[2016-06-19] MEDS: COLISTIMETHATE SODIUM 150 MG VIAL NEB SCH ×2 (09:21→21:18)
[2016-06-19] MEDS: VANCOMYCIN HCL 125 MG/2.5 ML ORAL.SUSP NG SCH ×4 (09:22→20:39)
[2016-06-19] MEDS: NEOMY SULF/BACITRAC ZN/POLY 15 GM TUBE TP SCH (09:31)
[2016-06-19 12:00] VITALS: BP 105/65
[2016-06-19] MEDS: CEFEPIME 1 GM in IV D5W 50 ML IV SCH (14:26)
[2016-06-19 16:00] VITALS: BP 113/71
--- NOTE | 2016-06-19 19:19 | NUR ---
RN NOTES PATIENT IN BED, LAYING COMFORTABLY, NO ACUTE CHANGE IN CONDITION NOTED. ENEDELIA VENT SETTINGS WELL. KEPT COMFORTABLE, REPOSITIONED AND EXTREMITIES OFFLOADED, ALL MEDS GIVEN ORDERED. ENDORSED TO ARNEL RN FOR CONTINUITY OF CARE
[2016-06-19 20:00] VITALS: BP 117/70
--- NOTE | 2016-06-19 20:24 | NUR ---
PT REC'D ON TRACH SHILEY 8 ON VENT SETTINGS CHARTED. TRACH IS SECURE AND IS IN PROPER POSITION. NO RESP DISTRESS NOTED. VENT ALARMS ARE SET AND AUDIBLE. VENT IS PLUGGED IN RED OUTLET AMBU BAG IS BEDSIDE. SX MODERATE THICK WHITE SECRETIONS. WILL CONTINUE TO MONITOR. Addendum: 06/20/16 at 0439 by LYNETTE CASTORENA RT Amended: Links added.
--- NOTE | 2016-06-19 22:45 | NUR ---
RECEIVED PT FROM DI SEALS, OBTUNDED, UNABLE TO VERBALIZE NEEDS, ON CONTINUOS VENTILATOR WELL TOLERATED UNDER CURRENT SETTINGS, ENTERAL FEEDING IN PLACE, NOVASOURCE RUNNING AT 45ML/HR, PT CLEAN/DRY AND COMFORTABLE, WILL CONTINUE TO MONITOR HOURLY.
[2016-06-20] VITALS (7 sets, daily range): BP systolic 107–133; BP diastolic 64–80
[2016-06-20] MEDS: BLOOD SUGAR DIAGNOSTIC 1 EACH STRIP IN SCH ×5 (00:01→23:13)
[2016-06-20] MEDS: DILTIAZEM HCL 30 MG TABLET PO SCH ×5 (01:03→23:14)
[2016-06-20] MEDS: IPRATROPIUM NEB FS 0.5 MG/2.5 ML AMPUL.NEB NEB SCH ×4 (02:13→19:34)
[2016-06-20] MEDS: METRONIDAZOLE 500MG/ NS 100ML 250 MG in PREMIX 1 EA IV SCH ×3 (04:41→20:04)
[2016-06-20] MEDS: INSULIN REGULAR, HUMAN 100 UNIT/ML 3 ML VIAL SQ PRN ×2 (05:25→18:31)
[2016-06-20] MEDS: RENAL NOVASOURCE 1,000 ML BOTTLE GT PRN (05:26)
--- NOTE | 2016-06-20 06:18 | NUR ---
PROGRAM MANAGEMENT ANALYST CLOSING NOTE PT REMAINED STABLE DURING STAKING TECHNICIAN, OBTUNDED AND UNABLE TO VERBALIZE NEEDS, THEREFORE NEEDS ANTICIPATED AND ATTENDED TO DURING HOURLY ROUNDS OR NEEDED, WOUND TREATMENT PROVIDED ORDERED BY MD, ON CONTINUOUS MECHANICAL VENTILATOR AND TOLERATING WELL UNDER CURRENT SETTINGS, NOVASOURCE AT 45ML/HR RUNNING AND WELL TOLERATED WITH NO RESIDUAL FOUND, PT REPOSITIONED EVERY 2 HOURS TO PREVENT SKIN BREAKDOWN, SAFETY MEASURES OBSERVED DURING ENTIRE NIGHT, WILL ENDORSE TO INCOMING NURSE FOR BINDU.
[2016-06-20 07:32] LABS: BASOPHILS # (AUTO) 0.1 /CMM (0.0-0.2); BASOPHILS % (AUTO) 0.4 % (0.0-2.0); EOSINOPHILS # (AUTO) 0.5 /CMM (0.0-0.7); EOSINOPHILS % (AUTO) 3.6 % (0.0-6.0); HEMATOCRIT 25 % (39-51); HEMOGLOBIN 8.2 g/dL (13.5-17.5); LYMPHOCYTES # (AUTO) 2.3 /CMM (0.8-4.8); LYMPHOCYTES % (AUTO) 15.1 % (20.0-44.0); MEAN CORPUSCULAR HEMOGLOBIN 29 PG (26.0-33.0); MEAN CORPUSCULAR HGB CONC 32 g/dl (31.0-36.0); MEAN CORPUSCULAR VOLUME 90 fL (80-96); MONOCYTES % (AUTO) 6.8 % (2.0-12.0); NEUTROPHILS # (AUTO) 11.2 /CMM (1.8-8.9); NEUTROPHILS % (AUTO) 74.1 % (43.0-81.0); PLATELET COUNT (AUTO) 310 /CMM (150-450); WHITE BLOOD COUNT (AUTO) 15.1 K/uL (4.3-11.0)
[2016-06-20 07:50] LABS: BILIRUBIN,TOTAL 0.3 mg/dL (0.2-1.0); CALCIUM, SERUM 7.9 mg/dL (8.5-10.1); CREATININE 6.5 mg/dL (0.6-1.3); POTASSIUM 3.4 mmol/L (3.5-5.1); TOTAL PROTEIN, SERUM 6.4 g/dL (6.4-8.2)
[2016-06-20 07:54] LABS: ALBUMIN 1.4 g/dL (3.4-5.0)
[2016-06-20] MEDS: SEVELAMER CARBONATE 0.8 GM POWD.PACK GT SCH ×3 (09:32→16:50)
[2016-06-20] MEDS: ASPIRIN 325 MG TABLET PO SCH (09:32)
[2016-06-20] MEDS: VANCOMYCIN HCL 125 MG/2.5 ML ORAL.SUSP NG SCH ×4 (09:32→20:04)
[2016-06-20] MEDS: NYSTATIN (PYXIS) 500,000 UNIT/5 ML ORAL.SUSP PO SCH ×3 (09:33→16:50)
[2016-06-20] MEDS: AMIODARONE HCL 200 MG TABLET PO SCH ×3 (09:33→16:51)
[2016-06-20] MEDS: VIT B CMPLX 3/FA/VIT C/BIOTIN 1 TAB TABLET PO SCH (09:33)
[2016-06-20] MEDS: HYDROGEL DRESSING 90 GM TUBE TP SCH (09:33)
[2016-06-20] MEDS: NEOMY SULF/BACITRAC ZN/POLY 15 GM TUBE TP SCH (09:34)
[2016-06-20] MEDS: COLISTIMETHATE SODIUM 150 MG VIAL NEB SCH ×2 (10:57→21:23)
[2016-06-20] MEDS ORDERED: SECONDARY IV SET 1 EA INFUS.SET MC ONE (16:46)
[2016-06-20] MEDS: CEFEPIME 1 GM in IV D5W 50 ML IV SCH (16:50)
--- NOTE | 2016-06-20 19:58 | NUR ---
PT HAD EMESIS EPISODE X 2, LOOKS LIKE TUBE FEEDING. TF STOPPED, WILL CONTACT MD FOR ZOFRAN ORDER
--- NOTE | 2016-06-20 20:00 | NUR ---
RISK MANAGEMENT INTERNSHIP - RECEIVED PATIENT IN BED NON-VERBAL OPENS EYES AND RESPONDS TO TOUCH AND PAINFUL STIMULI. HOB ELEVATED. AFIB CONTROLLED ON MONITOR. PATIENT NOTED WITH TRACH SHILEY 8 ON VENT AC 16 TV 550 FIO2 40% NO PEEP. TOLERATING SETTINGS WELL. PATIENT SUCTIONED. ORAL CARE PROVIDED. NOTED WITH GTUBE ON NOVASOURCE AT 45ML/HR, NO RESIDUAL NOTED. ALLY PICC LINE PATENT AND INTACT. RIGHT CHEST WALL HD CATH PATENT. TURNED AND REPOSITIONED AND EXTREMITIES OFFLOADED. WOUND CARE RENDERED. SAFETY MEASURES OBSERVED. CALL LIGHT WITHIN REACH. SAFETY MAINTAINED. ONGOING MONITORING.
[2016-06-20] MEDS: ONDANSETRON HCL/PF 4 MG/2 ML VIAL IV PRN (20:45)
[2016-06-21] VITALS: BP 120/81
[2016-06-21] MEDS: IPRATROPIUM NEB FS 0.5 MG/2.5 ML AMPUL.NEB NEB SCH ×4 (01:43→20:17)
[2016-06-21 04:00] VITALS: BP 134/75
[2016-06-21] MEDS: METRONIDAZOLE 500MG/ NS 100ML 250 MG in PREMIX 1 EA IV SCH ×3 (04:44→21:14)
[2016-06-21] MEDS: BLOOD SUGAR DIAGNOSTIC 1 EACH STRIP IN SCH ×4 (06:08→23:47)
[2016-06-21] MEDS: DILTIAZEM HCL 30 MG TABLET PO SCH ×4 (06:11→23:51)
[2016-06-21 08:00] VITALS: BP 113/71
[2016-06-21] MEDS: HYDROGEL DRESSING 90 GM TUBE TP SCH (08:14)
[2016-06-21] MEDS: SEVELAMER CARBONATE 0.8 GM POWD.PACK GT SCH ×3 (08:23→17:04)
[2016-06-21] MEDS: ASPIRIN 325 MG TABLET PO SCH (08:24)
[2016-06-21] MEDS: VIT B CMPLX 3/FA/VIT C/BIOTIN 1 TAB TABLET PO SCH (08:24)
[2016-06-21] MEDS: AMIODARONE HCL 200 MG TABLET PO SCH ×3 (08:24→16:22)
[2016-06-21] MEDS: VANCOMYCIN HCL 125 MG/2.5 ML ORAL.SUSP NG SCH ×4 (08:24→21:14)
[2016-06-21] MEDS: NYSTATIN (PYXIS) 500,000 UNIT/5 ML ORAL.SUSP PO SCH ×3 (08:24→16:22)
[2016-06-21] MEDS: NEOMY SULF/BACITRAC ZN/POLY 15 GM TUBE TP SCH (08:44)
--- NOTE | 2016-06-21 09:00 | NUR ---
MANAGER UNIT NOTE Pt obtunded, nonverbal. Occasionally will turn head to name. On tele monitoring, AF. Tolerating vent, trached with small amt yellow drainage. Moya patent with yellow urine. Gtube with novasource running at 45ml/hr, no residuals, no emesis. ALLY PICC with NS TKO. VSS. Suctioned PRN, provided oral cares. Will cont to monitor.
[2016-06-21] MEDS: COLISTIMETHATE SODIUM 150 MG VIAL NEB SCH ×2 (09:03→21:49)
[2016-06-21] MEDS ORDERED: IV SET PRIMARY PUMP SET 1 EA INFUS.SET MC ONE (09:17)
[2016-06-21 12:00] VITALS: BP 119/67
[2016-06-21] MEDS ORDERED: SECONDARY IV SET 1 EA INFUS.SET MC ONE (12:19)
[2016-06-21] MEDS: INSULIN REGULAR, HUMAN 100 UNIT/ML 3 ML VIAL SQ PRN (12:52)
[2016-06-21] MEDS: RENAL NOVASOURCE 1,000 ML BOTTLE GT PRN (12:58)
[2016-06-21] MEDS: CEFEPIME 1 GM in IV D5W 50 ML IV SCH (14:09)
[2016-06-21 16:00] VITALS: BP 126/71
[2016-06-21] MEDS: ONDANSETRON HCL/PF 4 MG/2 ML VIAL IV PRN (16:02)
--- NOTE | 2016-06-21 17:44 | NUR ---
REGIONAL SALES REPRESENTATIVE NOTE No changes. Emesis x1, zofran given. No residuals. MD aware. BG 63, will monitor. Moya with minimal output, 125cc. BM x2, dark brown, loose. Will endorse to next RN.
[2016-06-21 20:00] VITALS: BP 109/67
--- NOTE | 2016-06-21 20:00 | NUR ---
RECEIVED PATIENT IN BED NON-VERBAL OPENS EYES AND RESPONDS TO TOUCH AND PAINFUL STIMULI. HOB ELEVATED. AFIB CONTROLLED ON MONITOR. PATIENT NOTED WITH TRACH EMELYN 8 ON VENT AC 16 TV 550 FIO2 40% NO PEEP. TOLERATING SETTINGS WELL. PATIENT SUCTIONED. ORAL CARE PROVIDED. NOTED WITH GTUBE ON NOVASOURCE AT 45ML/HR, NO RESIDUAL NOTED. ALLY PICC LINE PATENT AND INTACT. RIGHT CHEST WALL HD CATH PATENT. TURNED AND REPOSITIONED . WOUND CARE RENDERED. SAFETY MEASURES OBSERVED. . SAFETY MAINTAINED. ONGOING MONITORING.
[2016-06-22] VITALS (8 sets, daily range): BP systolic 99–126; BP diastolic 60–68
[2016-06-22] MEDS: IPRATROPIUM NEB FS 0.5 MG/2.5 ML AMPUL.NEB NEB SCH ×4 (01:29→19:51)
[2016-06-22] MEDS: METRONIDAZOLE 500MG/ NS 100ML 250 MG in PREMIX 1 EA IV SCH ×3 (04:28→20:38)
[2016-06-22] MEDS: BLOOD SUGAR DIAGNOSTIC 1 EACH STRIP IN SCH ×4 (05:45→23:30)
[2016-06-22] MEDS: DILTIAZEM HCL 30 MG TABLET PO SCH ×4 (05:45→23:40)
--- NOTE | 2016-06-22 07:30 | NUR ---
RN NOTES RECEIVED PATIENT IN BED ALERT, AWAKE, ORIENTED X3 WITH BREATHING NORMAL, EVEN AND UNLABORED. NO SOB NOTED. NO ACUTE DISTRESS NOTED. ON ROOM AIR, SATURATING WELL. TELE MONITOR REVEALS ST, BV=971. IV LFA 20G IS PATENT AND INTACT, RUNNING IVF PER ORDER. KEPT CLEAN, DRY AND COMFORTABLE. ALL NEEDS ATTENDED. SAFETY MEASURE OBSERVED. CALL LIGHT WITH IN REACH. WILL CONT TO MONITOR. Addendum: 06/22/16 at 0758 by VICTORIANO NUÑEZ RN DISREGARDED WRONG PATIENT DOCUMENTATION.
--- NOTE | 2016-06-22 07:35 | NUR ---
RN NOTES RECEIVED PATIENT ON BED, ON [facility] VENT WITH BREATHING NORMAL, EVEN AND UNLABORED, NO SOB NOTED. NO ACUTE DISTRESS NOTED. VENT SETTING REVIEWED AND VERIFIED. TOLERATED WELL. AFEBRILE. TELE MONITOR REVEALS CONTROLLED A- FIB, HR=76. ALLY PICC LINE IS PATENT AND INTACT. R CHEST HD CATH IS INTACT. ON GT FEEDING NOVASOURCE @ 45CC/HR. TOLERATED WELL. NO RESIDUAL NOTED. ASPIRATION TAKEN. HOB ELEVATED. F/C IS PATENT AND INTACT, DRAINING WITH GRAVITY. KEPT CLEAN, DRY AND COMFORTABLE. ALL NEEDS ATTENDED. SAFETY MEASURE OBSERVED. CALL LIGHT WITH IN REACH. WILL CONT TO MONITOR.
[2016-06-22] MEDS: ALBUTEROL FS 2.5 MG/0.5 ML VIAL.NEB NEB PRN ×2 (07:46→14:56)
[2016-06-22] MEDS: SEVELAMER CARBONATE 0.8 GM POWD.PACK GT SCH ×3 (08:27→17:46)
[2016-06-22] MEDS: NYSTATIN (PYXIS) 500,000 UNIT/5 ML ORAL.SUSP PO SCH ×3 (08:28→17:46)
[2016-06-22] MEDS: ASPIRIN 325 MG TABLET PO SCH (08:28)
[2016-06-22] MEDS: VIT B CMPLX 3/FA/VIT C/BIOTIN 1 TAB TABLET PO SCH (08:28)
[2016-06-22] MEDS: VANCOMYCIN HCL 125 MG/2.5 ML ORAL.SUSP NG SCH ×4 (08:28→20:38)
[2016-06-22] MEDS: AMIODARONE HCL 200 MG TABLET PO SCH ×3 (08:29→17:58)
[2016-06-22] MEDS: HYDROGEL DRESSING 90 GM TUBE TP SCH (08:30)
[2016-06-22] MEDS: NEOMY SULF/BACITRAC ZN/POLY 15 GM TUBE TP SCH (08:31)
[2016-06-22] MEDS: COLISTIMETHATE SODIUM 150 MG VIAL NEB SCH ×2 (10:43→21:53)
[2016-06-22] MEDS: INSULIN REGULAR, HUMAN 100 UNIT/ML 3 ML VIAL SQ PRN ×2 (12:42→23:42)
[2016-06-22] MEDS: CEFEPIME 1 GM in IV D5W 50 ML IV SCH (15:17)
[2016-06-22] MEDS: RENAL NOVASOURCE 1,000 ML BOTTLE GT PRN (17:03)
--- NOTE | 2016-06-22 19:30 | NUR ---
RN NOTES PATIENT ENDORSED TO NEXT SHIFT IN STABLE CONDITION WITH BREATHING NORMAL, EVEN AND UNLABORED. NO SOB NOTED. NO ACUTE DISTRESS NOTED. KEPT CLEAN, DRY AND COMFORTABLE. ALL NEEDS ATTENDED. SAFETY MEASURE OBSERVED. CALL LIGHT WITH IN REACH. WILL CONT TO MONITOR
--- NOTE | 2016-06-22 20:00 | NUR ---
CORN SHUCKER PT RECEIVED IN BED . AWAKE W EYES OPEN BUT DOES NOT TRACK. PT IS NONVERBAL AND DROWSY . TRACH IN PLACE AND CONNECTED TO VENT. MOD SECRETIONS NOTED AND SUCTIONED. GT INTACT AND PATENT. 5ML RESIDUAL NOTED. HOB ELEVATED AT ALL TIMES. FC INTACT, PATENT, AND FASTENED IN PLACE.WILL MONITOR FOR ANY SIGNS OF DISTRESS. CALL LIGHT WITHIN REACH AND BED ALARM IS ON.CONT TO MONITOR FOR ANY DISTRESS. PT SHOWS NO SIGNS OF PAIN .
[2016-06-23] VITALS (8 sets, daily range): BP systolic 105–139; BP diastolic 67–91
[2016-06-23] MEDS: IPRATROPIUM NEB FS 0.5 MG/2.5 ML AMPUL.NEB NEB SCH ×3 (01:14→13:18)
--- NOTE | 2016-06-23 04:00 | NUR ---
RN BED BATH GIVEN AND TOLERATED WELL. LOOSE BM NOTED.
[2016-06-23] MEDS: METRONIDAZOLE 500MG/ NS 100ML 250 MG in PREMIX 1 EA IV SCH ×2 (05:27→12:01)
[2016-06-23] MEDS: BLOOD SUGAR DIAGNOSTIC 1 EACH STRIP IN SCH ×3 (05:27→17:58)
[2016-06-23] MEDS: DILTIAZEM HCL 30 MG TABLET PO SCH ×3 (05:28→17:58)
[2016-06-23 06:32] LABS: BASOPHILS # (AUTO) 0.1 /CMM (0.0-0.2); BASOPHILS % (AUTO) 0.6 % (0.0-2.0); EOSINOPHILS # (AUTO) 0.6 /CMM (0.0-0.7); EOSINOPHILS % (AUTO) 4.8 % (0.0-6.0); HEMATOCRIT 23 % (39-51); HEMOGLOBIN 7.5 g/dL (13.5-17.5); LYMPHOCYTES # (AUTO) 1.5 /CMM (0.8-4.8); MEAN CORPUSCULAR HEMOGLOBIN 30 PG (26.0-33.0); MEAN CORPUSCULAR HGB CONC 33 g/dl (31.0-36.0); MEAN CORPUSCULAR VOLUME 90 fL (80-96); MONOCYTES # (AUTO) 1.2 /CMM (0.1-1.30); MONOCYTES % (AUTO) 10.3 % (2.0-12.0); NEUTROPHILS # (AUTO) 8.2 /CMM (1.8-8.9); NEUTROPHILS % (AUTO) 71.3 % (43.0-81.0); PLATELET COUNT (AUTO) 299 /CMM (150-450); RDW COEFFICIENT OF VARIATION 16.7 (11.5-15.0); RED BLOOD CELL COUNT(AUTO) 2.52 MIL/uL (4.5-6.0); WHITE BLOOD COUNT (AUTO) 11.5 K/uL (4.3-11.0)
[2016-06-23 07:03] LABS: CALCIUM, SERUM 7.8 mg/dL (8.5-10.1); PHOSPHORUS 5.1 mg/dL (2.5-4.9); POTASSIUM 3.5 mmol/L (3.5-5.1)
--- NOTE | 2016-06-23 08:00 | NUR ---
telecommunication systems designer note patent in bed all needs attended wit trach to vent setting on g tube feeding as ordered , no residual noted , call ligh within reach , james picc tko , no s\s infection , on Isoflex bed , will cont to monitor closely, on tele monitor afib 76 . with f\c to gravity with yellow color urine .
[2016-06-23] MEDS: SEVELAMER CARBONATE 0.8 GM POWD.PACK GT SCH ×3 (08:32→17:08)
[2016-06-23] MEDS: NYSTATIN (PYXIS) 500,000 UNIT/5 ML ORAL.SUSP PO SCH ×3 (08:32→17:08)
[2016-06-23] MEDS: ASPIRIN 325 MG TABLET PO SCH (08:32)
[2016-06-23] MEDS: VIT B CMPLX 3/FA/VIT C/BIOTIN 1 TAB TABLET PO SCH (08:33)
[2016-06-23] MEDS: AMIODARONE HCL 200 MG TABLET PO SCH ×3 (08:33→17:09)
[2016-06-23] MEDS: NEOMY SULF/BACITRAC ZN/POLY 15 GM TUBE TP SCH (08:34)
[2016-06-23] MEDS: HYDROGEL DRESSING 90 GM TUBE TP SCH (08:34)
[2016-06-23] MEDS: VANCOMYCIN HCL 125 MG/2.5 ML ORAL.SUSP NG SCH ×3 (08:36→17:18)
[2016-06-23] MEDS: COLISTIMETHATE SODIUM 150 MG VIAL NEB SCH (09:47)
--- NOTE | 2016-06-23 11:30 | NUR ---
telecommunications field engineer note spoke with dr amos notified that hg 7.5 stated will give Epogen with hd
--- NOTE | 2016-06-23 13:00 | NUR ---
PARACHUTE PACKER NOTE CONT ON G TUBE FEEDING ,ALL NEEDS ATTENDED, NOT IN ACUTE DISTRESS
--- NOTE | 2016-06-23 15:00 | NUR ---
MEDIA SERVICES DIRECTOR NOTE TRACH SUCTION DONE, KEEP CLEAN DRY , CONT ON VENT SETTING , WILL MONITOR CLOSELY
[2016-06-23] MEDS: CEFEPIME 1 GM in IV D5W 50 ML IV SCH (15:46)
--- NOTE | 2016-06-23 17:00 | NUR ---
HINGING MACHINE OPERATOR NOTE CENTRAL LINE DRESSING CHANGE ON LT UPPER ARM KEEP CLEAN , DRY
[2016-06-23] MEDS: INSULIN REGULAR, HUMAN 100 UNIT/ML 3 ML VIAL SQ PRN (17:56)
--- NOTE | 2016-06-23 18:00 | NUR ---
BARK SCALER NOTE PER DR TEDDY DE SOUZA TO D\C PATIENT TO SNF ,CALLED TO FACILITY REPORT GIVEN TO BHARATHI SEVILLA , AP TO LEAVE PICC LINE ,PATENT WILL HAVE IV ATB AT SNF
--- NOTE | 2016-06-23 18:19 | NUR ---
GUEST SERVICES ATTENDANT NOTE CALLED BROTHSUNDAY QUINTERO NOTIFIED THAT PATIENT WILL BE TRANSFER TO [facility]
--- NOTE | 2016-06-23 19:12 | NUR ---
PORTABLE GRINDING MACHINE OPERATOR NOTE AMBULANCE ARRIVED REPORT GIVEN
== END 2016-06-23 20:00 | DRG 4 ==
LOC: ER 17:25 → TELE 20:02 → MED 05-05 22:43 → ICU 05-06 19:03 → TELE1 05-27 21:25 → TELE-TD 06-03 18:17 → TELE1 06-07 11:59
PROVIDERS: ADMIT Internal Medicine; ATTEND Family Medicine
DX: I25.10 Atherosclerotic heart disease of native coronary artery without angina pectoris (principal); A41.9 Sepsis, unspecified organism; I46.9 Cardiac arrest, cause unspecified; R65.21 Severe sepsis with septic shock; G92 Toxic encephalopathy; N18.6 End stage renal disease; J96.00 Acute respiratory failure, unspecified whether with hypoxia or hypercapnia; J69.0 Pneumonitis due to inhalation of food and vomit; I24.9 Acute ischemic heart disease, unspecified; I12.0 Hypertensive chronic kidney disease with stage 5 chronic kidney disease or end stage renal disease; E46 Unspecified protein-calorie malnutrition; Q21.1 Atrial septal defect; J98.11 Atelectasis; T80.211A Bloodstream infection due to central venous catheter, initial encounter; A04.7 Enterocolitis due to Clostridium difficile; B37.0 Candidal stomatitis; G93.1 Anoxic brain damage, not elsewhere classified; I47.2 Ventricular tachycardia; I48.92 Unspecified atrial flutter; I50.32 Chronic diastolic (congestive) heart failure; I48.2 Chronic atrial fibrillation; J44.9 Chronic obstructive pulmonary disease, unspecified; E11.22 Type 2 diabetes mellitus with diabetic chronic kidney disease; Z99.2 Dependence on renal dialysis; I50.9 Heart failure, unspecified; E05.90 Thyrotoxicosis, unspecified without thyrotoxic crisis or storm; E11.42 Type 2 diabetes mellitus with diabetic polyneuropathy; Z89.511 Acquired absence of right leg below knee; D63.1 Anemia in chronic kidney disease; I27.2 Other secondary pulmonary hypertension; M19.90 Unspecified osteoarthritis, unspecified site; Z22.322 Carrier or suspected carrier of Methicillin resistant Staphylococcus aureus; M85.80 Other specified disorders of bone density and structure, unspecified site; E11.69 Type 2 diabetes mellitus with other specified complication; E66.9 Obesity, unspecified; G62.9 Polyneuropathy, unspecified; Z87.891 Personal history of nicotine dependence; I35.0 Nonrheumatic aortic (valve) stenosis; E78.5 Hyperlipidemia, unspecified; F41.9 Anxiety disorder, unspecified; L89.159 Pressure ulcer of sacral region, unspecified stage; E87.6 Hypokalemia; I34.0 Nonrheumatic mitral (valve) insufficiency; Y84.8 Other medical procedures as the cause of abnormal reaction of the patient, or of later complication, without mention of misadventure at the time of the procedure; Z87.01 Personal history of pneumonia (recurrent); Z93.0 Tracheostomy status; Z95.1 Presence of aortocoronary bypass graft
CPT/HCPCS: 31720; 36415; 36569; 36600; 43246; 70450-TC; 71010-TC; 71250-TC; 72192-TC; 74150-TC; 80048-TC; 80053-TC; 80074; 80150; 80162-TC; 80202-TC; 82533; 82803-TC; 82962-TC; 83735-TC; 84100-TC; 84484-TC; 85025-TC; 85610-TC; 85730-TC; 86706; 86850-TC; 86921-TC; 87040-TC; 87070-TC; 87081-TC; 87086-TC; 87186-TC; 87400; 90935-TC; 92950-TC; 93307-TC; 94002-TC; 94003-TC; 94640-TC; 94760-TC; 94799-TC; 95819-TC; 99082-TC; A4216; A4217; A4606; A6248; A6253; A6402; A6403; A7526; C1751; C9113; J0171; J0278; J0282; J0692; J0770; J0885; J1720; J1815; J1956; J2060; J2185; J2248; J2250; J2370; J2405; J2543; J2704; J3260; J3370; J3490; J7030; J7040; J7042; J7050; J7060; P9016-BL; P9047; Z7610

== ENCOUNTER 2016-09-23 11:22 | Inpatient (IN) | payer BC, OTHER ==
[~2016-09-23] VITALS: Ht 177.8 cm; Wt 103.4 kg
[2016-09-23] VITALS (28 sets, daily range): BP systolic 81–117; BP diastolic 46–64
[~2016-09-23 11:22] MED LIST changes: +ACET160S GT; +AMIN30LI26 GT; +CEFE1PIG3 IV; +CHOL500052 GT; +FOLI0.8T23 GT; +INSU100V SQ; +METR500P4 IV; +MICA100V IV; +NEOM15OI3 TP; +Nystatin PO; -RXVAN XX; +SEVE800T8 PO; +VANC125C11 NG; -VANC125C11 PO
--- NOTE | 2016-09-23 11:35 | NUR ---
[facility]. AT BASELINE LOC PER REPORT, WITHDRAWS FROM PAIN ONLY. SKIN WAMR NONDIAPHORETIC. RESPIRATIONS UNLABORED AND TACHYPNEIC ON VENT, SATURATING WELL ON ORDERED SETTINGS. 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 LLE NOTED WITH WOUNDS. R BKA PRESENT. BETO PICC PRESENT ON ARRIVAL. IN ER BED 09 ON MONITOR.
--- NOTE | 2016-09-23 11:51 | NUR ---
PT PLACED ON [facility] VENT VIA TRACH SIZE 8 XLT. BREATH SOUNDS CLEAR BILATERAL. VENT SETTINGS BELLOW PER RT TRANSPORTER: AC 12 VT 550 FIO2 40% PEEP +5 AMBUBAG @ BEDSIDEWITH ALARM ON AND AUDIBLE. Addendum: 09/23/16 at 1153 by GERMANIA MCKEON RT Amended: Links added.
[2016-09-23] MEDS ORDERED: IV NS 0.9% 1,000 ML ONE (12:04)
[2016-09-23] MEDS ORDERED: IV SET PRIMARY 1 EA INFUS.SET MC ONE ×2 (12:04→13:18)
[2016-09-23] MEDS ORDERED: LIDOCAINE 2% JEL UROJET 10 ML MM ONE (12:05)
[2016-09-23] MEDS ORDERED: OMEP40CA37 GT (12:10)
[2016-09-23] MEDS ORDERED: ATOR40TA GT (12:10)
[2016-09-23] MEDS ORDERED: AMIN30LI4 GT (12:10)
[2016-09-23] MEDS ORDERED: NUT.237L67 GT (12:10)
[2016-09-23] MEDS ORDERED: ZINC220C8 GT (12:10)
--- NOTE | 2016-09-23 12:12 | NUR ---
SEPSIS PROTOCOL IVF INITIATED AT THIS TIME PER MD. PER MD, ADMINISTER SLOWLY AND MONITOR RESPIRATORY STATUS.
[2016-09-23] MEDS ORDERED: VANCOMYCIN 1 GM in IV D5W 250 ML IV ONE ×2 (12:30→15:00)
[2016-09-23] MEDS ORDERED: PIPERACILLIN /TAZOBACTAM 3.375 G in IV D5W 50 ML IV ONE (12:30)
[2016-09-23] MEDS ORDERED: IV NS 0.9% 1,000 ML BAG IV ONE ×2 (12:30→15:00)
[2016-09-23 12:36] LABS: BILIRUBIN,URINE MODERATE (NEGATIVE); BLOOD, URINE Trace-lysed Ery/uL (NEGATIVE); COLOR,URINE Yellow (YELLOW); KETONES,URINE Negative (NEGATIVE); LEUKOCYTE ESTERASE ,URINE Negative (NEGATIVE); NITRITE, URINE Negative (NEGATIVE); PROTEIN,URINE >=300 mg/dl (NEGATIVE); UGLUCOSE 100 MG/DL mg/dL (NEGATIVE); UROBILINOGEN,URINE 0.2 EU/dL (0.2)
[2016-09-23 12:37] LABS: APPEARANCE,URINE HAZY (CLEAR)
[2016-09-23 12:45] LABS: WBC,URINE 0-2 /HPF (0-3)
[2016-09-23 12:46] LABS: BACTERIA,URINE Rare /HPF (None Seen); SQUAMOUS EPITHELIAL CELL,UR Few /HPF (None Seen)
--- NOTE | 2016-09-23 12:53 | NUR ---
CALLED [facility] NEPHROLOGY BILL PEDDLER DOCTOR TEDDY WAS PAGED.
[2016-09-23 12:54] LABS: BASOPHILS # (AUTO) 0.1 /CMM (0.0-0.2); BASOPHILS % (AUTO) 0.5 % (0.0-2.0); EOSINOPHILS # (AUTO) 0.4 /CMM (0.0-0.7); EOSINOPHILS % (AUTO) 2.7 % (0.0-6.0); HEMATOCRIT 27 % (39-51); HEMOGLOBIN 9.3 g/dL (13.5-17.5); LYMPHOCYTES # (AUTO) 1.7 /CMM (0.8-4.8); LYMPHOCYTES % (AUTO) 11.7 % (20.0-44.0); MEAN CORPUSCULAR HEMOGLOBIN 31 PG (26.0-33.0); MEAN CORPUSCULAR HGB CONC 34 g/dl (31.0-36.0); MEAN CORPUSCULAR VOLUME 91 fL (80-96); MONOCYTES # (AUTO) 1.4 /CMM (0.1-1.30); MONOCYTES % (AUTO) 9.7 % (2.0-12.0); NEUTROPHILS # (AUTO) 10.9 /CMM (1.8-8.9); NEUTROPHILS % (AUTO) 75.4 % (43.0-81.0); PLATELET COUNT (AUTO) 413 /CMM (150-450); RDW COEFFICIENT OF VARIATION 18.8 (11.5-15.0); RED BLOOD CELL COUNT(AUTO) 3.01 MIL/uL (4.5-6.0); WHITE BLOOD COUNT (AUTO) 14.5 K/uL (4.3-11.0)
[2016-09-23] MEDS ORDERED: IV SET PRIMARY PUMP SET 1 EA INFUS.SET MC ONE ×2 (12:56→17:32)
--- NOTE | 2016-09-23 13:02 | NUR ---
JAXON HERNANDEZIT TO [facility].
[2016-09-23 13:08] LABS: INR 1.21 (0.87-1.13); PROTHROMBIN TIME 12.7 SECS (9.5-12.7)
[2016-09-23 13:10] LABS: ALANINE AMINOTRANSFERASE 20 U/L (12-78); ALBUMIN 1.7 g/dL (3.4-5.0); ASPARTATE AMINOTRANSFERASE 71 U/L (15-37); BILIRUBIN,DIRECT 0.9 mg/dL (0.0-0.2); BILIRUBIN,TOTAL 1.2 mg/dL (0.2-1.0); CALCIUM, SERUM 9.8 mg/dL (8.5-10.1); CARBON DIOXIDE 21 mmol/L (21-32); CHLORIDE 102 mmol/L (98-107); CREATININE 4.6 mg/dL (0.6-1.3); GLUCOSE 172 mg/dL (74-106); POTASSIUM 3.6 mmol/L (3.5-5.1); SODIUM SERUM 137 mmol/L (136-145); TOTAL PROTEIN, SERUM 7.3 g/dL (6.4-8.2)
--- NOTE | 2016-09-23 13:10 | NUR ---
IVF ONGOING. SBP REMAINS LOW. MD AWARE. NO OTHER DISTRESS NOTED. RESP EVEN UNLABORED, THOUGH REMAINS SLIGHTLY TACHYPNEIC.
[2016-09-23 13:13] LABS: TROPONIN I 0.052 ng/mL (0.00-0.056); UREA NITROGEN, BLOOD 86 mg/dL (7-18)
[2016-09-23] MEDS ORDERED: IV NS 0.9% 2,000 ML ONE (13:18)
[2016-09-23] MEDS ORDERED: IV NS 0.9% 500 ML IV ONE (13:18)
--- NOTE | 2016-09-23 13:33 | NUR ---
CALLED [facility] QUALITY ASSURANCE AUDITOR DOCTOR WAS PAGED.
--- NOTE | 2016-09-23 13:59 | NUR ---
NOTIFIED MD OF PERSISTENT LOW BP DESPITE ALL FLUIDS HANGING RUNNING THROUGH MULTIPLE LINES
[2016-09-23] MEDS ORDERED: NOREPINEPHRINE 8 MG in IV D5W 500 ML IV PRN ×2 (14:00→15:00)
[2016-09-23 14:08] LABS: ALKALINE PHOSPHATASE 1244 U/L (46-116)
--- NOTE | 2016-09-23 14:41 | NUR ---
TOLERATING WELL ON 5MCG/MIN OF LEVOPHED. NAD NOTED. AWAITING BED ASSIGNMENT.
[2016-09-23] MEDS ORDERED: APIXABAN 2.5 MG TABLET GT SCH (15:00)
[2016-09-23] MEDS: TRAMADOL HCL 50 MG TABLET GT SCH ×2 (15:00→21:32)
[2016-09-23] MEDS ORDERED: METOPROLOL TARTRATE 25 MG TABLET GT SCH (15:00)
[2016-09-23] MEDS ORDERED: ACETAMINOPHEN 160 MG/5 ML GT PRN (15:00)
[2016-09-23] MEDS ORDERED: ONDANSETRON HCL/PF 4 MG/2 ML VIAL IVP PRN (15:00)
[2016-09-23 15:25] LABS: ALBUMIN 1.7 g/dL (3.4-5.0); BILIRUBIN,TOTAL 1.3 mg/dL (0.2-1.0); CALCIUM, SERUM 9.3 mg/dL (8.5-10.1); CREATININE 4.2 mg/dL (0.6-1.3); POTASSIUM 3.4 mmol/L (3.5-5.1); TOTAL PROTEIN, SERUM 7.2 g/dL (6.4-8.2)
--- NOTE | 2016-09-23 15:48 | NUR ---
REPORT GIVEN TO JOB RN FOR ADMISSION
[2016-09-23] MEDS ORDERED: RENAL NOVASOURCE 1,000 ML BOTTLE GT PRN (16:00)
[2016-09-23] MEDS ORDERED: FEE PK DOSING 1 MIN EA MC ONE (16:04)
--- NOTE | 2016-09-23 16:08 | NUR ---
TOLERATING WELL ON LEVO AT 5MCG. NAD NOTED. VS STABLE AT THIS TIME.
--- NOTE | 2016-09-23 16:17 | NUR ---
REPORT GIVEN TO JOB RN BY DESIRE SEVILLA, CONTINUE PLAN OF CARE
--- NOTE | 2016-09-23 16:31 | NUR ---
PT TRANSFERRED FROM ER#9 TO ICU 258 WITH SAME VENT SETTINGS BELLOW: AC12 VT 550 40% PEEP +5 VENT PLUGGED ON RED OUTLET WITH ALARMS ON AND AUDIBLE. PEARL GREENBERG @ BEDSIDE. Addendum: 09/23/16 at 1633 by GERMANIA MCKEON RT Amended: Links added.
[2016-09-23] MEDS: DOCUSATE SODIUM LIQ 100 MG/10 ML UDC GT SCH (17:00)
[2016-09-23] MEDS ORDERED: ACETAMINOPHEN 650 MG/20.3 ML UDC GT PRN (17:00)
[2016-09-23] MEDS ORDERED: IV NS 0.9% 250 ML IV ONE (17:32)
[2016-09-23] MEDS ORDERED: SECONDARY IV SET 1 EA INFUS.SET MC ONE ×2 (17:32→21:37)
[2016-09-23 17:33] LABS: ABG BASE EXCESS -8.6 mmol/L; ABG OXYGEN SATURATION 97.8 % (92.0-98.5); ABG PCO2 35.6 mmHg (35.0-45.0); ABG PH 7.298 (7.350-7.450); ABG PO2 129.7 mmHg (75.0-100.0); AaDO2 114.6 mmHg; COHb 0.5 % (0.5-1.5); O2Hb 96.3 % (94.0-97.0); PEEP,BG 5 cm H2O; SITE, ABG Right Radial; VT, ABG 550 mL
--- NOTE | 2016-09-23 17:33 | NUR ---
RT NOTE: RT WAS NOT NOTIFIED BY ER STAFF OR NURSE THAT PATIENT HAD PENDING ABG ORDER. UPON ARRIVAL IN ICU, PATIENT'S ORDERS WERE REVIEW AND ABG WAS DONE AT THIS TIME AND REPORTED TO DI KOCH.
[2016-09-23] MEDS ORDERED: PIPERACILLIN /TAZOBACTAM 3.375 G in IV D5W 50 ML IV SCH (18:00)
[2016-09-23] MEDS: GABAPENTIN 100 MG CAPSULE GT SCH ×2 (18:16→21:31)
[2016-09-23] MEDS: ZINC SULFATE 220 MG CAPSULE GT SCH (18:16)
[2016-09-23] MEDS: PANTOPRAZOLE 40 MG VIAL IV SCH (18:16)
[2016-09-23] MEDS: PIPERACILLIN /TAZOBACTAM 2.25 G in IV D5W 50 ML IV SCH (18:17)
[2016-09-23] MEDS: ACIDOPHILUS/BULGARICUS 1 EACH TAB.CHEW GT SCH (18:17)
[2016-09-23] MEDS: PROSOURCE / PROSTAT (PYXIS) 30 ML UDC GT SCH (18:19)
--- NOTE | 2016-09-23 18:26 | NUR ---
PATIENT RECEIVED IN ICU WITH SHILEY #6 XL DISTAL TRACH AND PLACED ON MECHANICAL VENT. ALARMS VERIFIED AND AUDIBLE. SUCTIONED AND LAVAGED LARGE AMOUNT OF THICK JEFFERSON SECRETIONS. VENT PLUGGED INTO RED OUTLET. AMBU BAG AT [facility].
--- NOTE | 2016-09-23 20:00 | NUR ---
JACKSCREW MAN PLEASE VOID CHARTING ON NURSING FLOWSHEETS IN REGARDS TO OFFLOADING BOTH HEELS . ONLY LEFT HEEL WAS OFFLOADED.
[2016-09-23] MEDS: NOREPINEPHRINE 16 MG in IV D5W 500 ML IV PRN (20:56)
[2016-09-23] MEDS ORDERED: Medication Not On Formulary EA (Omeprazole 40 MG) GT SCH (21:00)
[2016-09-23] MEDS: ATORVASTATIN 40 MG TABLET GT SCH (21:31)
[2016-09-23] MEDS: COLISTIMETHATE SODIUM 100 MG in IV NS 0.9% 50 ML IV SCH (21:32)
[2016-09-24] VITALS (91 sets, daily range): BP systolic 79–122; BP diastolic 39–81
[2016-09-24] MEDS: PIPERACILLIN /TAZOBACTAM 2.25 G in IV D5W 50 ML IV SCH ×5 (00:20→23:24)
[2016-09-24 05:10] LABS: BASOPHILS # (AUTO) 0.1 /CMM (0.0-0.2); BASOPHILS % (AUTO) 0.6 % (0.0-2.0); EOSINOPHILS # (AUTO) 0.7 /CMM (0.0-0.7); HEMATOCRIT 27 % (39-51); HEMOGLOBIN 9.1 g/dL (13.5-17.5); LYMPHOCYTES # (AUTO) 2.4 /CMM (0.8-4.8); LYMPHOCYTES % (AUTO) 13.3 % (20.0-44.0); MEAN CORPUSCULAR HEMOGLOBIN 30 PG (26.0-33.0); MEAN CORPUSCULAR HGB CONC 33 g/dl (31.0-36.0); MEAN CORPUSCULAR VOLUME 91 fL (80-96); MONOCYTES % (AUTO) 11.2 % (2.0-12.0); NEUTROPHILS # (AUTO) 12.8 /CMM (1.8-8.9); NEUTROPHILS % (AUTO) 70.9 % (43.0-81.0); PLATELET COUNT (AUTO) 392 /CMM (150-450); RED BLOOD CELL COUNT(AUTO) 2.99 MIL/uL (4.5-6.0)
[2016-09-24 05:30] LABS: ALBUMIN 1.6 g/dL (3.4-5.0); BILIRUBIN,TOTAL 1.3 mg/dL (0.2-1.0); CALCIUM, SERUM 9.2 mg/dL (8.5-10.1); CREATININE 4.5 mg/dL (0.6-1.3); POTASSIUM 3.8 mmol/L (3.5-5.1)
--- NOTE | 2016-09-24 06:19 | NUR ---
COMMUNICATION ANALYST PLACED PT ON [employer] . SACRAL WOUND CARE DONE. MODERATE SANGUINOUS DRAINAGE NOTED. PT TOLERATED WELL.
--- NOTE | 2016-09-24 06:29 | NUR ---
RT END OF THE SHIFT REPORT, PATIENT REMAIN TRACH SHILEY # 6 ON VENT. . ALARMS VERIFIED AND AUDIBLE. SUCTIONED AND LAVAGED MODERATE-LARGE AMOUNT OF THICK JEFFERSON SECRETIONS VIA ETT B/S RHONCHI BILATERALLY AND . VENT PLUGGED INTO RED OUTLET. AMBU BAG AT HOB. NO DISTRESS NOTED T/O NIGHT REPORT WILL PASS TO AM SHIFT. Addendum: 09/24/16 at 0631 by KIMMY KEVIN RT Amended: Links added.
[2016-09-24] MEDS: DOCUSATE SODIUM LIQ 100 MG/10 ML UDC GT SCH ×2 (08:31→15:08)
[2016-09-24] MEDS: TRAMADOL HCL 50 MG TABLET GT SCH ×2 (08:31→21:40)
[2016-09-24] MEDS: VIT B CMPLX 3/FA/VIT C/BIOTIN 1 TAB TABLET GT SCH (08:38)
[2016-09-24] MEDS: ACIDOPHILUS/BULGARICUS 1 EACH TAB.CHEW GT SCH ×2 (08:38→16:33)
[2016-09-24] MEDS: ZINC SULFATE 220 MG CAPSULE GT SCH (08:38)
[2016-09-24] MEDS: PANTOPRAZOLE 40 MG VIAL IV SCH (08:38)
[2016-09-24] MEDS: GABAPENTIN 100 MG CAPSULE GT SCH ×2 (08:38→21:40)
[2016-09-24] MEDS: PROSOURCE / PROSTAT (PYXIS) 30 ML UDC GT SCH ×2 (08:45→16:33)
[2016-09-24] MEDS: COLISTIMETHATE SODIUM 100 MG in IV NS 0.9% 50 ML IV SCH (09:37)
--- NOTE | 2016-09-24 11:00 | NUR ---
SOLE CEMENTER- OBTAINED TELEPHONE CONSENT FOR SACRAL DEBRIDEMENT WITH PT'S BROTHER, INGRID PARKER. VERIFIED WITH MANI RN. CONSENT PLACED IN PT'S CHART. WILL CONTINUE TO MONITOR.
--- NOTE | 2016-09-24 11:45 | NUR ---
DIGITAL LEARNING PLATFORMS MANAGER- PT HAS HAD 3 EPISODES OF LOOSE STOOL. SAMPLE COLLECTED FOR C-DIFF. PT PLACED ON CONTACT ISOLATION. WILL CONTINUE TO MONITOR.
[2016-09-24] MEDS ORDERED: SILVER NITRATE APPLICATOR 1 EA BOX TP ONE (12:00)
[2016-09-24] MEDS ORDERED: LIDOCAINE 2%-EPI 1:100,000 30 ML VIAL TP ONE (12:00)
--- NOTE | 2016-09-24 12:00 | NUR ---
BI TRI OPERATOR- NON-ADMINISTERED SILVER NITRATE & LIDOCAINE. PT TO GET SACRAL DEBRIDEMENT ON TUESDAY 09/26 AND BOTH MEDS ARE TO BE USED THEN. MEDS PLACED AT BEDSIDE. WILL CONTINUE TO MONITOR.
[2016-09-24] MEDS: DAKINS QUARTER STRENGTH (0.125%) 480 ML BOTTLE TOP SCH (13:27)
--- NOTE | 2016-09-24 14:14 | NUR ---
CLASS A LINEMAN- Janet RICHARDS CONE CLEANER AT BEDSIDE. INFORMED HIM PT HAS HAD 3 EPISODES OF LOOSE STOOL. C-DIFF CULTURE IS PENDING AND I.D. ALREADY ON CASE. OBTAINED ORDER TO INSERT FLEXI-SEAL. ALSO INFORMED Janet RICHARDS PT DIABETIC AND NOT ON ACCUCHECKS. OK TO ORDER INSULIN SLIDING SCALE. ORDERS PLACED. WILL CONTINUE TO MONITOR.
[2016-09-24] MEDS ORDERED: DEXTROSE 50%-WATER 50 ML DISP.SYRIN IV PRN (14:30)
--- NOTE | 2016-09-24 14:50 | NUR ---
MANAGER DEPARTMENT- SPOKE TO PLAYBACK OPERATOR. PER PLAYBACK OPERATOR, CHANGE PROSTAT FROM BID TO TID. ALSO, DECREASE RATE OF NOVASOURCE FROM 50 ML/HR TO 35 ML/HR. ORDERS PLACED. WILL CONTINUE TO MONITOR.
[2016-09-24] MEDS ORDERED: EPOETIN ALFA (10,000 UNIT) 10,000 UNIT/ML VIAL IV ONE (15:00)
[2016-09-24] MEDS ORDERED: VANCOMYCIN 1 GM in IV D5W 250ml IV SCH (15:00)
[2016-09-24] MEDS ORDERED: IV NS 0.9% 250 ML IV ONE (16:21)
[2016-09-24] MEDS: COLISTIMETHATE SODIUM 75 MG in IV NS 0.9% 50 ML IV SCH (16:33)
[2016-09-24] MEDS: RENAL NOVASOURCE 1,000 ML BOTTLE GT PRN (16:37)
[2016-09-24] MEDS: IV NS 0.9% 250 ML IV PRN (16:37)
[2016-09-24] MEDS: BLOOD SUGAR DIAGNOSTIC 1 EACH STRIP IN SCH ×2 (17:27→23:24)
[2016-09-24] MEDS: VANCOMYCIN HCL 125 MG/2.5 ML ORAL.SUSP PO SCH ×2 (17:28→23:26)
[2016-09-24] MEDS: INSULIN REGULAR, HUMAN 100 UNIT/ML 3 ML VIAL SQ PRN ×2 (17:34→23:41)
[2016-09-24] MEDS ORDERED: SECONDARY IV SET 1 EA INFUS.SET MC ONE (17:36)
[2016-09-24] MEDS: ATORVASTATIN 40 MG TABLET GT SCH (21:40)
[2016-09-24] MEDS: NOREPINEPHRINE 16 MG in IV D5W 500 ML IV PRN (23:27)
[2016-09-25] VITALS (102 sets, daily range): BP systolic 79–123; BP diastolic 33–72
[2016-09-25 04:36] LABS: BASOPHILS # (AUTO) 0.1 /CMM (0.0-0.2); BASOPHILS % (AUTO) 0.5 % (0.0-2.0); EOSINOPHILS # (AUTO) 1.1 /CMM (0.0-0.7); EOSINOPHILS % (AUTO) 6.7 % (0.0-6.0); HEMATOCRIT 26 % (39-51); HEMOGLOBIN 8.5 g/dL (13.5-17.5); LYMPHOCYTES # (AUTO) 2.2 /CMM (0.8-4.8); LYMPHOCYTES % (AUTO) 13.5 % (20.0-44.0); MEAN CORPUSCULAR HEMOGLOBIN 30 PG (26.0-33.0); MEAN CORPUSCULAR HGB CONC 33 g/dl (31.0-36.0); MEAN CORPUSCULAR VOLUME 91 fL (80-96); MONOCYTES # (AUTO) 2.2 /CMM (0.1-1.30); MONOCYTES % (AUTO) 13.4 % (2.0-12.0); NEUTROPHILS # (AUTO) 10.6 /CMM (1.8-8.9); NEUTROPHILS % (AUTO) 65.9 % (43.0-81.0); PLATELET COUNT (AUTO) 319 /CMM (150-450); RDW COEFFICIENT OF VARIATION 19.9 (11.5-15.0); RED BLOOD CELL COUNT(AUTO) 2.84 MIL/uL (4.5-6.0)
[2016-09-25 04:54] LABS: CALCIUM, SERUM 8.7 mg/dL (8.5-10.1); CREATININE 3.5 mg/dL (0.6-1.3); POTASSIUM 3.2 mmol/L (3.5-5.1)
--- NOTE | 2016-09-25 05:46 | NUR ---
RT NOTE: PATIENT RECEIVED WITH #6 SHILEY DISTAL XL TRACH ON MECHANICAL VENT. SETTINGS NOTED. ALARMS VERIFIED AND AUDIBLE. SUCTIONED AND LAVAGED MODERATE-LARGE AMOUNT OF THICK JEFFERSON SECRETIONS. VENT PLUGGED INTO RED OUTLET. AMBU BAG AT [facility].
[2016-09-25] MEDS: PIPERACILLIN /TAZOBACTAM 2.25 G in IV D5W 50 ML IV SCH ×3 (05:47→17:21)
[2016-09-25] MEDS: BLOOD SUGAR DIAGNOSTIC 1 EACH STRIP IN SCH ×3 (05:49→17:21)
[2016-09-25] MEDS: INSULIN REGULAR, HUMAN 100 UNIT/ML 3 ML VIAL SQ PRN ×3 (05:55→17:25)
[2016-09-25] MEDS: VANCOMYCIN HCL 125 MG/2.5 ML ORAL.SUSP PO SCH ×3 (06:05→17:21)
--- NOTE | 2016-09-25 06:47 | NUR ---
BARREL LOADER AND CLEANER : PT TOLERATED AM CARE WELL. NO CHANGES NOTED THROUGHOUT THE SHIFT.
--- NOTE | 2016-09-25 07:18 | NUR ---
PATIENT REC'D TRACHED ON [facility] VENT WITH SETTINGS SET PER MD ENEDELIA CORDERO. VENT ALARMS CHECKED + AUDIBLE. CUFF PRESSURE CHECKED LOOM SETTER FOURDRINIER. TRACH SECURE AND IN PROPER POSITION. VENT PLUGGED INTO RED OUTLET. B/S DIM COARSE. SX'D WITH SM/MD SALVADOR PALE SEMITHICK SECRETIONS. PATIENT IN CRITICAL CONDITION. AMBU BAG AT [facility]. CONT CURRENT PLAN OF RESP CARE. Addendum: 09/25/16 at 1144 by AMIRAH MINA RT Amended: Links added.
[2016-09-25] MEDS: DOCUSATE SODIUM LIQ 100 MG/10 ML UDC GT SCH ×2 (07:46→16:09)
[2016-09-25] MEDS: TRAMADOL HCL 50 MG TABLET GT SCH ×2 (07:47→20:45)
[2016-09-25] MEDS: GABAPENTIN 100 MG CAPSULE GT SCH ×2 (08:09→20:43)
[2016-09-25] MEDS: ZINC SULFATE 220 MG CAPSULE GT SCH (08:09)
[2016-09-25] MEDS: DAKINS QUARTER STRENGTH (0.125%) 480 ML BOTTLE TOP SCH (08:09)
[2016-09-25] MEDS: ACIDOPHILUS/BULGARICUS 1 EACH TAB.CHEW GT SCH ×2 (08:09→16:09)
[2016-09-25] MEDS: PROSOURCE / PROSTAT (PYXIS) 30 ML UDC GT SCH ×3 (08:09→16:09)
[2016-09-25] MEDS: PANTOPRAZOLE 40 MG VIAL IV SCH (08:09)
[2016-09-25] MEDS: VIT B CMPLX 3/FA/VIT C/BIOTIN 1 TAB TABLET GT SCH (08:09)
[2016-09-25 08:29] LABS: ABG BASE EXCESS -4.1 mmol/L; ABG PCO2 32.1 mmHg (35.0-45.0); ABG PH 7.409 (7.350-7.450); ABG PO2 124.1 mmHg (75.0-100.0); AaDO2 124.2 mmHg; COHb 0.3 % (0.5-1.5); MetHb 0.4 % (0.0-1.5); O2Hb 97.3 % (94.0-97.0); PEEP,BG 5 cm H2O; SITE, ABG Right Brachial; VT, ABG 550 mL
[2016-09-25] MEDS: NOREPINEPHRINE 16 MG in IV D5W 500 ML IV PRN (10:18)
[2016-09-25] MEDS ORDERED: POTASSIUM CHLORIDE 20 MEQ TAB.PRT.SR PO ONE ×2 (11:30→11:50)
[2016-09-25] MEDS: COLISTIMETHATE SODIUM 75 MG in IV NS 0.9% 50 ML IV SCH (13:30)
--- NOTE | 2016-09-25 15:30 | NUR ---
1530- DR. ARMON AT BEDSIDE. UPDATED ON PT'S CONDITION. INFORMED MD C-DIFF RESULTS NEGATIVE BUT STILL WANTS TO KEEP PT ON CONTACT ISOLATION. WILL CONTINUE TO MONITOR.
[2016-09-25] MEDS: RENAL NOVASOURCE 1,000 ML BOTTLE GT PRN (16:09)
[2016-09-25] MEDS: IV NS 0.9% 250 ML IV PRN (16:09)
[2016-09-25] MEDS: Z GUARD REMEDY 2 OZ OINT TP PRN (16:10)
--- NOTE | 2016-09-25 20:00 | NUR ---
Received patient obtunded.Physical assessment done.See ICU flow sheet.Continued on same vent settings and well tolerated.SR with in and out afib.Levophed drip infusing @ 15 mcg/min for BP support and will titrate accordingly.GT feeding infusing no residual noted.No acute distress noted.Will turn and reposition Q 2 hrs off loading pressure points.Contact Isolation observed.
[2016-09-25] MEDS: LORAZEPAM INJ 2 MG/ML VIAL IVP PRN (21:15)
[2016-09-25] MEDS: ATORVASTATIN 40 MG TABLET GT SCH (22:10)
[2016-09-26] VITALS (105 sets, daily range): BP systolic 75–134; BP diastolic 34–82
[2016-09-26] MEDS: PIPERACILLIN /TAZOBACTAM 2.25 G in IV D5W 50 ML IV SCH ×4 (00:02→17:10)
[2016-09-26] MEDS: VANCOMYCIN HCL 125 MG/2.5 ML ORAL.SUSP PO SCH ×4 (00:02→17:10)
[2016-09-26] MEDS: BLOOD SUGAR DIAGNOSTIC 1 EACH STRIP IN SCH ×4 (00:09→17:10)
[2016-09-26] MEDS: INSULIN REGULAR, HUMAN 100 UNIT/ML 3 ML VIAL SQ PRN ×4 (00:10→17:13)
[2016-09-26] MEDS: NOREPINEPHRINE 16 MG in IV D5W 500 ML IV PRN ×2 (03:18→16:23)
[2016-09-26 05:14] LABS: CREATININE 4.1 mg/dL (0.6-1.3); POTASSIUM 3.8 mmol/L (3.5-5.1)
--- NOTE | 2016-09-26 06:41 | NUR ---
Patient resting.VS stable.GT feeding well tolerated.Blood sugar monitored Q 6 hrs and coverage administered per sliding scale.No acute distress noted.Turned and repositioned.
[2016-09-26 07:54] LABS: BASOPHILS # (AUTO) 0.1 /CMM (0.0-0.2); BASOPHILS % (AUTO) 0.8 % (0.0-2.0); EOSINOPHILS # (AUTO) 1.2 /CMM (0.0-0.7); EOSINOPHILS % (AUTO) 7.3 % (0.0-6.0); HEMATOCRIT 27 % (39-51); HEMOGLOBIN 9.1 g/dL (13.5-17.5); LYMPHOCYTES # (AUTO) 2.7 /CMM (0.8-4.8); MEAN CORPUSCULAR HEMOGLOBIN 30 PG (26.0-33.0); MEAN CORPUSCULAR HGB CONC 33 g/dl (31.0-36.0); MEAN CORPUSCULAR VOLUME 91 fL (80-96); MONOCYTES # (AUTO) 1.6 /CMM (0.1-1.30); MONOCYTES % (AUTO) 9.7 % (2.0-12.0); NEUTROPHILS # (AUTO) 11.1 /CMM (1.8-8.9); NEUTROPHILS % (AUTO) 66.2 % (43.0-81.0); PLATELET COUNT (AUTO) 353 /CMM (150-450); RDW COEFFICIENT OF VARIATION 20.2 (11.5-15.0); RED BLOOD CELL COUNT(AUTO) 3.01 MIL/uL (4.5-6.0); WHITE BLOOD COUNT (AUTO) 16.8 K/uL (4.3-11.0)
[2016-09-26] MEDS: DOCUSATE SODIUM LIQ 100 MG/10 ML UDC GT SCH ×2 (07:56→16:13)
[2016-09-26] MEDS: ZINC SULFATE 220 MG CAPSULE GT SCH (08:01)
[2016-09-26] MEDS: PROSOURCE / PROSTAT (PYXIS) 30 ML UDC GT SCH ×3 (08:01→16:24)
[2016-09-26] MEDS: PANTOPRAZOLE 40 MG VIAL IV SCH (08:01)
[2016-09-26] MEDS: ACIDOPHILUS/BULGARICUS 1 EACH TAB.CHEW GT SCH ×2 (08:01→16:24)
[2016-09-26] MEDS: GABAPENTIN 100 MG CAPSULE GT SCH ×2 (08:01→20:45)
[2016-09-26] MEDS: DAKINS QUARTER STRENGTH (0.125%) 480 ML BOTTLE TOP SCH (08:02)
--- NOTE | 2016-09-26 08:18 | NUR ---
PATIENT REC'D TRACHED ON [facility] VENT WITH SETTINGS SET PER MD ENEDELIA CORDERO. VENT ALARMS CHECKED + AUDIBLE. CUFF PRESSURE CHECKED SENIOR OPERATIONS MANAGER. TRACH SECURE AND IN PROPER POSITION. VENT PLUGGED INTO RED OUTLET. B/S DIM COARSE. SX'D WITH SM/MD SALVADOR PALE SEMITHICK SECRETIONS. PATIENT IN CRITICAL CONDITION. AMBU BAG AT [facility]. CONT CURRENT PLAN OF RESP CARE. Addendum: 09/26/16 at 0819 by AMIRAH MINA RT Amended: Links added.
[2016-09-26] MEDS ORDERED: EPOETIN ALFA (10,000 UNIT) 10,000 UNIT/ML VIAL SQ ONE (09:00)
[2016-09-26] MEDS: TRAMADOL HCL 50 MG TABLET GT SCH ×2 (09:00→20:44)
[2016-09-26] MEDS: ERGOCALCIFEROL (VITAMIN D 2) 50,000 UNIT CAPSULE GT SCH (09:00)
--- NOTE | 2016-09-26 09:20 | NUR ---
PAPERHANGER ASSISTANT- DR. CABALLERO AT BEDSIDE. UPDATED ON PT'S CONDITION. PER MD, CONTACT DR. BOLAÑOS TO CHANGE PT'S TRACH DUE TO AIR LEAK. 1260- CALLED AND LEFT MESSAGE TO DR. BOLAÑOS'S OFFICE ON DR. CABALLERO'S REQUEST. MD CURRENTLY IN SURGERY BUT THEY WILL RELAY MESSAGE TO DR. BOLAÑOS. WILL CONTINUE TO MONITOR.
[2016-09-26] MEDS: VIT B CMPLX 3/FA/VIT C/BIOTIN 1 TAB TABLET GT SCH (09:33)
[2016-09-26 10:12] LABS: BAND % (MANUAL) 8 % (0.0-5.0); EOSINOPHILS % (MANUAL) 7 % (0-4); LYMPHOCYTES % (MANUAL) 6 % (16-48); MONOCYTES % (MANUAL) 5 % (0-11.0); NEUTROPHILS % (MANUAL) 74 (42-76)
--- NOTE | 2016-09-26 13:45 | NUR ---
CHURN DRILLER- PHARMACIST CALLED AND UPDATED HER THAT PT IS STILL GETTING DIALYSIS. PER PHARMACIST, DO NOT GIVE VANCOMYCIN TODAY POST DIALYSIS DUE TO VANCO TROUGH= 20 THIS AM. VANCO TROUGH TO BE DRAWN AGAIN TOMORROW MORNING. WILL CONTINUE TO MONITOR.
[2016-09-26] MEDS ORDERED: IV NS 0.9% 1,000 ML ONE (13:46)
--- NOTE | 2016-09-26 14:00 | NUR ---
LAND DEVELOPER- MEDS GIVEN LATE DUE TO DIALYSIS. WILL ADMINISTER MEDS ORDERED. WILL CONTINUE TO MONITOR.
--- NOTE | 2016-09-26 14:00 | NUR ---
FINANCIAL SERVICES INTERN- HD STARTED AT 110. 1400- HD COMPLETED. BP FLUCTUATING. LEVO WAS INCREASED AND FLUIDS WERE GIVEN. 1.2 L WAS TAKEN OUT. WILL CONTINUE TO MONITOR. Addendum: 09/26/16 at 1609 by SURESH KHAN RN ERROR: HD STARTED AT 1100.
[2016-09-26] MEDS: COLISTIMETHATE SODIUM 75 MG in IV NS 0.9% 50 ML IV SCH (14:50)
--- NOTE | 2016-09-26 15:00 | NUR ---
MAJOR ACCOUNT REPRESENTATIVE- DR. DOS SANTOS AT BEDSIDE. NEW ORDERS OBTAINED FOR SPUTUM & WOUND CULTURES. WILL CONTINUE TO MONITOR.
--- NOTE | 2016-09-26 15:45 | NUR ---
FIO2 INCREASED TO 60% FOR PATIENT DESATURATION Addendum: 09/26/16 at 1546 by AMIRAH MINA RT Amended: Links added.
--- NOTE | 2016-09-26 15:45 | NUR ---
APPLICATIONS INSTRUCTOR- DR. GUERIN & Emily MCQUEEN MARKETING PROGRAMS MANAGER AT BEDSIDE COMPLETED SACRAL WOUND DEBRIDEMENT. DR. GUERIN COLLECTED WOUND CULTURE. WILL SEND TO LAB. PT TOLERATED WELL. WILL CONTINUE TO MONITOR.
[2016-09-26] MEDS: RENAL NOVASOURCE 1,000 ML BOTTLE GT PRN (16:23)
[2016-09-26] MEDS: IV NS 0.9% 250 ML IV PRN (16:24)
[2016-09-26] MEDS: LORAZEPAM INJ 2 MG/ML VIAL IVP PRN (16:24)
[2016-09-26] MEDS: ATORVASTATIN 40 MG TABLET GT SCH (20:45)
[2016-09-27] VITALS (86 sets, daily range): BP systolic 48–136; BP diastolic 31–88
--- NOTE | 2016-09-27 | NUR ---
WIND FIELD MANAGER PT TEMP ELEVATED AT 100.1 , COOLINF MEASURES DONE. WILL CONT TO MONITOR.
[2016-09-27] MEDS: BLOOD SUGAR DIAGNOSTIC 1 EACH STRIP IN SCH ×5 (00:17→23:00)
[2016-09-27] MEDS: PIPERACILLIN /TAZOBACTAM 2.25 G in IV D5W 50 ML IV SCH ×5 (00:18→23:00)
[2016-09-27] MEDS: VANCOMYCIN HCL 125 MG/2.5 ML ORAL.SUSP PO SCH ×5 (00:20→23:00)
[2016-09-27] MEDS: INSULIN REGULAR, HUMAN 100 UNIT/ML 3 ML VIAL SQ PRN ×5 (00:37→23:12)
[2016-09-27] MEDS: NOREPINEPHRINE 16 MG in IV D5W 500 ML IV PRN ×2 (03:18→14:13)
[2016-09-27 04:56] LABS: BASOPHILS # (AUTO) 0.1 /CMM (0.0-0.2); BASOPHILS % (AUTO) 0.7 % (0.0-2.0); EOSINOPHILS # (AUTO) 1.2 /CMM (0.0-0.7); EOSINOPHILS % (AUTO) 6.2 % (0.0-6.0); HEMATOCRIT 28 % (39-51); HEMOGLOBIN 9.3 g/dL (13.5-17.5); LYMPHOCYTES # (AUTO) 2.2 /CMM (0.8-4.8); LYMPHOCYTES % (AUTO) 11.4 % (20.0-44.0); MEAN CORPUSCULAR HEMOGLOBIN 31 PG (26.0-33.0); MEAN CORPUSCULAR HGB CONC 34 g/dl (31.0-36.0); MEAN CORPUSCULAR VOLUME 91 fL (80-96); MONOCYTES % (AUTO) 10.4 % (2.0-12.0); NEUTROPHILS # (AUTO) 13.5 /CMM (1.8-8.9); NEUTROPHILS % (AUTO) 71.3 % (43.0-81.0); PLATELET COUNT (AUTO) 318 /CMM (150-450); RED BLOOD CELL COUNT(AUTO) 3.04 MIL/uL (4.5-6.0)
[2016-09-27 05:29] LABS: CALCIUM, SERUM 8.9 mg/dL (8.5-10.1); MAGNESIUM 1.9 mg/dL (1.8-2.4); PHOSPHORUS 4.5 mg/dL (2.5-4.9); POTASSIUM 3.7 mmol/L (3.5-5.1)
[2016-09-27] MEDS: PANTOPRAZOLE 40 MG VIAL IV SCH (08:18)
[2016-09-27] MEDS: TRAMADOL HCL 50 MG TABLET GT SCH ×2 (08:18→20:00)
[2016-09-27] MEDS: ACIDOPHILUS/BULGARICUS 1 EACH TAB.CHEW GT SCH ×2 (08:18→16:46)
[2016-09-27] MEDS: GABAPENTIN 100 MG CAPSULE GT SCH ×2 (08:18→20:00)
[2016-09-27] MEDS: DAKINS QUARTER STRENGTH (0.125%) 480 ML BOTTLE TOP SCH (08:19)
[2016-09-27] MEDS: DOCUSATE SODIUM LIQ 100 MG/10 ML UDC GT SCH ×2 (08:19→16:46)
[2016-09-27] MEDS: ZINC SULFATE 220 MG CAPSULE GT SCH (08:21)
[2016-09-27] MEDS: VIT B CMPLX 3/FA/VIT C/BIOTIN 1 TAB TABLET GT SCH (08:21)
[2016-09-27] MEDS: PROSOURCE / PROSTAT (PYXIS) 30 ML UDC GT SCH ×3 (08:22→16:46)
--- NOTE | 2016-09-27 09:14 | NUR ---
CALLED DR. BOLAÑOS OFFICE [phone], SPOKE WITH NOTCHER ASKING IF DR. BOLAÑOS IS AWARE OF THE PT NEEDING CUFF CHANGE. SHE STATES THAT DR. CHACON IS LASER PRINT OPERATOR FOR DR. BOLAÑOS RIGHT NOW AND SHE WILL PASS THE CONSULTATION INFORMATION TO HIM.
[2016-09-27] MEDS ORDERED: SECONDARY IV SET 1 EA INFUS.SET MC ONE ×2 (11:14→22:54)
[2016-09-27] MEDS: COLISTIMETHATE SODIUM 75 MG in IV NS 0.9% 50 ML IV SCH (11:55)
--- NOTE | 2016-09-27 12:07 | NUR ---
CALLED DR BOLAÑOS OFFICE AGAIN TO FOLLOW UP WITH ETA FOR TRACHE REPLACEMENT. THEY STATE THAT HE IS IN THE OFFICE SEEING PATIENTS, THEY WILL RELAY THE MESSAGE AGAIN TO HIM AND TO AWAIT CALL BACK. HE WILL BE DONE SEEING PT'S AT 1330.
--- NOTE | 2016-09-27 15:38 | NUR ---
CALLED DR. BOLAÑOS'S OFFICE AGAIN TO FOLLOW UP THE TRACHE REPLACEMENT. THIS TIME THEY GAVE ME THE NUMBER TO THE [facility] OFFICE [phone] AND TOLD ME TO FOLLOW UP WITH DR. MAUDE CHACON, CALLED [place] OFFICE SPOKE WITH ANOTHER SCRUB NURSE WHO STATES THAT HE IS SEEING PATIENTS RIGHT NOW AND WILL BE DONE BY 6PM. THEY TOOK DOWN THE PT'S INFORMATION AND INSURANCE AND SCRUB NURSE STATE HE WILL PASS THE WORD ON TO HIM.
[2016-09-27] MEDS: VANCOMYCIN 1 GM in IV D5W 250 ML IV PRN (16:46)
[2016-09-27] MEDS: HYDROCORTISONE SOD SUCCINATE 100 MG/2 ML VIAL IV SCH (17:16)
--- NOTE | 2016-09-27 18:36 | NUR ---
PER PHARMACY GIVE A DOSE OF VANCO TODAY. VANCO TROUGH IS 16, LAST DOSE IS HELD DUE TO TROUGH OF 20. THEY ARE AWARE HE DID NOT HAVE HD TODAY AND HE IS SCHEDULED FOR TOMORROW.
--- NOTE | 2016-09-27 21:52 | NUR ---
PT RECEIVED TRACHED ON VENT. NO RESP DISTRESS NOTED. PT TOLERATING VENT SETTINGS. NOTICED LEAK IN TRACH CUFF. PT GETTING GOOD VOLUME. RN AWARE. SX'D FOR MOD AMT OF THICK PALE SECRETIONS. VENT ALARMS SET AND AUDIBLE. AMBU BAG AT [facility]. VENT PLUGGED INTO RED OUTLET. WILL CONTINUE TO MONITOR. Addendum: 09/27/16 at 2155 by SUSANA VALDIVIA RT Amended: Links added.
[2016-09-27] MEDS: ATORVASTATIN 40 MG TABLET GT SCH (22:57)
[2016-09-27] MEDS: IV NS 0.9% 250 ML IV PRN (22:59)
[2016-09-28] VITALS (69 sets, daily range): BP systolic 80–127; BP diastolic 42–78
[2016-09-28] MEDS: RENAL NOVASOURCE 1,000 ML BOTTLE GT PRN ×2 (03:01→22:07)
--- NOTE | 2016-09-28 03:37 | NUR ---
RANGELAND MANAGEMENT SPECIALIST BED BATH GIVEN . PT TOLERATED WELL. TRACH STILL HAS LEAK AT TIMES AND NEEDS CUFF TO BE REINFLATED . WILL CONT TO MONITOR.
[2016-09-28 04:36] LABS: HEMATOCRIT 28 % (39-51); HEMOGLOBIN 9.2 g/dL (13.5-17.5); LYMPHOCYTES # (AUTO) 0.7 /CMM (0.8-4.8); LYMPHOCYTES % (AUTO) 4.1 % (20.0-44.0); MEAN CORPUSCULAR HEMOGLOBIN 30 PG (26.0-33.0); MEAN CORPUSCULAR HGB CONC 33 g/dl (31.0-36.0); MEAN CORPUSCULAR VOLUME 90 fL (80-96); MONOCYTES # (AUTO) 0.4 /CMM (0.1-1.30); MONOCYTES % (AUTO) 2.3 % (2.0-12.0); NEUTROPHILS # (AUTO) 15.8 /CMM (1.8-8.9); NEUTROPHILS % (AUTO) 93.6 % (43.0-81.0); PLATELET COUNT (AUTO) 303 /CMM (150-450); RDW COEFFICIENT OF VARIATION 19.4 (11.5-15.0); RED BLOOD CELL COUNT(AUTO) 3.08 MIL/uL (4.5-6.0); WHITE BLOOD COUNT (AUTO) 16.9 K/uL (4.3-11.0)
[2016-09-28 04:54] LABS: CALCIUM, SERUM 9.2 mg/dL (8.5-10.1); CREATININE 4.4 mg/dL (0.6-1.3); MAGNESIUM 2.1 mg/dL (1.8-2.4); PHOSPHORUS 5.9 mg/dL (2.5-4.9); POTASSIUM 4.5 mmol/L (3.5-5.1)
[2016-09-28] MEDS: BLOOD SUGAR DIAGNOSTIC 1 EACH STRIP IN SCH ×3 (05:31→17:34)
[2016-09-28] MEDS: PIPERACILLIN /TAZOBACTAM 2.25 G in IV D5W 50 ML IV SCH ×3 (05:33→21:13)
[2016-09-28] MEDS: VANCOMYCIN HCL 125 MG/2.5 ML ORAL.SUSP PO SCH ×3 (05:35→17:29)
[2016-09-28 05:38] LABS: LYMPHOCYTES % (MANUAL) 6 % (16-48); MONOCYTES % (MANUAL) 2 % (0-11.0); NEUTROPHILS % (MANUAL) 92 (42-76)
[2016-09-28] MEDS: NOREPINEPHRINE 16 MG in IV D5W 500 ML IV PRN ×2 (05:38→12:51)
[2016-09-28] MEDS: INSULIN REGULAR, HUMAN 100 UNIT/ML 3 ML VIAL SQ PRN ×3 (06:05→17:35)
--- NOTE | 2016-09-28 07:40 | NUR ---
PATIENT REC'D TRACHED ON [facility] VENT WITH SETTINGS SET PER MD ENEDELIA CORDERO. VENT ALARMS CHECKED + AUDIBLE. CUFF PRESSURE CHECKED SPUD SORTER. TRACH SECURE AND IN PROPER POSITION. VENT PLUGGED INTO RED OUTLET. B/S DIM COARSE. SX'D WITH SM/MD SALVADOR PALE SEMITHICK SECRETIONS. PATIENT IN CRITICAL CONDITION. AMBU BAG AT [facility]. CONT CURRENT PLAN OF RESP CARE. Addendum: 09/28/16 at 1402 by AMIRAH MINA RT Amended: Links added.
--- NOTE | 2016-09-28 08:00 | NUR ---
CLINICAL ESTHETICIAN NOTE: RECEIVED PATIENT IN BED OPENS EYES EYES AND RESPONSIVE TO PAINFUL STIMULI. AFIB ON MONITOR CONTROLLED. PATIENT NOTED WITH SHILEY 8XLT NOTED TO BE LEAKING AWAITING CHANGE BY DR. CHACON. PATIENT TOLERATING VENT SETTINGS WELL. NOTED WITH GTUBE RUNNING NOVASOURCE AT 35 ML/HR NO RESIDUAL NOTED. FEXISEAL PATENT AND INTACT DRAINING TO GRAVITY. IV SITES PATENT AND INTACT. PATIENT TURNED AND REPOSITIONED AND EXTREMITIES OFFLOADED. SKIN CARE RENDERED. SAFETY MAINTAINED. ISOLATION PRECAUTIONS OBSERVED. ONGOING MONITORING
[2016-09-28] MEDS: DOCUSATE SODIUM LIQ 100 MG/10 ML UDC GT SCH ×2 (08:49→17:00)
[2016-09-28] MEDS: TRAMADOL HCL 50 MG TABLET GT SCH ×2 (08:50→21:16)
[2016-09-28] MEDS: ZINC SULFATE 220 MG CAPSULE GT SCH (08:50)
[2016-09-28] MEDS: VIT B CMPLX 3/FA/VIT C/BIOTIN 1 TAB TABLET GT SCH (08:50)
[2016-09-28] MEDS: HYDROCORTISONE SOD SUCCINATE 100 MG/2 ML VIAL IV SCH ×3 (08:50→17:29)
[2016-09-28] MEDS: GABAPENTIN 100 MG CAPSULE GT SCH ×2 (08:50→21:13)
[2016-09-28] MEDS: PROSOURCE / PROSTAT (PYXIS) 30 ML UDC GT SCH ×3 (08:50→17:29)
[2016-09-28] MEDS: ACIDOPHILUS/BULGARICUS 1 EACH TAB.CHEW GT SCH ×2 (08:50→17:00)
[2016-09-28] MEDS: PANTOPRAZOLE 40 MG VIAL IV SCH (08:50)
[2016-09-28] MEDS: DAKINS QUARTER STRENGTH (0.125%) 480 ML BOTTLE TOP SCH (08:51)
--- NOTE | 2016-09-28 12:00 | NUR ---
TALK SHOW HOST NOTE: DR. CHACON AT BEDSIDE. TRACH CHANGED, NO DISTRESS NOTED. NO LEAKING NOTED AT THIS TIME. PATIENT TOLERATING VENT SETTINGS WELL. ONGOING MONITORING
[2016-09-28] MEDS: COLISTIMETHATE SODIUM 75 MG in IV NS 0.9% 50 ML IV SCH (12:50)
--- NOTE | 2016-09-28 13:15 | NUR ---
APPIAN DEVELOPER NOTE: HD STARTED. BP STABLE, ONGOING MONITORING.
[2016-09-28] MEDS ORDERED: EPOETIN ALFA (10,000 UNIT) 10,000 UNIT/ML VIAL SQ ONE (14:30)
--- NOTE | 2016-09-28 14:45 | NUR ---
LICENSED INVESTMENT SALES ASSISTANT NOTE: HD COMPLETE 3000ML OUT. PATIENT TOLERATED HD WELL. NO DISTRESS NOTED. BP STABLE, VS STABLE ONGOING MONITORING.
[2016-09-28] MEDS: VANCOMYCIN 1 GM in IV D5W 250 ML IV PRN (18:22)
[2016-09-28] MEDS: ATORVASTATIN 40 MG TABLET GT SCH (21:16)
[2016-09-28] MEDS ORDERED: IV SET PRIMARY PUMP SET 1 EA INFUS.SET MC ONE (21:29)
[2016-09-28] MEDS: IV NS 0.9% 250 ML IV PRN (21:35)
[2016-09-29] VITALS (95 sets, daily range): BP systolic 82–116; BP diastolic 46–83
[2016-09-29] MEDS: BLOOD SUGAR DIAGNOSTIC 1 EACH STRIP IN SCH ×4 (00:22→17:14)
[2016-09-29] MEDS: VANCOMYCIN HCL 125 MG/2.5 ML ORAL.SUSP PO SCH ×4 (00:23→17:14)
[2016-09-29] MEDS: INSULIN REGULAR, HUMAN 100 UNIT/ML 3 ML VIAL SQ PRN ×4 (00:39→17:52)
[2016-09-29] MEDS: PIPERACILLIN /TAZOBACTAM 2.25 G in IV D5W 50 ML IV SCH ×3 (04:46→21:36)
[2016-09-29 04:54] LABS: HEMATOCRIT 26 % (39-51); HEMOGLOBIN 8.7 g/dL (13.5-17.5); LYMPHOCYTES # (AUTO) 0.6 /CMM (0.8-4.8); LYMPHOCYTES % (AUTO) 4.8 % (20.0-44.0); MEAN CORPUSCULAR HEMOGLOBIN 31 PG (26.0-33.0); MEAN CORPUSCULAR HGB CONC 34 g/dl (31.0-36.0); MEAN CORPUSCULAR VOLUME 90 fL (80-96); MONOCYTES # (AUTO) 0.7 /CMM (0.1-1.30); MONOCYTES % (AUTO) 5.2 % (2.0-12.0); NEUTROPHILS # (AUTO) 11.8 /CMM (1.8-8.9); PLATELET COUNT (AUTO) 284 /CMM (150-450); RDW COEFFICIENT OF VARIATION 19.1 (11.5-15.0); RED BLOOD CELL COUNT(AUTO) 2.85 MIL/uL (4.5-6.0); WHITE BLOOD COUNT (AUTO) 13.1 K/uL (4.3-11.0)
[2016-09-29 05:17] LABS: CALCIUM, SERUM 8.3 mg/dL (8.5-10.1); MAGNESIUM 2.2 mg/dL (1.8-2.4); PHOSPHORUS 4.9 mg/dL (2.5-4.9)
[2016-09-29 05:24] LABS: POTASSIUM 3.5 mmol/L (3.5-5.1)
[2016-09-29] MEDS: DOCUSATE SODIUM LIQ 100 MG/10 ML UDC GT SCH ×2 (08:07→16:49)
[2016-09-29] MEDS: VIT B CMPLX 3/FA/VIT C/BIOTIN 1 TAB TABLET GT SCH (08:08)
[2016-09-29] MEDS: HYDROCORTISONE SOD SUCCINATE 100 MG/2 ML VIAL IV SCH ×3 (08:08→17:14)
[2016-09-29] MEDS: PANTOPRAZOLE 40 MG VIAL IV SCH (08:08)
[2016-09-29] MEDS: ZINC SULFATE 220 MG CAPSULE GT SCH (08:08)
[2016-09-29] MEDS: TRAMADOL HCL 50 MG TABLET GT SCH ×2 (08:08→21:36)
[2016-09-29] MEDS: GABAPENTIN 100 MG CAPSULE GT SCH ×2 (08:08→21:36)
[2016-09-29] MEDS: PROSOURCE / PROSTAT (PYXIS) 30 ML UDC GT SCH ×3 (08:09→17:15)
[2016-09-29] MEDS: DAKINS QUARTER STRENGTH (0.125%) 480 ML BOTTLE TOP SCH (08:10)
[2016-09-29] MEDS: ACIDOPHILUS/BULGARICUS 1 EACH TAB.CHEW GT SCH ×2 (08:10→17:14)
--- NOTE | 2016-09-29 08:13 | NUR ---
PATIENT REC'D TRACHED ON [facility] VENT WITH SETTINGS SET PER MD ENEDELIA CORDERO. VENT ALARMS CHECKED + AUDIBLE. CUFF PRESSURE CHECKED COMPUTER TECHNOLOGIST. TRACH SECURE AND IN PROPER POSITION. VENT PLUGGED INTO RED OUTLET. B/S DIM COARSE. SX'D WITH SM/MD SALVADOR PALE SEMITHICK SECRETIONS. PATIENT IN CRITICAL CONDITION. AMBU BAG AT HOB Addendum: 09/29/16 at 0813 by CACHORRO GRACE RT Amended: Links added.
[2016-09-29] MEDS ORDERED: DEXTROSE 50%-WATER 50 ML DISP.SYRIN IV PRN (09:30)
[2016-09-29] MEDS ORDERED: EPOETIN ALFA (10,000 UNIT) 10,000 UNIT/ML VIAL SQ ONE (09:30)
[2016-09-29] MEDS ORDERED: INSULIN GLARGINE, 100 UNIT/ML CARTRIDGE SQ SCH (09:30)
[2016-09-29] MEDS: INSULIN DETEMIR 100 UNIT/ML CARTRIDGE SQ SCH ×2 (10:37→21:58)
[2016-09-29] MEDS: COLISTIMETHATE SODIUM 75 MG in IV NS 0.9% 50 ML IV SCH (11:40)
--- NOTE | 2016-09-29 11:46 | NUR ---
ELECTRICAL DESIGNER DRAFTER BARCODE USED [facility]GE [facility]URSES SINCE OWN BARCODE IS NOT WORKING PROPERLY ALREADY ASKED LABORATORY MAKE ME A NEW ONE
--- NOTE | 2016-09-29 17:59 | NUR ---
ENDS DOWN CHECKER SPEECH THERAPIST SAW PATIENT, READY TO GIVE PUREED DIET NO OTHER UNTOWARD SYMPTOMS SEEN
--- NOTE | 2016-09-29 19:43 | NUR ---
PATIENT REC'D TRACHED ON [facility] VENT WITH SETTINGS SET PER . VENT ALARMS CHECKED + AUDIBLE. CUFF PRESSURE CHECKED SELF RISING FLOUR MIXER. TRACH SECURE AND IN PROPER POSITION. VENT PLUGGED INTO RED OUTLET. B/S DIM COARSE. SX'D WITH SM/ AMT PALE THICK SECRETIONS. . AMBU BAG AT [facility]. Addendum: 09/29/16 at 1943 by PAULA SAM RT Amended: Links added.
[2016-09-29] MEDS: RENAL NOVASOURCE 1,000 ML BOTTLE GT PRN (21:35)
[2016-09-29] MEDS: ATORVASTATIN 40 MG TABLET GT SCH (21:36)
[2016-09-29] MEDS: IV NS 0.9% 250 ML IV PRN (21:36)
[2016-09-30] VITALS (96 sets, daily range): BP systolic 63–127; BP diastolic 42–83
[2016-09-30] MEDS: VANCOMYCIN HCL 125 MG/2.5 ML ORAL.SUSP PO SCH ×4 (00:49→17:19)
[2016-09-30] MEDS: BLOOD SUGAR DIAGNOSTIC 1 EACH STRIP IN SCH ×14 (00:49→23:17)
[2016-09-30] MEDS: INSULIN REGULAR, HUMAN 100 UNIT/ML 3 ML VIAL SQ PRN ×2 (00:52→05:53)
[2016-09-30 04:48] LABS: HEMATOCRIT 29 % (39-51); HEMOGLOBIN 9.7 g/dL (13.5-17.5); LYMPHOCYTES # (AUTO) 0.7 /CMM (0.8-4.8); LYMPHOCYTES % (AUTO) 3.8 % (20.0-44.0); MEAN CORPUSCULAR HEMOGLOBIN 30 PG (26.0-33.0); MEAN CORPUSCULAR HGB CONC 33 g/dl (31.0-36.0); MEAN CORPUSCULAR VOLUME 91 fL (80-96); MONOCYTES # (AUTO) 0.5 /CMM (0.1-1.30); NEUTROPHILS # (AUTO) 16.7 /CMM (1.8-8.9); NEUTROPHILS % (AUTO) 93.2 % (43.0-81.0); PLATELET COUNT (AUTO) 278 /CMM (150-450); RDW COEFFICIENT OF VARIATION 19.4 (11.5-15.0); RED BLOOD CELL COUNT(AUTO) 3.19 MIL/uL (4.5-6.0)
[2016-09-30 05:09] LABS: CALCIUM, SERUM 7.9 mg/dL (8.5-10.1); CREATININE 4.4 mg/dL (0.6-1.3); MAGNESIUM 2.2 mg/dL (1.8-2.4); PHOSPHORUS 5.4 mg/dL (2.5-4.9); POTASSIUM 3.1 mmol/L (3.5-5.1)
[2016-09-30] MEDS: PIPERACILLIN /TAZOBACTAM 2.25 G in IV D5W 50 ML IV SCH ×2 (05:42→13:17)
[2016-09-30] MEDS ORDERED: VANCOMYCIN 500 MG in IV D5W 100 ML IV PRN (06:00)
--- NOTE | 2016-09-30 06:06 | NUR ---
TRACK SUBWAY REPAIR SUPERVISOR NOTES BLOOD SUGAR OF 457 MG/DL. 15 UNITS OF INSULIN GIVEN PER SLIDING SCALE AND MD PAGED. TUBE FEEDING PLACED ON HOLD AT THIS TIME.
--- NOTE | 2016-09-30 06:30 | NUR ---
CARTON CATCHER NOTES CALLBACK RECEIVED FROM DR DIAZ. NEW ORDER FOR 12 UNITS REGULAR INSULIN IVP.
[2016-09-30] MEDS ORDERED: INSULIN REGULAR, HUMAN 100 UNIT/ML 3 ML VIAL IV ONE (07:00)
[2016-09-30] MEDS: ACIDOPHILUS/BULGARICUS 1 EACH TAB.CHEW GT SCH ×2 (08:17→16:21)
[2016-09-30] MEDS: GABAPENTIN 100 MG CAPSULE GT SCH ×2 (08:17→21:50)
[2016-09-30] MEDS: DOCUSATE SODIUM LIQ 100 MG/10 ML UDC GT SCH ×2 (08:17→16:21)
[2016-09-30] MEDS: VIT B CMPLX 3/FA/VIT C/BIOTIN 1 TAB TABLET GT SCH (08:17)
[2016-09-30] MEDS: TRAMADOL HCL 50 MG TABLET GT SCH ×2 (08:19→21:51)
[2016-09-30] MEDS: PANTOPRAZOLE 40 MG VIAL IV SCH (08:20)
[2016-09-30] MEDS: ZINC SULFATE 220 MG CAPSULE GT SCH (08:20)
[2016-09-30] MEDS: PROSOURCE / PROSTAT (PYXIS) 30 ML UDC GT SCH ×3 (08:45→16:21)
[2016-09-30] MEDS: HYDROCORTISONE SOD SUCCINATE 100 MG/2 ML VIAL IV SCH ×3 (08:46→16:23)
[2016-09-30] MEDS ORDERED: INSULIN REGULAR, HUMAN 100 UNIT/ML 10 ML VIAL IV ONE (09:00)
[2016-09-30] MEDS: DAKINS QUARTER STRENGTH (0.125%) 480 ML BOTTLE TOP SCH (09:31)
[2016-09-30 10:28] LABS: BAND % (MANUAL) 1 % (0.0-5.0); LYMPHOCYTES % (MANUAL) 2 % (16-48); MONOCYTES % (MANUAL) 3 % (0-11.0); NEUTROPHILS % (MANUAL) 94 (42-76)
[2016-09-30] MEDS ORDERED: IV SET PRIMARY PUMP SET 1 EA INFUS.SET MC ONE ×2 (10:30→20:20)
[2016-09-30] MEDS: INSULIN REGULAR, HUMAN 100 UNIT in IV NS 0.9% 99 ML IV PRN ×2 (10:37)
[2016-09-30] MEDS ORDERED: SECONDARY IV SET 1 EA INFUS.SET MC ONE ×2 (14:28→19:07)
[2016-09-30] MEDS ORDERED: IMIPENEM/CILASTATIN 500 MG in IV NS 0.9% 100 ML IV SCH (14:30)
[2016-09-30] MEDS: LEVOFLOXACIN 500 MG /D5W 100ML 500 MG in PREMIX 1 EA IV SCH (16:27)
[2016-09-30] MEDS: MEROPENEM 500 MG in IV NS 0.9% 50 ML IV SCH (16:28)
[2016-09-30] MEDS: ALBUMIN 25% 25 GM in PREMIX 1 EA IV PRN ×2 (19:09→19:49)
--- NOTE | 2016-09-30 19:46 | NUR ---
PT RECEIVED TRACHED ON MECHANICAL VENT W/ SETTINGS PER MD. VENT IN RED OUTLET, AMBUBAG AT BEDSIDE, VENT ALARMS CHECKED AND AUDIBLE. TRACH TUBE SECURE, PATENT. PT SX'ED AND LAVAGED PRN. NO RESP DISTRESS NOTED. PLAN IS TO CONTINUE CARE W/ CURRENT MD ORDERS AND MONITOR FOR CHANGES Addendum: 09/30/16 at 1947 by PAULA SAM RT Amended: Links added.
[2016-09-30] MEDS: NOREPINEPHRINE 16 MG in IV D5W 500 ML IV PRN (20:25)
[2016-09-30] MEDS: ATORVASTATIN 40 MG TABLET GT SCH (21:51)
[2016-10-01] VITALS (50 sets, daily range): BP systolic 70–124; BP diastolic 54–75
[2016-10-01] MEDS: VANCOMYCIN HCL 125 MG/2.5 ML ORAL.SUSP PO SCH ×5 (00:16→23:50)
[2016-10-01] MEDS: BLOOD SUGAR DIAGNOSTIC 1 EACH STRIP IN SCH ×19 (00:20→23:53)
[2016-10-01] MEDS: INSULIN REGULAR, HUMAN 100 UNIT in IV NS 0.9% 99 ML IV PRN ×2 (00:51)
--- NOTE | 2016-10-01 01:00 | NUR ---
SOCIAL CONTACT WORKER - REC'D PT. RECEIVING DIALYSIS AT CHANGE OF SHIFT. RN TOOK OFF 2L. PT.IS ONE HOUR ACCU CHECKS. ALGORHYTHM 2. PT.IS RANGING FROM 160-180'S. LEVOPHED GTT. HAD TO BE STARTED AROUND 20:30 LAST NIGHT DUE TO SBP'S IN THE 70'S. PT.IS STABLE CURRENTLY AT 2 MCG/MIN. PT.IS TRACHED & PEGGED. LETHARGIC, BUT RESPONDS TO TACTILE STIMULUS. HYPOTHERMIC-8PM READING'S WERE 96.0 RECTALLY. COULD NOT GET A READING AXILLARY,BUCCHAL/ORAL OR TAS. BY MN, A READING OF 97.5/AX WAS OBTAINED. PT.WAS WARMED W/HOT BLANKETS UNTIL A YESICA HUGGER WAS BROUGHT TO ME. NEVER USED, BUT IS AT BS JUST IN CASE. PT.HAS A FLEXI - SEAL TO GRAVITY. ANURIC. . PT. HAS A RUE PICC LINE. LEFT C/W PERMACATH/HD. PT.IS FULL CODE-CONTINUE POC.
[2016-10-01 04:39] LABS: HEMATOCRIT 28 % (39-51); HEMOGLOBIN 9.4 g/dL (13.5-17.5); LYMPHOCYTES # (AUTO) 0.7 /CMM (0.8-4.8); LYMPHOCYTES % (AUTO) 3.4 % (20.0-44.0); MEAN CORPUSCULAR HEMOGLOBIN 30 PG (26.0-33.0); MEAN CORPUSCULAR HGB CONC 33 g/dl (31.0-36.0); MEAN CORPUSCULAR VOLUME 89 fL (80-96); MONOCYTES # (AUTO) 1.1 /CMM (0.1-1.30); MONOCYTES % (AUTO) 5.7 % (2.0-12.0); NEUTROPHILS # (AUTO) 17.6 /CMM (1.8-8.9); NEUTROPHILS % (AUTO) 90.9 % (43.0-81.0); PLATELET COUNT (AUTO) 269 /CMM (150-450); RDW COEFFICIENT OF VARIATION 19.5 (11.5-15.0); RED BLOOD CELL COUNT(AUTO) 3.19 MIL/uL (4.5-6.0); WHITE BLOOD COUNT (AUTO) 19.4 K/uL (4.3-11.0)
[2016-10-01] MEDS: MEROPENEM 500 MG in IV NS 0.9% 50 ML IV SCH ×2 (04:39→17:18)
[2016-10-01 04:48] LABS: CALCIUM, SERUM 7.6 mg/dL (8.5-10.1); CREATININE 3.8 mg/dL (0.6-1.3); MAGNESIUM 2.1 mg/dL (1.8-2.4); PHOSPHORUS 3.9 mg/dL (2.5-4.9)
[2016-10-01 05:37] LABS: LYMPHOCYTES % (MANUAL) 3 % (16-48); MONOCYTES % (MANUAL) 5 % (0-11.0); NEUTROPHILS % (MANUAL) 92 (42-76)
[2016-10-01] MEDS: RENAL NOVASOURCE 1,000 ML BOTTLE GT PRN (06:38)
[2016-10-01] MEDS: ASPIRIN 81 MG TAB.CHEW PO SCH (08:06)
[2016-10-01] MEDS: HYDROCORTISONE SOD SUCCINATE 100 MG/2 ML VIAL IV SCH (08:06)
[2016-10-01] MEDS: PANTOPRAZOLE 40 MG VIAL IV SCH (08:06)
[2016-10-01] MEDS: ACIDOPHILUS/BULGARICUS 1 EACH TAB.CHEW GT SCH ×2 (08:06→17:19)
[2016-10-01] MEDS: DOCUSATE SODIUM LIQ 100 MG/10 ML UDC GT SCH ×2 (08:07→16:48)
[2016-10-01] MEDS: GABAPENTIN 100 MG CAPSULE GT SCH ×2 (08:07→20:56)
[2016-10-01] MEDS: VIT B CMPLX 3/FA/VIT C/BIOTIN 1 TAB TABLET GT SCH (08:07)
[2016-10-01] MEDS: TRAMADOL HCL 50 MG TABLET GT SCH ×2 (08:07→20:57)
[2016-10-01] MEDS: ZINC SULFATE 220 MG CAPSULE GT SCH (08:07)
[2016-10-01] MEDS: PROSOURCE / PROSTAT (PYXIS) 30 ML UDC GT SCH ×3 (08:08→17:19)
[2016-10-01] MEDS: DAKINS QUARTER STRENGTH (0.125%) 480 ML BOTTLE TOP SCH (08:09)
[2016-10-01] MEDS ORDERED: SECONDARY IV SET 1 EA INFUS.SET MC ONE (09:23)
[2016-10-01] MEDS: METRONIDAZOLE 500MG/ NS 100ML 500 MG in PREMIX 1 EA IV SCH ×2 (11:36→17:19)
[2016-10-01 16:11] LABS: CALCIUM, SERUM 7.6 mg/dL (8.5-10.1); CREATININE 4.1 mg/dL (0.6-1.3)
[2016-10-01 16:28] LABS: POTASSIUM 2.8 mmol/L (3.5-5.1)
[2016-10-01] MEDS ORDERED: DEXTROSE 50%-WATER 50 ML DISP.SYRIN IV PRN (17:00)
[2016-10-01] MEDS ORDERED: POTASSIUM CHLORIDE 20 MEQ POWDER PACKET GT ONE (17:00)
[2016-10-01] MEDS ORDERED: DIGOXIN INJ 0.5 MG/2 ML AMPUL IV ONE (18:00)
[2016-10-01] MEDS: INSULIN REGULAR, HUMAN 100 UNIT/ML 3 ML VIAL SQ PRN ×2 (18:20→23:52)
--- NOTE | 2016-10-01 18:49 | NUR ---
Paged Dr. Jin to clarify blood transfusion of 1 PRBc if it can wait until next dialysis. Patient is receiving heparin drip, levophed gtt, tpn, amio drip. no available line for transfusion. Awaits call back
[2016-10-01] MEDS: ATORVASTATIN 40 MG TABLET GT SCH (20:57)
[2016-10-01] MEDS ORDERED: INSULIN GLARGINE, 100 UNIT/ML CARTRIDGE SQ SCH (22:00)
[2016-10-01] MEDS: INSULIN DETEMIR 100 UNIT/ML CARTRIDGE SQ SCH (22:39)
[2016-10-02] VITALS (54 sets, daily range): BP systolic 76–130; BP diastolic 47–80
[2016-10-02] MEDS: METRONIDAZOLE 500MG/ NS 100ML 500 MG in PREMIX 1 EA IV SCH ×3 (00:53→16:11)
[2016-10-02] MEDS: MEROPENEM 500 MG in IV NS 0.9% 50 ML IV SCH ×2 (04:21→16:11)
[2016-10-02] MEDS: VANCOMYCIN HCL 125 MG/2.5 ML ORAL.SUSP PO SCH ×3 (05:15→17:00)
[2016-10-02] MEDS: INSULIN REGULAR, HUMAN 100 UNIT/ML 3 ML VIAL SQ PRN ×3 (05:19→17:05)
[2016-10-02 05:20] LABS: HEMATOCRIT 29 % (39-51); HEMOGLOBIN 9.5 g/dL (13.5-17.5); MEAN CORPUSCULAR HEMOGLOBIN 30 PG (26.0-33.0); MEAN CORPUSCULAR HGB CONC 33 g/dl (31.0-36.0); MEAN CORPUSCULAR VOLUME 90 fL (80-96); MONOCYTES # (AUTO) 1.4 /CMM (0.1-1.30); MONOCYTES % (AUTO) 6.8 % (2.0-12.0); NEUTROPHILS # (AUTO) 18.2 /CMM (1.8-8.9); NEUTROPHILS % (AUTO) 88.2 % (43.0-81.0); PLATELET COUNT (AUTO) 275 /CMM (150-450); RDW COEFFICIENT OF VARIATION 19.9 (11.5-15.0); RED BLOOD CELL COUNT(AUTO) 3.21 MIL/uL (4.5-6.0); WHITE BLOOD COUNT (AUTO) 20.6 K/uL (4.3-11.0)
[2016-10-02] MEDS: BLOOD SUGAR DIAGNOSTIC 1 EACH STRIP IN SCH ×3 (05:21→17:01)
[2016-10-02 05:44] LABS: ALBUMIN 1.6 g/dL (3.4-5.0); BILIRUBIN,TOTAL 1.5 mg/dL (0.2-1.0); CALCIUM, SERUM 7.6 mg/dL (8.5-10.1); CREATININE 4.4 mg/dL (0.6-1.3); MAGNESIUM 2.5 mg/dL (1.8-2.4); PHOSPHORUS 4.9 mg/dL (2.5-4.9); TOTAL PROTEIN, SERUM 6.1 g/dL (6.4-8.2)
[2016-10-02 06:15] LABS: POTASSIUM 2.7 mmol/L (3.5-5.1)
[2016-10-02] MEDS ORDERED: POTASSIUM CL. PREMIX PERIPHER. 50 ML ONE (06:44)
[2016-10-02] MEDS: POTASSIUM CL. PREMIX PERIPHER. 50 ML IV SCH ×4 (06:49→16:02)
[2016-10-02 07:48] LABS: BAND % (MANUAL) 3 % (0.0-5.0); LYMPHOCYTES % (MANUAL) 12 % (16-48); NEUTROPHILS % (MANUAL) 82 (42-76)
[2016-10-02 07:49] LABS: MONOCYTES % (MANUAL) 3 % (0-11.0)
--- NOTE | 2016-10-02 07:55 | NUR ---
PATIENT REC'D TRACHED ON [facility] VENT WITH SETTINGS SET PER . VENT ALARMS CHECKED + AUDIBLE. CUFF PRESSURE CHECKED PLUSH CUTTER. TRACH SECURE AND IN PROPER POSITION. VENT PLUGGED INTO RED OUTLET. B/S DIM COARSE. SX'D WITH SM/MD BAEZT PALE SEMITHICK SECRETIONS. PATIENT IN CRITICAL CONDITION. AMBU BAG AT [facility]. CONT CURRENT PLAN OF RESP CARE. Addendum: 10/03/16 at 0756 by AMIRAH MINA RT Amended: Links added.
--- NOTE | 2016-10-02 08:00 | NUR ---
INTERACTIVE MEDIA DIRECTOR NOTE: RECEIVED PATIENT IN BED OPENS EYES EYES AND RESPONSIVE TO PAINFUL STIMULI. AFIB ON MONITOR HR 99. PATIENT NOTED WITH SHILEY 8XLT ON VENT WITH ORDERED SETTINGS TOLERATING WELL. PATIENT SUCTIONED. SPO2 WNL. NO DISTRESS NOTED. NOTED WITH GTUBE RUNNING NOVASOURCE AT 35 ML/HR NO RESIDUAL NOTED. FEXISEAL PATENT AND INTACT DRAINING TO GRAVITY. IV SITE PATENT AND INTACT. BETO PICC RUNNING LEVOPHED AT 3MCG/MIN WILL TITRATE PER PROTOCOL BP STABLE AT THIS TIME. 1ST BAG OF K INFUSING, PATIENT DUE FOR 3 MORE BAGS. PATIENT TURNED AND REPOSITIONED AND EXTREMITIES OFFLOADED. SKIN CARE RENDERED. SAFETY MAINTAINED. ISOLATION PRECAUTIONS OBSERVED. ONGOING MONITORING
[2016-10-02] MEDS: PROSOURCE / PROSTAT (PYXIS) 30 ML UDC GT SCH ×3 (08:13→16:09)
[2016-10-02] MEDS: GABAPENTIN 100 MG CAPSULE GT SCH ×2 (08:13→21:03)
[2016-10-02] MEDS: PANTOPRAZOLE 40 MG VIAL IV SCH (08:13)
[2016-10-02] MEDS: ZINC SULFATE 220 MG CAPSULE GT SCH (08:13)
[2016-10-02] MEDS: VIT B CMPLX 3/FA/VIT C/BIOTIN 1 TAB TABLET GT SCH (08:13)
[2016-10-02] MEDS: DOCUSATE SODIUM LIQ 100 MG/10 ML UDC GT SCH ×2 (08:14→16:08)
[2016-10-02] MEDS: ACIDOPHILUS/BULGARICUS 1 EACH TAB.CHEW GT SCH ×2 (08:14→16:08)
[2016-10-02] MEDS: ASPIRIN 81 MG TAB.CHEW PO SCH (08:14)
[2016-10-02] MEDS: TRAMADOL HCL 50 MG TABLET GT SCH ×2 (08:14→21:03)
[2016-10-02] MEDS: DAKINS QUARTER STRENGTH (0.125%) 480 ML BOTTLE TOP SCH (08:16)
[2016-10-02] MEDS ORDERED: HYDROCORTISONE SOD SUCCINATE 100 MG/2 ML VIAL IV SCH (09:00)
--- NOTE | 2016-10-02 10:00 | NUR ---
FOUNTAIN SERVER NOTE: HD STARTED. NOTIFIED HD NURSE THAT K =2.7, BP STABLE ONGOING MONITORING.
[2016-10-02] MEDS: NOREPINEPHRINE 16 MG in IV D5W 500 ML IV PRN (10:13)
[2016-10-02] MEDS ORDERED: DEXTROSE 50%-WATER 50 ML DISP.SYRIN IV PRN (10:30)
[2016-10-02] MEDS ORDERED: SECONDARY IV SET 1 EA INFUS.SET MC ONE (11:38)
[2016-10-02] MEDS: ALBUMIN 25% 25 GM in PREMIX 1 EA IV PRN (11:46)
--- NOTE | 2016-10-02 13:00 | NUR ---
SYSTEM INTEGRATION ENGINEER NOTE: HD COMPLETE, 2L REMOVED. BP STABLE AT THIS TIME. MD MADE AWARE, RECEIVED ORDER TO RECHECK POTASSIUM 1 HOUR AFTER HD. ONGOING MONITORING
--- NOTE | 2016-10-02 14:00 | NUR ---
ANESTHESIOLOGY PHYSICIAN NOTE: LEVOPHED TITRATED DOWN AND TURNED OFF, BP STABLE. ONGOING MONITORING.
[2016-10-02] MEDS: LEVOFLOXACIN 500 MG /D5W 100ML 500 MG in PREMIX 1 EA IV SCH (16:02)
[2016-10-02] MEDS ORDERED: IV SET PRIMARY PUMP SET 1 EA INFUS.SET MC ONE (16:03)
[2016-10-02] MEDS: HYDROCORTISONE SOD SUCCINATE 100 MG/2 ML VIAL IV SCH (16:08)
[2016-10-02] MEDS: RENAL NOVASOURCE 1,000 ML BOTTLE GT PRN (16:10)
--- NOTE | 2016-10-02 18:36 | NUR ---
PAID SEARCH MANAGER NOTE: PATIENT RESTING COMFORTABLY IN BED, BED BATH GIVEN, WOUND CARE RENDERED. PATIENT KEPT CLEAN AND DRY AND EXTREMITIES OFFLOADED. MAINTAINED OFF LEVOPHED, VS STABLE. 40MEQ KCL ADMINISTERED IV, HD DONE. NO DISTRESS NOTED DURING SHIFT. PATIENT CONTINUES ON NOVASOURCE AT 35ML/HR VIA GTUBE. ALL NEEDS MET, ALL MEDICATIONS ADMINISTERED ORDERED. WILL CONTINUE TO MONITOR
[2016-10-02] MEDS: ATORVASTATIN 40 MG TABLET GT SCH (21:03)
[2016-10-02] MEDS: INSULIN DETEMIR 100 UNIT/ML CARTRIDGE SQ SCH (22:35)
[2016-10-03] VITALS (54 sets, daily range): BP systolic 82–124; BP diastolic 49–70
[2016-10-03] MEDS: BLOOD SUGAR DIAGNOSTIC 1 EACH STRIP IN SCH ×4 (00:29→17:09)
[2016-10-03] MEDS: METRONIDAZOLE 500MG/ NS 100ML 500 MG in PREMIX 1 EA IV SCH ×3 (00:30→17:10)
[2016-10-03] MEDS: INSULIN REGULAR, HUMAN 100 UNIT/ML 3 ML VIAL SQ PRN ×4 (00:32→17:12)
[2016-10-03] MEDS: VANCOMYCIN HCL 125 MG/2.5 ML ORAL.SUSP PO SCH ×4 (00:46→17:09)
[2016-10-03] MEDS ORDERED: DAKINS QUARTER STRENGTH (0.125%) 480 ML BOTTLE ONE (01:02)
[2016-10-03] MEDS: DAKINS QUARTER STRENGTH (0.125%) 480 ML BOTTLE TOP SCH (02:25)
[2016-10-03] MEDS: Z GUARD REMEDY 2 OZ OINT TP PRN (02:26)
[2016-10-03 05:04] LABS: HEMATOCRIT 27 % (39-51); HEMOGLOBIN 9.3 g/dL (13.5-17.5); LYMPHOCYTES # (AUTO) 0.9 /CMM (0.8-4.8); LYMPHOCYTES % (AUTO) 4.1 % (20.0-44.0); MEAN CORPUSCULAR HEMOGLOBIN 30 PG (26.0-33.0); MEAN CORPUSCULAR HGB CONC 34 g/dl (31.0-36.0); MEAN CORPUSCULAR VOLUME 90 fL (80-96); MONOCYTES # (AUTO) 0.9 /CMM (0.1-1.30); NEUTROPHILS # (AUTO) 20.2 /CMM (1.8-8.9); NEUTROPHILS % (AUTO) 91.9 % (43.0-81.0); PLATELET COUNT (AUTO) 269 /CMM (150-450); RED BLOOD CELL COUNT(AUTO) 3.06 MIL/uL (4.5-6.0); WHITE BLOOD COUNT (AUTO) 21.9 K/uL (4.3-11.0)
[2016-10-03] MEDS: MEROPENEM 500 MG in IV NS 0.9% 50 ML IV SCH ×2 (05:26→17:09)
[2016-10-03 05:58] LABS: LYMPHOCYTES % (MANUAL) 3 % (16-48); MONOCYTES % (MANUAL) 3 % (0-11.0); NEUTROPHILS % (MANUAL) 94 (42-76)
[2016-10-03 06:48] LABS: ALBUMIN 1.7 g/dL (3.4-5.0); BILIRUBIN,TOTAL 1.5 mg/dL (0.2-1.0); CALCIUM, SERUM 7.9 mg/dL (8.5-10.1); CREATININE 3.5 mg/dL (0.6-1.3); MAGNESIUM 2.2 mg/dL (1.8-2.4); PHOSPHORUS 4.2 mg/dL (2.5-4.9); POTASSIUM 3.1 mmol/L (3.5-5.1); TOTAL PROTEIN, SERUM 5.9 g/dL (6.4-8.2)
--- NOTE | 2016-10-03 07:52 | NUR ---
INITIAL PERSONAL FINANCIAL ADVISOR NOTE RCVD PT WITH EYES OPEN, RESPONDS TO NAME, ABLE TO FOLLOW SOME COMMANDS. AFIB ON TELE, TOLERATING ORDERED VENT SETTINGS. PEG PLACEMENT VERIFIED BY AUSCULTATION/ASPIRATION. FLEXISEAL IN PLACE DRAINING LIQUID, DARK, BROWN STOOL. BETO PICC C/D/I/PATENT. NO S/O INFILTRATION OR PHLEBITIS OBSERVED. WILL CONTINUE TO MONITOR FOR SAFETY AND COMFORT. CALL LIGHT WITHIN REACH. BED IN LOW AND LOCKED POSITION.
--- NOTE | 2016-10-03 07:56 | NUR ---
PATIENT REC'D TRACHED ON [facility] VENT WITH SETTINGS SET PER . VENT ALARMS CHECKED + AUDIBLE. CUFF PRESSURE CHECKED TECHNOLOGY ENGINEER. TRACH SECURE AND IN PROPER POSITION. VENT PLUGGED INTO RED OUTLET. B/S DIM COARSE. SX'D WITH SM/MD BAEZT PALE SEMITHICK SECRETIONS. PATIENT IN CRITICAL CONDITION. AMBU BAG AT [facility]. CONT CURRENT PLAN OF RESP CARE. Addendum: 10/03/16 at 0756 by AMIRAH MINA RT Amended: Links added.
[2016-10-03] MEDS: ACIDOPHILUS/BULGARICUS 1 EACH TAB.CHEW GT SCH ×2 (08:07→17:09)
[2016-10-03] MEDS: ERGOCALCIFEROL (VITAMIN D 2) 50,000 UNIT CAPSULE GT SCH (08:07)
[2016-10-03] MEDS: GABAPENTIN 100 MG CAPSULE GT SCH ×2 (08:07→20:39)
[2016-10-03] MEDS: ZINC SULFATE 220 MG CAPSULE GT SCH (08:07)
[2016-10-03] MEDS: HYDROCORTISONE SOD SUCCINATE 100 MG/2 ML VIAL IV SCH ×2 (08:07→17:09)
[2016-10-03] MEDS: VIT B CMPLX 3/FA/VIT C/BIOTIN 1 TAB TABLET GT SCH (08:07)
[2016-10-03] MEDS: ASPIRIN 81 MG TAB.CHEW PO SCH (08:07)
[2016-10-03] MEDS: PANTOPRAZOLE 40 MG VIAL IV SCH (08:07)
[2016-10-03] MEDS: PROSOURCE / PROSTAT (PYXIS) 30 ML UDC GT SCH ×3 (08:08→17:09)
[2016-10-03] MEDS: TRAMADOL HCL 50 MG TABLET GT SCH ×2 (08:08→20:39)
[2016-10-03] MEDS: DOCUSATE SODIUM LIQ 100 MG/10 ML UDC GT SCH ×2 (08:08→17:00)
--- NOTE | 2016-10-03 10:35 | NUR ---
SALES ARCHITECT NOTE DR. YEPEZ AT PT'S BEDSIDE INFORMED OF PT'S LOW K THIS AM 3.1. SHE'LL ORDER REPLACEMENT TO BE ADMINISTERED. WILL F/U.
[2016-10-03] MEDS ORDERED: POTASSIUM CHLORIDE 20 MEQ POWDER PACKET GT ONE (11:00)
--- NOTE | 2016-10-03 12:07 | NUR ---
WATERWORKS PUMP STATION OPERATOR NOTE DR. DIAZ AT PT'S BEDSIDE, UPDATED ON PT'S CONDITION. INFORMED THAT DR. YEPEZ REPLACED K THIS AM AND DOWNGRADE TO KAYCE ORDERED.
[2016-10-03] MEDS: IV NS 0.9% 250 ML IV PRN (17:16)
[2016-10-03] MEDS: RENAL NOVASOURCE 1,000 ML BOTTLE GT PRN (17:16)
--- NOTE | 2016-10-03 18:23 | NUR ---
ENDING VAT HOUSE LABORER NOTE PT REMAINS STABLE TO DOWNGRADE TO KAYCE. PT ABLE TO OPEN EYES, AND OPEN/CLOSE MOUTH ON COMMAND. AFIB ON TELE. TOLERATING ORDERED VENT SETTINGS AND TUBE FEEDING RATE. NO RESIDUAL OBSERVED. FLEXISEAL CONTINUES TO DRAIN DARK, BROWN STOOL. BETO PICC C/D/I/PATENT. NO S/O INFILTRATION OR PHLEBITIS OBSERVED. PT'S CARE WILL BE ENDORSED TO CASKET ASSEMBLER RN FOR CONTINUITY OF CARE. BED IN LOW AND LOCKED POSITION.
--- NOTE | 2016-10-03 21:13 | NUR ---
PT RECEIVED VENT TRACHED ON NOTED SETTINGS. TOLERATING VENT SETTINGS. NO RESP DISTRESS NOTED. SX'D FOR MOD AMT OF THICK PALE SECRETIONS. VENT ALARMS SET AND AUDIBLE. AMBU BAG AT [facility]. VENT PLUGGED INTO RED OUTLET. WILL CONTINUE TO MONITOR. Addendum: 10/03/16 at 2114 by SUSANA VALDIVIA RT Amended: Links added.
[2016-10-03] MEDS: ATORVASTATIN 40 MG TABLET GT SCH (21:23)
[2016-10-03] MEDS: INSULIN DETEMIR 100 UNIT/ML CARTRIDGE SQ SCH (21:24)
--- NOTE | 2016-10-03 22:20 | NUR ---
ICU/RN- TRANSFERRED PT TO 117-2 INSTABLE CONDITION VIA ACLS PROTOCOL. RT AND X2 RN AT BEDSIDE FOR TRANSFER.
--- NOTE | 2016-10-03 22:30 | NUR ---
KAYCE RN INITIAL NOTES RECEIVED REPORT FROM ICU NURSE FRANCISCO. RECEIVED PATIENT WITH BED, VENT DEPENDENT WITH VENT SETTINGS AC 12, VT 550, FIO2 35%, PEEP 5, SPO2 99%. PATIENT NON-VERBAL, RESPONSIVE TO NAME. NO S/S OF PAIN OR DISCOMFORT AT THIS TIME. ISOLATION PRECAUTIONS FOR SACRAL WOUND. ON TELE MONITOR AFIB 112. WITH GT PATENT AND INTACT, NOTED WITH 100ML RESIDUAL. WITH BETO PICC LINE PATENT AND INTACT. WITH FLEXISEAL IN PLACE, WITH BROWN LOOSE BM. HOB ELEVATED, SIDE RAILS UP AND LOCKED. BED KEPT AT LOWEST POSITION. WILL CONTINUE TO MONITOR.
--- NOTE | 2016-10-03 22:43 | NUR ---
PT TRANSFERRED TO 1ST FLOOR.
[2016-10-04] VITALS (7 sets, daily range): BP systolic 91–110; BP diastolic 53–64
[2016-10-04] MEDS: METRONIDAZOLE 500MG/ NS 100ML 500 MG in PREMIX 1 EA IV SCH ×3 (00:08→17:11)
[2016-10-04] MEDS: BLOOD SUGAR DIAGNOSTIC 1 EACH STRIP IN SCH ×4 (00:10→17:12)
[2016-10-04] MEDS: INSULIN REGULAR, HUMAN 100 UNIT/ML 3 ML VIAL SQ PRN ×4 (00:11→17:15)
[2016-10-04] MEDS: VANCOMYCIN HCL 125 MG/2.5 ML ORAL.SUSP PO SCH ×4 (00:13→17:11)
[2016-10-04] MEDS: MEROPENEM 500 MG in IV NS 0.9% 50 ML IV SCH ×2 (05:31→17:11)
[2016-10-04 06:27] LABS: HEMATOCRIT 29 % (39-51); HEMOGLOBIN 9.6 g/dL (13.5-17.5); LYMPHOCYTES % (AUTO) 3.9 % (20.0-44.0); MEAN CORPUSCULAR HEMOGLOBIN 30 PG (26.0-33.0); MEAN CORPUSCULAR HGB CONC 33 g/dl (31.0-36.0); MEAN CORPUSCULAR VOLUME 91 fL (80-96); MONOCYTES % (AUTO) 3.9 % (2.0-12.0); NEUTROPHILS # (AUTO) 23.7 /CMM (1.8-8.9); NEUTROPHILS % (AUTO) 92.2 % (43.0-81.0); PLATELET COUNT (AUTO) 310 /CMM (150-450); RDW COEFFICIENT OF VARIATION 19.7 (11.5-15.0); RED BLOOD CELL COUNT(AUTO) 3.23 MIL/uL (4.5-6.0); WHITE BLOOD COUNT (AUTO) 25.7 K/uL (4.3-11.0)
--- NOTE | 2016-10-04 06:36 | NUR ---
KAYCE RN CLOSING NOTES NO SIGNIFICANT CHANGES OVERNIGHT. ALL NEEDS ANTICIPATED AND MET. GT PATENT AND INTACT. AFIB UNCONTROLLED 106. FLEXISEAL IN PLACE. KEPT CLEAN AND DRY. TURNED AND REPOSITIONED Q2 AND PRN, WOUND TREATMENT DONE ORDERED. TOLERATING VENT SETTINGS. HOB ELEVATED, SIDE RAILS UP AND LOCKED. HOB ELEVATED. ISOLATION PRECAUTIONS OBSERVED. WILL ENDORSE CONTINUITY OF CARE ENDORSED TO AM NURSE.
[2016-10-04 07:09] LABS: CALCIUM, SERUM 7.6 mg/dL (8.5-10.1); MAGNESIUM 2.4 mg/dL (1.8-2.4); POTASSIUM 3.4 mmol/L (3.5-5.1)
--- NOTE | 2016-10-04 07:58 | NUR ---
INITIAL KAYCE RN NOTE RCVD PT AWAKE, ABLE TO OPEN EYES, UNABLE TO FOLLOW COMMANDS. AFIB ON TELE, TOLERATING ORDERED VENT SETTINGS AND G-TUBE, NO RESIDUAL OBSERVED. RECTAL TUBE DRAINING LIQUID, GREENISH/BROWN STOOL. BETO PICC SITE IN PLACE C/D/I/PATENT. WILL CONTINUE TO MONITOR PT FOR SAFETY AND COMFORT. CALL LIGHT WITHIN REACH. BED IN LOW AND LOCKED POSITION.
[2016-10-04] MEDS: PROSOURCE / PROSTAT (PYXIS) 30 ML UDC GT SCH ×3 (08:17→17:12)
[2016-10-04] MEDS: ACIDOPHILUS/BULGARICUS 1 EACH TAB.CHEW GT SCH ×2 (08:18→17:11)
[2016-10-04] MEDS: GABAPENTIN 100 MG CAPSULE GT SCH ×2 (08:18→20:59)
[2016-10-04] MEDS: HYDROCORTISONE SOD SUCCINATE 100 MG/2 ML VIAL IV SCH ×2 (08:18→17:11)
[2016-10-04] MEDS: ASPIRIN 81 MG TAB.CHEW PO SCH (08:18)
[2016-10-04] MEDS: PANTOPRAZOLE 40 MG VIAL IV SCH (08:18)
[2016-10-04] MEDS: VIT B CMPLX 3/FA/VIT C/BIOTIN 1 TAB TABLET GT SCH (08:18)
[2016-10-04] MEDS: ZINC SULFATE 220 MG CAPSULE GT SCH (08:18)
[2016-10-04] MEDS: DAKINS QUARTER STRENGTH (0.125%) 480 ML BOTTLE TOP SCH (08:19)
[2016-10-04] MEDS: TRAMADOL HCL 50 MG TABLET GT SCH ×2 (08:19→20:59)
[2016-10-04] MEDS: DOCUSATE SODIUM LIQ 100 MG/10 ML UDC GT SCH ×2 (08:19→17:00)
[2016-10-04 08:57] LABS: LYMPHOCYTES % (MANUAL) 6 % (16-48); MONOCYTES % (MANUAL) 1 % (0-11.0); NEUTROPHILS % (MANUAL) 93 (42-76)
[2016-10-04] MEDS ORDERED: EPOETIN ALFA (10,000 UNIT) 10,000 UNIT/ML VIAL SQ ONE (10:30)
[2016-10-04] MEDS: ALBUMIN 25% 25 GM in PREMIX 1 EA IV PRN (13:21)
--- NOTE | 2016-10-04 14:14 | NUR ---
KAYCE RN NOTE SPOKE WITH ARAMIS MARTI UPDATED HER ON PT'S CONDITION. WILL CONTINUE TO MONITOR PT.
[2016-10-04] MEDS ORDERED: SECONDARY IV SET 1 EA INFUS.SET MC ONE (14:54)
[2016-10-04] MEDS: LEVOFLOXACIN 500 MG /D5W 100ML 500 MG in PREMIX 1 EA IV SCH (15:02)
[2016-10-04] MEDS: RENAL NOVASOURCE 1,000 ML BOTTLE GT PRN (17:22)
[2016-10-04] MEDS: IV NS 0.9% 250 ML IV PRN (18:36)
--- NOTE | 2016-10-04 18:46 | NUR ---
ENDING CORK COMPOUNDER NOTE PT REMAINS STABLE SHOWING NO S/O DISTRESS OR PAIN. AFIB ON TELE. TOLERATING ORDERED VENT SETTINGS AND TUBE FEEDING RATE. LAST RESIDUAL 30ML. BETO PICC C/D/I/PATENT. NO S/O INFILTRATION OR PHLEBITIS OBSERVED. PT'S CARE WILL BE ENDORSED TO REGISTERED REPRESENTATIVE RN FOR CONTINUITY OF CARE.
--- NOTE | 2016-10-04 20:44 | NUR ---
KAYCE RN INITIAL NOTE PT RECEIVED IN BED COMFORTABLE AND AWAKE WITH NO DISTRESS. GTUBE PATENT WITH 40CC OF RESIDUALS. BETO PICC WITH TKO RUNNING, LINE IS PATENT. AFIB CURRENTLY AT A RATE OF 111 ON TELE. VENT SETTINGS RUNNING ORDERED. FLEXISEAL DRAINING BROWN/GREEN FLUID INTO A NEW BAG. PT SAFETY TO BE MONITORED AND WILL RAISE HOB.
--- NOTE | 2016-10-04 21:25 | NUR ---
PT TRACHED ON MECHANICAL VENT W/ SETTINGS PER MD. VENT IN RED OUTLET, AMBUBAG AT BEDSIDE, VENT ALARMS CHECKED AND AUDIBLE. TRACH TUBE SECURE, PATENT. PT SX'ED AND LAVAGED PRN. NO RESP DISTRESS NOTED. PLAN IS TO CONTINUE CARE W/ CURRENT MD ORDERS AND MONITOR FOR CHANGES Addendum: 10/04/16 at 2126 by PAULA SAM RT Amended: Links added.
[2016-10-04] MEDS: ATORVASTATIN 40 MG TABLET GT SCH (21:31)
[2016-10-04] MEDS: INSULIN DETEMIR 100 UNIT/ML CARTRIDGE SQ SCH (21:39)
[2016-10-05] VITALS (8 sets, daily range): BP systolic 86–106; BP diastolic 46–64
[2016-10-05] MEDS: VANCOMYCIN HCL 125 MG/2.5 ML ORAL.SUSP PO SCH ×4 (00:11→17:18)
[2016-10-05] MEDS: BLOOD SUGAR DIAGNOSTIC 1 EACH STRIP IN SCH ×4 (00:18→17:12)
[2016-10-05] MEDS: INSULIN REGULAR, HUMAN 100 UNIT/ML 3 ML VIAL SQ PRN ×4 (00:20→17:16)
[2016-10-05] MEDS ORDERED: SECONDARY IV SET 1 EA INFUS.SET MC ONE ×2 (01:09→10:24)
[2016-10-05] MEDS: METRONIDAZOLE 500MG/ NS 100ML 500 MG in PREMIX 1 EA IV SCH ×3 (01:14→18:05)
[2016-10-05] MEDS: MEROPENEM 500 MG in IV NS 0.9% 50 ML IV SCH ×2 (04:04→16:58)
--- NOTE | 2016-10-05 06:31 | NUR ---
JEWELRY APPRAISER CLOSING NOTES NO SIGNIFICANT CHANGES. ALL NEEDS MET. NO RESPIRATORY DISTRESS NOTED, TOLERATING CURRENT VENT SETTINGS. ON TELE AFIB 104. GT PATENT AND INTACT, TOLERATING GTF. FLEXISEAL INTACT. WITH BETO PICC LINE ON TKO. WOUND TX DONE ORDERED. KEPT CLEAN AND DRY. TURNED AND REPOSITIONED Q2 AND PRN. ISOLATION PRECAUTIONS OBSERVED. SKIN WARM AND DRY TO TOUCH. HOB KEPT ELEVATED. SIDE RAILS UP AND LOCKED. BED KEPT AT LOWEST POSITION. CALL LIGHT KEPT WITHIN EASY REACH. WILL ENDORSE CONTINUITY OF CARE TO AM NURSE.
[2016-10-05 07:00] LABS: CALCIUM, SERUM 7.8 mg/dL (8.5-10.1); CREATININE 3.9 mg/dL (0.6-1.3); MAGNESIUM 2.4 mg/dL (1.8-2.4); PHOSPHORUS 6.2 mg/dL (2.5-4.9)
[2016-10-05 07:18] LABS: HEMATOCRIT 28 % (39-51); HEMOGLOBIN 9.1 g/dL (13.5-17.5); LYMPHOCYTES % (AUTO) 4.2 % (20.0-44.0); MEAN CORPUSCULAR HEMOGLOBIN 29 PG (26.0-33.0); MEAN CORPUSCULAR HGB CONC 33 g/dl (31.0-36.0); MEAN CORPUSCULAR VOLUME 90 fL (80-96); MONOCYTES # (AUTO) 1.3 /CMM (0.1-1.30); MONOCYTES % (AUTO) 5.4 % (2.0-12.0); NEUTROPHILS # (AUTO) 21.5 /CMM (1.8-8.9); NEUTROPHILS % (AUTO) 90.4 % (43.0-81.0); PLATELET COUNT (AUTO) 296 /CMM (150-450); RDW COEFFICIENT OF VARIATION 19.5 (11.5-15.0); RED BLOOD CELL COUNT(AUTO) 3.11 MIL/uL (4.5-6.0); WHITE BLOOD COUNT (AUTO) 23.8 K/uL (4.3-11.0)
--- NOTE | 2016-10-05 07:20 | NUR ---
RN INITIAL NOTE RECEIVED REPORT FROM [facility] FOR [facility]. PT NON VERBAL OPEN EYES. TELE A-FIB. FLEXISEAL INTACT. IV BETO PICC. VENT SETTINGS SHILEY XLT #8, AC 12 TV 550 FI02 35% PEEP 5. WILL CONTINE TO MONITOR. ALL SAFETY MEASURES IN PLACE.
[2016-10-05] MEDS: DOCUSATE SODIUM LIQ 100 MG/10 ML UDC GT SCH ×2 (08:40→16:57)
[2016-10-05] MEDS: ASPIRIN 81 MG TAB.CHEW PO SCH (08:40)
[2016-10-05] MEDS: GABAPENTIN 100 MG CAPSULE GT SCH ×2 (08:40→21:51)
[2016-10-05] MEDS: PANTOPRAZOLE 40 MG VIAL IV SCH (08:40)
[2016-10-05] MEDS: ZINC SULFATE 220 MG CAPSULE GT SCH (08:40)
[2016-10-05] MEDS: VIT B CMPLX 3/FA/VIT C/BIOTIN 1 TAB TABLET GT SCH (08:40)
[2016-10-05] MEDS: PROSOURCE / PROSTAT (PYXIS) 30 ML UDC GT SCH ×3 (08:40→17:06)
[2016-10-05] MEDS: TRAMADOL HCL 50 MG TABLET GT SCH ×2 (08:40→21:51)
[2016-10-05] MEDS: ACIDOPHILUS/BULGARICUS 1 EACH TAB.CHEW GT SCH ×2 (08:40→19:18)
[2016-10-05] MEDS: HYDROCORTISONE SOD SUCCINATE 100 MG/2 ML VIAL IV SCH ×2 (08:41→16:58)
[2016-10-05] MEDS: DAKINS QUARTER STRENGTH (0.125%) 480 ML BOTTLE TOP SCH (08:41)
[2016-10-05 09:52] LABS: LYMPHOCYTES % (MANUAL) 3 % (16-48); MONOCYTES % (MANUAL) 2 % (0-11.0); NEUTROPHILS % (MANUAL) 95 (42-76)
--- NOTE | 2016-10-05 16:00 | NUR ---
RN NOTE CALLED PHARMACY REGARDING PT 1700 LACTINEX MEDICATION. NOT REFILLED IN [facility]XIS. AWAITING MEDICATION TO BE REFILLED SPOKE TO DON.
[2016-10-05] MEDS: RENAL NOVASOURCE 1,000 ML BOTTLE GT PRN (17:06)
[2016-10-05] MEDS: Z GUARD REMEDY 2 OZ OINT TP PRN (17:19)
--- NOTE | 2016-10-05 19:15 | NUR ---
RN INITIAL NOTES RECEIVED PATIENT IN BED, NONVERBAL, OPENS EYES SPONTANEOUSLY. PATIENT NOT IN ANY DISTRESS, WITH TRACH, IN MIDLINE, C/D/I, ON MECH VENT. TOLERATING VENT SETTINGS WELL, NO DISTRESS, AIRWAY SUCTIONED NEEDED. AFIB ON TELE WITH HR OF 107. GT FLUSHED AND KEPT PATENT, NOTED WITH 20CC OF GASTRIC RESIDUAL, GTF INFUSING WELL. FLEXISEAL INTACT AND DRAINING WELL. BETO PICC LINE, FLUSHED AND PATENT. PATIENT'S NEEDS ANTICIPATED AND MET. SAFETY AND COMFORT ENSURED. BED IN LOW AND LOCKED POSITION. CALL LIGHT IN REACH. WILL MONITOR CLOSELY.
--- NOTE | 2016-10-05 19:40 | NUR ---
RN CLOSING NOTE REPORT GIVEN TO [facility] FOR [facility]U. PT NON VERBAL OPEN EYES THROUGH OUT SHIFT. TELE A-FIB THROUGH OUT SHIFT. FLEXISEAL INTACT 300 OUT. HD TODAY 1 L OUT. IV BETO PICC INTACT FLUSHED AND PATENT. VENT SETTINGS SHILEY XLT #8, AC 12 TV 550 FI02 35% PEEP 5. ALL SAFETY MEASURES IN PLACE. ALL MEDICATION AND ORDERS CARRIED OUT.
[2016-10-05] MEDS: ATORVASTATIN 40 MG TABLET GT SCH (21:51)
[2016-10-05] MEDS: INSULIN DETEMIR 100 UNIT/ML CARTRIDGE SQ SCH (21:52)
[2016-10-06] VITALS: BP 90/58
[2016-10-06] MEDS: VANCOMYCIN HCL 125 MG/2.5 ML ORAL.SUSP PO SCH ×5 (00:11→23:36)
[2016-10-06] MEDS: METRONIDAZOLE 500MG/ NS 100ML 500 MG in PREMIX 1 EA IV SCH ×3 (00:12→18:07)
[2016-10-06] MEDS: BLOOD SUGAR DIAGNOSTIC 1 EACH STRIP IN SCH ×5 (00:12→23:34)
[2016-10-06] MEDS: INSULIN REGULAR, HUMAN 100 UNIT/ML 3 ML VIAL SQ PRN ×5 (00:14→23:44)
[2016-10-06] MEDS ORDERED: IV SET PRIMARY PUMP SET 1 EA INFUS.SET MC ONE (03:31)
[2016-10-06 04:00] VITALS: BP 101/59
[2016-10-06] MEDS: MEROPENEM 500 MG in IV NS 0.9% 50 ML IV SCH ×2 (04:12→17:21)
[2016-10-06] MEDS: IV NS 0.9% 250 ML IV PRN (04:12)
--- NOTE | 2016-10-06 06:52 | NUR ---
RN CLOSING NOTES PATIENT WITH NO ACUTE CHANGE IN CONDITION OBSERVED OVERNIGHT. AIRWAY SUCTIONED NEEDED, TOLERATED MECH VENT SETTINGS WELL. GTF INFUSING ORDERED, NO GASTRIC RESIDUAL NOTED. REMAINS AFIB AT 104. FLEXISEAL INTACT, DRAINING WELL. WOUND TREATMENT RENDERED ORDERED. PATIENT TURNED AND REPOSITIONED. ALL DUE MEDS GIVEN ORDERED. ISOLATION PRECAUTION OBSERVED AT ALL TIMES. BETO PICC LINE INTACT AND FLUSHED. NEEDS ANTICIPATED AND MET. SAFETY AND COMFORT ENSURED. BED IN LOW AND LOCKED POSITION. WILL ENDORSE ACCORDINGLY FOR CONTINUITY OF CARE.
--- NOTE | 2016-10-06 07:47 | NUR ---
RT PT RECEIVED TRACHED ON THE VENT WITH NOTED SETTINGS. PT IS AWAKE BUT DOES NOT FOLLOW COMMANDS. VENT ALARMS ARE SET AND AUDIBLE WITH BVM BY BEDSIDE. WELDING MACHINE OPERATOR ULTRASONIC CUFF PRESSURE NOTED. VENT IS PLUGGED INTO RED OUTLET. NO RESPIRATORY DISTRESS NOTED AT THIS TIME, WILL CONTINUE TO MONITOR. Addendum: 10/06/16 at 0920 by MI SORTO RT Amended: Links added.
--- NOTE | 2016-10-06 07:51 | NUR ---
LOAN CLERK NOTE PATIENT IN BED , ALL NEEDS ATTENDED WITH TRACH TO VENT SETTING ORDERED, AMBU BAG AT HOB , ON TELE MONITOR AFIB 108, WITH GTUBE FEEDING ORDERED, KEEP HOB ELEVATED AT ALL TIME , RT UPPER ARM PICC LINE IN PLACE NO S\S INFECTION NOTED, BED IN LOWEST AND LOCKED POSITION , NO SOB NOTYED, WILL CONT TO MONITOR CLOSELY WITH FLEXISEAK RECTAL TUBE INPLCE WITH BROWN LIQUID STOOL NOTED Addendum: 10/06/16 at 0755 by MIHAI DE OLIVEIRA RN WITH BROWN GREENISH COLOR STOOL NOTED
[2016-10-06 08:00] VITALS: BP_SYST 65; BP_SYST 95; BP_DIAS 62
[2016-10-06] MEDS: VIT B CMPLX 3/FA/VIT C/BIOTIN 1 TAB TABLET GT SCH (08:08)
[2016-10-06] MEDS: PROSOURCE / PROSTAT (PYXIS) 30 ML UDC GT SCH ×3 (08:08→16:43)
[2016-10-06] MEDS: ZINC SULFATE 220 MG CAPSULE GT SCH (08:08)
[2016-10-06] MEDS: HYDROCORTISONE SOD SUCCINATE 100 MG/2 ML VIAL IV SCH ×2 (08:08→16:40)
[2016-10-06] MEDS: TRAMADOL HCL 50 MG TABLET GT SCH ×2 (08:08→21:00)
[2016-10-06] MEDS: ACIDOPHILUS/BULGARICUS 1 EACH TAB.CHEW GT SCH ×2 (08:09→16:41)
[2016-10-06] MEDS: ASPIRIN 81 MG TAB.CHEW PO SCH (08:09)
[2016-10-06] MEDS: GABAPENTIN 100 MG CAPSULE GT SCH ×2 (08:09→23:33)
[2016-10-06] MEDS: PANTOPRAZOLE 40 MG VIAL IV SCH (08:09)
[2016-10-06] MEDS: DAKINS QUARTER STRENGTH (0.125%) 480 ML BOTTLE TOP SCH (08:09)
[2016-10-06] MEDS: DOCUSATE SODIUM LIQ 100 MG/10 ML UDC GT SCH ×2 (08:09→16:41)
[2016-10-06 12:00] VITALS: BP 93/49
--- NOTE | 2016-10-06 12:00 | NUR ---
LIQUOR STORES AND AGENCIES SUPERVISOR NOTE ALL NEEDS ATTENDED ,KEEP CLEAN DRY ,WILL CONT TO MONITOR CLOSELY
--- NOTE | 2016-10-06 14:00 | NUR ---
RETORT SETTER NOTE SEEN BY ANNIE ESPINOSA RN COVER SEAMER AWARE THAT STILL HAS LOOSE STOOL WITH DARK BROWEN GREENISH COLOR STATED STILL OK TO TRANSFER TO SNF TODAY ,CALLED BROTHER INGRID, AWARE THAT PATENT WILL BE TRANSFER TO SNF TODAY
[2016-10-06] MEDS ORDERED: VANC125C11 PO (14:44)
[2016-10-06] MEDS ORDERED: SODI473S8 TOP (14:44)
[2016-10-06] MEDS ORDERED: METR500T PO (14:44)
[2016-10-06] MEDS ORDERED: HYDR100V IV (14:44)
[2016-10-06] MEDS ORDERED: Renal Novasource GT (14:44)
[2016-10-06] MEDS ORDERED: ERTA1VIA2 IV (14:44)
[2016-10-06] MEDS ORDERED: LEVO500T15 IV (14:44)
[2016-10-06] MEDS ORDERED: Prosource GT (14:44)
[2016-10-06 16:00] VITALS: BP 96/30
[2016-10-06] MEDS ORDERED: PRED50TA PO (16:26)
[2016-10-06] MEDS: LEVOFLOXACIN 500 MG /D5W 100ML 500 MG in PREMIX 1 EA IV SCH (16:29)
--- NOTE | 2016-10-06 18:00 | NUR ---
SUPERVISOR DRY PASTE NOTE CALLED TO SNF, REPORT GIVEN TO NORMA SEVILLA ALSO SPOKE WITH FRANCISCA VALENCIA RN ECONOMICS CONSULTANT ABOUT STEROID TO GIVE VIA G TUBE IN SNF
--- NOTE | 2016-10-06 19:20 | NUR ---
TRAIN ELECTRONIC TECHNICIAN NOTE AMBULANCE ARRIVED, REPORT GIVEN , TAKEN TO SNF WITH STABLE CONDITION, TELE REMOVED
[2016-10-06 22:30] VITALS: BP 93/63
--- NOTE | 2016-10-06 22:58 | NUR ---
SERVICE AND REPAIR SUPERVISOR INITIAL NOTE RECEIVED PT [facility]IA [facility]. PT BROUGHT BACK BY EMT'S FROM [place] [facility] FOR LOW BP. OBTUNDED WITH OPEN EYES. [facility] WITH SETTINGS WELL TOLERATED. PT IN NO ACUTE DISTRESS NOTED. IV RIGHT UPPER ARM PICC CLEAN, FLUSHING WELL AND INTACT. ISOLATION PRECAUTIONS FOR C-DIFF. FLEXI-SEAL IN PLACE AND DRAINING BY GRAVITY. WOUND TREATMENT PERFORMED. WILL CONTINUE CARE AND CONTINUE TO MONITOR.
[2016-10-06] MEDS ORDERED: ATORVASTATIN 40 MG TABLET ONE (23:22)
[2016-10-06] MEDS ORDERED: GABAPENTIN 100 MG CAPSULE ONE (23:22)
[2016-10-06] MEDS: ATORVASTATIN 40 MG TABLET GT SCH (23:34)
[2016-10-06] MEDS: RENAL NOVASOURCE 1,000 ML BOTTLE GT PRN (23:38)
[2016-10-06] MEDS: INSULIN DETEMIR 100 UNIT/ML CARTRIDGE SQ SCH (23:46)
[2016-10-07] VITALS (16 sets, daily range): BP systolic 92–148; BP diastolic 34–75
[2016-10-07] MEDS ORDERED: VANCOMYCIN HCL 125 MG/2.5 ML ORAL.SUSP ONE (00:03)
[2016-10-07] MEDS ORDERED: IV SET PRIMARY PUMP SET 1 EA INFUS.SET MC ONE (00:15)
[2016-10-07] MEDS ORDERED: IV NS 0.9% 250 ML IV ONE (00:16)
[2016-10-07] MEDS ORDERED: SECONDARY IV SET 1 EA INFUS.SET MC ONE ×2 (00:16→04:14)
[2016-10-07] MEDS ORDERED: IV NS 0.9% 250 ML IV PRN (00:30)
[2016-10-07] MEDS ORDERED: METRONIDAZOLE 500MG/ NS 100ML 100 ML IV ONE (01:08)
[2016-10-07] MEDS: METRONIDAZOLE 500MG/ NS 100ML 500 MG in PREMIX 1 EA IV SCH ×3 (01:24→17:26)
[2016-10-07] MEDS ORDERED: MEROPENEM 500 MG VIAL IV ONE (04:47)
[2016-10-07] MEDS ORDERED: IV NS 0.9% 50 ML IV ONE (05:06)
[2016-10-07] MEDS: VANCOMYCIN HCL 125 MG/2.5 ML ORAL.SUSP PO SCH ×3 (05:28→18:28)
[2016-10-07] MEDS: MEROPENEM 500 MG in IV NS 0.9% 50 ML IV SCH ×2 (05:28→17:26)
[2016-10-07] MEDS: BLOOD SUGAR DIAGNOSTIC 1 EACH STRIP IN SCH ×3 (05:28→18:28)
[2016-10-07] MEDS: INSULIN REGULAR, HUMAN 100 UNIT/ML 3 ML VIAL SQ PRN ×2 (05:36→18:28)
--- NOTE | 2016-10-07 06:43 | NUR ---
STEREOTYPER APPRENTICE CLOSING NOTE NO ACUTE DISTRESS NOTED DURING SHIFT. VENT SETTINGS WELL TOLERATED. GTUBE FEEDING ON AND NO RESIDUALS NOTED AT THIS TIME. IV BETO PICC PATENT AND CLEAN. ALL NEEDS ATTENDED TO AND MET PROMPTLY. ISOLATION PRECAUTIONS OBSERVED. WOUND TREATMENT PERFORMED AND REPOSITIONED Q2H. FLEXI-SEAL IN PLACE. WILL ENDORSE TO NEXT SHIFT FOR [facility].
--- NOTE | 2016-10-07 07:45 | NUR ---
RT PATIENT REC'D TRACHED ON [facility] WITH SETTINGS SET BY MD ENEDELIA CORDERO. VENT ALARMS CHECKED + AUDIBLE. CUFF PRESSURE CHECKED SENIOR JAVA DATA ARCHITECT. SX'D WITH SMALL AMT PALE SEMI-THICK SECRETIONS. COARSE B/S. PATIENT APPEARS COMFORTABLE AND IN NO DISTRESS AT THIS TIME. AMBU BAG AT HOB. CONT CURRENT PLAN OF CARE. Addendum: 10/07/16 at 1255 by AMIRAH MINA RT Amended: Links added.
--- NOTE | 2016-10-07 08:15 | NUR ---
RN KAYCE: PT.IS OBTUNDED, ABLE TO OPEN EYES BY TOUCH, REST, NO GRIMACING, O2SAT. WNL, HR 100-110, AFIB BY REPORT, SBP 95-110, NOW BP 96/37, GTF RESIDUAL WNL, GOING FOR HD TODAY, HD NURSE UPDATED WITH ALL ABOVE, GOT STAT ORDER FOR CBC, BMP, CALLED PHARMACY FOR ALBUMIN
[2016-10-07 09:02] LABS: BASOPHILS % (AUTO) 0.2 % (0.0-2.0); HEMATOCRIT 29 % (39-51); HEMOGLOBIN 9.6 g/dL (13.5-17.5); LYMPHOCYTES % (AUTO) 7.5 % (20.0-44.0); MEAN CORPUSCULAR HEMOGLOBIN 30 PG (26.0-33.0); MEAN CORPUSCULAR HGB CONC 33 g/dl (31.0-36.0); MEAN CORPUSCULAR VOLUME 90 fL (80-96); MONOCYTES # (AUTO) 1.6 /CMM (0.1-1.30); MONOCYTES % (AUTO) 6.1 % (2.0-12.0); NEUTROPHILS # (AUTO) 22.8 /CMM (1.8-8.9); NEUTROPHILS % (AUTO) 86.2 % (43.0-81.0); PLATELET COUNT (AUTO) 295 /CMM (150-450); RDW COEFFICIENT OF VARIATION 18.9 (11.5-15.0); RED BLOOD CELL COUNT(AUTO) 3.26 MIL/uL (4.5-6.0); WHITE BLOOD COUNT (AUTO) 26.5 K/uL (4.3-11.0)
[2016-10-07] MEDS: HYDROCORTISONE SOD SUCCINATE 100 MG/2 ML VIAL IV SCH ×2 (09:08→17:22)
[2016-10-07] MEDS: ASPIRIN 81 MG TAB.CHEW PO SCH (09:08)
[2016-10-07] MEDS: ACIDOPHILUS/BULGARICUS 1 EACH TAB.CHEW GT SCH ×2 (09:08→17:22)
[2016-10-07] MEDS: ZINC SULFATE 220 MG CAPSULE GT SCH (09:08)
[2016-10-07] MEDS: VIT B CMPLX 3/FA/VIT C/BIOTIN 1 TAB TABLET GT SCH (09:08)
[2016-10-07] MEDS: GABAPENTIN 100 MG CAPSULE GT SCH ×2 (09:08→21:13)
[2016-10-07] MEDS: PANTOPRAZOLE 40 MG VIAL IV SCH (09:08)
[2016-10-07] MEDS: DOCUSATE SODIUM LIQ 100 MG/10 ML UDC GT SCH ×2 (09:08→17:22)
[2016-10-07] MEDS: TRAMADOL HCL 50 MG TABLET GT SCH ×2 (09:09→21:14)
[2016-10-07] MEDS: PROSOURCE / PROSTAT (PYXIS) 30 ML UDC GT SCH ×3 (09:10→17:24)
--- NOTE | 2016-10-07 09:20 | NUR ---
RN KAYCE: PT.IS GETTING HD, HR 100-115, BP CONTROL BY HD NURSE, SBP AROUND 100, CALLED PHARMACY X2 TO GET ALBUMIN, JOURDAN ANGUIANO
[2016-10-07 09:21] LABS: LYMPHOCYTES % (MANUAL) 11 % (16-48); MONOCYTES % (MANUAL) 10 % (0-11.0); NEUTROPHILS % (MANUAL) 79 (42-76)
[2016-10-07 09:27] LABS: CALCIUM, SERUM 7.5 mg/dL (8.5-10.1); CREATININE 2.6 mg/dL (0.6-1.3); POTASSIUM 3.8 mmol/L (3.5-5.1)
--- NOTE | 2016-10-07 10:19 | NUR ---
RN KAYCE: HD DONE, '0' OUT, HR 103, BP 93/57
--- NOTE | 2016-10-07 11:00 | NUR ---
RN KAYCE: ARAMIS Dalton updated with pt.current condition, VS, I/O, HD today, labs, meds, see new orders
[2016-10-07] MEDS: DAKINS QUARTER STRENGTH (0.125%) 480 ML BOTTLE TOP SCH (12:14)
[2016-10-07] MEDS: MIDODRINE HCL (5MG) 5 MG TABLET PO SCH ×2 (12:15→17:22)
--- NOTE | 2016-10-07 13:15 | NUR ---
RN KAYCE: called to pharmacy, Dany PO 12.00 dose is not in meds room
--- NOTE | 2016-10-07 13:45 | NUR ---
RN KAYCE: charge nurse Lali confirmed: pt.is going to be d/c in 1-2hrs
--- NOTE | 2016-10-07 14:50 | NUR ---
RN KAYCE: ambulance team is in room, got report, SBP 92-110, HR 100-120, RR 20-24, O2sat. 90-92%, pt.was suctioned before, called RT to update ambulance RT
--- NOTE | 2016-10-07 15:10 | NUR ---
RN KAYCE: SBP is better: 120-136, HR 100-120, RR 21-26, O2sat. 90-92%, pt. is breathing with abd.muscles involved/labored, ambulance RT is consider to oyster picker pt. now, Jose LuisRT is in room, pt.was suctioned again, keep HOB over 40, continue monitoring
--- NOTE | 2016-10-07 15:40 | NUR ---
RN KAYCE: SBP 120-140, HR 100-115, O2 sat. 92-95% now, RR 20-22 on FiO2 same 35%, pt.keeps Tv well, but ambulance will sampler pickup another tele pt.first for now
--- NOTE | 2016-10-07 19:41 | NUR ---
PRELOAD SUPERVISOR INITIAL NOTE RECEIVED PT IN NO ACUTE DISTRESS, NO FACIAL GRIMACING NOTED AT THIS TIME. VENT SETTINGS WELL TOLERATED. GTUBE FEEDING ON AND NO RESIDUALS NOTED AT THIS TIME. IV BETO PICC PATENT AND CLEAN. ALL NEEDS ATTENDED TO AND MET PROMPTLY. ISOLATION PRECAUTIONS OBSERVED. WOUND TREATMENT PERFORMED AND REPOSITIONED Q2H. FLEXI-SEAL IN PLACE. WILL ENDORSE TO NEXT SHIFT FOR [facility]
[2016-10-07] MEDS: ATORVASTATIN 40 MG TABLET GT SCH (21:13)
[2016-10-07] MEDS: INSULIN DETEMIR 100 UNIT/ML CARTRIDGE SQ SCH (21:32)
[2016-10-08] VITALS: BP 91/62
[2016-10-08] MEDS: METRONIDAZOLE 500MG/ NS 100ML 500 MG in PREMIX 1 EA IV SCH ×3 (00:03→17:00)
[2016-10-08] MEDS: VANCOMYCIN HCL 125 MG/2.5 ML ORAL.SUSP PO SCH ×4 (00:03→17:15)
[2016-10-08] MEDS: BLOOD SUGAR DIAGNOSTIC 1 EACH STRIP IN SCH ×4 (00:15→17:15)
[2016-10-08] MEDS: INSULIN REGULAR, HUMAN 100 UNIT/ML 3 ML VIAL SQ PRN ×3 (00:19→11:50)
[2016-10-08 04:00] VITALS: BP 93/58
[2016-10-08] MEDS: MEROPENEM 500 MG in IV NS 0.9% 50 ML IV SCH ×2 (05:12→17:00)
--- NOTE | 2016-10-08 06:40 | NUR ---
CONSTRUCTION RIGGER CLOSING NOTE ENDORSED PT IN NO ACUTE DISTRESS, NO FACIAL GRIMACING NOTED AT THIS TIME. VENT SETTINGS WELL TOLERATED. GTUBE FEEDING ON AND NO RESIDUALS NOTED AT THIS TIME. IV BETO PICC PATENT AND CLEAN. ALL NEEDS ATTENDED TO AND MET PROMPTLY. ISOLATION PRECAUTIONS OBSERVED. WOUND TREATMENT PERFORMED AND REPOSITIONED Q2H. FLEXI-SEAL IN PLACE. WILL ENDORSE TO NEXT SHIFT TO F/U ON DISCHARGING PT ORDERED IF B/P STABLE.
--- NOTE | 2016-10-08 07:10 | NUR ---
RN INITIAL NOTE RECEIVED REPORT FORM JOSH MARTINEZ NURSE FOR [facility]. PT OBTUNDED OPENS EYES. TRACH SHILEY XLT #8 AC 12 TV 550 [id number]% PEEP 5. TELE CONTROLLED A-FIB. FLEXISEAL INTACT. GTF NOVASOURCE @ 35 ML/HR. IV BETO PICC INTACT AND PATENT. L CHEST WALL HD CATH. ALL SAFETY MEASURES IN PLACE. WILL CONTINUE TO MONITOR CLOSELY.
[2016-10-08 08:00] VITALS: BP 88/48
[2016-10-08] MEDS: ZINC SULFATE 220 MG CAPSULE GT SCH (08:44)
[2016-10-08] MEDS: VIT B CMPLX 3/FA/VIT C/BIOTIN 1 TAB TABLET GT SCH (08:44)
[2016-10-08] MEDS: ACIDOPHILUS/BULGARICUS 1 EACH TAB.CHEW GT SCH ×2 (08:44→16:36)
[2016-10-08] MEDS: ASPIRIN 81 MG TAB.CHEW PO SCH (08:44)
[2016-10-08] MEDS: GABAPENTIN 100 MG CAPSULE GT SCH (08:44)
[2016-10-08] MEDS: MIDODRINE HCL (5MG) 5 MG TABLET PO SCH ×3 (08:45→16:36)
[2016-10-08] MEDS: TRAMADOL HCL 50 MG TABLET GT SCH (08:45)
[2016-10-08] MEDS: PANTOPRAZOLE 40 MG VIAL IV SCH (08:46)
[2016-10-08] MEDS: DOCUSATE SODIUM LIQ 100 MG/10 ML UDC GT SCH ×2 (08:46→16:36)
[2016-10-08] MEDS: HYDROCORTISONE SOD SUCCINATE 100 MG/2 ML VIAL IV SCH ×2 (08:46→16:37)
[2016-10-08] MEDS: PROSOURCE / PROSTAT (PYXIS) 30 ML UDC GT SCH ×3 (08:47→16:36)
[2016-10-08] MEDS: DAKINS QUARTER STRENGTH (0.125%) 480 ML BOTTLE TOP SCH (08:48)
[2016-10-08] MEDS: Z GUARD REMEDY 2 OZ OINT TP PRN (08:49)
[2016-10-08] MEDS: RENAL NOVASOURCE 1,000 ML BOTTLE GT PRN (11:44)
[2016-10-08 12:00] VITALS: BP 106/61
[2016-10-08 16:00] VITALS: BP 107/61
[2016-10-08 16:36] VITALS: BP 107/61
[2016-10-08] MEDS: LEVOFLOXACIN 500 MG /D5W 100ML 500 MG in PREMIX 1 EA IV SCH ×2 (16:37→17:14)
[2016-10-08] MEDS ORDERED: PRED50TA PO (17:00)
--- NOTE | 2016-10-08 17:15 | NUR ---
PRODUCTION GENERALIST NOTE PT STABLE B/P 118/70, HR 114, R 18, SPO2 99%. PT DC [facility]. REPORT GIVEN TO LISSETTE RN. PT TRANSFERRED VIA AMBULANCE REPORT GIVEN TO EMT. ID BAND REMOVED AND FLEXISEAL REMOVED. GT FLUSH AND DC. BETO PICC INTACT AND FLUSHED. ALL DC INSTRUCTIONS GIVEN TO EMT. PT OBTUNDED UNABLE TO EDUCATE AND SCALE. NO BELONGINGS WITH PT ON ADMISSION. PHOTOS TAKEN 24 HOURS AGO AND IN CHART. PT CLEAN AND DRY. EXIT CARE AND CORE MEASURES DONE.
== END 2016-10-08 17:15 | DRG 853 ==
LOC: ER 11:24 → ICU 15:44 → TELE-TD 10-03 22:12 → MEDSG1 10-04 12:22 → TELE1 10-04 13:01 → UNDODISIN 10-06 19:32 → TELE1 10-06 22:44 → MEDSG1 10-07 13:47 → TELE1 10-07 16:28
PROVIDERS: ADMIT Internal Medicine; ATTEND Internal Medicine
PROC: 5A1955Z Respiratory Ventilation, Greater than 96 Consecutive Hours (ICD-10-PCS; principal; 2016-09-23)
PROC: 5A1D60Z (ICD-10-PCS; 2016-09-24)
PROC: 02HV33Z Insertion of Infusion Device into Superior Vena Cava, Percutaneous Approach (ICD-10-PCS; 2016-09-24)
PROC: 0QB10ZZ Excision of Sacrum, Open Approach (ICD-10-PCS; 2016-09-26)
DX: A41.9 Sepsis, unspecified organism (principal); J96.21 Acute and chronic respiratory failure with hypoxia; N18.6 End stage renal disease; R65.21 Severe sepsis with septic shock; R53.2 Functional quadriplegia; L89.154 Pressure ulcer of sacral region, stage 4; J69.0 Pneumonitis due to inhalation of food and vomit; Z99.11 Dependence on respirator [ventilator] status; D68.59 Other primary thrombophilia; E87.2 Acidosis; E87.1 Hypo-osmolality and hyponatremia; G93.1 Anoxic brain damage, not elsewhere classified; I13.2 Hypertensive heart and chronic kidney disease with heart failure and with stage 5 chronic kidney disease, or end stage renal disease; I50.22 Chronic systolic (congestive) heart failure; I82.409 Acute embolism and thrombosis of unspecified deep veins of unspecified lower extremity; A04.7 Enterocolitis due to Clostridium difficile; E27.40 Unspecified adrenocortical insufficiency; E11.22 Type 2 diabetes mellitus with diabetic chronic kidney disease; I25.10 Atherosclerotic heart disease of native coronary artery without angina pectoris; Z93.0 Tracheostomy status; Z93.1 Gastrostomy status; R13.10 Dysphagia, unspecified; E11.621 Type 2 diabetes mellitus with foot ulcer; L97.509 Non-pressure chronic ulcer of other part of unspecified foot with unspecified severity; Z79.4 Long term (current) use of insulin; E78.5 Hyperlipidemia, unspecified; M19.90 Unspecified osteoarthritis, unspecified site; M85.80 Other specified disorders of bone density and structure, unspecified site; Z79.01 Long term (current) use of anticoagulants; Z68.32 Body mass index [BMI] 32.0-32.9, adult; Z86.59 Personal history of other mental and behavioral disorders; Z86.74 Personal history of sudden cardiac arrest; Z86.718 Personal history of other venous thrombosis and embolism; Z87.891 Personal history of nicotine dependence; Z89.511 Acquired absence of right leg below knee; Z99.2 Dependence on renal dialysis; Z95.1 Presence of aortocoronary bypass graft; Z86.14 Personal history of Methicillin resistant Staphylococcus aureus infection; Z79.899 Other long term (current) drug therapy; E11.69 Type 2 diabetes mellitus with other specified complication; E87.6 Hypokalemia; E66.01 Morbid (severe) obesity due to excess calories; E11.65 Type 2 diabetes mellitus with hyperglycemia; D63.1 Anemia in chronic kidney disease; I35.0 Nonrheumatic aortic (valve) stenosis; I48.2 Chronic atrial fibrillation; F41.9 Anxiety disorder, unspecified; F50.9 Eating disorder, unspecified; J43.9 Emphysema, unspecified; D64.9 Anemia, unspecified; K46.9 Unspecified abdominal hernia without obstruction or gangrene; K72.90 Hepatic failure, unspecified without coma; I73.9 Peripheral vascular disease, unspecified; E05.90 Thyrotoxicosis, unspecified without thyrotoxic crisis or storm; T38.0X5A Adverse effect of glucocorticoids and synthetic analogues, initial encounter; Y92.89 Other specified places as the place of occurrence of the external cause; B96.5 Pseudomonas (aeruginosa) (mallei) (pseudomallei) as the cause of diseases classified elsewhere; B96.89 Other specified bacterial agents as the cause of diseases classified elsewhere
CPT/HCPCS: 31720; 36415; 36600; 71010-TC; 80048-TC; 80053-TC; 80076-TC; 80202-TC; 81000-TC; 82533; 82803-TC; 82962-TC; 83605-TC; 83735-TC; 84100-TC; 84132-TC; 84484-TC; 85025-TC; 85730-TC; 87040-TC; 87070-TC; 87081-TC; 87086-TC; 87186-TC; 90935-TC; 94002-TC; 94003-TC; 94760-TC; 94762-TC; 99082-TC; A4216; A4606; A6253; A6402; A6403; C9113; J0743; J0770; J0885; J1720; J1815; J1956; J2060; J2185; J2543; J3370; J3480; J3490; J7030; J7040; J7050; J7060; P9047; Z7610

== ENCOUNTER 2016-10-25 05:33 | Inpatient (IN) | payer BC, OTHER ==
[2016-10-25] VITALS (54 sets, daily range): BP systolic 63–111; BP diastolic 26–71
[~2016-10-25] VITALS: Ht 175.3 cm; Wt 131.5 kg
[~2016-10-25 05:33] MED LIST changes: -AMIN30LI26 GT; +AMIN30LI4 GT; +ATOR40TA GT; -CEFE1PIG3 IV; -COLI150V NEB; +ERTA1VIA2 IV; -LACT1CAP72 GT; +LEVO500T15 IV; -METO25TA6 GT; -METR500P4 IV; +METR500T PO; -MICA100V IV; -NEOM15OI3 TP; -Nystatin PO; +OMEP40CA37 GT; +PRED50TA PO; +Prosource GT; -QUET25TA GT; +Renal Novasource GT; -SEVE800T8 PO; +SODI473S8 TOP; -TRAM50TA2 GT; -VANC125C11 NG; +VANC125C11 PO; +ZINC220C8 GT; -ZOLP5TAB2 GT
--- NOTE | 2016-10-25 05:40 | NUR ---
60 YO MALE BB AMBULANCE FROM [facility]. PER EMS, PT BP WYES LOW, DIALYSIS CENTER REFUSED TO DO DIALYSIS. PT WAS DS TO ER BED, SKIN WAS NOTED TO BE COOL, RECTAL TEMP NOTED TO BE 93.6. MD NOTIFIED. PT PLACED ON PLUG GROWER. NOTED HYPOTENSION, MD NOTIFIED. AWAITING ORDERS FROM PROVIDER, WILL CONTINUE TO MONITOR
--- NOTE | 2016-10-25 06:03 | NUR ---
BLOOD SAMPLE OBTAINED AND SENT TO LAB
--- NOTE | 2016-10-25 06:10 | NUR ---
ACTIVATED ODE SEPSIS
--- NOTE | 2016-10-25 06:12 | NUR ---
VENT SETTING; AC 16, TV 550, FIO2 35%, PEEP 5.0
--- NOTE | 2016-10-25 06:20 | NUR ---
STARTED IV FLUIDS ORDERED
[2016-10-25] MEDS ORDERED: VANCOMYCIN 1 GM VIAL ONE (06:26)
[2016-10-25] MEDS ORDERED: PIPERACILLIN /TAZOBACTAM 3.375 G VIAL IV ONE (06:26)
[2016-10-25 06:27] LABS: BASOPHILS # (AUTO) 0.1 /CMM (0.0-0.2); BASOPHILS % (AUTO) 0.4 % (0.0-2.0); HEMATOCRIT 31 % (39-51); HEMOGLOBIN 10.1 g/dL (13.5-17.5); LYMPHOCYTES # (AUTO) 1.4 /CMM (0.8-4.8); LYMPHOCYTES % (AUTO) 9.8 % (20.0-44.0); MEAN CORPUSCULAR HEMOGLOBIN 30 PG (26.0-33.0); MEAN CORPUSCULAR HGB CONC 33 g/dl (31.0-36.0); MEAN CORPUSCULAR VOLUME 92 fL (80-96); MONOCYTES # (AUTO) 0.6 /CMM (0.1-1.30); MONOCYTES % (AUTO) 4.3 % (2.0-12.0); NEUTROPHILS # (AUTO) 12.4 /CMM (1.8-8.9); NEUTROPHILS % (AUTO) 85.5 % (43.0-81.0); RDW COEFFICIENT OF VARIATION 19.1 (11.5-15.0); RED BLOOD CELL COUNT(AUTO) 3.36 MIL/uL (4.5-6.0); WHITE BLOOD COUNT (AUTO) 14.5 K/uL (4.3-11.0)
[2016-10-25] MEDS ORDERED: VANCOMYCIN 1 GM in IV D5W 250 ML IV ONE (06:30)
[2016-10-25] MEDS ORDERED: IV NS 0.9% 1,000 ML BAG IV ONE ×3 (06:30→08:00)
[2016-10-25] MEDS ORDERED: PIPERACILLIN /TAZOBACTAM 3.375 G in IV D5W 50 ML IV ONE (06:30)
--- NOTE | 2016-10-25 06:33 | NUR ---
RADIOLOGY AT BED SIDE FOR CHEST X RAY
[2016-10-25 06:36] LABS: PLATELET COUNT (AUTO) 32 /CMM (150-450)
[2016-10-25 06:40] LABS: CALCIUM, SERUM 7.4 mg/dL (8.5-10.1); CARBON DIOXIDE 23 mmol/L (21-32); CHLORIDE 100 mmol/L (98-107); CREATININE 4.4 mg/dL (0.6-1.3); GLUCOSE 111 mg/dL (74-106); POTASSIUM 3.2 mmol/L (3.5-5.1); SODIUM SERUM 137 mmol/L (136-145); UREA NITROGEN, BLOOD 79 mg/dL (7-18)
--- NOTE | 2016-10-25 06:42 | NUR ---
Note undone in EDM - 10/25/16 at 0644 by TERELL 60 YO MALE BB AMBULANCE FROM [facility]. PER EMS, PT BP WYES LOW, DIALYSIS CENTER REFUSED TO DO DIALYSIS. PT WAS DS TO ER BED, SKIN WAS NOTED TO BE COOL, RECTAL TEMP NOTED TO BE 93.6. MD NOTIFIED. PT PLACED ON PRESS OPERATOR PRINTING. NOTED HYPOTENSION, MD NOTIFIED. AWAITING ORDERS FROM PROVIDER, WILL CONTINUE TO MONITOR
[2016-10-25 06:48] LABS: TROPONIN I 0.196 ng/mL (0.00-0.056)
[2016-10-25] MEDS ORDERED: NOREPINEPHRINE 4 MG/4 ML AMPUL IV ONE (06:54)
[2016-10-25 06:55] LABS: ALANINE AMINOTRANSFERASE 13 U/L (12-78); ASPARTATE AMINOTRANSFERASE 65 U/L (15-37); BILIRUBIN,DIRECT 2.4 mg/dL (0.0-0.2); BILIRUBIN,TOTAL 3.1 mg/dL (0.2-1.0); INR 1.68 (0.87-1.13); PROTHROMBIN TIME 18.6 SECS (9.5-12.7); TOTAL PROTEIN, SERUM 4.6 g/dL (6.4-8.2)
[2016-10-25] MEDS ORDERED: NOREPINEPHRINE 8 MG in IV D5W 500 ML IV PRN (07:00)
--- NOTE | 2016-10-25 07:05 | NUR ---
STARTED LEVOPHED ORDERED; TITRATE FOR EFFECT; 6MCG/ MIN
[2016-10-25 07:06] LABS: BAND % (MANUAL) 5 % (0.0-5.0); EOSINOPHILS % (MANUAL) 2 % (0-4); LYMPHOCYTES % (MANUAL) 9 % (16-48); MONOCYTES % (MANUAL) 5 % (0-11.0); NEUTROPHILS % (MANUAL) 79 (42-76)
[2016-10-25 07:14] LABS: ALBUMIN 1.2 g/dL (3.4-5.0); ALKALINE PHOSPHATASE 1294 U/L (46-116)
--- NOTE | 2016-10-25 07:17 | NUR ---
panel on-call paged
[2016-10-25] MEDS ORDERED: HYDROCORTISONE SOD SUCCINATE 100 MG/2 ML VIAL IV ONE (07:30)
[2016-10-25] MEDS ORDERED: HYDROCORTISONE SOD SUCCINATE 100 MG/2 ML VIAL ONE (07:30)
--- NOTE | 2016-10-25 07:45 | NUR ---
REPORT GIVEN TO DI ALVA FOR CONTINUITY OF CARE
[2016-10-25] MEDS ORDERED: HYDROCODONE/APAP 5/325MG 1 EACH TABLET PO PRN (08:00)
[2016-10-25] MEDS ORDERED: MAG HYDROX/AL HYDROX/SIMETH 30 ML UDC PO PRN (08:00)
[2016-10-25] MEDS ORDERED: ONDANSETRON HCL/PF 4 MG/2 ML VIAL IVP PRN (08:00)
[2016-10-25] MEDS ORDERED: MAGNESIUM HYDROXIDE 30 ML UDC PO PRN (08:00)
[2016-10-25] MEDS ORDERED: ACETAMINOPHEN 325 MG TABLET PO PRN (08:00)
[2016-10-25] MEDS ORDERED: FEE PK DOSING 1 MIN EA MC ONE (08:12)
--- NOTE | 2016-10-25 08:24 | NUR ---
FLUID CHALLENGE STILL ONGOING
[2016-10-25] MEDS ORDERED: VANCOMYCIN 500 MG in IV D5W 100 ML IV PRN (08:30)
[2016-10-25] MEDS ORDERED: Z GUARD REMEDY 2 OZ OINT TP PRN (08:30)
--- NOTE | 2016-10-25 08:47 | NUR ---
SEPSIS REASSESSMENT COMPLETED
--- NOTE | 2016-10-25 08:48 | NUR ---
RT AT BS FOR FERMIN
[2016-10-25 08:56] LABS: ABG BASE EXCESS -7.8 mmol/L; ABG OXYGEN SATURATION 95.4 % (92.0-98.5); ABG PCO2 40.8 mmHg (35.0-45.0); ABG PH 7.274 (7.350-7.450); ABG PO2 94.4 mmHg (75.0-100.0); AaDO2 107.7 mmHg; COHb 0.3 % (0.5-1.5); MetHb 0.6 % (0.0-1.5); O2Hb 94.5 % (94.0-97.0); PEEP,BG 5 cm H2O; SITE, ABG Left Brachial; VT, ABG 550 mL
[2016-10-25] MEDS: DOCUSATE SODIUM LIQ 100 MG/10 ML UDC GT SCH ×2 (09:00→17:00)
[2016-10-25] MEDS ORDERED: APIXABAN 2.5 MG TABLET GT SCH (09:00)
--- NOTE | 2016-10-25 09:20 | NUR ---
PATIENT WAS TRANSPORTED TO ICU- VSS
--- NOTE | 2016-10-25 09:30 | NUR ---
ICU/RN: RECEIVED REPORT FROM ER. PT OBTUNDED, DOES NOT FOLLOW COMMANDS. PT ON VENT SETTINGS ORDERED BY MD, NO ACUTE DISTRESS NOTED AT THIS TIME. PT ON TELE, CONTROLLED ATRIAL FIBRILLATION. PT AFEBRILE. SCHEDULED FOR HD TODAY. LEFT CHEST WALL HD CATH. PT ADMITTED FROM [facility] WITH RIGHT UPPER ARM PICC LINE, PATENT AND INTACT, NO S/S OF INFECTION OR INFILTRATION NOTED. ALL NEEDS WILL BE MET, PT PLACED ON LOW AIR LOSS MATTRESS, WOUND CONSULT ORDERED. SAFETY MEASURES TAKEN, BED IN LOW POSITION, SIDE RAILS UP, CALL LIGHT WITHIN REACH.
[2016-10-25 09:45] LABS: INR 1.68 (0.87-1.13); PROTHROMBIN TIME 18.6 SECS (9.5-12.7)
[2016-10-25 09:46] LABS: D-DIMER 1.72 mg/L(FEU (0.17-0.50)
[2016-10-25] MEDS: GABAPENTIN 100 MG CAPSULE GT SCH ×2 (10:48→21:18)
[2016-10-25] MEDS: ZINC SULFATE 220 MG CAPSULE GT SCH (10:48)
[2016-10-25] MEDS: ACIDOPHILUS/BULGARICUS 1 EACH TAB.CHEW GT SCH ×2 (10:48→17:47)
[2016-10-25] MEDS: NOREPINEPHRINE 16 MG in IV D5W 500 ML IV PRN ×2 (11:14→18:15)
[2016-10-25] MEDS ORDERED: PIPERACILLIN /TAZOBACTAM 4.5 G in IV D5W 50 ML IV SCH (12:00)
[2016-10-25] MEDS ORDERED: VANCOMYCIN 1.25 GM in IV D5W 500 ML IV SCH (13:00)
[2016-10-25] MEDS: PIPERACILLIN /TAZOBACTAM 2.25 G in IV D5W 50 ML IV SCH ×2 (14:15→17:48)
--- NOTE | 2016-10-25 14:30 | NUR ---
ICU/RN: HEMODIALYSIS DONE, 1 LITERS OUT. PHARMACY CALLED VANCO WAS ADMINISTERED IN AM, NO NEED TO ADMIIN POST H.D PER PHARMACIST.
--- NOTE | 2016-10-25 18:56 | NUR ---
ICU/RN ENDING NOTES,AM REPORT WILL BE ENDORSED TO NIGHT NURSE. PT OBTUNDED, DOES NOT FOLLOW COMMANDS. LEVO INFUSING FOR BP SUPPORT. PT ON VENT SETTINGS ORDERED BY MD, NO ACUTE DISTRESS NOTED. SAFETY MEASURES TAKEN. BED IN LOW POSITION, SIDE RAILS UP, CALL LIGHT WITHIN REACH.
--- NOTE | 2016-10-25 19:54 | NUR ---
ASSISTANT CORPORATE SECRETARY. INITIAL ASSESSMENT. RECEIVED THE PT REST ON THE BED. NONVERBAL. TRACH TO VENT CONNECTED. SHILEYXLT 8,AC 16,TV 600,FIO2 35%, PEEP 5. SAT 98%. LACE ROLLER SHOWING S TACH. IV RT UPPER ARM PICC LINE , LT SUBCLAVIAN CHARAN CATH, LEVOPHED 30MCG/MIN,GT CLAMPED. NPO, HOB ELEVATED. TURN AND REPOSITION Q2H. WILL CONTINUE TO MONITOR VITALS.
--- NOTE | 2016-10-25 20:34 | NUR ---
PT RECEIVED TRACH LIBAN 8XLT ON VENT. NO DISTRESS. PT TOLERATING VENT SETTINGS. SX'D FOR SML AMT OF THIN WHITE SECRETIONS. VENT ALARMS SET AND AUDIBLE. PEARL WINTERS AT [facility]. WILL CONTINUE TO MONITOR. Addendum: 10/25/16 at 2034 by SUSANA VALDIVIA RT Amended: Links added.
[2016-10-25] MEDS: ATORVASTATIN 40 MG TABLET GT SCH (21:18)
[2016-10-25] MEDS: PHENYLEPHRINE 40 MG in IV D5W 250 ML IV PRN (21:20)
[2016-10-26] VITALS (90 sets, daily range): BP systolic 73–116; BP diastolic 43–75
[2016-10-26] MEDS: PIPERACILLIN /TAZOBACTAM 2.25 G in IV D5W 50 ML IV SCH ×4 (00:01→17:05)
[2016-10-26] MEDS: NOREPINEPHRINE 16 MG in IV D5W 500 ML IV PRN ×5 (00:13→20:33)
[2016-10-26] MEDS: PHENYLEPHRINE 40 MG in IV D5W 250 ML IV PRN ×2 (02:41→07:27)
[2016-10-26] MEDS: IV NS 0.9% 250 ML IV PRN ×2 (02:48→22:28)
--- NOTE | 2016-10-26 03:35 | NUR ---
CHANNEL PROGRAM MANAGER. AM CARE, ORAL CARE, BED BATH GIVEN. REMAINING SAME VENT SETTINGS TOLERATED WELL SAT 98%. NO ACUTE DISTRESS NOTED. 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 IV RT UPPER ARM PICC LINE. LEVO 40MCG/MIN, NERY 100MCG/MIN. NPO. HOB ELEVATED, TURN AND REPOSITION Q2H. AFEBRILE. WILL CONTINUE TO MONITOR VITALS.
[2016-10-26 04:33] LABS: HEMATOCRIT 32 % (39-51); HEMOGLOBIN 10.5 g/dL (13.5-17.5); LYMPHOCYTES % (AUTO) 4.9 % (20.0-44.0); MEAN CORPUSCULAR HEMOGLOBIN 30 PG (26.0-33.0); MEAN CORPUSCULAR HGB CONC 33 g/dl (31.0-36.0); MEAN CORPUSCULAR VOLUME 92 fL (80-96); MONOCYTES # (AUTO) 1.3 /CMM (0.1-1.30); MONOCYTES % (AUTO) 6.1 % (2.0-12.0); NEUTROPHILS # (AUTO) 18.7 /CMM (1.8-8.9); RED BLOOD CELL COUNT(AUTO) 3.51 MIL/uL (4.5-6.0)
[2016-10-26 04:50] LABS: CALCIUM, SERUM 7.1 mg/dL (8.5-10.1); CREATININE 3.6 mg/dL (0.6-1.3); MAGNESIUM 2.2 mg/dL (1.8-2.4); PHOSPHORUS 5.1 mg/dL (2.5-4.9); PLATELET COUNT (AUTO) 44 /CMM (150-450); POTASSIUM 3.6 mmol/L (3.5-5.1)
--- NOTE | 2016-10-26 05:42 | NUR ---
REGISTERED NURSE SURGICAL SERVICES. SODIUM 173. CI 136, CALLED TANYA. CHANGED IVF D5W 125ML/H.. AFTER 4H BNP TO BE REPEAT. Addendum: 10/26/16 at 0544 by OSWALDO ULLOA RN WRONG PT.
[2016-10-26 05:54] LABS: BAND % (MANUAL) 1 % (0.0-5.0); LYMPHOCYTES % (MANUAL) 3 % (16-48); MONOCYTES % (MANUAL) 10 % (0-11.0); NEUTROPHILS % (MANUAL) 86 (42-76)
[2016-10-26] MEDS ORDERED: PANTOPRAZOLE 40 MG TABLET.DR PO SCH (07:30)
--- NOTE | 2016-10-26 08:10 | NUR ---
PERITONEAL DIALYSIS REGISTERED NURSE RECEIVED PT IN BED OBTUNDED OPENS EYES DOES NOT FOLLOW MOVES TO LOCALIZE PAIN, PT IS ON VENT SETTINGS NOTED O2 SAT 98% RR 16 NO FEVER, PT IS AFIB ON MONITOR HR 120S-150S SBP NOT STABLE ON DOUBLE PRESSORS MAXED OUT LEVO AND NERY, PT HAS GTUBE WITH 0 RESIDUAL NPO, IV ACCESS BETO PICC LINE PATENT, TURN AND REPOSITION IN BED FALL PRECAUTIONS TAKEN CALL LIGHT W/ IN REACH CALLED DR. NIEVES ORDERED VASO TO SUSTAIN SBP >90 ALSO REPEAT LA, ORDERS PUT IN WILL CONTINUE TO MONITOR.
[2016-10-26] MEDS: DOCUSATE SODIUM LIQ 100 MG/10 ML UDC GT SCH ×2 (08:13→17:05)
[2016-10-26] MEDS: ACIDOPHILUS/BULGARICUS 1 EACH TAB.CHEW GT SCH ×2 (08:13→17:05)
[2016-10-26] MEDS: ZINC SULFATE 220 MG CAPSULE GT SCH (08:13)
[2016-10-26] MEDS: GABAPENTIN 100 MG CAPSULE GT SCH ×2 (08:13→21:37)
[2016-10-26] MEDS ORDERED: DEXTROSE 50%-WATER 50 ML DISP.SYRIN IV PRN (09:00)
[2016-10-26] MEDS: PHENYLEPHRINE 80 MG in IV NS 0.9% 250 ML IV PRN ×4 (09:52→22:27)
[2016-10-26 10:14] LABS: ABG BASE EXCESS -6.4 mmol/L; ABG OXYGEN SATURATION 94.6 % (92.0-98.5); ABG PH 7.377 (7.350-7.450); ABG PO2 79.5 mmHg (75.0-100.0); COHb 0.8 % (0.5-1.5); MetHb 0.9 % (0.0-1.5); PEEP,BG 0 cm H2O; SITE, ABG Left Brachial; VT, ABG 600 mL
[2016-10-26] MEDS: BLOOD SUGAR DIAGNOSTIC 1 EACH STRIP IN SCH ×2 (11:59→17:05)
[2016-10-26] MEDS ORDERED: PANTOPRAZOLE 40 MG VIAL IV SCH (12:00)
[2016-10-26] MEDS: INSULIN REGULAR, HUMAN 100 UNIT/ML 3 ML VIAL SQ PRN (12:00)
--- NOTE | 2016-10-26 12:59 | NUR ---
NP PER ICU SEALING AND CANCELING MACHINE OPERATOR, PATIENT UNSTABLE FOR SKIN ASSESSMENT AT THIS TIME. PATIENT ON PRESSOR SUPPORT MAXED OUT AT THIS TIME. I WAS ABLE TO REVIEW THE PHOTO IMAGES IN THE MEDICAL RECORD. SURGICAL TEAM IS FOLLOWING AND WILL PLACE WOUND TREATMENTS. RECOMMEND TURNING SCHED Q 2 HOURS PATIENT CONDITION PERMITS AND HEEL FLOATING PATIENT CONDITION PERMITS. RECOMMEND CAROLE MAX 2 BED WITH ETS AIR PATIENT WEIGHT 280LBS PER PARKING METER ATTENDANT TODAY. CAROLE MAX 2 HAS BEEN ORDERED AND PATIENT TO BE PLACED ON THAT BED WHEN STABLE TO DO SO. PATIENT WITH CURRENT RADHA AT 9. CONTINUE ALL SKIN MANAGEMENT AND PREVENTION MEASURES PER CURRENT PLAN OF CARE. PATIENT NOTED TO HAVE MULTIPLE CO-MORBIDITIES AND FURTHER SKIN BREAKDOWN MAY BE UNAVOIDABLE. NP WILL DEFER WOUND TREATMENT PLANS TO SURGICAL TEAM. ALL DISCUSSED WITH NURSING AT THE BEDSIDE.
[2016-10-26] MEDS ORDERED: IV NS 0.9% 1,000 ML IV PRN (13:08)
[2016-10-26] MEDS ORDERED: VANCOMYCIN 1 GM in IV D5W 250ml IV ONE (14:00)
[2016-10-26] MEDS: DAKINS QUARTER STRENGTH (0.125%) 480 ML BOTTLE TOP SCH (14:25)
--- NOTE | 2016-10-26 19:57 | NUR ---
RT PATIENT REC'D TRACHED ON [facility] VENT WITH ORDERED SETTINGS ENEDELIA WELL. VENT ALARMS CHECKED + AUDIBLE. SX'D WITH SMALL AMT PALE SEMITHICK SECRETIONS. B/S DIM. KANG BAG AT HOB. CONT CURRENT PLAN OF CARE. Addendum: 10/26/16 at 8 by PAULA SAM RT Amended: Links added.
--- NOTE | 2016-10-26 19:59 | NUR ---
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 INITIAL ASSESSMENT. RECEIVED THE PT REST ON THE BED. TRACH TO VENT CONNECTED. NONVERBAL. SHILEYXLT 8, AC 16,TV 600, FIO2 35%, PEEP 5. SAT 98%. NPO. HOB ELEVATED. GT CLAMPED. IV RT UPPER ARM PICC LINE LEVOPHED 30MCG/MIN. NERY 300MCG/MIN. TURN AND REPOSITION Q2H. WILL CONTINUE TO MONITOR VITALS.
[2016-10-26] MEDS: ATORVASTATIN 40 MG TABLET GT SCH (21:37)
[2016-10-27] VITALS (107 sets, daily range): BP systolic 51–134; BP diastolic 24–81
[2016-10-27] MEDS: BLOOD SUGAR DIAGNOSTIC 1 EACH STRIP IN SCH ×5 (00:03→23:34)
[2016-10-27] MEDS: INSULIN REGULAR, HUMAN 100 UNIT/ML 3 ML VIAL SQ PRN ×3 (00:03→18:20)
[2016-10-27] MEDS: PIPERACILLIN /TAZOBACTAM 2.25 G in IV D5W 50 ML IV SCH ×5 (00:03→23:34)
[2016-10-27] MEDS: PHENYLEPHRINE 80 MG in IV NS 0.9% 250 ML IV PRN ×6 (02:22→23:36)
--- NOTE | 2016-10-27 03:48 | NUR ---
CENTRAL SERVICE SUPPLY DISTRIBUTOR. AM CARE, ORAL CARE, BED BATH GIVEN. LINEN CHANGED, REMAINING SAME VENT SETTING TOLERATED WELL. SAT 98%. NO ACUTE DISTRESS NOTED. [employer] INS[employer]ANCE SHOWING AFIB. . IV RT UPPER ARM PICC LINE. LEVOPHED 30MCG/MIN. NERY 300MCG/MIN. AFEBRILE. HOB ELEVATED. TURN AND REPOSITION Q2H. WILL CONTINUE TO MONITOR VITALS.
[2016-10-27 04:57] LABS: BASOPHILS % (AUTO) 0.2 % (0.0-2.0); HEMATOCRIT 31 % (39-51); HEMOGLOBIN 10.4 g/dL (13.5-17.5); LYMPHOCYTES # (AUTO) 1.6 /CMM (0.8-4.8); LYMPHOCYTES % (AUTO) 11.3 % (20.0-44.0); MEAN CORPUSCULAR HEMOGLOBIN 31 PG (26.0-33.0); MEAN CORPUSCULAR HGB CONC 34 g/dl (31.0-36.0); MEAN CORPUSCULAR VOLUME 91 fL (80-96); MONOCYTES # (AUTO) 1.3 /CMM (0.1-1.30); MONOCYTES % (AUTO) 9.3 % (2.0-12.0); NEUTROPHILS # (AUTO) 11.4 /CMM (1.8-8.9); NEUTROPHILS % (AUTO) 79.2 % (43.0-81.0); RDW COEFFICIENT OF VARIATION 19.7 (11.5-15.0); RED BLOOD CELL COUNT(AUTO) 3.36 MIL/uL (4.5-6.0); WHITE BLOOD COUNT (AUTO) 14.4 K/uL (4.3-11.0)
[2016-10-27] MEDS: NOREPINEPHRINE 16 MG in IV D5W 500 ML IV PRN ×3 (04:58→18:39)
[2016-10-27 05:03] LABS: PLATELET COUNT (AUTO) 45 /CMM (150-450)
[2016-10-27 05:20] LABS: INR 1.61 (0.87-1.13); PROTHROMBIN TIME 17.8 SECS (9.5-12.7)
[2016-10-27 05:24] LABS: LYMPHOCYTES % (MANUAL) 13 % (16-48); MONOCYTES % (MANUAL) 3 % (0-11.0); NEUTROPHILS % (MANUAL) 84 (42-76)
[2016-10-27 05:28] LABS: CALCIUM, SERUM 6.8 mg/dL (8.5-10.1); CREATININE 3.7 mg/dL (0.6-1.3); POTASSIUM 3.3 mmol/L (3.5-5.1)
[2016-10-27 05:34] LABS: BILIRUBIN,DIRECT 2.7 mg/dL (0.0-0.2); BILIRUBIN,TOTAL 3.4 mg/dL (0.2-1.0); MAGNESIUM 2.1 mg/dL (1.8-2.4); PHOSPHORUS 4.9 mg/dL (2.5-4.9); TOTAL PROTEIN, SERUM 4.7 g/dL (6.4-8.2)
[2016-10-27 05:46] LABS: ALBUMIN 1.2 g/dL (3.4-5.0)
--- NOTE | 2016-10-27 07:26 | NUR ---
Male pt received on mechanical vent. Pt trach is secure. Vent is plugged into a red outlet, alarms are set and audible, and BVM is at bedside. Addendum: 10/27/16 at 0805 by SARA TAYLOR RT Amended: Links added.
[2016-10-27] MEDS: PANTOPRAZOLE 40 MG TABLET.DR PO SCH (07:30)
[2016-10-27] MEDS: ACIDOPHILUS/BULGARICUS 1 EACH TAB.CHEW GT SCH ×2 (08:51→16:26)
[2016-10-27] MEDS: DOCUSATE SODIUM LIQ 100 MG/10 ML UDC GT SCH ×2 (08:51→16:26)
[2016-10-27] MEDS: GABAPENTIN 100 MG CAPSULE GT SCH ×2 (08:52→21:13)
[2016-10-27] MEDS: DAKINS QUARTER STRENGTH (0.125%) 480 ML BOTTLE TOP SCH (08:52)
[2016-10-27] MEDS: ZINC SULFATE 220 MG CAPSULE GT SCH (08:52)
[2016-10-27] MEDS: HYDROGEL DRESSING 90 GM TUBE TP SCH (08:55)
[2016-10-27] MEDS: ALBUMIN 25% 25 GM in PREMIX 1 EA IV PRN (13:00)
--- NOTE | 2016-10-27 14:30 | NUR ---
COUNTY JUDGE DIALYSIS DONE EARLIER, BLOOD PRESSURE DROPPED TO 60'S DIALYSIS IS STOPPED, 200 ML OUT ALL PRESSORS ON MAX
--- NOTE | 2016-10-27 17:15 | NUR ---
MAIL HANDLER EQUIPMENT OPERATOR SATURATION DROPPED TO 89% EPISODE OF INCREASE HEART RATE NOTED AT 160'S BLOOD PRESSURE DROPPED TO 80'S BUT NON-SUSTAINABLE CHANGE IN VITAL SIGNS MONITORED CLOSELY
[2016-10-27] MEDS: VANCOMYCIN 500 MG in IV D5W 100 ML IV PRN (17:41)
--- NOTE | 2016-10-27 19:49 | NUR ---
PT RECEIVED TRACH ON VENT. NO DISTRESS. PT TOLERATING VENT SETTINGS. SX'D FOR SML AMT OF THIN WHITE SECRETIONS. VENT ALARMS SET AND AUDIBLE. PEARL WINTERS AT [facility]. WILL CONTINUE TO MONITOR. Addendum: 10/27/16 at 1949 by PAULA SAM RT Amended: Links added.
--- NOTE | 2016-10-27 20:00 | NUR ---
Received patient obtunded responsive only to painful stimuli.Patient in critical condition. Afib uncontrolled HR 120's-130's.Hemodynamically unstable with both pressors max out Levophed and neosynephrine.Continued on same vent settings well tolerated.NPO.GT clamped. Anuric.With multiple skin issues.Will turn and reposition per protocol.Continue monitoring.
[2016-10-27] MEDS: ATORVASTATIN 40 MG TABLET GT SCH (21:13)
[2016-10-27] MEDS: VASOPRESSIN INJ 50 UNIT in IV D5W 497.5 ML IV PRN (23:56)
[2016-10-28] VITALS (104 sets, daily range): BP systolic 82–119; BP diastolic 32–81
[2016-10-28] MEDS: NOREPINEPHRINE 16 MG in IV D5W 500 ML IV PRN ×4 (01:08→21:06)
[2016-10-28] MEDS: PHENYLEPHRINE 80 MG in IV NS 0.9% 250 ML IV PRN ×5 (04:00→21:05)
[2016-10-28] MEDS: PIPERACILLIN /TAZOBACTAM 2.25 G in IV D5W 50 ML IV SCH ×3 (05:40→17:07)
[2016-10-28] MEDS: BLOOD SUGAR DIAGNOSTIC 1 EACH STRIP IN SCH ×3 (05:40→17:05)
[2016-10-28] MEDS: IV NS 0.9% 250 ML IV PRN (05:46)
--- NOTE | 2016-10-28 06:30 | NUR ---
Patient resting.Afib 116.Remains hemodynamically unstable max on Levophed drip and Neosynephrine drip in addition to vasopressin at 0.01 U/min.AM care done.Oral care and trach care done.Turned and repositioned.BM x 1.Sacral decub dressing done.Blood sugar monitored wnl.Will endorsed to AM shift RN for continuity of care.
--- NOTE | 2016-10-28 07:11 | NUR ---
MERCHANDISING STOCK ASSOCIATE NOTES RECEIVED PATIENT OBTUNDED , OPENS EYES , NOT IN ACUTE DISTRESS , RESPIRATIONS EVEN AND UNLABORED WITH SPO2 OF 100% VIA MECHANICAL VENTILATOR SETTINGS ORDERED , TRACH OF EMELYN XLT IN PLACE , AFIB 124 ON BEDSIDE MONITOR , GT PATENT AND INTACT CLAMPED , ON KCI MATTRESS , BETO PICC LINE WITH LEVOPHED @ 40MCG /MIN , NORSYNEPHRINE @ 300MCG/MIN , VASOPRESSIN @ 0.01MCG/MIN M WITH NS @ TKO INFUSING WELL , ALL NEEDS ATTENDED , BED ON LOW AND LOCKED POSITION , SIDE RAILS X2 . WILL CONTINUE TO MONITOR . Addendum: 10/28/16 at 1758 by BRITT VELA RN VASOPRESSIN @ 0.01 U/MIN
[2016-10-28] MEDS: PANTOPRAZOLE 40 MG TABLET.DR PO SCH (07:30)
[2016-10-28 08:38] LABS: BASOPHILS # (AUTO) 0.1 /CMM (0.0-0.2); BASOPHILS % (AUTO) 1.2 % (0.0-2.0); EOSINOPHILS # (AUTO) 0.1 /CMM (0.0-0.7); EOSINOPHILS % (AUTO) 0.7 % (0.0-6.0); HEMATOCRIT 31 % (39-51); HEMOGLOBIN 10.2 g/dL (13.5-17.5); LYMPHOCYTES # (AUTO) 2.3 /CMM (0.8-4.8); LYMPHOCYTES % (AUTO) 22.3 % (20.0-44.0); MEAN CORPUSCULAR HEMOGLOBIN 30 PG (26.0-33.0); MEAN CORPUSCULAR HGB CONC 33 g/dl (31.0-36.0); MEAN CORPUSCULAR VOLUME 91 fL (80-96); MONOCYTES % (AUTO) 9.4 % (2.0-12.0); NEUTROPHILS # (AUTO) 6.8 /CMM (1.8-8.9); NEUTROPHILS % (AUTO) 66.4 % (43.0-81.0); RDW COEFFICIENT OF VARIATION 22.4 (11.5-15.0); RED BLOOD CELL COUNT(AUTO) 3.35 MIL/uL (4.5-6.0); WHITE BLOOD COUNT (AUTO) 10.3 K/uL (4.3-11.0)
[2016-10-28 08:48] LABS: PLATELET COUNT (AUTO) 26 /CMM (150-450)
[2016-10-28 08:55] LABS: CALCIUM, SERUM 6.5 mg/dL (8.5-10.1); CREATININE 3.5 mg/dL (0.6-1.3)
[2016-10-28 08:59] LABS: POTASSIUM 4.1 mmol/L (3.5-5.1)
[2016-10-28] MEDS: DOCUSATE SODIUM LIQ 100 MG/10 ML UDC GT SCH ×2 (09:00→17:00)
[2016-10-28] MEDS: DAKINS QUARTER STRENGTH (0.125%) 480 ML BOTTLE TOP SCH (09:15)
[2016-10-28] MEDS: GABAPENTIN 100 MG CAPSULE GT SCH ×2 (09:15→21:05)
[2016-10-28] MEDS: ACIDOPHILUS/BULGARICUS 1 EACH TAB.CHEW GT SCH ×2 (09:15→17:01)
[2016-10-28] MEDS: ZINC SULFATE 220 MG CAPSULE GT SCH (09:15)
[2016-10-28] MEDS: HYDROGEL DRESSING 90 GM TUBE TP SCH (09:16)
[2016-10-28 09:58] LABS: BAND % (MANUAL) 1 % (0.0-5.0); EOSINOPHILS % (MANUAL) 1 % (0-4); LYMPHOCYTES % (MANUAL) 21 % (16-48); MONOCYTES % (MANUAL) 9 % (0-11.0); NEUTROPHILS % (MANUAL) 68 (42-76)
--- NOTE | 2016-10-28 12:30 | NUR ---
REVENUE LIAISON NOTES DR CABALLERO AT BEDSIDE , DISCUSSED LABS , TOLERATING CURRENT VENTILATOR SETTINGS WITH NO PEEP WITH SPO2 OF 100% WITH NO SIGNS OF DISTRESS , AFEBRILE , ON LEVOPHED @ 40MCG/MIN , NEOSYNEPRINE @ 300MCG/MIN , VASOPRESSIN @ 0.01U/MIN WITH SBP ABOVE 90'S , NO ACTIVE BLEEDING , THICK SECRETIONS NOTED UPON SUCTIONING , AWARE
[2016-10-28] MEDS: VASOPRESSIN INJ 50 UNIT in IV D5W 497.5 ML IV PRN (12:32)
[2016-10-28] MEDS: HYDROCORTISONE SOD SUCCINATE 100 MG/2 ML VIAL IV SCH ×2 (14:13→17:01)
--- NOTE | 2016-10-28 16:20 | NUR ---
POLITICAL SCIENCE FACULTY MEMBER NOTES DR AYALA SEEN AND EVALUATED THE PT , DISCUSSED LABS , PT ON MULTIPLE PRESSORS OF LEVOPHED @ 40MCG/MIN , NEOSYNEPRINE @ 300MCG/MIN , VASOPRESSIN @ 0.02 U/MIN , WITH SBP ABOVE 90 ' AFIB 120-130'S , AFEBRILE , NO ACTIVE BLEEDING NOTED , AWARE
--- NOTE | 2016-10-28 16:30 | NUR ---
REGIONAL AIRLINE PILOT NOTES DR NIEVES SEEN AND EVALUATED THE PT , DISCUSSED LABS , PT ON MULTIPLE PRESSORS , ON LEVOPHED @ 40MCG/MIN , NOESYNEPHRINE @ 300MCG/MIN , VASOPRESSIN @ 0.02UNIT / MIN WITH SBP ABOVE 90'S AFEBRILE , AFIB 120'S - 130'S , TOLERATING CURRENT VENT SETTINGS WITH SPO2 OF 100% WITH NO SIGNS OF DISTRESS , NO ACTIVE BLEEDING AT THIS TIME , AWARE
--- NOTE | 2016-10-28 17:57 | NUR ---
VASOPRESSIN @ 0.01 U/MIN Addendum: 10/28/16 at 1758 by BRITT VELA RN WRONG CHARTING
--- NOTE | 2016-10-28 19:59 | NUR ---
PAYROLL ASSISTANT DF RANDOM VANCO TROUGH ORDERED FOR AM PER RX PROTOCOL
--- NOTE | 2016-10-28 20:46 | NUR ---
SUPERVISOR AIR CONDITIONING INSTALLER DF RECEIVED PT TO ROOM#263 PT OBTUNDED RESPONSIVE TO DEEP TACTILE STIMULI WITHDRAWS TO IT.NO SPONTANEOUS EYE OPENING NOTED,DOES NOT FOLLOW COMMANDS. PT WITH TRACH TO VENT WITH FIO2 OF 35% NO PEEP VSS O2 SAT OF 100%. PT WITH SEPTIC SHOCK WITH HYPOTENSION REQUIRING MULTIPLE VASOPRESSOR SUPPORT OF LEVO@40MCG NERY@300MCG VASOPRESSIN OF 0.02@12ML/HR WITH BP OF 117/69.PT TRAIN CONTROL TECHNICIAN DISPLAYS AFIB @122BPM WITH OCCASIONAL PVC NOTED. PT BEING FOLLOWED BY CARDIOLOGY MD AYALA AWARE OF PT,S CRITICAL CONDITION NO FURTHER ORDERS AT THIS TIME. PT WITH NGT CLAMPED NPO EXCEPT MEDS, PT ANURIC HEMODIALYSIS PT LAST HD 10/27 WITH 200ML REMOVED. PER REPORT PT HD HELD DUE TO HYPOTENSION.PT WITH MULTIPLE SKIN ISSUES/WOUNDS COVERED WITH DRESSINGS C/D/I PT BEING FOLLOWED DAILY BY WOUND CARE TEAM. VSS AT THIS TIME NO DISTRESS NOTED. PT HAS ORDER TO TRANSFER TO [facility] ORDER ON HOLD 2ND SHOCK/HYPOTENSION/UNSTABLE.
[2016-10-28] MEDS: ATORVASTATIN 40 MG TABLET GT SCH (21:05)
--- NOTE | 2016-10-28 21:51 | NUR ---
PT RECEIVED TRACH ON VENT. NO DISTRESS. PT TOLERATING VENT SETTINGS. SX'D FOR SML AMT OF THIN WHITE SECRETIONS. VENT ALARMS SET AND AUDIBLE. PEARL WINTERS AT [facility]. WILL CONTINUE TO MONITOR. Addendum: 10/28/16 at 2151 by PAULA SAM RT Amended: Links added.
[2016-10-29] VITALS (96 sets, daily range): BP systolic 79–124; BP diastolic 55–88
[2016-10-29] MEDS: PIPERACILLIN /TAZOBACTAM 2.25 G in IV D5W 50 ML IV SCH (00:09)
[2016-10-29] MEDS: BLOOD SUGAR DIAGNOSTIC 1 EACH STRIP IN SCH ×4 (00:10→17:18)
[2016-10-29] MEDS: PHENYLEPHRINE 80 MG in IV NS 0.9% 250 ML IV PRN ×5 (02:28→18:03)
[2016-10-29] MEDS: NOREPINEPHRINE 16 MG in IV D5W 500 ML IV PRN ×3 (03:05→14:59)
[2016-10-29 04:41] LABS: BASOPHILS % (AUTO) 0.1 % (0.0-2.0); HEMATOCRIT 32 % (39-51); HEMOGLOBIN 10.5 g/dL (13.5-17.5); LYMPHOCYTES # (AUTO) 0.6 /CMM (0.8-4.8); LYMPHOCYTES % (AUTO) 6.3 % (20.0-44.0); MEAN CORPUSCULAR HEMOGLOBIN 31 PG (26.0-33.0); MEAN CORPUSCULAR HGB CONC 33 g/dl (31.0-36.0); MEAN CORPUSCULAR VOLUME 92 fL (80-96); MONOCYTES # (AUTO) 0.3 /CMM (0.1-1.30); MONOCYTES % (AUTO) 3.5 % (2.0-12.0); NEUTROPHILS # (AUTO) 7.9 /CMM (1.8-8.9); NEUTROPHILS % (AUTO) 90.1 % (43.0-81.0); RDW COEFFICIENT OF VARIATION 22.6 (11.5-15.0); RED BLOOD CELL COUNT(AUTO) 3.45 MIL/uL (4.5-6.0); WHITE BLOOD COUNT (AUTO) 8.8 K/uL (4.3-11.0)
[2016-10-29 04:59] LABS: CALCIUM, SERUM 6.5 mg/dL (8.5-10.1); CREATININE 3.7 mg/dL (0.6-1.3); PHOSPHORUS 5.9 mg/dL (2.5-4.9)
[2016-10-29 05:09] LABS: PLATELET COUNT (AUTO) 35 /CMM (150-450)
--- NOTE | 2016-10-29 05:45 | NUR ---
pipe turner df vasopressin @0.02 units/hr bp of 84/53 increased titrated dose to 0.04 units/hr bp increase to 103/74. total am care done. dressings to all wounds changed per wound care orders.
[2016-10-29 05:47] LABS: LYMPHOCYTES % (MANUAL) 4 % (16-48); MONOCYTES % (MANUAL) 1 % (0-11.0); NEUTROPHILS % (MANUAL) 95 (42-76)
--- NOTE | 2016-10-29 06:07 | NUR ---
BINDERY MACHINE TENDER DF PT ACCU CHECK OF 179 NOT COVERED PT NPO DIAGNOSIS.
[2016-10-29 06:26] LABS: INR 1.59 (0.87-1.13); PROTHROMBIN TIME 17.5 SECS (9.5-12.7)
--- NOTE | 2016-10-29 07:11 | NUR ---
SUCTION DRUM DRIER OPERATOR NOTES RECEIVED PATIENT OBTUNDED , OPENS EYES , RESPONSIVE TACTILE STIMULI , NOT IN ACUTE DISTRESS , RESPIRATIONS EVEN AND UNLABORED WITH SPO2 OF 100% VIA MECHANICAL VENTILATOR SETTINGS ORDERED , TRACH OF EMELYN XLT [address] , AFIB 110 ON BEDSIDE MONITOR , GT PATENT AND INTACT CLAMPED , ON KCI MATTRESS , BETO PICC LINE WITH LEVOPHED @ 40MCG /MIN , NEOSYNEPHRINE @ 300MCG/MIN , VASOPRESSIN @ 0.04 UNITS/MIN WITH NS @ TKO INFUSING WELL , ALL NEEDS ATTENDED , BED ON LOW AND LOCKED POSITION , SIDE RAILS X2 . WILL CONTINUE TO MONITOR .
[2016-10-29] MEDS ORDERED: FEE PK DOSING 1 MIN EA MC ONE (08:25)
[2016-10-29] MEDS: DOCUSATE SODIUM LIQ 100 MG/10 ML UDC GT SCH ×2 (08:38→16:27)
[2016-10-29] MEDS: HYDROCORTISONE SOD SUCCINATE 100 MG/2 ML VIAL IV SCH ×3 (08:39→16:34)
[2016-10-29] MEDS: ZINC SULFATE 220 MG CAPSULE GT SCH (08:39)
[2016-10-29] MEDS: PANTOPRAZOLE 40 MG/PACK PACK GT SCH (08:39)
[2016-10-29] MEDS: ACIDOPHILUS/BULGARICUS 1 EACH TAB.CHEW GT SCH ×2 (08:39→16:27)
[2016-10-29] MEDS: GABAPENTIN 100 MG CAPSULE GT SCH ×2 (08:39→20:45)
[2016-10-29] MEDS: DAKINS QUARTER STRENGTH (0.125%) 480 ML BOTTLE TOP SCH (08:39)
[2016-10-29] MEDS: HYDROGEL DRESSING 90 GM TUBE TP SCH (08:40)
[2016-10-29] MEDS ORDERED: DOSING PER PHARMACY-AMIKACI IV XX PRN (09:00)
[2016-10-29] MEDS ORDERED: AMIKACIN 600 MG in IV D5W 100 ML IV ONE (09:00)
--- NOTE | 2016-10-29 10:02 | NUR ---
JUVENILE DETENTION OFFICER NOTES DR CABALLERO AT BEDSIDE , DISCUSSED LABS , TOLERATING CURRENT VENTILATOR SETTINGS WITH NO PEEP WITH SPO2 OF 100% WITH NO SIGNS OF DISTRESS , AFEBRILE , ON LEVOPHED @ 40MCG/MIN , NEOSYNEPRINE @ 300MCG/MIN , VASOPRESSIN @ 0.02U/MIN WITH SBP ABOVE 90'S , NO ACTIVE BLEEDING , THICK SECRETIONS NOTED UPON SUCTIONING ,PENDING CORTISOL , AFEBRILE MD AWARE
--- NOTE | 2016-10-29 10:15 | NUR ---
LATHE SET UP OPERATOR NOTES DR SEPINAL AT BEDSIDE , DISCUSSED LABS , , AFEBRILE , ON LEVOPHED @ 40MCG/MIN , NEOSYNEPRINE @ 300MCG/MIN , VASOPRESSIN @ 0.02U/MIN WITH SBP ABOVE 90'S , NO ACTIVE BLEEDING , THICK SECRETIONS NOTED UPON SUCTIONING , AFIB 130-140'S DISCUSSED DIALYSIS NEEDS , MD AWARE .
[2016-10-29] MEDS: LEVOFLOXACIN 250 MG /D5W 50 ML 250 MG in PREMIX 1 EA IV SCH (10:40)
--- NOTE | 2016-10-29 10:57 | NUR ---
LEAF BINNER NOTES RECEIVED A CALL FROM ARNEL , PT IS POSITIVE FOR GRAM POSITIVE RODS , WILL NOTIFY MD AND ID ,
[2016-10-29] MEDS: ALBUMIN 25% 25 GM in PREMIX 1 EA IV PRN (12:47)
--- NOTE | 2016-10-29 12:47 | NUR ---
COLLAR WORKER NOTES , HD NURSE AT BEDSIDE , DIALYSIS STARTED , BP OF 101 / 71 AFIB 135 , SPO2 OF 100% , RR 23 , VASOPRESSIN INCREASED TO 0.04U/MIN , LEVOPHED @ 40MCG/MIN , NEOSYNEPRINE @ 300MCG/MIN , AFEBRILE , WILL CONTINUE TO MONITOR
[2016-10-29] MEDS ORDERED: DIVALPROEX SODIUM 250 MG TABLET.DR PO SCH (13:00)
[2016-10-29] MEDS: VASOPRESSIN INJ 50 UNIT in IV D5W 497.5 ML IV PRN (14:59)
--- NOTE | 2016-10-29 15:52 | NUR ---
STONE AND CONCRETE WASHER NOTES PT STABLE S/P HD , 2500 ML OUT TOLERATED HD , , BP OF 100 / 73 , LEVOPHED @ 40MCG/MIN , NEOSYNEPRINE @ 300MCG/MIN , VASOPRESSIN @ 0.04U/MIN , AFEBRILE , HR OF AFIB 128 ON BEDSIDE MONITOR , WILL ADMINISTER VANCOMYCIN IV POST HD , PENDING RANDOM AMIKACIN THROUGH , WILL CONTINUE TO MONITOR .
[2016-10-29] MEDS: VANCOMYCIN 500 MG in IV D5W 100 ML IV PRN (15:54)
[2016-10-29] MEDS: INSULIN REGULAR, HUMAN 100 UNIT/ML 3 ML VIAL SQ PRN (17:18)
--- NOTE | 2016-10-29 17:38 | NUR ---
JEWEL BEARING MAKER NOTES SPOKE WITH JETHRO PHARMACIST , NOTIFIED PATIENT RECEIVED VANCOMYCIN DOSE POST HD , AMIKACIN 600MG LOADING DOSE GIVEN THIS AM , VERIFIED IF PATIENT NEED ANOTHER DOSE OF AMIKACIN POST HD , PER PHARMACIST HOLD THE AMIKACIN POST HD DOSE PT RECEIVED AMIKACIN 600MG IV THIS MORNING .
--- NOTE | 2016-10-29 20:41 | NUR ---
DISTILLERY LABORER DF RECEIVED PT TO ROOM#263 PT OBTUNDED RESPONSIVE TO DEEP TACTILE STIMULI WITHDRAWS TO IT.NO SPONTANEOUS EYE OPENING NOTED,DOES NOT FOLLOW COMMANDS. PT WITH TRACH TO VENT WITH FIO2 OF 35% NO PEEP VSS O2 SAT OF 100%. PT WITH SEPTIC SHOCK WITH HYPOTENSION REQUIRING MULTIPLE VASOPRESSOR SUPPORT OF LEVO@40MCG NERY@300MCG WITH BP OF 98/63.PT GLUE MILL OPERATOR DISPLAYS AFIB @123BPM WITH OCCASIONAL PVC NOTED. PT BEING FOLLOWED BY CARDIOLOGY MD AYALA /SHANTELL HARDY AWARE OF PT,S CRITICAL CONDITION NO FURTHER ORDERS AT THIS TIME. PT WITH NGT CLAMPED NPO EXCEPT MEDS, PT ANURIC HEMODIALYSIS TODAY IN AM WITH 2500ML OUT. PT WITH MULTIPLE SKIN ISSUES/WOUNDS COVERED WITH DRESSINGS C/D/I PT BEING FOLLOWED DAILY BY WOUND CARE TEAM.
[2016-10-29] MEDS: ATORVASTATIN 40 MG TABLET GT SCH (20:44)
[2016-10-30] VITALS (93 sets, daily range): BP systolic 80–117; BP diastolic 51–79
[2016-10-30] MEDS: INSULIN REGULAR, HUMAN 100 UNIT/ML 3 ML VIAL SQ PRN ×5 (00:30→23:19)
[2016-10-30] MEDS: BLOOD SUGAR DIAGNOSTIC 1 EACH STRIP IN SCH ×5 (00:30→23:18)
--- NOTE | 2016-10-30 01:13 | NUR ---
EMS INSTRUCTOR DF PT ACCU CHECK OF 214 @0010 COVERED @0040 WITH 4 UNITS REGULAR INSULIN. WILL RECHECK IN 6 HOURS/PRN.
[2016-10-30] MEDS: PHENYLEPHRINE 80 MG in IV NS 0.9% 250 ML IV PRN ×5 (02:32→21:28)
[2016-10-30] MEDS: NOREPINEPHRINE 16 MG in IV D5W 500 ML IV PRN ×2 (03:31→13:50)
--- NOTE | 2016-10-30 03:38 | NUR ---
DRUG ABUSE PROGRAM COORDINATOR DF PT LEVOPHED DECREASED TO 35 MCG NERY TITRATED TO 285MCG BP OF 115/54.WILL MONITOR FOR EFFECT.
[2016-10-30 04:38] LABS: HEMATOCRIT 30 % (39-51); HEMOGLOBIN 9.8 g/dL (13.5-17.5); LYMPHOCYTES % (AUTO) 10.2 % (20.0-44.0); MEAN CORPUSCULAR HEMOGLOBIN 30 PG (26.0-33.0); MEAN CORPUSCULAR HGB CONC 33 g/dl (31.0-36.0); MEAN CORPUSCULAR VOLUME 92 fL (80-96); MONOCYTES # (AUTO) 0.5 /CMM (0.1-1.30); MONOCYTES % (AUTO) 5.5 % (2.0-12.0); NEUTROPHILS % (AUTO) 84.3 % (43.0-81.0); PLATELET COUNT (AUTO) 51 /CMM (150-450); RDW COEFFICIENT OF VARIATION 22.5 (11.5-15.0); RED BLOOD CELL COUNT(AUTO) 3.24 MIL/uL (4.5-6.0); WHITE BLOOD COUNT (AUTO) 9.5 K/uL (4.3-11.0)
[2016-10-30 04:53] LABS: CALCIUM, SERUM 6.9 mg/dL (8.5-10.1); CREATININE 3.8 mg/dL (0.6-1.3); MAGNESIUM 1.9 mg/dL (1.8-2.4); PHOSPHORUS 5.9 mg/dL (2.5-4.9); POTASSIUM 3.6 mmol/L (3.5-5.1)
[2016-10-30 05:18] LABS: LYMPHOCYTES % (MANUAL) 9 % (16-48); MONOCYTES % (MANUAL) 3 % (0-11.0); NEUTROPHILS % (MANUAL) 88 (42-76)
--- NOTE | 2016-10-30 05:31 | NUR ---
CHIEF SUBSTATION OPERATOR DF PT TRANSFERRED FROM BED TO [facility] WITH ASSISTANCE OF MULTIPLE STAFF MEMBERS PT TOLERATED PROCEDURE. BP OF 109/71 TITRATED NERY TO 275MCG AND LEVO TO 30 MCG.
--- NOTE | 2016-10-30 06:19 | NUR ---
CYLINDER BLOCK HOLE RELINER DF BP OF 108/57 TITRATED LEVOPHED TO 25MCG NERY TO 260 MCG.
[2016-10-30] MEDS: DOCUSATE SODIUM LIQ 100 MG/10 ML UDC GT SCH ×2 (08:27→17:27)
[2016-10-30] MEDS: DAKINS QUARTER STRENGTH (0.125%) 480 ML BOTTLE TOP SCH (08:28)
[2016-10-30] MEDS: HYDROCORTISONE SOD SUCCINATE 100 MG/2 ML VIAL IV SCH (08:28)
[2016-10-30] MEDS: ACIDOPHILUS/BULGARICUS 1 EACH TAB.CHEW GT SCH ×2 (08:28→17:27)
[2016-10-30] MEDS: GABAPENTIN 100 MG CAPSULE GT SCH ×2 (08:28→20:24)
[2016-10-30] MEDS: ZINC SULFATE 220 MG CAPSULE GT SCH (08:28)
[2016-10-30] MEDS: PANTOPRAZOLE 40 MG/PACK PACK GT SCH (08:28)
[2016-10-30] MEDS: HYDROGEL DRESSING 90 GM TUBE TP SCH (08:28)
--- NOTE | 2016-10-30 09:00 | NUR ---
HD NURSE IN FOR TX. CALLED LAB TO SEND TECH FOR BOTTLES FOR BLOOD CX.
[2016-10-30] MEDS: LEVOFLOXACIN 250 MG /D5W 50 ML 250 MG in PREMIX 1 EA IV SCH (09:55)
[2016-10-30] MEDS: ALBUMIN 25% 25 GM in PREMIX 1 EA IV PRN (11:46)
--- NOTE | 2016-10-30 12:31 | NUR ---
REPORTED CORTISOL LAB >225 HIGH, TO DR. CABALLERO, WHO HAD PREVIOUSLY ORDERED TO GET THE CORTISOL LEVEL, IT HAD BEEN PENDING FOR MULTIPLE DAYS. HE GIVES NEW ORDER TO CHANGE SOLU-CORTEF TO 100MG DAILY INSTEAD OF TID.
--- NOTE | 2016-10-30 14:50 | NUR ---
HD COMPLETE, 2700 OUT
[2016-10-30] MEDS: AMIKACIN 500 MG in IV D5W 100 ML IV PRN (17:28)
[2016-10-30] MEDS: VANCOMYCIN 500 MG in IV D5W 100 ML IV PRN (17:28)
--- NOTE | 2016-10-30 19:00 | NUR ---
RN INITIAL NOTES RECEIVED PATIENT AWAKE ON BED, OBTUNDED, OPENS EYES ONLY. ON VENT, AC 16, TV 600, 35% FIO2, PEEP 0, SHILEY 8XLT, SATURATING WELL. CURRENTLY UNCONTROLL AFIB ON THE MONITOR, HR 110-120'S. GT IS CLAMPED. PT IS ANURIC. HD ACCESS ON LEFT CHEST WALL NOTED. RIGHT UPPER ARM PICC WITH NERY @ 260MCG/MIN AND LEVO @ 10MCG/MIN, IV LINE FLUSHED AND PATENT, NO S/S OF INFILTRATION/INFECTION, DRESSING CDI. BED LOW AND LOCKED, SIDERAILS UP. WILL MONITOR
[2016-10-30] MEDS: ATORVASTATIN 40 MG TABLET GT SCH (21:13)
[2016-10-31] VITALS (105 sets, daily range): BP systolic 83–132; BP diastolic 49–79
--- NOTE | 2016-10-31 01:21 | NUR ---
PT RECEIVED TRACH ON VENT. NO DISTRESS. PT TOLERATING VENT SETTINGS. SX'D FOR SML AMT OF THIN WHITE SECRETIONS. VENT ALARMS SET AND AUDIBLE. PEARL WINTERS AT [facility]. WILL CONTINUE TO MONITOR. Addendum: 10/31/16 at 0121 by PAULA SAM RT Amended: Links added.
[2016-10-31] MEDS: PHENYLEPHRINE 80 MG in IV NS 0.9% 250 ML IV PRN ×5 (01:54→21:52)
[2016-10-31 05:00] LABS: HEMATOCRIT 28 % (39-51); HEMOGLOBIN 9.4 g/dL (13.5-17.5); LYMPHOCYTES # (AUTO) 0.7 /CMM (0.8-4.8); LYMPHOCYTES % (AUTO) 7.9 % (20.0-44.0); MEAN CORPUSCULAR HEMOGLOBIN 31 PG (26.0-33.0); MEAN CORPUSCULAR HGB CONC 34 g/dl (31.0-36.0); MEAN CORPUSCULAR VOLUME 92 fL (80-96); MONOCYTES # (AUTO) 0.6 /CMM (0.1-1.30); MONOCYTES % (AUTO) 5.9 % (2.0-12.0); NEUTROPHILS # (AUTO) 8.2 /CMM (1.8-8.9); NEUTROPHILS % (AUTO) 86.2 % (43.0-81.0); RDW COEFFICIENT OF VARIATION 24.3 (11.5-15.0); RED BLOOD CELL COUNT(AUTO) 3.05 MIL/uL (4.5-6.0); WHITE BLOOD COUNT (AUTO) 9.5 K/uL (4.3-11.0)
[2016-10-31 05:15] LABS: CALCIUM, SERUM 7.2 mg/dL (8.5-10.1); CREATININE 3.8 mg/dL (0.6-1.3); MAGNESIUM 1.9 mg/dL (1.8-2.4); PHOSPHORUS 5.8 mg/dL (2.5-4.9); POTASSIUM 3.3 mmol/L (3.5-5.1)
[2016-10-31 05:21] LABS: PLATELET COUNT (AUTO) 47 /CMM (150-450)
[2016-10-31] MEDS: IV NS 0.9% 250 ML IV PRN (05:28)
[2016-10-31] MEDS: BLOOD SUGAR DIAGNOSTIC 1 EACH STRIP IN SCH ×4 (05:30→23:49)
[2016-10-31] MEDS: INSULIN REGULAR, HUMAN 100 UNIT/ML 3 ML VIAL SQ PRN ×2 (05:33→23:50)
--- NOTE | 2016-10-31 06:10 | NUR ---
RN CLOSING NOTES PT REMAINS STABLE OF THE MOMENT. ALL DUE MEDS GIVEN, AM CARE PROVIDED. WILL ENDORSE CONTINUITY OF CARE TO AM RN
[2016-10-31 08:07] LABS: LYMPHOCYTES % (MANUAL) 9 % (16-48); MONOCYTES % (MANUAL) 3 % (0-11.0); NEUTROPHILS % (MANUAL) 88 (42-76)
[2016-10-31] MEDS: PANTOPRAZOLE 40 MG/PACK PACK GT SCH ×2 (08:42→08:46)
[2016-10-31] MEDS: ACIDOPHILUS/BULGARICUS 1 EACH TAB.CHEW GT SCH ×3 (08:42→17:00)
[2016-10-31] MEDS: DOCUSATE SODIUM LIQ 100 MG/10 ML UDC GT SCH ×3 (08:42→17:00)
[2016-10-31] MEDS: ZINC SULFATE 220 MG CAPSULE GT SCH ×2 (08:42→08:46)
[2016-10-31] MEDS: GABAPENTIN 100 MG CAPSULE GT SCH ×3 (08:42→20:39)
[2016-10-31] MEDS: HYDROGEL DRESSING 90 GM TUBE TP SCH (08:43)
[2016-10-31] MEDS: DAKINS QUARTER STRENGTH (0.125%) 480 ML BOTTLE TOP SCH (08:43)
[2016-10-31] MEDS ORDERED: HYDROCORTISONE SOD SUCCINATE 100 MG/2 ML VIAL IV SCH (09:00)
[2016-10-31] MEDS: LEVOFLOXACIN 250 MG /D5W 50 ML 250 MG in PREMIX 1 EA IV SCH (09:39)
[2016-10-31] MEDS: PANTOPRAZOLE 40 MG VIAL IV SCH (09:39)
[2016-10-31] MEDS: NOREPINEPHRINE 16 MG in IV D5W 500 ML IV PRN (14:10)
--- NOTE | 2016-10-31 15:29 | NUR ---
HETAL was informed by ICU DAYO Monet that Dr. Zhao would like to meet with pt's brothers to discuss plan of care. HETAL contacted pt's brother Mekhi and informed him that Dr. Zhao would like to meet with him and discuss plan of care. Mekhi informed SW that he will speak to his other brother Jagdeep and follow up with SW regarding date and time they can meet with the doctor.
--- NOTE | 2016-10-31 19:00 | NUR ---
RN INITIAL NOTES RECEIVED PATIENT AWAKE ON BED, OBTUNDED, OPENS EYES ONLY. ON VENT, AC 16, TV 600, 35% FIO2, PEEP 0, SHILEY 8XLT, SATURATING WELL. CURRENTLY UNCONTROLL AFIB ON THE MONITOR, HR 110-120'S. GT IS CLAMPED. PT IS ANURIC. HD ACCESS ON LEFT CHEST WALL NOTED. RIGHT UPPER ARM PICC WITH NERY @ 300MCG/MIN AND LEVO @ 7MCG/MIN, IV LINE FLUSHED AND PATENT, NO S/S OF INFILTRATION/INFECTION, DRESSING CDI. BED LOW AND LOCKED, SIDERAILS UP. WILL MONITOR
--- NOTE | 2016-10-31 20:34 | NUR ---
PT RECEIVED TRACH LIBAN 8XLT ON VENT. NO DISTRESS. PT TOLERATING VENT SETTINGS. SX'D FOR MOD AMT OF THICK YELLOW SECRETIONS. VENT ALARMS SET AND AUDIBLE. PEARL WINTERS AT [facility]. WILL CONTINUE TO MONITOR. Addendum: 10/31/16 at 2034 by SUSANA VALDIVIA RT Amended: Links added.
[2016-10-31] MEDS: ATORVASTATIN 40 MG TABLET GT SCH (21:29)
[2016-11-01] VITALS (92 sets, daily range): BP systolic 81–116; BP diastolic 42–73
[2016-11-01] MEDS: PHENYLEPHRINE 80 MG in IV NS 0.9% 250 ML IV PRN ×6 (01:03→21:44)
[2016-11-01] MEDS: BLOOD SUGAR DIAGNOSTIC 1 EACH STRIP IN SCH ×4 (05:07→23:10)
[2016-11-01] MEDS: INSULIN REGULAR, HUMAN 100 UNIT/ML 3 ML VIAL SQ PRN ×3 (05:09→23:14)
--- NOTE | 2016-11-01 06:10 | NUR ---
RN CLOSING NOTES PT REMAINS STABLE OF THE MOMENT. ALL DUE MEDS GIVEN, AM CARE PROVIDED. WILL ENDORSE CONTINUITY OF CARE TO AM RN
[2016-11-01 07:31] LABS: BASOPHILS % (AUTO) 0.1 % (0.0-2.0); HEMATOCRIT 28 % (39-51); HEMOGLOBIN 9.6 g/dL (13.5-17.5); LYMPHOCYTES # (AUTO) 0.6 /CMM (0.8-4.8); LYMPHOCYTES % (AUTO) 6.8 % (20.0-44.0); MEAN CORPUSCULAR HEMOGLOBIN 31 PG (26.0-33.0); MEAN CORPUSCULAR HGB CONC 34 g/dl (31.0-36.0); MEAN CORPUSCULAR VOLUME 92 fL (80-96); MONOCYTES # (AUTO) 0.6 /CMM (0.1-1.30); MONOCYTES % (AUTO) 6.2 % (2.0-12.0); NEUTROPHILS % (AUTO) 86.9 % (43.0-81.0); PLATELET COUNT (AUTO) 83 /CMM (150-450); RDW COEFFICIENT OF VARIATION 23.1 (11.5-15.0); RED BLOOD CELL COUNT(AUTO) 3.09 MIL/uL (4.5-6.0); WHITE BLOOD COUNT (AUTO) 9.3 K/uL (4.3-11.0)
[2016-11-01 07:41] LABS: ALBUMIN 1.9 g/dL (3.4-5.0); BILIRUBIN,TOTAL 5.7 mg/dL (0.2-1.0); CALCIUM, SERUM 7.9 mg/dL (8.5-10.1); POTASSIUM 3.5 mmol/L (3.5-5.1); TOTAL PROTEIN, SERUM 5.1 g/dL (6.4-8.2)
--- NOTE | 2016-11-01 08:00 | NUR ---
DESIGNER ARCHITECT NOTES: RECEIVED PATIENT AWAKE ON BED, OBTUNDED, OPENS EYES ONLY, UNABLE TO TRACK. ON VENT, AC 16, TV 600, 35% FIO2, PEEP 0, VIA SHILEY 8XLT, SATURATING WELL. CURRENTLY UNCONTROLL AFIB ON THE MONITOR, HR 130. GT IS CLAMPED. PT IS ANURIC. HD ACCESS ON LEFT CHEST WALL NOTED. RIGHT UPPER ARM PICC WITH NERY @ 300MCG/MIN AND LEVO @ 8MCG/MIN, IV LINE FLUSHED AND PATENT, NO S/S OF INFILTRATION/INFECTION, DRESSING CDI. PATIENT NOTED WITH MULTIPLE WOUNDS, DRESSING CLEAN DRY AND INTACT. BED LOW AND LOCKED, SIDERAILS UP. SAFETY MAINTAINED. WILL CONTINUE MONITOR
[2016-11-01] MEDS: ZINC SULFATE 220 MG CAPSULE GT SCH ×2 (09:00→09:15)
[2016-11-01] MEDS: DOCUSATE SODIUM LIQ 100 MG/10 ML UDC GT SCH ×3 (09:00→16:47)
[2016-11-01] MEDS: GABAPENTIN 100 MG CAPSULE GT SCH ×3 (09:00→20:27)
[2016-11-01] MEDS: ACIDOPHILUS/BULGARICUS 1 EACH TAB.CHEW GT SCH ×3 (09:00→16:47)
[2016-11-01 09:07] LABS: BAND % (MANUAL) 7 % (0.0-5.0); LYMPHOCYTES % (MANUAL) 3 % (16-48); MONOCYTES % (MANUAL) 2 % (0-11.0); NEUTROPHILS % (MANUAL) 88 (42-76)
[2016-11-01] MEDS: PANTOPRAZOLE 40 MG VIAL IV SCH (09:15)
[2016-11-01] MEDS: HYDROGEL DRESSING 90 GM TUBE TP SCH (09:17)
[2016-11-01] MEDS: DAKINS QUARTER STRENGTH (0.125%) 480 ML BOTTLE TOP SCH (09:17)
[2016-11-01] MEDS: Z GUARD REMEDY 2 OZ OINT TP PRN (09:28)
[2016-11-01] MEDS: LEVOFLOXACIN 250 MG /D5W 50 ML 250 MG in PREMIX 1 EA IV SCH (09:28)
--- NOTE | 2016-11-01 10:00 | NUR ---
SHAPING MACHINE TENDER NOTE: HD STARTED. BP STABLE PATIENT ON LEVO AT 8MCG/MIN AND NERY AT 300MCG/MIN. ONGOING MONITORING
--- NOTE | 2016-11-01 10:27 | NUR ---
NUTRITIONAL SERVICES HOST NOTE: CALL MADE TO [facility] TO FOLLOW UP FOR CORYNEBACTERIUM SPECIES AND [facility] REPORTED THAT IT IS NOT "JK". WILL INFORM MD AND LAB WILL UPDATE MICROBIOLOGY REPORT. ONGOING MONITORING.
--- NOTE | 2016-11-01 12:30 | NUR ---
DANCE HALL HOSTESS NOTE: ONGOING HD, PATIENT NOTED WITH LOW BP IN 80'S. LEVOPHED TITRATED UP Q15 MIN TO MAINTAIN SBP> 90. ONGOING MONITORING
[2016-11-01] MEDS: NOREPINEPHRINE 16 MG in IV D5W 500 ML IV PRN (13:15)
--- NOTE | 2016-11-01 13:30 | NUR ---
HISTORICAL MANUSCRIPTS CURATOR NOTE: HD COMPLETE 2000ML OUT. NERY AT 300MCG/MIN AND LEVO AT 15MCG/MIN. VS MAINTAINED. PATIENT NOTED WITH HR IN 130'S, AFIB. AWARE.
[2016-11-01] MEDS: VANCOMYCIN 500 MG in IV D5W 100 ML IV PRN (14:24)
--- NOTE | 2016-11-01 16:09 | NUR ---
REPAIR OPERATOR NOTE: BED BATH GIVEN, WOUND CARE RENDERED, LINENS CHANGED. PATIENT NOTED WITH BOWEL MOVEMENT THAT WAS LIQUID AND BLOODY. DR. NIEVES MADE AWARE. PATIENT KEPT CLEAN AND DRY, TURNED AND REPOSITIONED AND EXTREMITIES OFFLOADED. SAFETY MAINTAINED, ONGOING MONITORING.
--- NOTE | 2016-11-01 16:14 | NUR ---
RIDE ASSEMBLY SUPERVISOR NOTES: RECEIVED PATIENT AWAKE ON BED, OBTUNDED, OPENS EYES ONLY, UNABLE TO TRACK. ON VENT, AC 16, TV 600, 35% FIO2, PEEP 0, VIA SHILEY 8XLT, SATURATING WELL. CURRENTLY UNCONTROLL AFIB ON THE MONITOR, HR 130. GT IS CLAMPED. PT IS ANURIC. HD ACCESS ON LEFT CHEST WALL NOTED. RIGHT UPPER ARM PICC WITH NERY @ 300MCG/MIN AND LEVO @ 8MCG/MIN, IV LINE FLUSHED AND PATENT, NO S/S OF INFILTRATION/INFECTION, DRESSING CDI. PATIENT NOTED WITH MULTIPLE WOUNDS, DRESSING CLEAN DRY AND INTACT. BED LOW AND LOCKED, SIDERAILS UP. SAFETY MAINTAINED. WILL CONTINUE MONITOR Addendum: 11/01/16 at 1830 by EKATERINA CUEVAS RN NOT FOR 0800 Addendum: 11/01/16 at 1830 by EKATERINA CUEVAS RN DISREGARD, NOTE FOR 0800
--- NOTE | 2016-11-01 18:30 | NUR ---
CANVAS CUTTER NOTE: PATIENT RESTING COMFORTABLY IN BED, CLEAN AND DRY, TURNED AND REPOSITIONED. RIGHT UPPER ARM PICC WITH NERY @ 300MCG/MIN AND LEVO @ 10MCG/MIN, SBP MAINTAINED. HR 130'S. WILL ENDORSE FOR CONTINUITY OF CARE.
--- NOTE | 2016-11-01 19:10 | NUR ---
RN INITIAL NOTES RECEIVED PATIENT AWAKE ON BED, OBTUNDED, OPENS EYES ONLY. ON VENT, AC 16, TV 600, 35% FIO2, PEEP 0, SHILEY 8XLT, SATURATING WELL. CURRENTLY UNCONTROLL AFIB ON THE MONITOR, HR 110-130'S. GT IS CLAMPED. PT IS ANURIC. HD ACCESS ON LEFT CHEST WALL NOTED. RIGHT UPPER ARM PICC WITH NERY @ 300MCG/MIN AND LEVO @ 10MCG/MIN, IV LINE FLUSHED AND PATENT, NO S/S OF INFILTRATION/INFECTION, DRESSING CDI. BED LOW AND LOCKED, SIDERAILS UP. WILL MONITOR
[2016-11-01] MEDS: ATORVASTATIN 40 MG TABLET GT SCH (21:25)
[2016-11-02] VITALS (89 sets, daily range): BP systolic 64–111; BP diastolic 47–72
[2016-11-02] MEDS: PHENYLEPHRINE 80 MG in IV NS 0.9% 250 ML IV PRN ×4 (01:30→22:55)
[2016-11-02 04:29] LABS: BASOPHILS % (AUTO) 0.1 % (0.0-2.0); HEMATOCRIT 28 % (39-51); HEMOGLOBIN 9.6 g/dL (13.5-17.5); LYMPHOCYTES # (AUTO) 0.8 /CMM (0.8-4.8); LYMPHOCYTES % (AUTO) 7.8 % (20.0-44.0); MEAN CORPUSCULAR HEMOGLOBIN 31 PG (26.0-33.0); MEAN CORPUSCULAR HGB CONC 34 g/dl (31.0-36.0); MEAN CORPUSCULAR VOLUME 91 fL (80-96); MONOCYTES # (AUTO) 0.7 /CMM (0.1-1.30); MONOCYTES % (AUTO) 7.2 % (2.0-12.0); NEUTROPHILS # (AUTO) 8.4 /CMM (1.8-8.9); NEUTROPHILS % (AUTO) 84.9 % (43.0-81.0); PLATELET COUNT (AUTO) 93 /CMM (150-450); RDW COEFFICIENT OF VARIATION 23.3 (11.5-15.0); WHITE BLOOD COUNT (AUTO) 9.9 K/uL (4.3-11.0)
[2016-11-02 04:44] LABS: CALCIUM, SERUM 7.8 mg/dL (8.5-10.1); CREATININE 3.7 mg/dL (0.6-1.3); MAGNESIUM 1.9 mg/dL (1.8-2.4); PHOSPHORUS 5.5 mg/dL (2.5-4.9)
[2016-11-02 05:13] LABS: LYMPHOCYTES % (MANUAL) 12 % (16-48); MONOCYTES % (MANUAL) 8 % (0-11.0); NEUTROPHILS % (MANUAL) 80 (42-76)
[2016-11-02] MEDS: BLOOD SUGAR DIAGNOSTIC 1 EACH STRIP IN SCH ×4 (05:18→23:24)
[2016-11-02] MEDS: INSULIN REGULAR, HUMAN 100 UNIT/ML 3 ML VIAL SQ PRN (05:19)
[2016-11-02] MEDS: NOREPINEPHRINE 16 MG in IV D5W 500 ML IV PRN ×2 (05:21→17:28)
--- NOTE | 2016-11-02 07:35 | NUR ---
CARD GRINDER RECEIVED PATIENT FROM THE PREVIOUS SHIFT. PATIENT IS IN BED. OBTUNDED NEURO STATUS. ON 2 PRESSORS FOR BP SUPPORT. AFEBRILE. AFIB ON MONITOR. VENT SETTINGS REVIEWED AND VERIFIED. TURNED AND REPOSITIONED FOR COMFORT AND WOUND PREVENTION. WILL CONTINUE TO MONITOR AND PROVIDE CARE.
[2016-11-02] MEDS: GABAPENTIN 100 MG CAPSULE GT SCH ×2 (09:00→20:21)
[2016-11-02] MEDS: ACIDOPHILUS/BULGARICUS 1 EACH TAB.CHEW GT SCH ×2 (09:00→17:00)
[2016-11-02] MEDS: DOCUSATE SODIUM LIQ 100 MG/10 ML UDC GT SCH ×2 (09:00→17:00)
[2016-11-02] MEDS: ZINC SULFATE 220 MG CAPSULE GT SCH (09:00)
[2016-11-02] MEDS: DAKINS QUARTER STRENGTH (0.125%) 480 ML BOTTLE TOP SCH (09:51)
[2016-11-02] MEDS: HYDROGEL DRESSING 90 GM TUBE TP SCH (09:51)
[2016-11-02] MEDS: LEVOFLOXACIN 250 MG /D5W 50 ML 250 MG in PREMIX 1 EA IV SCH (09:53)
[2016-11-02] MEDS: PANTOPRAZOLE 40 MG VIAL IV SCH (09:54)
--- NOTE | 2016-11-02 12:44 | NUR ---
HETAL contacted pt's brother Mekhi to inform him that the doctor would like to schedule a bioethics meeting with the family to discuss plan of care. Mekhi informed SW, he called his brother the other day after HEATL contacted him but has not heard back from him. He informed SW he will call his brother again now and follow up with SW.
--- NOTE | 2016-11-02 13:50 | NUR ---
SPLIT AND DRUM ROOM SUPERVISOR PATIENT NOTED TO BE SIGNIFICANTLY HYPOTENSIVE AND HEART RATE ABOVE 150S DURING DIALYSIS. ALBUMIN GIVEN. INEFFECTIVE. DIALYSIS NURSE AWARE.
--- NOTE | 2016-11-02 18:35 | NUR ---
RIGGER APPRENTICE INFORMED PHARMACIST THAT PATIENT'S AMIKACIN LEVEL IS 9.4 POST DIALYSIS. DOSE TO BE HELD TONIGHT. WILL ENDORSE TO AGRICULTURAL ENGINEERING TECHNICIAN RN.
--- NOTE | 2016-11-02 20:17 | NUR ---
received pt from day shift, alert, does not follow commands, Afib uncontrolled, receiving levo at 10mcg and sindy at 300mcg, on the vent, lungs congested, edema pitting all extremities, anuric, HD pt, R BKA, GT clamped, NPO, v/s stable, no pain, pt turned and repositioned.
[2016-11-02] MEDS: ATORVASTATIN 40 MG TABLET GT SCH (21:56)
[2016-11-03] VITALS (103 sets, daily range): BP systolic 60–102; BP diastolic 36–81
--- NOTE | 2016-11-03 01:04 | NUR ---
pt is resting in the bed, v/s stable, no pain, pt turned and repositioned q2hrs.
--- NOTE | 2016-11-03 04:31 | NUR ---
pt is resting in the bed, no acute distress overnight, on levo at 15mcg and sindy at 300mcg, v/s stable, no pain, pt cleaned, changed and repositioned q2hrs.
[2016-11-03] MEDS: BLOOD SUGAR DIAGNOSTIC 1 EACH STRIP IN SCH ×3 (05:16→18:08)
[2016-11-03] MEDS: PHENYLEPHRINE 80 MG in IV NS 0.9% 250 ML IV PRN ×4 (06:45→19:58)
--- NOTE | 2016-11-03 07:15 | NUR ---
CARBON CAPTURE POWER PLANT OPERATOR NOTES RECEIVED PATIENT OBTUNDED , NON VERBAL , OPENS EYES , NOT IN ACUTE DISTRESS , RESPIRATIONS EVEN AND UNLABORED WITH SPO2 OF 100% VIA MECHANICAL VENTILATOR SETTINGS ORDERED , TRACH OF EMELYN MCGINNIST [address] , AFIB 131 ON BEDSIDE MONITOR , GT PATENT AND INTACT CLAMPED , ON BARIMAXXX , BETO PICC LINE WITH LEVOPHED @ 25MCG /MIN , NEOSYNEPHRINE @ 300MCG/MIN , WITH NS @ TKO INFUSING WELL , ALL NEEDS ATTENDED , BED ON LOW AND LOCKED POSITION , SIDE RAILS X2 . WILL CONTINUE TO MONITOR .
--- NOTE | 2016-11-03 07:40 | NUR ---
RT PT RECEIVED TRACHED ON THE VENT WITH NOTED SETTINGS. PT IS AWAKE BUT DOES NOT FOLLOW COMMANDS. VENT ALARMS ARE SET AND AUDIBLE WITH BVM BY BEDSIDE. APPLICATION RELEASE MANAGER CUFF PRESSURE NOTED. VENT IS PLUGGED INTO RED OUTLET. NO RESPIRATORY DISTRESS NOTED AT THIS TIME, WILL CONTINUE TO MONITOR. Addendum: 11/03/16 at 1837 by MI SORTO RT Amended: Links added.
[2016-11-03] MEDS: DOCUSATE SODIUM LIQ 100 MG/10 ML UDC GT SCH ×2 (08:09→16:30)
[2016-11-03] MEDS: GABAPENTIN 100 MG CAPSULE GT SCH ×2 (08:10→21:00)
[2016-11-03] MEDS: ACIDOPHILUS/BULGARICUS 1 EACH TAB.CHEW GT SCH ×2 (08:10→16:30)
[2016-11-03] MEDS: ZINC SULFATE 220 MG CAPSULE GT SCH (08:10)
[2016-11-03] MEDS: DAKINS QUARTER STRENGTH (0.125%) 480 ML BOTTLE TOP SCH (09:30)
[2016-11-03] MEDS: PANTOPRAZOLE 40 MG VIAL IV SCH (09:30)
[2016-11-03] MEDS: HYDROGEL DRESSING 90 GM TUBE TP SCH (09:31)
[2016-11-03] MEDS: LEVOFLOXACIN 250 MG /D5W 50 ML 250 MG in PREMIX 1 EA IV SCH (09:32)
--- NOTE | 2016-11-03 10:00 | NUR ---
REDRYING MACHINE OPERATOR NOTES DR CABALLERO AT BEDSIDE , DISCUSSED LABS , TOLERATING CURRENT VENTILATOR SETTINGS WITH NO PEEP WITH SPO2 OF 100% WITH NO SIGNS OF DISTRESS , AFEBRILE , , AFIB UNCONTROLLED 120-160'S ,ON LEVOPHED @ 40MCG/MIN , NEOSYNEPRINE @ 300MCG/MIN , TO KEEP SBP ABOVE 90'S , NO ACTIVE BLEEDING , THICK SECRETIONS NOTED UPON SUCTIONING
--- NOTE | 2016-11-03 11:00 | NUR ---
HISTOLOGIC TECHNICIAN NOTES DR ESPINAL AT BEDSIDE , DISCUSSED LABS , , AFEBRILE , ON LEVOPHED @ 40MCG/MIN , NEOSYNEPRINE @ 300MCG/MIN , TO KEEP SBP ABOVE 90'S ,AFIB UNCONTROLLED 120-160'S , NO ACTIVE BLEEDING , THICK SECRETIONS NOTED UPON SUCTIONING , AFIB 130-140'S S/P HD 2.9 L OUT AWARE
[2016-11-03] MEDS: NOREPINEPHRINE 16 MG in IV D5W 500 ML IV PRN ×3 (11:02→23:57)
[2016-11-03] MEDS: VASOPRESSIN INJ 50 UNIT in IV D5W 497.5 ML IV PRN (13:50)
--- NOTE | 2016-11-03 15:46 | NUR ---
DULITE MACHINE BLUER NOTES DR SANCHEZ AT BEDSIDE , DISCUSSED LABS , , AFEBRILE , ON LEVOPHED @ 40MCG/MIN , NEOSYNEPRINE @ 300MCG/MIN , VASOPRESSIN @ 0.02U/MIN WITH SBP ABOVE 90'S , AFIB 120-160'S NO ACTIVE BLEEDING ,AFEBRILE , MD AWARE .
--- NOTE | 2016-11-03 16:18 | NUR ---
HETAL spoke with pt's brothers Mekhi and Jagdeep in regards to scheduling a bioethics meeting. Meeting has been confirmed for MondayNovember 07 at 9AM. respiratory services manager William confirmed the meeting with Dr. Zhao. HETAL contacted Dr. Sharma's office at and was informed he is on vacation as of November 06 for a month. Shoshana the child welfare caseworker to follow up with ARAMIS Alamo from Dr. Sharma's office to inquire if she can come to the meeting on Monday at 9AM.
[2016-11-03] MEDS: INSULIN REGULAR, HUMAN 100 UNIT/ML 3 ML VIAL SQ PRN (18:10)
--- NOTE | 2016-11-03 18:42 | NUR ---
BACON STRINGER NOTES NO LABS PER DR DON MORAN .
--- NOTE | 2016-11-03 19:30 | NUR ---
MEDICAL SAFETY DIRECTOR: RECEIVED CHRONIC VENT TRACH PT. OBTUNDED. OPENS EYES AT TIMES AND RESPONSIVE TO PAIN/TOUCH STIMULI. TOLERATING VENT SETTINGS ORDERED. NO EVIDENCE OF DISCOMFORT. CURRENTLY ON MAX. DOSAGE OF 3 VASOPRESSORS (LEVOPHED AT 40MCG/MIN, NERY. AT 300MCG/MIN AND PITRESSIN AT 0.04U/MIN). UNCONTROLLED A. FIB WT HR IN THE 130S WT NO FURTHER ORDERS FROM MD PER DAY SHIFT REPORT. AFEBRILE. GT CLAMPED WT NPO DIAGNOSIS. ANURIC. SAFETY PRECAUTION NOTED. WILL CONTINUE TO MONITOR.
[2016-11-03] MEDS: ATORVASTATIN 40 MG TABLET GT SCH (21:26)
[2016-11-04] VITALS (102 sets, daily range): BP systolic 80–110; BP diastolic 40–85
[2016-11-04] MEDS: BLOOD SUGAR DIAGNOSTIC 1 EACH STRIP IN SCH ×5 (00:01→23:42)
[2016-11-04] MEDS: PHENYLEPHRINE 80 MG in IV NS 0.9% 250 ML IV PRN ×6 (00:08→21:03)
[2016-11-04] MEDS: INSULIN REGULAR, HUMAN 100 UNIT/ML 3 ML VIAL SQ PRN ×4 (01:03→17:16)
[2016-11-04 04:42] LABS: BASOPHILS % (AUTO) 0.2 % (0.0-2.0); HEMATOCRIT 30 % (39-51); HEMOGLOBIN 9.9 g/dL (13.5-17.5); LYMPHOCYTES # (AUTO) 1.9 /CMM (0.8-4.8); LYMPHOCYTES % (AUTO) 12.2 % (20.0-44.0); MEAN CORPUSCULAR HEMOGLOBIN 31 PG (26.0-33.0); MEAN CORPUSCULAR HGB CONC 34 g/dl (31.0-36.0); MEAN CORPUSCULAR VOLUME 92 fL (80-96); MONOCYTES # (AUTO) 0.6 /CMM (0.1-1.30); NEUTROPHILS # (AUTO) 13.2 /CMM (1.8-8.9); NEUTROPHILS % (AUTO) 83.6 % (43.0-81.0); PLATELET COUNT (AUTO) 96 /CMM (150-450); RDW COEFFICIENT OF VARIATION 23.1 (11.5-15.0); RED BLOOD CELL COUNT(AUTO) 3.22 MIL/uL (4.5-6.0); WHITE BLOOD COUNT (AUTO) 15.8 K/uL (4.3-11.0)
[2016-11-04] MEDS: IV NS 0.9% 250 ML IV PRN (05:11)
[2016-11-04 05:28] LABS: ALBUMIN 1.9 g/dL (3.4-5.0); BILIRUBIN,TOTAL 7.1 mg/dL (0.2-1.0); CALCIUM, SERUM 7.8 mg/dL (8.5-10.1); CREATININE 3.9 mg/dL (0.6-1.3); MAGNESIUM 1.7 mg/dL (1.8-2.4); PHOSPHORUS 5.2 mg/dL (2.5-4.9); TOTAL PROTEIN, SERUM 4.7 g/dL (6.4-8.2)
[2016-11-04 05:52] LABS: BAND % (MANUAL) 1 % (0.0-5.0); LYMPHOCYTES % (MANUAL) 13 % (16-48); MONOCYTES % (MANUAL) 4 % (0-11.0); NEUTROPHILS % (MANUAL) 82 (42-76)
[2016-11-04 06:02] LABS: POTASSIUM 2.7 mmol/L (3.5-5.1)
[2016-11-04] MEDS ORDERED: NOREPINEPHRINE 4 MG/4 ML AMPUL IV ONE (06:17)
[2016-11-04] MEDS ORDERED: POTASSIUM CL. PREMIX PERIPHER. 50 ML ONE (06:23)
[2016-11-04] MEDS ORDERED: POTASSIUM CL. PREMIX PERIPHER. 50 ML IV SCH (06:30)
[2016-11-04] MEDS: NOREPINEPHRINE 16 MG in IV D5W 500 ML IV PRN ×4 (06:30→21:04)
--- NOTE | 2016-11-04 07:10 | NUR ---
RN INITIAL NOTES RECEIVED PT [facility]ED. [facility] WITH FF SETTINGS: AC16, TV600, FI02 35%, PEEP 0. TRACH IN PLACE. HOB ELEVATED. NO RESPIRATORY DISTRESS NOTED. NO SOB NOTED. NO SIGNS OF PAIN NOTED. A.FIB ON BEDSIDE MONITOR. [facility] HD CATH AND BETO PICC LINE IN PLACE. PT ON LEVO AT 40MCG/MIN. NERY 300MCG/MIN AND VASO AT 0.04U/MIN. WILL CLOSELY MONITOR BP. GT IN PLACE, CLAMPED. PT CLEAN AND DRY. WILL CLOSELY MONITOR.
[2016-11-04] MEDS: PANTOPRAZOLE 40 MG VIAL IV SCH (08:13)
[2016-11-04] MEDS: HYDROGEL DRESSING 90 GM TUBE TP SCH (08:14)
[2016-11-04] MEDS: DAKINS QUARTER STRENGTH (0.125%) 480 ML BOTTLE TOP SCH (08:14)
[2016-11-04] MEDS: GABAPENTIN 100 MG CAPSULE GT SCH ×2 (08:17→21:02)
[2016-11-04] MEDS: ACIDOPHILUS/BULGARICUS 1 EACH TAB.CHEW GT SCH ×2 (08:17→16:49)
[2016-11-04] MEDS: DOCUSATE SODIUM LIQ 100 MG/10 ML UDC GT SCH ×2 (08:17→16:48)
[2016-11-04] MEDS: ZINC SULFATE 220 MG CAPSULE GT SCH (08:17)
--- NOTE | 2016-11-04 08:30 | NUR ---
RN NOTES DIALYSIS STARTED. NO RESPIRATORY DISTRESS NOTED. NO SIGNS OF PAIN NOTED. HOB ELEVATED. WILL MONITOR.
--- NOTE | 2016-11-04 08:58 | NUR ---
RN NOTES SEEN AND EXAMINED BY DR. SANCHEZ. AWARE OF CURRENT LAB VALUES: WBC 15.8, HGB 9.9, HCT 30, PLATELET 96. SODIUM 127, POTASSIUM 2.7, BUN 51, CREA 3.9, MAGNESIUM 1.7. PT RECEIVING HD. TOLERATING WELL. MD NOTIFIED THAT PT HAS KCL 10MEQ X5 BAGS ORDER TO BE INFUSED FOR K LEVEL 2.7, PER MD DC KCL 10MEQ X5BAGS ORDER. NOTED AND CARRIED OUT.
[2016-11-04] MEDS: ALBUMIN 25% 25 GM in PREMIX 1 EA IV PRN (09:24)
--- NOTE | 2016-11-04 09:30 | NUR ---
RN NOTES SEEN AND EXAMINED BY DR. JULIANNA ESPINAL. AWARE OF CURRENT LAB VALUES: WBC 15.8, HGB 9.9, HCT 30, PLATELET 96. SODIUM 127, POTASSIUM 2.7, BUN 51, CREA 3.9, MAGNESIUM 1.7. DIALYSIS ONGOING. PT ON LEVO, NERY AND VASO. BP CLOSELY MONITOR. NO ORDER MADE.
[2016-11-04] MEDS: LEVOFLOXACIN 250 MG /D5W 50 ML 250 MG in PREMIX 1 EA IV SCH (11:16)
--- NOTE | 2016-11-04 11:20 | NUR ---
SW called pt's brother's Mekhi and Jagdeep and the bioethics meeting is confirmed for November 07, at 9AM.
[2016-11-04] MEDS: VASOPRESSIN INJ 50 UNIT in IV D5W 497.5 ML IV PRN (12:17)
--- NOTE | 2016-11-04 13:30 | NUR ---
RN NOTES SEEN AND EXAMINED BY DR. CABALLERO. AWARE OF PT'S STATUS. REMAINS ON [facility] VENT. ON 3 PRESSORS. AWAITING FOR BROTHER'S DECISION. WILL MONITOR.
[2016-11-04] MEDS ORDERED: VANCOMYCIN 1 GM in IV D5W 250 ML IV ONE (15:30)
--- NOTE | 2016-11-04 18:15 | NUR ---
RN NOTES RANDOM AMIKACIN LEVEL,5.8, RECEIVED FROM [facility]. FAXED RESULT TO PHARMACY. SPOKE WITH DON, DOSE HELD PER LEVEL.
--- NOTE | 2016-11-04 20:00 | NUR ---
RN NOTES RECEIVED PX OBTUNDED ON TRACH TO VENT, G TUBE CLAMPED; A FIB HR AT 120-130'S, ON MAX DOSE OF NERY AND VASOPRESSIN DRIP AND LEVO DRIP AT 38 MCG/MIN; RT BKA STUMP CLEAN AND DRY ELEVATED WITH PILLOW; SEE SKIN FLOWSHEET FOR SKIN ASSESSMENT; REPOSITIONED TO THE RIGHT, WILL OBSERVE FOR BP AT PX IS UNSTABLE ON HIGH DOSES OF 3 PRESSORS; SUCTIONED ORALLY AND TRACHEALLY.
[2016-11-04] MEDS: ATORVASTATIN 40 MG TABLET GT SCH (21:02)
--- NOTE | 2016-11-04 23:48 | NUR ---
RN NOTES CONDITION UNCHANGED; CONTINUED TITRATING LEVOPHED DRIP TO KEEP SBP MORE THAN 90; SUCTIONED ORALLY AND TRACHEALLY. Addendum: 11/04/16 at 2350 by KAREN BLANKENSHIP RN BLOOD SUGAR CHECK DONE= 183 MG/DL, WILL NOT GIVE INSULIN PATIENT IS NPO AND NOT ON A D5 CONTAINING IVF.
[2016-11-05] VITALS (109 sets, daily range): BP systolic 84–114; BP diastolic 51–80
[2016-11-05] MEDS: PHENYLEPHRINE 80 MG in IV NS 0.9% 250 ML IV PRN ×6 (01:35→22:51)
--- NOTE | 2016-11-05 04:00 | NUR ---
RN NOTES CONDITION UNCHANGED BUT CONTINUED LEVOPHED DRIP TITRATION, HOWEVER, RATE BACK TO MAX DOSE AGAIN BP BARELY SUSTAINS AT SBP 90'S, CLEANED PX AND CHANGED GOWN AND BED LINENS; WOUND DRESSINGS CHANGED FOLLOWING MD ORDER; PERINEAL CARE GIVEN; TRACH CARE RENDERED. OVERALL PROCEDURES TOLERATED.
[2016-11-05] MEDS: NOREPINEPHRINE 16 MG in IV D5W 500 ML IV PRN ×3 (04:10→18:34)
[2016-11-05] MEDS: BLOOD SUGAR DIAGNOSTIC 1 EACH STRIP IN SCH ×4 (05:53→23:52)
--- NOTE | 2016-11-05 06:15 | NUR ---
RN NOTES CLOSING CONTINUED ON 3 PRESSORS, TITRATING TO KEEP SBP MORE THAN 90; A FIB HR 120-140; NO NEW SKIN BREAKDOWN, NO BM; WILL CONTINUE TO MONITOR.
--- NOTE | 2016-11-05 07:15 | NUR ---
RN INITIAL NOTES RECEIVED PT ON MECH VENT WITH FF SETTINGS: AC16, TV600, FI02 35%, PEEP 0. TRACH IN PLACE. HOB ELEVATED. NO RESPIRATORY DISTRESS NOTED. NO SOB NOTED. NO SIGNS OF PAIN NOTED. [facility] HD CATH AND BETO PICC LINE IN PLACE. PT ON LEVO AT 36MCG/MIN, NERY 300MCG/MIN AND VASO AT 0.04U/MIN. WILL CLOSELY MONITOR BP. GT IN PLACE, CLAMPED. PT CLEAN AND DRY. PT COMFORTABLE. WILL CLOSELY MONITOR.
[2016-11-05] MEDS: DAKINS QUARTER STRENGTH (0.125%) 480 ML BOTTLE TOP SCH (08:31)
[2016-11-05] MEDS: PANTOPRAZOLE 40 MG VIAL IV SCH (08:31)
[2016-11-05] MEDS: VASOPRESSIN INJ 50 UNIT in IV D5W 497.5 ML IV PRN ×2 (08:31→18:39)
[2016-11-05] MEDS: HYDROGEL DRESSING 90 GM TUBE TP SCH (08:32)
[2016-11-05] MEDS: ZINC SULFATE 220 MG CAPSULE GT SCH (08:38)
[2016-11-05] MEDS: GABAPENTIN 100 MG CAPSULE GT SCH ×2 (08:38→21:02)
[2016-11-05] MEDS: ACIDOPHILUS/BULGARICUS 1 EACH TAB.CHEW GT SCH ×2 (08:38→17:00)
[2016-11-05] MEDS: DOCUSATE SODIUM LIQ 100 MG/10 ML UDC GT SCH ×2 (08:38→17:00)
--- NOTE | 2016-11-05 09:00 | NUR ---
RN NOTES SEEN AND EXAMINED BY DR. JULIANNA ESPINAL. AWARE OF CURRENT STATUS. TOLERATING VENT WELL. REMAINS ON 3 PRESSORS, WILL TITRATE ACCORDINGLY. HD DONR YESTERDAY, 800ML OUT. BIOETHICS ON MONDAY. NO NEW ORDER.
[2016-11-05] MEDS: AMIKACIN 500 MG in IV D5W 100 ML IV PRN (09:37)
[2016-11-05] MEDS: LEVOFLOXACIN 250 MG /D5W 50 ML 250 MG in PREMIX 1 EA IV SCH (10:13)
[2016-11-05] MEDS: INSULIN REGULAR, HUMAN 100 UNIT/ML 3 ML VIAL SQ PRN ×3 (11:38→23:54)
--- NOTE | 2016-11-05 15:20 | NUR ---
RN NOTES SEEN AND EXAMINED BY DR. AYALA. PT REMAINS ON A.FIB, HR RANGES 120-140S. ON 3 PRESSORS, TITRATING ACCORDINGLY. BP RANGES 80S-100S. [facility], TOLERATING WELL. INFORMED MD THAT PT WILL HAVE BIOETHICS ON MONDAY. [facility] [place], [place] ORDER TO TITRATE LEVO FIRST CLARIFIED. PT IS ON LEVO, NERY AND VASO. PER , OK TO TITRATE LEVO FIRST. NO ORDER MADE.
--- NOTE | 2016-11-05 18:50 | NUR ---
RN CLOSING NOTES NO SIGNIFICANT CHANGE NOTED. REMAINS ON 3 PRESSORS, TITRATED ACCORDINGLY. BP CLOSELY MONITORED. KEPT CLEAN AND DRY. REPOSITIONED Q2. TX ORDERED. KEPT COMFORTABLE.
--- NOTE | 2016-11-05 20:27 | NUR ---
PARTITION NOTCHER DF RECEIVED PT TO ROOM#262 PT OBTUNDED PT OPENS EYES SPONTANEOUSLY AT TIMES,DOES NOT FOLLOW COMMANDS,DOES NOT TRACK. BUE/BLE FLACCID. PT WITH TRACH TO VENT TOLERATING CURRENT VENT SETTINGS 02 SAT OF 100%. AFIB UNCONTROLLED ON MONITOR RATE OF 125-140. PT ON MAX RATES OF VASOPRESSORS NEOSYNEPHRINE @300MCG LEVOPHED GTT @ 36MCG VASOPRESSIN AT 0.04 UNITS/HR.(CARDIOLOGY MD AYALA AWARE OF PT STATUS NO FURTHER ORDERS) PT NPO WITH GT CLAMPED. PT HEMODIALYSIS PT ACCESS VIA LEFT IJ HD CATH. PT WITH SACRAL WOUND COVERED WITH DRESSING C/D/I.
[2016-11-05] MEDS: ATORVASTATIN 40 MG TABLET GT SCH (22:22)
[2016-11-06] VITALS (98 sets, daily range): BP systolic 62–110; BP diastolic 27–75
[2016-11-06] MEDS: PHENYLEPHRINE 80 MG in IV NS 0.9% 250 ML IV PRN ×5 (02:39→19:50)
[2016-11-06] MEDS: NOREPINEPHRINE 16 MG in IV D5W 500 ML IV PRN ×4 (02:40→21:55)
[2016-11-06 05:12] LABS: HEMATOCRIT 28 % (39-51); HEMOGLOBIN 9.2 g/dL (13.5-17.5); LYMPHOCYTES # (AUTO) 1.4 /CMM (0.8-4.8); LYMPHOCYTES % (AUTO) 6.4 % (20.0-44.0); MEAN CORPUSCULAR HEMOGLOBIN 31 PG (26.0-33.0); MEAN CORPUSCULAR HGB CONC 33 g/dl (31.0-36.0); MEAN CORPUSCULAR VOLUME 92 fL (80-96); MONOCYTES # (AUTO) 1.1 /CMM (0.1-1.30); MONOCYTES % (AUTO) 5.1 % (2.0-12.0); NEUTROPHILS # (AUTO) 19.8 /CMM (1.8-8.9); NEUTROPHILS % (AUTO) 88.5 % (43.0-81.0); PLATELET COUNT (AUTO) 57 /CMM (150-450); RED BLOOD CELL COUNT(AUTO) 3.02 MIL/uL (4.5-6.0); WHITE BLOOD COUNT (AUTO) 22.4 K/uL (4.3-11.0)
[2016-11-06 05:17] LABS: CALCIUM, SERUM 7.1 mg/dL (8.5-10.1); CREATININE 3.3 mg/dL (0.6-1.3); POTASSIUM 3.1 mmol/L (3.5-5.1)
[2016-11-06 05:49] LABS: BAND % (MANUAL) 2 % (0.0-5.0); LYMPHOCYTES % (MANUAL) 5 % (16-48); MONOCYTES % (MANUAL) 2 % (0-11.0); NEUTROPHILS % (MANUAL) 91 (42-76)
[2016-11-06] MEDS: BLOOD SUGAR DIAGNOSTIC 1 EACH STRIP IN SCH ×4 (06:33→23:35)
[2016-11-06] MEDS: INSULIN REGULAR, HUMAN 100 UNIT/ML 3 ML VIAL SQ PRN ×4 (06:34→23:38)
--- NOTE | 2016-11-06 07:35 | NUR ---
RT PATIENT REC'D TRACHED ON [facility] VENT WITH SETTINGS SET BY MD ENEDELIA CORDERO. VENT ALARMS CHECKED + AUDIBLE. VENT PLUGGED INTO RED OUTLET. PATIENT SUCTIONED WITH SMALL AMT OF PALE YELLOW SEMITHICK SECRETIONS. GIULIANO JOHNSON B/S HEARD. PEARL BAG AT [facility]. Addendum: 11/06/16 at 0853 by AMIRAH MINA RT Amended: Links added.
[2016-11-06] MEDS: ACIDOPHILUS/BULGARICUS 1 EACH TAB.CHEW GT SCH ×2 (08:16→16:38)
[2016-11-06] MEDS: ZINC SULFATE 220 MG CAPSULE GT SCH (08:16)
[2016-11-06] MEDS: DOCUSATE SODIUM LIQ 100 MG/10 ML UDC GT SCH ×2 (08:16→16:38)
[2016-11-06] MEDS: HYDROGEL DRESSING 90 GM TUBE TP PRN (08:16)
[2016-11-06] MEDS: GABAPENTIN 100 MG CAPSULE GT SCH ×2 (08:16→21:00)
[2016-11-06] MEDS: PANTOPRAZOLE 40 MG VIAL IV SCH (08:16)
[2016-11-06] MEDS: DAKINS QUARTER STRENGTH (0.125%) 480 ML BOTTLE TOP SCH (08:17)
[2016-11-06] MEDS: HYDROGEL DRESSING 90 GM TUBE TP SCH (08:17)
[2016-11-06] MEDS: LEVOFLOXACIN 250 MG /D5W 50 ML 250 MG in PREMIX 1 EA IV SCH (09:30)
--- NOTE | 2016-11-06 09:57 | NUR ---
UNKNOWN IF SPUTUM SPECIMEN WAS COLLECTED, ORDER IN FOR 11/06/16 FOR RESP CULTURE WITH GRAM STAIN. RT COLLECTED AND NOTIFIED LAB READY FOR PICKUP.
--- NOTE | 2016-11-06 10:30 | NUR ---
HD NURSE IN FOR TX
[2016-11-06] MEDS: ALBUMIN 25% 25 GM in PREMIX 1 EA IV PRN (11:33)
--- NOTE | 2016-11-06 11:55 | NUR ---
PHARMACY CALLS AND ORDERS TO GIVE THE AMIKACIN AFTER HD TODAY. ROXANN CHANGED THE PARAMATERS, AMIKACIN WILL BE GIVEN TODAY AFTER HD. BETTINA WILL BE HELD FOR A TROUGH 21.
--- NOTE | 2016-11-06 14:47 | NUR ---
HD COMPLETE 1000 OUT. SBP IN THE [address] AYALA ON THE UNIT TOLD ABOUT THE SBP HE STATES HE WILL REVIEW THE PATIENT.
[2016-11-06] MEDS: VASOPRESSIN INJ 50 UNIT in IV D5W 497.5 ML IV PRN (15:20)
[2016-11-06] MEDS: AMIKACIN 500 MG in IV D5W 100 ML IV PRN (15:21)
--- NOTE | 2016-11-06 15:24 | NUR ---
ON 3 MAX PRESSORS D/W DR AYALA-NO FURTHER RX/RECOMMENDATIONS
--- NOTE | 2016-11-06 17:15 | NUR ---
D/W DNP DEAN SBP IN THE 60'S ON TRIPLE MAX. PRESSORS AND AGONAL BREATHING ON FULL VENT SUPPORT AND CURRENT FULL CODE STATUS-NEITHER HE NOR SERVICES REP JAMIE HAVE ANY FURTHER RECOMMENDATIONS
[2016-11-06] MEDS: VANCOMYCIN 500 MG in IV D5W 100 ML IV PRN (17:54)
--- NOTE | 2016-11-06 19:54 | NUR ---
CIRCULAR KNITTER DF RECEIVED PT TO ROOM#263 PT WITH SPONTANEOUS EYE OPENING DOES NOT TRACK DOES NOT FOLLOW COMMANDS. FLACCID BUE/BLE.PUPILS SLUGGISH @ 2MM NOTED TO PT ON MULTIPLE PRESSORS NERY@300MCG/LEVO@40MCG/VASOPRESSIN@0.04 UNITS/HR. PT SAVINGS COUNSELOR UNCONTROLLED AFIB WITH OCCASIONAL PVC, PT WITH AGONAL RESPIRATIONS 02 SAT OF 100% ON 50% FIO2 VIA TRACH.PT ABDOMEN DISTENDED HYPOACTIVE BOWEL SOUNDS. JUANDICE NOTED TO EYES/SKIN. PT LAST HEMODIALYSIS TODAY IN AM. PER MD (DEAN/JAMIE) H/P NOTES AWARE OF PT,S CRITICAL CONDITION NO FURTHER ORDERS/INTERVENTIONS AT THIS TIME. PT POC BIOETHICS MEETING IN AM OF 11/06/16. MULTIPLE DISCUSSIONS WITH PT,S FAMILY BROTHER WISHES TO KEEP PT FULL CODE STATUS AT THIS TIME.
[2016-11-06] MEDS: ATORVASTATIN 40 MG TABLET GT SCH (21:33)
[2016-11-06] MEDS ORDERED: METRONIDAZOLE 500 MG TABLET ONE (22:48)
[2016-11-06] MEDS: METRONIDAZOLE 250 MG TABLET GT SCH (23:28)
--- NOTE | 2016-11-06 23:35 | NUR ---
EMT/PARAMEDIC DF RECEIVED CRITICAL VALUE LACTIC ACID OF 4.6/DNP DEAN AWARE OF RESULTS.NO FURTHER ORDERS.
[2016-11-07] VITALS (95 sets, daily range): BP systolic 54–159; BP diastolic 31–86
[2016-11-07 01:41] LABS: BILIRUBIN,DIRECT 7.3 mg/dL (0.0-0.2); BILIRUBIN,TOTAL 9.6 mg/dL (0.2-1.0)
[2016-11-07] MEDS: PHENYLEPHRINE 80 MG in IV NS 0.9% 250 ML IV PRN ×5 (04:25→21:29)
[2016-11-07] MEDS: NOREPINEPHRINE 16 MG in IV D5W 500 ML IV PRN ×4 (04:26→21:54)
[2016-11-07 04:39] LABS: HEMATOCRIT 27 % (39-51); HEMOGLOBIN 8.9 g/dL (13.5-17.5); LYMPHOCYTES # (AUTO) 0.9 /CMM (0.8-4.8); LYMPHOCYTES % (AUTO) 2.2 % (20.0-44.0); MEAN CORPUSCULAR HEMOGLOBIN 31 PG (26.0-33.0); MEAN CORPUSCULAR HGB CONC 34 g/dl (31.0-36.0); MEAN CORPUSCULAR VOLUME 92 fL (80-96); MONOCYTES # (AUTO) 1.1 /CMM (0.1-1.30); MONOCYTES % (AUTO) 2.7 % (2.0-12.0); NEUTROPHILS # (AUTO) 36.9 /CMM (1.8-8.9); NEUTROPHILS % (AUTO) 95.1 % (43.0-81.0); RDW COEFFICIENT OF VARIATION 23.1 (11.5-15.0); RED BLOOD CELL COUNT(AUTO) 2.89 MIL/uL (4.5-6.0)
[2016-11-07 04:51] LABS: WHITE BLOOD COUNT (AUTO) 38.8 K/uL (4.3-11.0)
[2016-11-07 04:52] LABS: PLATELET COUNT (AUTO) 18 /CMM (150-450)
--- NOTE | 2016-11-07 04:58 | NUR ---
PATIENT SUPPORT PARTNER DF XRAY AND WOUND PHOTOS HELD SECONDARY PT WITH DECREASED BP OF 74/30,70/33 ON 3 VASOPRESSORS MAX RATE PT UNABLE TO TOLERATE REPOSITIONING FOR EXTENDED PERIODS HEMODYNAMICALLY UNSTABLE AT THIS TIME.
[2016-11-07 05:01] LABS: CALCIUM, SERUM 6.6 mg/dL (8.5-10.1); CREATININE 2.9 mg/dL (0.6-1.3); MAGNESIUM 1.3 mg/dL (1.8-2.4); PHOSPHORUS 3.3 mg/dL (2.5-4.9)
[2016-11-07 05:07] LABS: POTASSIUM 2.5 mmol/L (3.5-5.1)
--- NOTE | 2016-11-07 05:13 | NUR ---
MARBLE FINISHER DF RECEIVED CRITICAL VALUES WBC OF 38.8 PLATELETS OF 18 POTASSIUM OF 2.5 MAGNESIUM OF 1.3. PAGED PLACED TO HOSPITALIST AWAITING CALL BACK. Addendum: 11/07/16 at 0524 by MARKELL ROSSI RN I SPOKE WITH ELECTRIC RANGE PREPARER HERMINIA MARTÍNEZ ADVISED OF CRITICAL POTASSIUM LEVELS OF 2.5 NO ORDERS RECEIVED ADVISED TO HAVE AM ROUNDING TEAM FOLLOW UP WITH PT. PREVIOUSLY NOTED PT PENDING BIOETHICS TEAM EVAL IN THE AM.
[2016-11-07 05:51] LABS: BAND % (MANUAL) 29 % (0.0-5.0); LYMPHOCYTES % (MANUAL) 3 % (16-48); NEUTROPHILS % (MANUAL) 68 (42-76)
[2016-11-07] MEDS: METRONIDAZOLE 250 MG TABLET GT SCH ×4 (06:00→23:21)
[2016-11-07] MEDS: BLOOD SUGAR DIAGNOSTIC 1 EACH STRIP IN SCH ×4 (06:44→23:20)
--- NOTE | 2016-11-07 06:46 | NUR ---
ENDBANDER DF ACCU CHECK OF 129 NO COVERAGE PER EMAR.
--- NOTE | 2016-11-07 08:00 | NUR ---
ICU/RN PT IS CHRONIC TRACH ON THE VENT AC MODE.FIO2-35%,SAT O2-100%.ON 3 PRESSORS MAXIMUM DOSES IV RIGHT UPPER ARM PICC LINE.PT IS PT IS NPO.G-TUBE CLAMPED.PT IS ESRD,ON HD .GENERALIZED EDEMA PRESENT.LOWER BACK WOUND COVERED WITH DRESSING.SUCTION PROVIDED REPOSITION FOR COMFORT.
[2016-11-07] MEDS: ZINC SULFATE 220 MG CAPSULE GT SCH (08:34)
[2016-11-07] MEDS: ACIDOPHILUS/BULGARICUS 1 EACH TAB.CHEW GT SCH ×2 (08:34→17:31)
[2016-11-07] MEDS: PANTOPRAZOLE 40 MG VIAL IV SCH (08:35)
[2016-11-07] MEDS: GABAPENTIN 100 MG CAPSULE GT SCH ×2 (08:35→21:24)
[2016-11-07] MEDS: DAKINS QUARTER STRENGTH (0.125%) 480 ML BOTTLE TOP SCH (08:36)
[2016-11-07] MEDS: DOCUSATE SODIUM LIQ 100 MG/10 ML UDC GT SCH ×2 (08:36→17:00)
[2016-11-07] MEDS: HYDROGEL DRESSING 90 GM TUBE TP PRN (08:37)
[2016-11-07] MEDS: Z GUARD REMEDY 2 OZ OINT TP PRN (08:37)
[2016-11-07] MEDS: HYDROGEL DRESSING 90 GM TUBE TP SCH (08:38)
--- NOTE | 2016-11-07 10:03 | NUR ---
Family meeting was held with Dr. Zhao and pt's brothers Mekhi and Davis regarding a lengthy discussion regarding further plan of care. Both the brothers agreed to pt's code status to change to DNR. Davis will speak with pt's sister Teri regarding the discussion that occurred today and will notify [facility] CONSULTANT within the next 24 hours regarding [address] pt. on comfort measures.
[2016-11-07] MEDS: VASOPRESSIN INJ 50 UNIT in IV D5W 497.5 ML IV PRN (10:05)
[2016-11-07] MEDS: LEVOFLOXACIN 250 MG /D5W 50 ML 250 MG in PREMIX 1 EA IV SCH (10:09)
--- NOTE | 2016-11-07 17:00 | NUR ---
ICU/RN PM CARE PROVIDED.WOUND DRESSING DONE ORDERED.STOOL C-DIFF COLLECTED.DUE MEDS ARE GIVEN ORDERED.
[2016-11-07] MEDS: POTASSIUM CL. PREMIX PERIPHER. 50 ML IV SCH ×6 (18:46→23:49)
[2016-11-07] MEDS: Magnesium 1GM/D5W 100ML PREMIX 100 ML IV SCH ×4 (18:46→21:49)
--- NOTE | 2016-11-07 19:00 | NUR ---
RN INITIAL NOTES RECEIVED PT OBTUNDED ON BED, OPENS EYES ONLY, NON-VERBAL. CURRENTLY ON VENT, AC 16, TV 600, 50% FIO2, PEEP 0, SHILEY 8 XLT, SATURATING WELL, NO S/S OF RESP DISTRESS. CURRENTLY AFIB ON THE MONITOR, HR 110-120'S. SBP IS 60-80'S WITH MAX LEVO, NERY, AND VASO DRIPS - MD IS AWARE. PT IS ANURIC. GTUBE IS CLAMPED. LEFT CHEST WALL HD CATH INTACT. RIGHT UPPER ARM PICC FLUSHED AND PATENT, NO S/S OF INFILTRATION/INFECTION, DRESSING CDI. BED LOW AND LOCKED, SIDERAILS UP. WILL MONITOR
--- NOTE | 2016-11-07 21:00 | NUR ---
RN NOTES NOTIFIED ON-CALL COLD STORAGE WORKER ANNIE ABOUT PATIENT RECTAL TEMP OF 92.6, ARAMIS VALENCIA ORDERED MICHAEL HUGGER FOR THE PATIENT.
[2016-11-07] MEDS: ATORVASTATIN 40 MG TABLET GT SCH (21:24)
[2016-11-07] MEDS: INSULIN REGULAR, HUMAN 100 UNIT/ML 3 ML VIAL SQ PRN (23:22)
[2016-11-08] VITALS (104 sets, daily range): BP systolic 55–94; BP diastolic 23–66
[2016-11-08] MEDS: PHENYLEPHRINE 80 MG in IV NS 0.9% 250 ML IV PRN ×6 (01:12→21:07)
[2016-11-08] MEDS: VASOPRESSIN INJ 50 UNIT in IV D5W 497.5 ML IV PRN (04:17)
[2016-11-08] MEDS: NOREPINEPHRINE 16 MG in IV D5W 500 ML IV PRN ×4 (04:19→23:14)
[2016-11-08 04:46] LABS: BASOPHILS % (AUTO) 0.1 % (0.0-2.0); HEMATOCRIT 25 % (39-51); HEMOGLOBIN 8.4 g/dL (13.5-17.5); LYMPHOCYTES # (AUTO) 0.9 /CMM (0.8-4.8); LYMPHOCYTES % (AUTO) 3.6 % (20.0-44.0); MEAN CORPUSCULAR HEMOGLOBIN 31 PG (26.0-33.0); MEAN CORPUSCULAR HGB CONC 33 g/dl (31.0-36.0); MEAN CORPUSCULAR VOLUME 92 fL (80-96); MONOCYTES # (AUTO) 0.9 /CMM (0.1-1.30); MONOCYTES % (AUTO) 3.8 % (2.0-12.0); NEUTROPHILS # (AUTO) 22.1 /CMM (1.8-8.9); NEUTROPHILS % (AUTO) 92.5 % (43.0-81.0); RDW COEFFICIENT OF VARIATION 23.3 (11.5-15.0); RED BLOOD CELL COUNT(AUTO) 2.72 MIL/uL (4.5-6.0); WHITE BLOOD COUNT (AUTO) 23.8 K/uL (4.3-11.0)
[2016-11-08 05:01] LABS: PLATELET COUNT (AUTO) 18 /CMM (150-450)
[2016-11-08 05:05] LABS: CALCIUM, SERUM 6.4 mg/dL (8.5-10.1); CREATININE 2.9 mg/dL (0.6-1.3); MAGNESIUM 1.7 mg/dL (1.8-2.4); PHOSPHORUS 3.1 mg/dL (2.5-4.9)
[2016-11-08 05:15] LABS: POTASSIUM 2.8 mmol/L (3.5-5.1)
[2016-11-08 05:25] LABS: BAND % (MANUAL) 37 % (0.0-5.0); LYMPHOCYTES % (MANUAL) 3 % (16-48); METAMYELOCYTES % 2 % (0-0); MONOCYTES % (MANUAL) 5 % (0-11.0); MYELOCYTES % 2 % (0-0); NEUTROPHILS % (MANUAL) 51 (42-76)
[2016-11-08] MEDS: METRONIDAZOLE 250 MG TABLET GT SCH ×4 (05:29→23:58)
[2016-11-08] MEDS: BLOOD SUGAR DIAGNOSTIC 1 EACH STRIP IN SCH ×4 (05:29→23:58)
[2016-11-08] MEDS: INSULIN REGULAR, HUMAN 100 UNIT/ML 3 ML VIAL SQ PRN (05:30)
[2016-11-08] MEDS ORDERED: POTASSIUM CL. PREMIX PERIPHER. 50 ML ONE (05:49)
[2016-11-08] MEDS: POTASSIUM CL. PREMIX PERIPHER. 50 ML IV SCH ×2 (05:55→07:47)
--- NOTE | 2016-11-08 06:30 | NUR ---
RN CLOSING NOTES PT REMAINS TO BE MAX ON LEVO, NERY, AND VASO DRIPS WITH SBP @ 60-70'S. ALL OTHER DUE MEDS GIVEN, AM CARE PROVIDED. WILL ENDORSE BINDU TO AM RN
--- NOTE | 2016-11-08 07:15 | NUR ---
RN INITIAL NOTES RECEIVED PT [facility]. [facility]: AC16, TV600, FI02 50%, PEEP 0. TRACH IN PLACE. HOB ELEVATED. NO RESPIRATORY DISTRESS NOTED. NO SOB NOTED. NO SIGNS OF PAIN NOTED. BETO PICC IN PLACE. LCW HD CATH IN PLACE. ON NERY 300MCG/MIN, LEVO 40MCG/MIN AND VASO 0.04U/MN. SBP ON 60-70S. GT PATENT AND INTACT. PT CLEAN AND DRY. COMFORTABLE. WILL MONITOR.
[2016-11-08] MEDS: DAKINS QUARTER STRENGTH (0.125%) 480 ML BOTTLE TOP SCH (08:07)
[2016-11-08] MEDS: PANTOPRAZOLE 40 MG VIAL IV SCH (08:07)
[2016-11-08] MEDS: HYDROGEL DRESSING 90 GM TUBE TP SCH (08:07)
[2016-11-08] MEDS: DOCUSATE SODIUM LIQ 100 MG/10 ML UDC GT SCH ×3 (08:08→16:12)
--- NOTE | 2016-11-08 08:15 | NUR ---
RN NOTES SEEN AND EXAMINED BY DR. WEST. AWARE OF CURRENT LAB RESULTS: WBC 23.8, HGB 8.4, HCT 25, PLATELET 18. SODIUM 124, POTASSIUM 2.8, BUN 20, CREA 2.9, PHOS 3.1, MG 1.7. HAS KCL ORDER X 5 MORE BAGS. PER DONIS HARDY KCL ORDER. PT WILL HAVE HD TODAY. WILL MONITOR.
--- NOTE | 2016-11-08 08:20 | NUR ---
RN NOTES HD STARTED. ON 3 PRESSORS, MAX OUT. NO RESPIRATORY DISTRESS NOTED. NO SOB NOTED. NO SIGNS OF PAIN NOTED. WILL MONITOR.
[2016-11-08] MEDS: ALBUMIN 25% 25 GM in PREMIX 1 EA IV PRN (08:23)
--- NOTE | 2016-11-08 09:00 | NUR ---
RN NOTES SEEN AND EXAMINED BY DR. CABALLERO. AWARE OF CURRENT STATUS. TOLERATING VENT WELL. NO RESPIRATORY DISTRESS NOTED. NO ORDER MADE.
[2016-11-08] MEDS: ACIDOPHILUS/BULGARICUS 1 EACH TAB.CHEW GT SCH ×2 (10:03→16:12)
[2016-11-08] MEDS: GABAPENTIN 100 MG CAPSULE GT SCH ×2 (10:03→20:55)
[2016-11-08] MEDS: LEVOFLOXACIN 250 MG /D5W 50 ML 250 MG in PREMIX 1 EA IV SCH (10:03)
[2016-11-08] MEDS: ZINC SULFATE 220 MG CAPSULE GT SCH (10:03)
--- NOTE | 2016-11-08 12:13 | NUR ---
HETAL contacted pt's brother Jagdeep and left him a voicemail message requesting a call back in regards to if a decision has been made by the family for hospice care. Addendum: 11/08/16 at 1312 by DYLAN FONG HETAL called pt's brother's Mekhi as well and left him a voicemail message requesting a call back in regards to if a decision has been made by the family for hospice care.
[2016-11-08] MEDS: VANCOMYCIN 500 MG in IV D5W 100 ML IV PRN (13:01)
--- NOTE | 2016-11-08 18:37 | NUR ---
RN CLOSING NOTES PT REMAINS ON 3 PRESSORS, SBP ON 60S. NO RESPIRATORY DISTRESS NOTED. NO SOB NOTED. NO SIGNS OF PAIN NOTED. KEPT COMFORTABLE. KEPT CLEAN AND DRY. TX PROVIDED ORDERED. WILL ENDORSE FOR CONTINUITY OF CARE.
--- NOTE | 2016-11-08 20:00 | NUR ---
EXPLOSIVE ORDNANCE DISPOSAL SPECIALIST NOTES RECEIVED PT IN BED, OBTUNDED WITH MINIMAL RESPONSE TO PAIN. TELE READS UNCONTROLLED AFIB AT 122 BPM. ON VENT VIA TRACH AT ORDERED SETTINGS, ENEDELIA WELL. NPO EXCEPT MED VIA GT, NO RESIDUAL. BETO PICC IN PLACE RUNNING LEVO AT 40 MCG/MIN, NERY AT 300 MCG/MIN, VASO AT 0.04 MCG/MIN AND NS AT TKO. LEFT SUBCLAVIAN HD CATH PRESENT WITH DRESSING INTACT. HD DONE TODAY WITH NO OUTPUT. ON BARIMAX BED, TURNED AND REPOSITIONED. PT IS IN CRITICAL CONDITION. SBP IN THE 60s, MDs AWARE. PT IS DNR.
[2016-11-08] MEDS: ATORVASTATIN 40 MG TABLET GT SCH (21:03)
--- NOTE | 2016-11-08 22:20 | NUR ---
ARC TRIMMER NOTES PT'S BROTHER INGRID IS AT BEDSIDE. PT CONDITION DISCUSSED. BROTHER REQUESTS TO PLACE THE PATIENT ON COMFORT MEASURES AND STOP CARDIAC PRESSORS. DR GONZALEZ PAGED, AWAITING CALL BACK.
--- NOTE | 2016-11-08 23:00 | NUR ---
NUTRITION WORKER NOTES SPOKE TO DR GONZALEZ REGARDING PT'S BROTHER'S REQUEST FOR COMFORT MEASURES. PER DR GONZALEZ, HOLD COMFORT MEASURE UNTIL HE SEE THE PT ONE MORE TIME.
[2016-11-09] VITALS (37 sets, daily range): BP systolic 26–64; BP diastolic 14–38
[2016-11-09] MEDS: PHENYLEPHRINE 80 MG in IV NS 0.9% 250 ML IV PRN (00:22)
--- NOTE | 2016-11-09 03:30 | NUR ---
PATTERNMAKER PLASTER NOTES PER DR GONZALEZ, PLACED PT ON COMFORT MEASURES. ORDERS RECEIVED FOR MORPHINE 5 MG IVP ONCE AND TO INITIATE MORPHINE DRIP IF NEEDED AND TO STOP ALL CARDIAC PRESSORS.
[2016-11-09] MEDS ORDERED: MORPHINE SULFATE INJ 10 MG/ML DISP.SYRIN ONE (03:46)
[2016-11-09] MEDS ORDERED: MORPHINE SULFATE INJ 4 MG/ML DISP.SYRIN IV ONE (04:00)
[2016-11-09] MEDS ORDERED: MORPHINE SULFATE INJ 10 MG/ML DISP.SYRIN IV ONE (04:00)
--- NOTE | 2016-11-09 04:00 | NUR ---
QUALITY ASSURANCE GROUP LEADER NOTES MORPHINE 5MG IVP GIVEN AND ALL CARDIAC PRESSORS STOPPED. NO S/S OF PAIN OR DISTRESS. PT APPEARS COMFORTABLE.
[2016-11-09] MEDS ORDERED: MORPHINE SULFATE PF DRIP 250 MG in IV D5W 240 ML IV PRN (04:30)
--- NOTE | 2016-11-09 05:22 | NUR ---
PRONOUNCEMENT OF : PT. CODE STATUS:"DO NOT RESUSCITATE,COMFORT CARE".PT. IS UNRESPONSIVE TO ANY FORM OF STIMULI. PUPILS ARE FIXED AND DILATED. APNEIC, ABSENT RESPIRATIONS. PERIPHERAL PULSES ARE ABSENT, ON AUSCULTATION, ABSENT HEART TONES. EKG VFIB./ PEA.X 2 LEADS. NO SIGNS OF LIFE. PT. PRONOUNCED .. BY:DONAL BENJAMIN RN.
--- NOTE | 2016-11-09 05:55 | NUR ---
LAND RESOURCE SPECIALIST NOTES PT AT 0522, PRONOUNCED BY VP TALENT MANAGEMENT. 0530 NURSING INSTRUMENT PERSON NOTIFIED OF PT EXPIRING. 0555 [facility] CALLED AND NOTIFIED, CASE CLOSED. PT'S BROTHER (INGRID PARKER) CALLED, NO ANSWER, LEFT VOICEMAIL. SECURITY AT BEDSIDE, TAKING PT REMAINS TO [facility] [place] ACCOMPAN[place] BY TWO RNs. 0605 ADMITTING NOTIFIED OF PT EXPIRING. 06 DR GONZALEZ NOTIFIED. PER , HE WILL NOTIFY PAYTON MORAN AND DR URBAN TO SIGN THE CERTIFICATE.
== END 2016-11-09 05:22 | disposition expired | DRG 720 ==
LOC: ER 05:37 → ICU 07:46
PROVIDERS: ADMIT Internal Medicine; ATTEND Internal Medicine
PROC: 5A1955Z Respiratory Ventilation, Greater than 96 Consecutive Hours (ICD-10-PCS; principal; 2016-10-25)
PROC: 30233R1 Transfusion of Nonautologous Platelets into Peripheral Vein, Percutaneous Approach (ICD-10-PCS; principal; 2016-10-25)
PROC: 02HV33Z Insertion of Infusion Device into Superior Vena Cava, Percutaneous Approach (ICD-10-PCS; principal; 2016-10-25)
DX: A41.9 Sepsis, unspecified organism (principal); J96.21 Acute and chronic respiratory failure with hypoxia; R65.21 Severe sepsis with septic shock; G92 Toxic encephalopathy; E43 Unspecified severe protein-calorie malnutrition; G93.1 Anoxic brain damage, not elsewhere classified; J18.9 Pneumonia, unspecified organism; I13.2 Hypertensive heart and chronic kidney disease with heart failure and with stage 5 chronic kidney disease, or end stage renal disease; L89.154 Pressure ulcer of sacral region, stage 4; L89.894 Pressure ulcer of other site, stage 4; Z99.11 Dependence on respirator [ventilator] status; J44.0 Chronic obstructive pulmonary disease with (acute) lower respiratory infection; D68.59 Other primary thrombophilia; E11.22 Type 2 diabetes mellitus with diabetic chronic kidney disease; D69.6 Thrombocytopenia, unspecified; D64.9 Anemia, unspecified; E05.90 Thyrotoxicosis, unspecified without thyrotoxic crisis or storm; E11.69 Type 2 diabetes mellitus with other specified complication; E27.40 Unspecified adrenocortical insufficiency; E66.01 Morbid (severe) obesity due to excess calories; E78.5 Hyperlipidemia, unspecified; E86.9 Volume depletion, unspecified; E87.6 Hypokalemia; I25.10 Atherosclerotic heart disease of native coronary artery without angina pectoris; I25.5 Ischemic cardiomyopathy; I35.0 Nonrheumatic aortic (valve) stenosis; I50.22 Chronic systolic (congestive) heart failure; J96.22 Acute and chronic respiratory failure with hypercapnia; J98.11 Atelectasis; K46.9 Unspecified abdominal hernia without obstruction or gangrene; M19.90 Unspecified osteoarthritis, unspecified site; M85.80 Other specified disorders of bone density and structure, unspecified site; E11.51 Type 2 diabetes mellitus with diabetic peripheral angiopathy without gangrene; Z79.4 Long term (current) use of insulin; Z79.84 Long term (current) use of oral hypoglycemic drugs; N18.6 End stage renal disease; Q21.1 Atrial septal defect; R13.10 Dysphagia, unspecified; R53.2 Functional quadriplegia; Z51.5 Encounter for palliative care; Z66 Do not resuscitate; Z79.01 Long term (current) use of anticoagulants; Z79.899 Other long term (current) drug therapy; Z86.59 Personal history of other mental and behavioral disorders; Z99.2 Dependence on renal dialysis; Z95.1 Presence of aortocoronary bypass graft; Z93.0 Tracheostomy status; Z91.19 Patient's noncompliance with other medical treatment and regimen; Z89.511 Acquired absence of right leg below knee; Z87.891 Personal history of nicotine dependence; Z86.718 Personal history of other venous thrombosis and embolism; Z68.41 Body mass index [BMI] 40.0-44.9, adult; Y95 Nosocomial condition; M86.10 Other acute osteomyelitis, unspecified site; M86.60 Other chronic osteomyelitis, unspecified site; I48.91 Unspecified atrial fibrillation; E11.42 Type 2 diabetes mellitus with diabetic polyneuropathy
CPT/HCPCS: 31720; 36415; 36600; 71010-TC; 80048-TC; 80053-TC; 80076-TC; 80150; 80202-TC; 82247-TC; 82248-TC; 82533; 82962-TC; 83605-TC; 83735-TC; 84100-TC; 84484-TC; 85025-TC; 85396; 85610-TC; 85730-TC; 86850-TC; 87040-TC; 87070-TC; 87081-TC; 87086-TC; 87186-TC; 90935-TC; 94002-TC; 94003-TC; 94762-TC; 99082-TC; A4216; A4606; A6248; A6253; A6402; A6403; C1769; C9113; J0278; J1720; J1815; J1956; J2270; J2370; J2543; J3370; J3475; J3480; J3490; J7030; J7040; J7050; J7060; P9047; Z7610